=== PATIENT | male | born 1950 | race Caucasian/White ===

== ENCOUNTER 2019-01-10 10:56 | Observation (INO) | payer OTHER, MEDICARE ==
[2019-01-10] MEDS ORDERED: PANTOPRAZOLE 40 MG/10 ML VIAL IVP STA (12:31)
--- NOTE | 2019-01-10 12:35 | ED ---
General Adult HPI - General Chief complaint: GI Bleed Stated complaint: GI BLEED Time Seen by Provider: 01/10/19 12:04 Source: patient, family, RN notes reviewed Mode of arrival: ambulatory Limitations: no limitations - History of Present Illness Initial comments: Patient is a pleasant 68-year-old male presenting to the emergency department with dark tarry stools. Onset of symptoms was a day and a half ago. Patient does have history of similar symptoms a proximal he one year ago associated with a diverticular bleed however bowel movements were accommodation of blood and black at that time. At this point there only dark tarry. No abdominal pain. No nausea vomiting. The fevers. No weakness or fatigue. - Related Data Home Medications Medication Instructions Recorded Confirmed Furosemide [Lasix] 80 mg PO BID 01/10/19 01/10/19 Gabapentin [Neurontin] 800 mg PO QID 01/10/19 01/10/19 Insulin Glargine,Hum.rec.anlog 48 unit SQ DAILY 01/10/19 01/10/19 [Lantus Solostar] Levothyroxine Sodium [Synthroid] 75 mcg PO DAILY 01/10/19 01/10/19 Metoprolol Succinate (ER) [Toprol 100 mg PO BID 01/10/19 01/10/19 Xl] Olmesartan/Hydrochlorothiazide 1 tab PO DAILY 01/10/19 01/10/19 [Olmesartan-Hctz 20-12.5 mg Tab] Testosterone Cream 200mg/Ml 1 applic TOPICAL BID 01/10/19 01/10/19 glipiZIDE [Glucotrol] 10 mg PO BID 01/10/19 01/10/19 sitaGLIPtin PHOSPHATE [Januvia] 100 mg PO DAILY 01/10/19 01/10/19 Allergies Allergy/AdvReac Type Severity Reaction Status Date / Time No Known Allergies Allergy Verified 01/10/19 12:24 Review of Systems ROS Statement: Those systems with pertinent positive or pertinent negative responses have been documented in the HPI. ROS Other: All systems not noted in ROS Statement are negative. Constitutional: Denies: fever Eyes: Denies: eye pain ENT: Denies: ear pain Respiratory: Denies: dyspnea Cardiovascular: Denies: chest pain Endocrine: Denies: fatigue Gastrointestinal: Reports: melena. Denies: abdominal pain, nausea, vomiting Genitourinary: Denies: dysuria Musculoskeletal: Denies: back pain Skin: Denies: rash Neurological: Denies: weakness Past Medical History Past Medical History: Diabetes Mellitus, Hyperlipidemia, Hypertension, Thyroid Disorder History of Any Multi-Drug Resistant Organisms: None Reported Past Surgical History: Bariatric Surgery, Cardiac Ablation, Hernia Repair Past Psychological History: No Psychological Hx Reported Smoking Status: Former smoker Past Alcohol Use History: Occasional Past Drug Use History: None Reported General Exam Limitations: no limitations General appearance: alert, in no apparent distress Head exam: Present: atraumatic Eye exam: Present: normal appearance Neck exam: Present: normal inspection Respiratory exam: Present: normal lung sounds bilaterally Cardiovascular Exam: Present: regular rate, normal rhythm GI/Abdominal exam: Present: soft. Absent: distended, tenderness Rectal exam: Present: black stool Extremities exam: Present: normal inspection. Absent: pedal edema, calf tenderness Neurological exam: Present: alert Psychiatric exam: Present: normal affect, normal mood Skin exam: Present: normal color Course Vital Signs 01/10/19 01/10/19 11:18 13:45 Temperature 98.8 F Pulse Rate 81 79 Respiratory 16 18 Rate Blood Pressure 188/89 139/83 O2 Sat by Pulse 96 99 Oximetry Medical Decision Making - Medical Decision Making Patient reevaluated and resting comfortably in bed. Patient and family updated on results and plan. Case was discussed in detail with Dr. Ambrosio, who will admit for hospital call and did come evaluate the patient. - Lab Data Result diagrams: 01/10/19 12:42 01/10/19 12:42 Lab Results 01/10/19 01/10/19 01/10/19 Range/Units 12:42 12:42 12:42 WBC 6.3 (3.8-10.6) k/uL RBC 4.15 L (4.30-5.90) m/uL Hgb 13.0 (13.0-17.5) gm/dL Hct 40.2 (39.0-53.0) % MCV 96.9 (80.0-100.0) fL MCH 31.3 (25.0-35.0) pg MCHC 32.3 (31.0-37.0) g/dL RDW 13.4 (11.5-15.5) % Plt Count 168 (150-450) k/uL Neutrophils % 65 % Lymphocytes % 20 % Monocytes % 8 % Eosinophils % 2 % Basophils % 1 % Neutrophils # 4.1 (1.3-7.7) k/uL Lymphocytes # 1.3 (1.0-4.8) k/uL Monocytes # 0.5 (0-1.0) k/uL Eosinophils # 0.2 (0-0.7) k/uL Basophils # 0.0 (0-0.2) k/uL PT 11.5 (9.0-12.0) sec INR 1.1 (<1.2) APTT 25.3 (22.0-30.0) sec Sodium 141 (137-145) mmol/L Potassium 4.8 (3.5-5.1) mmol/L Chloride 102 (98-107) mmol/L Carbon Dioxide 29 (22-30) mmol/L Anion Gap 10 mmol/L BUN 47 H (9-20) mg/dL Creatinine 1.02 (0.66-1.25) mg/dL Est GFR (CKD-EPI)AfAm 88 (>60 ml/min/1.73 sqM) Est GFR (CKD-EPI)NonAf 76 (>60 ml/min/1.73 sqM) Glucose 193 H (74-99) mg/dL Calcium 9.9 (8.4-10.2) mg/dL Total Bilirubin 1.1 (0.2-1.3) mg/dL AST 70 H (17-59) U/L ALT 60 (21-72) U/L Alkaline Phosphatase 57 (38-126) U/L Total Protein 7.5 (6.3-8.2) g/dL Albumin 4.2 (3.5-5.0) g/dL Stool Occult Blood (Negative) 01/10/19 Range/Units 12:42 WBC (3.8-10.6) k/uL RBC (4.30-5.90) m/uL Hgb (13.0-17.5) gm/dL Hct (39.0-53.0) % MCV (80.0-100.0) fL MCH (25.0-35.0) pg MCHC (31.0-37.0) g/dL RDW (11.5-15.5) % Plt Count (150-450) k/uL Neutrophils % % Lymphocytes % % Monocytes % % Eosinophils % % Basophils % % Neutrophils # (1.3-7.7) k/uL Lymphocytes # (1.0-4.8) k/uL Monocytes # (0-1.0) k/uL Eosinophils # (0-0.7) k/uL Basophils # (0-0.2) k/uL PT (9.0-12.0) sec INR (<1.2) APTT (22.0-30.0) sec Sodium (137-145) mmol/L Potassium (3.5-5.1) mmol/L Chloride (98-107) mmol/L Carbon Dioxide (22-30) mmol/L Anion Gap mmol/L BUN (9-20) mg/dL Creatinine (0.66-1.25) mg/dL Est GFR (CKD-EPI)AfAm (>60 ml/min/1.73 sqM) Est GFR (CKD-EPI)NonAf (>60 ml/min/1.73 sqM) Glucose (74-99) mg/dL Calcium (8.4-10.2) mg/dL Total Bilirubin (0.2-1.3) mg/dL AST (17-59) U/L ALT (21-72) U/L Alkaline Phosphatase (38-126) U/L Total Protein (6.3-8.2) g/dL Albumin (3.5-5.0) g/dL Stool Occult Blood Positive (Negative) - Radiology Data Radiology results: image reviewed (X-ray showed nonspecific findings.) Disposition Clinical Impression: Gastrointestinal hemorrhage Disposition: ADMITTED IP TO THIS [facility] Is patient prescribed a controlled substance at d/c from ED?: No Referrals: Nonstaff,Physician [Primary Care Provider] - 1-2 days Decision Time: 14:55
[2019-01-10 13:06] LABS: Basophils % (A) 1 %; Eosinophils # (A) 0.2 k/uL (0-0.7); Eosinophils % (A) 2 %; HCT 40.2 % (39.0-53.0); Lymphocytes # (A) 1.3 k/uL (1.0-4.8); Lymphocytes % (A) 20 %; MCH 31.3 pg (25.0-35.0); MCHC 32.3 g/dL (31.0-37.0); MCV 96.9 fL (80.0-100.0); Monocytes # (A) 0.5 k/uL (0-1.0); Monocytes % (A) 8 %; Neutrophils # (A) 4.1 k/uL (1.3-7.7); Neutrophils % (A) 65 %; Platelet Count 168 k/uL (150-450); RBC 4.15 m/uL (4.30-5.90); RDW 13.4 % (11.5-15.5); WBC 6.3 k/uL (3.8-10.6)
[2019-01-10 13:19] LABS: Albumin 4.2 g/dL (3.5-5.0); Calcium 9.9 mg/dL (8.4-10.2); Potassium 4.8 mmol/L (3.5-5.1); Total Bilirubin 1.1 mg/dL (0.2-1.3); Total Protein 7.5 g/dL (6.3-8.2)
[2019-01-10 13:30] LABS: INR 1.1 (<1.2); Partial Thromboplastin Time 25.3 sec (22.0-30.0); Prothrombin Time 11.5 sec (9.0-12.0)
--- NOTE | 2019-01-10 13:35 | XR ---
EXAMINATION TYPE: XR abdomen 1V DATE OF EXAM: 01/10/2019 1:28 PM CLINICAL HISTORY: GI bleed or hemorrhage TECHNIQUE: 3 Upright KUB images of the abdomen are obtained. COMPARISON: None. FINDINGS: Vertical skin treva overlie the abdomen. Surgical clips epigastric region are seen. Scatt ered gas is seen in slightly prominent small and large bowel loops. No pneumoperitoneum. Metallic john dware from left hip surgery is partially imaged. There is moderate to advanced axial joint space loss and moderate acetabular spurring in the right hip. Visualized lung bases are clear. IMPRESSION: Overall nonobstructive bowel gas pattern is felt present.
[2019-01-10] MEDS ORDERED: NALOXONE 0.4 MG/ML 1 ML VIAL IV PRN (14:57)
[2019-01-10] MEDS: SODIUM CHLORIDE 0.9% 1,000 ML IV SCH (15:19)
[2019-01-10 17:06] VITALS: BMI 39.8
[2019-01-10 20:54] LABS: Glucose,Whole Blood 134 mg/dL (75-99)
[2019-01-10 21:21] LABS: HCT 36.6 % (39.0-53.0); HGB 12.2 gm/dL (13.0-17.5); MCH 32.6 pg (25.0-35.0); MCHC 33.4 g/dL (31.0-37.0); MCV 97.7 fL (80.0-100.0); Mean Platelet Volume 8.9; Platelet Count 155 k/uL (150-450); RBC 3.75 m/uL (4.30-5.90); RDW 13.4 % (11.5-15.5); WBC 5.2 k/uL (3.8-10.6)
[2019-01-10] MEDS: METOPROLOL SUCCINATE (ER) 100 MG TAB.ER.24H PO SCH (23:57)
[2019-01-10] MEDS: GABAPENTIN 400 MG CAP PO SCH (23:57)
[2019-01-11] MEDS: SODIUM CHLORIDE 0.9% 1,000 ML IV SCH ×3 (00:01→20:01)
[2019-01-11 03:26] LABS: Hemoglobin A1C 6.8 % (4.0-6.0)
[2019-01-11 07:19] LABS: HCT 39.3 % (39.0-53.0); HGB 11.9 gm/dL (13.0-17.5); MCH 30.5 pg (25.0-35.0); MCHC 30.4 g/dL (31.0-37.0); MCV 100.4 fL (80.0-100.0); Mean Platelet Volume 8.8; Platelet Count 166 k/uL (150-450); RBC 3.91 m/uL (4.30-5.90); WBC 6.4 k/uL (3.8-10.6)
[2019-01-11 07:20] LABS: Glucose,Whole Blood 177 mg/dL (75-99)
[2019-01-11] MEDS: GABAPENTIN 400 MG CAP PO SCH ×4 (08:18→21:24)
[2019-01-11] MEDS: FUROSEMIDE 80 MG TAB PO SCH ×2 (08:18→21:24)
[2019-01-11] MEDS: METOPROLOL SUCCINATE (ER) 100 MG TAB.ER.24H PO SCH ×2 (08:18→21:24)
[2019-01-11] MEDS: LINAGLIPTIN 5 MG TABLET PO SCH (08:18)
[2019-01-11] MEDS: LOSARTAN 50 MG TAB PO SCH (08:19)
[2019-01-11] MEDS: PANTOPRAZOLE 40 MG/10 ML VIAL IV SCH (08:19)
[2019-01-11] MEDS: HYDROCHLOROTHIAZIDE 12.5 MG CAP PO SCH (08:19)
[2019-01-11] MEDS: LEVOTHYROXINE 75 MCG TAB PO SCH (08:20)
--- NOTE | 2019-01-11 10:50 | P.GSCN ---
<Hrelinda Alejandre - Last Filed: 01/11/19 12:06> History of Present Illness Consult date: 01/11/19 Reason for Consult: gi bleed Requesting physician: Brant Barrios History of present illness: CHIEF COMPLAINT: dark tarry stools HISTORY OF PRESENT ILLNESS: 68-year-old male who presented to the emergency room due to black tarry stools. Patient states he began having dark tarry stools on Tuesday night. He did not tell his until late Tuesday because he thought it would go away on its own. Patient denies nausea or vomiting. Denies hematemesis. Denies bright red blood per rectum. Patient denies anticoagulation. Denies use of aspirin, motrin, aleve, etc. He reports drinking alcohol about 4 times a week which includes a glass or two of wine. Hemoglobin on admission was 13.0. Repeat this morning 11.9. Patient does report he was hospitalized in January 2018 at [facility] secondary to rectal bleeding. The patient underwent EGD which revea led normal findings. He also underwent colonoscopy at that time which revealed one medium sized diverticulum in the sigmoid colon with evidence of recent bleeding from the diverticular opening as well as ulceration within. 2 hemostatic clips were placed. Patients reports hemoglobin during that hospitalization was in the 7's and patient required RBC transfusion. PAST MEDICAL HISTORY: See list. PAST SURGICAL HISTORY: See list. SOCIAL HISTORY: No illicit drug use. Reports ETOH use 4x weekly. REVIEW OF SYSTEMS: CONSTITUTIONAL: Denies fever or chills. HEENT: Denies blurred vision, vision changes, or eye pain. Denies hemoptysis CARDIOVASCULAR: Denies chest pain or pressure. RESPIRATORY: No shortness of breath. GASTROINTESTINAL: Refer to HPI for pertinent findings HEMATOLOGIC: Denies bleeding disorders. GENITOURINARY: Denies any blood in urine. SKIN: Denies pruitis. Denies rash. PHYSICAL EXAM: VITAL SIGNS: Reviewed. GENERAL: Well-developed in no acute distress. HEENT: No sclera icterus. Extraocular movements grossly intact. Moist buccal mucosa. Head is atraumatic, normocephalic. ABDOMEN: Soft. Nondistended. Nontender. NEUROLOGIC: Alert and oriented. Cranial nerves II through XII grossly intact. ASSESSMENT: 1. GI bleed, patient reports dark tarry stools 2. Acute blood loss anemia secondary to above 3. Regular alcohol use, reportts wine consumption 4x weekly 4. History of EGD/colonoscopy 01/2018 revealing diverticular bleed with placement of 2 hemostatic clips PLAN: 1. NPO 2. Continue IV fluids 3. Monitor hemoglobin 4. Patient to undergo EGD today with Dr. Aragon Nurse practitioner note has been reviewed by physician. Signing provider agrees with the documented findings, assessment, and plan of care. Past Medical History Past Medical History: Atrial Fibrillation, Diabetes Mellitus, GI Bleed, Hyperlipidemia, Hypertension, Sleep Apnea/CPAP/BIPAP, Thyroid Disorder Additional Past Medical History / Comment(s): diverticulitis History of Any Multi-Drug Resistant Organisms: None Reported Past Surgical History: Bariatric Surgery, Cardiac Ablation, Hernia Repair, Joint Replacement Additional Past Surgical History / Comment(s): Boils lanced in past. Blephoplasty. Left hip replaced. Past Anesthesia/Blood Transfusion Reactions: No Reported Reaction Past Psychological History: No Psychological Hx Reported Smoking Status: Former smoker Past Alcohol Use History: Daily Past Drug Use History: None Reported - Past Family History Father Family Medical History: Cancer, Hypertension Additional Family Medical History / Comment(s): from lung cancer at 62 years old. Mother Family Medical History: No Reported History Additional Family Medical History / Comment(s): Mother passed at age 62 due to an auto accident. Medications and Allergies Home Medications Medication Instructions Recorded Confirmed Type Furosemide [Lasix] 80 mg PO BID 01/10/19 01/10/19 History Gabapentin [Neurontin] 800 mg PO QID 01/10/19 01/10/19 History Insulin Glargine,Hum.rec.anlog 48 unit SQ DAILY 01/10/19 01/10/19 History [Lantus Solostar] Levothyroxine Sodium [Synthroid] 75 mcg PO DAILY 01/10/19 01/10/19 History Metoprolol Succinate (ER) [Toprol 100 mg PO BID 01/10/19 01/10/19 History Xl] Olmesartan/Hydrochlorothiazide 1 tab PO DAILY 01/10/19 01/10/19 History [Olmesartan-Hctz 20-12.5 mg Tab] Testosterone Cream 200mg/Ml 1 applic TOPICAL BID 01/10/19 01/10/19 History glipiZIDE [Glucotrol] 10 mg PO BID 01/10/19 01/10/19 History sitaGLIPtin PHOSPHATE [Januvia] 100 mg PO DAILY 01/10/19 01/10/19 History Allergies Allergy/AdvReac Type Severity Reaction Status Date / Time No Known Allergies Allergy Verified 01/10/19 12:24 Surgical - Exam Vital Signs Temp Pulse Resp BP Pulse Ox 98.8 F 81 16 188/89 96 01/10/19 11:18 01/10/19 11:18 01/10/19 11:18 01/10/19 11:18 01/10/19 11:18 Results - Labs 01/11/19 07:02 01/10/19 12:42 Abnormal Lab Results - Last 24 Hours (Table) 01/10/19 01/10/19 01/10/19 Range/Units 12:42 12:42 20:43 RBC 4.15 L 3.75 L (4.30-5.90) m/uL Hgb 12.2 L (13.0-17.5) gm/dL Hct 36.6 L (39.0-53.0) % MCV (80.0-100.0) fL MCHC (31.0-37.0) g/dL BUN 47 H (9-20) mg/dL Glucose 193 H (74-99) mg/dL POC Glucose (mg/dL) (75-99) mg/dL Hemoglobin A1c (4.0-6.0) % AST 70 H (17-59) U/L 01/10/19 01/10/19 01/11/19 Range/Units 20:43 20:51 07:02 RBC 3.91 L (4.30-5.90) m/uL Hgb 11.9 L (13.0-17.5) gm/dL Hct (39.0-53.0) % MCV 100.4 H (80.0-100.0) fL MCHC 30.4 L (31.0-37.0) g/dL BUN (9-20) mg/dL Glucose (74-99) mg/dL POC Glucose (mg/dL) 134 H (75-99) mg/dL Hemoglobin A1c 6.8 H (4.0-6.0) % AST (17-59) U/L 01/11/19 Range/Units 07:13 RBC (4.30-5.90) m/uL Hgb (13.0-17.5) gm/dL Hct (39.0-53.0) % MCV (80.0-100.0) fL MCHC (31.0-37.0) g/dL BUN (9-20) mg/dL Glucose (74-99) mg/dL POC Glucose (mg/dL) 177 H (75-99) mg/dL Hemoglobin A1c (4.0-6.0) % AST (17-59) U/L Diabetes panel 01/10/19 01/10/19 Range/Units 12:42 20:43 Sodium 141 (137-145) mmol/L Potassium 4.8 (3.5-5.1) mmol/L Chloride 102 (98-107) mmol/L Carbon Dioxide 29 (22-30) mmol/L BUN 47 H (9-20) mg/dL Creatinine 1.02 (0.66-1.25) mg/dL Glucose 193 H (74-99) mg/dL Hemoglobin A1c 6.8 H (4.0-6.0) % Calcium 9.9 (8.4-10.2) mg/dL AST 70 H (17-59) U/L ALT 60 (21-72) U/L Alkaline Phosphatase 57 (38-126) U/L Total Protein 7.5 (6.3-8.2) g/dL Albumin 4.2 (3.5-5.0) g/dL Calcium panel 01/10/19 Range/Units 12:42 Calcium 9.9 (8.4-10.2) mg/dL Albumin 4.2 (3.5-5.0) g/dL Pituitary panel 01/10/19 Range/Units 12:42 Sodium 141 (137-145) mmol/L Potassium 4.8 (3.5-5.1) mmol/L Chloride 102 (98-107) mmol/L Carbon Dioxide 29 (22-30) mmol/L BUN 47 H (9-20) mg/dL Creatinine 1.02 (0.66-1.25) mg/dL Glucose 193 H (74-99) mg/dL Calcium 9.9 (8.4-10.2) mg/dL Adrenal panel 01/10/19 Range/Units 12:42 Sodium 141 (137-145) mmol/L Potassium 4.8 (3.5-5.1) mmol/L Chloride 102 (98-107) mmol/L Carbon Dioxide 29 (22-30) mmol/L BUN 47 H (9-20) mg/dL Creatinine 1.02 (0.66-1.25) mg/dL Glucose 193 H (74-99) mg/dL Calcium 9.9 (8.4-10.2) mg/dL Total Bilirubin 1.1 (0.2-1.3) mg/dL AST 70 H (17-59) U/L ALT 60 (21-72) U/L Alkaline Phosphatase 57 (38-126) U/L Total Protein 7.5 (6.3-8.2) g/dL Albumin 4.2 (3.5-5.0) g/dL <Brandyn Aragon - Last Filed: 01/11/19 14:29> History of Present Illness History of present illness: As above. We'll proceed with upper endoscopy at this time. Further recommendations will follow. Surgical - Exam Vital Signs Temp Pulse Resp BP Pulse Ox 98.8 F 81 16 188/89 96 01/10/19 11:18 01/10/19 11:18 01/10/19 11:18 01/10/19 11:18 01/10/19 11:18 Results - Labs 01/11/19 07:02 01/10/19 12:42 Abnormal Lab Results - Last 24 Hours (Table) 01/10/19 01/10/19 01/10/19 Range/Units 20:43 20:43 20:51 RBC 3.75 L (4.30-5.90) m/uL Hgb 12.2 L (13.0-17.5) gm/dL Hct 36.6 L (39.0-53.0) % MCV (80.0-100.0) fL MCHC (31.0-37.0) g/dL POC Glucose (mg/dL) 134 H (75-99) mg/dL Hemoglobin A1c 6.8 H (4.0-6.0) % Triglycerides (<150) mg/dL Cholesterol (<200) mg/dL LDL Cholesterol, Calc (0-99) mg/dL 01/11/19 01/11/19 01/11/19 Range/Units 07:02 07:02 07:13 RBC 3.91 L (4.30-5.90) m/uL Hgb 11.9 L (13.0-17.5) gm/dL Hct (39.0-53.0) % MCV 100.4 H (80.0-100.0) fL MCHC 30.4 L (31.0-37.0) g/dL POC Glucose (mg/dL) 177 H (75-99) mg/dL Hemoglobin A1c (4.0-6.0) % Triglycerides 219 H (<150) mg/dL Cholesterol 208 H (<200) mg/dL LDL Cholesterol, Calc 124 H (0-99) mg/dL 01/11/19 Range/Units 12:06 RBC (4.30-5.90) m/uL Hgb (13.0-17.5) gm/dL Hct (39.0-53.0) % MCV (80.0-100.0) fL MCHC (31.0-37.0) g/dL POC Glucose (mg/dL) 208 H (75-99) mg/dL Hemoglobin A1c (4.0-6.0) % Triglycerides (<150) mg/dL Cholesterol (<200) mg/dL LDL Cholesterol, Calc (0-99) mg/dL Diabetes panel 01/10/19 01/11/19 Range/Units 20:43 07:02 Hemoglobin A1c 6.8 H (4.0-6.0) % Triglycerides 219 H (<150) mg/dL HDL Cholesterol 40 (40-60) mg/dL
[2019-01-11 12:11] LABS: Glucose,Whole Blood 208 mg/dL (75-99)
[2019-01-11 12:37] LABS: Cholesterol 208 mg/dL (<200); HDL Cholesterol 40 mg/dL (40-60); LDL Cholesterol,Calculated 124 mg/dL (0-99); Triglycerides 219 mg/dL (<150)
[2019-01-11] MEDS ORDERED: PROPOFOL 10 MG/ML 20 ML VIAL IV ONE (14:17)
[2019-01-11] MEDS ORDERED: IV FLUID CONTINUATION 600 ML IV ONE (14:20)
--- NOTE | 2019-01-11 14:50 | P.PCN ---
Date of Procedure: 01/11/19 Procedure(s) Performed: Preoperative Dx: Upper GI bleed Postoperative Dx: Gastritis, post sleeve gastrectomy Procedure: EGD with Bx Anesthesia: Sedation Endoscopist: Dr. Aragon Specimens: Antrum Endoscopic Procedure: The patient was on the endoscopy table in the left decubitus position. The Olympus gastroscope was inserted into the oropharynx and passed under direct visualization to the region of the third portion of the duodenum. From that point the scope was slowly withdrawn inspecting all surfaces carefully. There were no neoplastic inflammatory or polypoid lesions throughout the duodenum. The pylorus was widely patent. The stomach was carefully inspected. There was evidence of previous sleeve gastrectomy. Patient had a small diverticulum noted. The patient's antrum had evidence of gastritis. Several biopsies took place. No ulcerations or obvious bleeding was seen. We could not retroflex the scope because of the previous sleeve gastrectomy. The patient's esophagus was examined and appeared otherwise normal. The patient was then taken to the recovery room in stable condition per anesthesia guidelines. Recommendations: Await biopsy results. Antiacid therapy. If bleeding persists may require colonoscopy.
[2019-01-11] MEDS: INSULIN DETEMIR (LEVEMIR) 100 UNIT/ML SYR SQ SCH (15:15)
[2019-01-11 15:33] LABS: HCT 37.7 % (39.0-53.0); HGB 11.8 gm/dL (13.0-17.5); MCH 31.2 pg (25.0-35.0); MCHC 31.4 g/dL (31.0-37.0); MCV 99.2 fL (80.0-100.0); Mean Platelet Volume 9.8; Platelet Count 121 k/uL (150-450); RDW 12.9 % (11.5-15.5); WBC 4.4 k/uL (3.8-10.6)
[2019-01-11 17:56] LABS: Glucose,Whole Blood 154 mg/dL (75-99)
[2019-01-11 20:44] LABS: Glucose,Whole Blood 152 mg/dL (75-99)
[2019-01-12] MEDS: LEVOTHYROXINE 75 MCG TAB PO SCH (05:43)
[2019-01-12] MEDS: SODIUM CHLORIDE 0.9% 1,000 ML IV SCH ×2 (05:45→13:09)
[2019-01-12 06:58] LABS: Glucose,Whole Blood 190 mg/dL (75-99)
[2019-01-12] MEDS: LINAGLIPTIN 5 MG TABLET PO SCH (08:20)
[2019-01-12] MEDS: HYDROCHLOROTHIAZIDE 12.5 MG CAP PO SCH (08:20)
[2019-01-12] MEDS: LOSARTAN 50 MG TAB PO SCH (08:20)
[2019-01-12] MEDS: METOPROLOL SUCCINATE (ER) 100 MG TAB.ER.24H PO SCH (08:20)
[2019-01-12] MEDS: FUROSEMIDE 80 MG TAB PO SCH (08:20)
[2019-01-12] MEDS: GABAPENTIN 400 MG CAP PO SCH ×2 (08:20→13:09)
[2019-01-12] MEDS: PANTOPRAZOLE 40 MG/10 ML VIAL IV SCH (08:20)
[2019-01-12] MEDS: INSULIN DETEMIR (LEVEMIR) 100 UNIT/ML SYR SQ SCH (08:26)
[2019-01-12 11:24] LABS: Glucose,Whole Blood 233 mg/dL (75-99)
[2019-01-12 11:29] LABS: Basophils % (A) 1 %; Eosinophils # (A) 0.1 k/uL (0-0.7); Eosinophils % (A) 3 %; HCT 38.5 % (39.0-53.0); HGB 12.6 gm/dL (13.0-17.5); Lymphocytes # (A) 1.2 k/uL (1.0-4.8); Lymphocytes % (A) 23 %; MCHC 32.7 g/dL (31.0-37.0); MCV 97.7 fL (80.0-100.0); Monocytes # (A) 0.4 k/uL (0-1.0); Monocytes % (A) 8 %; Neutrophils # (A) 3.2 k/uL (1.3-7.7); Neutrophils % (A) 62 %; Platelet Count 146 k/uL (150-450); RBC 3.94 m/uL (4.30-5.90); RDW 13.4 % (11.5-15.5); WBC 5.1 k/uL (3.8-10.6)
[2019-01-12 13:03] VITALS: BP 121/89; PULSE 80; RESP 20; TEMP 97.7
--- NOTE | 2019-01-12 13:58 | P.PN ---
<Herlinda Alejandre - Last Filed: 01/12/19 13:55> Subjective Progress Note Date: 01/12/19 CHIEF COMPLAINT: dark tarry stools HISTORY OF PRESENT ILLNESS: Patient underwent EGD yesterday revealing gastritis. Patient reports occasional small dark tarry stools, but significantly less than before hospitalization. He reports he has to wear a pad he is unable to control the drainage from his rectum. Denies abdominal pain. Denies nausea or vomiting. Tolerating diet. Hemoglobin 12.6. PHYSICAL EXAM: VITAL SIGNS: Reviewed. GENERAL: Well-developed in no acute distress. HEENT: No sclera icterus. Extraocular movements grossly intact. Moist buccal mucosa. Head is atraumatic, normocephalic. ABDOMEN: Soft. Nondistended. Nontender. NEUROLOGIC: Alert and oriented. Cranial nerves II through XII grossly intact. ASSESSMENT: 1. GI bleed, patient reports dark tarry stools 2. Acute blood loss anemia secondary to above 3. Regular alcohol use, reportts wine consumption 4x weekly 4. History of EGD/colonoscopy 01/2018 revealing diverticular bleed with placement of 2 hemostatic clips PLAN: Patient reports decreased black tarry stools. Hemoglobin remains stable. No plans for colonoscopy at this time. Continue diet. Nurse practitioner note has been reviewed by physician. Signing provider agrees with the documented findings, assessment, and plan of care. Objective - Vital Signs Vital signs: Vital Signs Temp 97.7 F 01/12/19 13:02 Pulse 80 01/12/19 13:02 Resp 20 01/12/19 13:02 BP 121/89 01/12/19 13:02 Pulse Ox 94 L 01/12/19 13:02 Intake & Output 01/11/19 01/12/19 01/12/19 18:59 06:59 18:59 Intake Total 100 400 Balance 100 400 Intake: IV 100 Oral 400 Other: Voiding Method Toilet # Voids 3 1 # Bowel Movements 0 - Labs CBC & Chem 7: 01/12/19 10:58 01/10/19 12:42 Labs: Abnormal Lab Results - Last 24 Hours (Table) 01/11/19 01/11/19 01/11/19 Range/Units 15:23 17:47 20:12 RBC 3.80 L (4.30-5.90) m/uL Hgb 11.8 L (13.0-17.5) gm/dL Hct 37.7 L (39.0-53.0) % Plt Count 121 L (150-450) k/uL POC Glucose (mg/dL) 154 H 152 H (75-99) mg/dL 01/12/19 01/12/19 01/12/19 Range/Units 06:56 10:58 11:23 RBC 3.94 L (4.30-5.90) m/uL Hgb 12.6 L (13.0-17.5) gm/dL Hct 38.5 L (39.0-53.0) % Plt Count 146 L (150-450) k/uL POC Glucose (mg/dL) 190 H 233 H (75-99) mg/dL <Brandyn Araogn - Last Filed: 01/12/19 15:15> Subjective As above. Patient had a small melanotic stool earlier today. No pain. Hemoglobin stable. Options again reviewed with the patient. Recommend follow- up with Dr. Torres to discuss endoscopic evaluation of the remnant stomach. Stable for discharge. Patient follow-up if bleeding persists. Objective - Vital Signs Vital signs: Vital Signs Temp 97.7 F 01/12/19 13:02 Pulse 80 01/12/19 13:02 Resp 20 01/12/19 13:02 BP 121/89 01/12/19 13:02 Pulse Ox 94 L 01/12/19 13:02 Intake & Output 01/11/19 01/12/19 01/12/19 18:59 06:59 18:59 Intake Total 100 400 Balance 100 400 Intake: IV 100 Oral 400 Other: Voiding Method Toilet Toilet # Voids 3 1 4 # Bowel Movements 0 1 - Labs CBC & Chem 7: 01/12/19 10:58 01/10/19 12:42 Labs: Abnormal Lab Results - Last 24 Hours (Table) 01/11/19 01/11/19 01/11/19 Range/Units 15:23 17:47 20:12 RBC 3.80 L (4.30-5.90) m/uL Hgb 11.8 L (13.0-17.5) gm/dL Hct 37.7 L (39.0-53.0) % Plt Count 121 L (150-450) k/uL POC Glucose (mg/dL) 154 H 152 H (75-99) mg/dL 01/12/19 01/12/19 01/12/19 Range/Units 06:56 10:58 11:23 RBC 3.94 L (4.30-5.90) m/uL Hgb 12.6 L (13.0-17.5) gm/dL Hct 38.5 L (39.0-53.0) % Plt Count 146 L (150-450) k/uL POC Glucose (mg/dL) 190 H 233 H (75-99) mg/dL
--- NOTE | 2019-01-12 21:53 | PN ---
PROGRESS NOTE CHIEF COMPLAINT: Probable upper GI hemorrhage. HISTORY OF PRESENT ILLNESS: This gentleman has been stable during the night. He has not had any further melena or hematochezia. Hemoglobin has dropped slightly. Pulse and blood pressure are normal. PHYSICAL EXAM: Chest is clear. Cardiac exam is normal. Abdomen is soft, nontender. IMPRESSION: Gastrointestinal bleed. PLAN: Endoscopy today and continue to monitor hemoglobin. MMODL / IJN: [id number] /
--- NOTE | 2019-01-13 07:51 | DS ---
DISCHARGE SUMMARY CHIEF COMPLAINT: GI bleed. HISTORY OF PRESENT ILLNESS AND PHYSICAL EXAM: Details of this man's history and physical can be found in the initial workup. LABORATORY STUDIES: While he was in the hospital, he had laboratory studies, details of which can be found in the laboratory section of his chart. COURSE IN HOSPITAL: After admission, he was placed on bedrest, started on intravenous fluids and no further suggestive bleeding. He was seen by Gastroenterology and taken for an endoscopy, which demonstrated no definite source of bleeding. He was stable and it was felt that he could go home and if he has further difficulty, he will undergo colonoscopy. FINAL DIAGNOSES: 1. Probable upper gastrointestinal bleed. 2. Blood loss anemia. 3. Hypertension. 4. Diabetes mellitus. OPERATIONS: None. CONSULTATION: Gastroenterology. He is improved. MMODL / IJN: [id number] /
--- NOTE | 2019-01-15 17:44 | HP ---
HISTORY AND PHYSICAL CHIEF COMPLAINT: GI bleed. HISTORY OF PRESENT ILLNESS: This is the first known admission for this 68-year-old obese white male. He came to the emergency room when he started to pass melanotic stool. He had no abdominal pain. He has had no indigestion, nausea, vomiting, hematemesis, bright red bleeding, etc. He had GI bleeding several years ago and was told that it was due to "diverticulitis." He is admitted for observation and further workup. His vital signs are normal. REVIEW OF SYSTEMS: He has had no headaches, CVAs, difficulty with the vision or the hearing, chest pain, cough, hemoptysis, shortness of breath, heart disease, history of ulcer disease, pancreatitis, liver disease, acute renal failure, hematuria, dysuria, etc. Past medical history, family history, and personal and social histories reveal that he does have a history of diabetes and hypertension. He also has peripheral neuropathy. He is NOT ALLERGIC TO ANY MEDICATION. He had a gastric bypass and umbilical herniorrhaphy. He has atrial fibrillation with 3 attempted ablations. He does not smoke. PHYSICAL EXAMINATION: Blood pressure is 136/84 with a pulse of 76, respirations of 21. He is afebrile. In general he appeared to be overweight, in no acute distress. Skin color was normal. Skin was warm and dry. Face was flushed. Head, ears, eyes, nose, mouth and throat were normal. Neck veins were not distended. Carotids were normal. The chest was clear. Cardiac exam was normal except for what sounded like atrial fibrillation. Abdomen was soft and nontender and it was very protuberant. Bowel sounds were heard. Extremities were normal. Neurologically he is intact. IMPRESSION: 1. Gastrointestinal bleeding, source unknown. 2. History of lower gastrointestinal bleed in the past. 3. History of hypertension. 4. History of diabetes. PLAN: 1. Bed rest. 2. IV fluids. 3. Monitor vital signs, hemoglobin and GI bleeding. 4. GI consult. MMODL / IJN: [id number] /
== END 2019-01-12 16:21 | disposition home or self-care (01) ==
LOC: EC 10:56 → 4MS4W 14:57
PROVIDERS: ADMIT Family Medicine; ATTEND Family Medicine
DX: K92.1 Melena (principal); D50.0 Iron deficiency anemia secondary to blood loss (chronic); I10 Essential (primary) hypertension; E11.42 Type 2 diabetes mellitus with diabetic polyneuropathy; E78.5 Hyperlipidemia, unspecified; K29.50 Unspecified chronic gastritis without bleeding; E03.9 Hypothyroidism, unspecified; I48.91 Unspecified atrial fibrillation; G47.33 Obstructive sleep apnea (adult) (pediatric); E66.9 Obesity, unspecified; Z68.39 Body mass index [BMI] 39.0-39.9, adult; Z79.890 Hormone replacement therapy; Z79.4 Long term (current) use of insulin; Z79.899 Other long term (current) drug therapy; Z98.84 Bariatric surgery status; Z98.0 Intestinal bypass and anastomosis status; Z87.891 Personal history of nicotine dependence; Z87.19 Personal history of other diseases of the digestive system; Z99.89 Dependence on other enabling machines and devices; Z80.1 Family history of malignant neoplasm of trachea, bronchus and lung
CPT/HCPCS: 96376; 96361 ×2; 96374; 99285; 36415; 88305; 80061; 80053; 85025 ×2; 85027 ×2; 85610; 85730; 82272; 83036; 74018; 43239; G0378 ×3; J2704; C9113 ×3

== ENCOUNTER 2020-09-15 10:36 | Day surgery (SDC) | payer MEDICARE, OTHER ==
[2020-09-11 15:10] VITALS: BMI 38.5
[~2020-09-15 10:36] MED LIST: LACTATED RINGERS 1,000 ML IV SCH; LIDOCAINE 1% (10MG/ML) FOR IV START INTRADERMA PRN
[2020-09-15 11:03] VITALS: RESP 16; TEMP 97.1
[2020-09-15 11:09] LABS: Glucose,Whole Blood 239 mg/dL (75-99)
[2020-09-15] MEDS ORDERED: INSULIN ASPART (NovoLOG) 100 UNIT/ML VIAL SQ ONE (11:12)
[2020-09-15] MEDS ORDERED: PROPOFOL 10 MG/ML 20 ML VIAL IV ONE (11:30)
--- NOTE | 2020-09-15 12:47 | P.PCN ---
Date of Procedure: 09/15/20 Description of Procedure: BRIEF HISTORY: Patient is a 70-year-old male presenting for outpatient colonoscopy for melena and stool positive for occult blood. Last colonoscopy 4 years ago by report. No abdominal pain reported. Bowel movements have been dark and tested positive for occult blood. PROCEDURE PERFORMED: Colonoscopy with polypectomy and gold probe ablation of AVM. PREOPERATIVE DIAGNOSIS: Melena, stool testing positive for occult blood, last colonoscopy 4 years ago with polypectomy by report patient. ESTIMATED BLOOD LOSS: Minimal. IV sedation per Anesthesia. PROCEDURE: After informed consent was obtained, the patient, was brought into the endoscopy unit. IV sedation was administered by Anesthesia under continuous monitoring. Digital rectal examination was normal. Initially the Olympus CF-190 flexible video colonoscope was then inserted in the rectum, gradually advanced into the cecum without any difficulty. Careful examination was performed as the scope was gradually being withdrawn. Ileocecal valve and the appendiceal orifice were visualized and appeared normal. Prep was fair with liquid stool throughout the colon. Mucosa of the cecum, ascending colon, transverse colon, descending colon, sigmoid colon, and rectum appeared normal. Multiple diverticula noted throughout the colon. A nonbleeding ascending colon AVM was treated with gold probe ablation. Cold snare polypectomy of polyps measuring 4 mm in size from the ascending colon 3 from the splenic flexure and from the descending colon 2. 2 transverse polyps measuring 9-11 mm in size removed with hot snare polypectomy. 15 mm descending colon polyp removed with hot snare polypectomy with Endo Clip placement for hemostasis. Retroflexion was performed in the rectum and no lesions were seen. The patient tolerated the procedure well. IMPRESSION: 6 polyps removed with cold snare polypectomy 3 from ascending colon, one from the splenic flexure and 2 from the descending colon. 2 transverse colon polyps removed with hot snare polypectomy. Large descending colon polyp removed with hot snare polypectomy with Endo Clip placement for hemostasis. Mild pandiverticulosis. Nonbleeding ascending colon AVM treated with gold probe ablation. RECOMMENDATIONS: Findings of this examination were discussed with the patient and his family. Okay to resume diet. Avoid anticoagulation therapy for the next 24 hours. Okay to resume diet. Continue current medical management. Patient will need repeat colonoscopy for further evaluation in 6 months due to fair prep and multiple polyps removed.
[2020-09-15 13:01] VITALS: BP 122/71; PULSE 81
== END 2020-09-15 13:46 | disposition home or self-care (01) ==
LOC: ORWHC2ENDO 10:36
PROVIDERS: ATTEND Internal Medicine
DX: D12.2 Benign neoplasm of ascending colon (principal); D12.4 Benign neoplasm of descending colon; D12.3 Benign neoplasm of transverse colon; K55.21 Angiodysplasia of colon with hemorrhage; K57.31 Diverticulosis of large intestine without perforation or abscess with bleeding; E78.5 Hyperlipidemia, unspecified; G47.33 Obstructive sleep apnea (adult) (pediatric); N28.9 Disorder of kidney and ureter, unspecified; G62.9 Polyneuropathy, unspecified; Z86.010 Personal history of colon polyps; Z98.890 Other specified postprocedural states; Z87.891 Personal history of nicotine dependence; Z79.899 Other long term (current) drug therapy; Z79.890 Hormone replacement therapy; Z79.4 Long term (current) use of insulin; Z98.84 Bariatric surgery status; Z87.19 Personal history of other diseases of the digestive system
CPT/HCPCS: 88305; 45382; 45385; J2704

== ENCOUNTER 2021-03-12 07:03 | Day surgery (SDC) | payer MEDICARE, OTHER ==
[2021-03-10 12:41] VITALS: BMI 38.0
[~2021-03-12 07:03] MED LIST changes: -LIDOCAINE 1% (10MG/ML) FOR IV START INTRADERMA PRN
[2021-03-12 07:23] VITALS: RESP 18; TEMP 97.9
[2021-03-12] MEDS ORDERED: LIDOCAINE 1% (10MG/ML) FOR IV START INTRADERMA ONE (07:32)
[2021-03-12 07:46] LABS: Glucose,Whole Blood 120 mg/dL (75-99)
[2021-03-12] MEDS ORDERED: PROPOFOL 10 MG/ML 20 ML VIAL IV ONE (07:50)
--- NOTE | 2021-03-12 08:24 | P.PCN ---
Date of Procedure: 03/12/21 Description of Procedure: BRIEF HISTORY: Patient is a 71-year-old male presenting for repeat colonoscopy for high-risk colon polyps and inadequate prep. Last colonoscopy 6 months ago with inadequate prep and polypectomy. No change in bowel habits. No abdominal pain. PROCEDURE PERFORMED: Colonoscopy with polypectomy. PREOPERATIVE DIAGNOSIS: High-risk colon polyps, last colonoscopy 6 months ago with an adequate prep and polypectomy. ESTIMATED BLOOD LOSS: Minimal. IV sedation per Anesthesia. PROCEDURE: After informed consent was obtained, the patient, was brought into the endoscopy unit. IV sedation was administered by Anesthesia under continuous monitoring. Digital rectal examination was normal. Initially the Olympus CF-190 flexible video colonoscope was then inserted in the rectum, gradually advanced into the cecum without any difficulty. Careful examination was performed as the scope was gradually being withdrawn. Ileocecal valve and the appendiceal orifice were visualized and appeared normal. Prep was excellent. Mucosa of the cecum, ascending colon, transverse colon, descending colon, sigmoid colon, and rectum appeared normal with a few scattered diverticula both small and large in appearance seen throughout the colon. 2 diminutive polyps removed from the ileo cecal valve measuring 1-2 mm in size with cold forcep polypectomy. One diminutive polyp removed from the transverse colon measuring 1 mm in size with cold forcep polypectomy. Retroflexion was performed in the rectum and no lesions were seen, Internal hemorrhoids. The patient tolerated the procedure well. IMPRESSION: 3 diminutive polyps removed from the ileocecal valve 2 and transverse colon. Moderate osullivan diverticulosis. Internal hemorrhoids. RECOMMENDATIONS: Findings of this examination were discussed with the patient and his family. Okay to resume diet. Okay to resume medications except for anticoagulation therapy which should be resumed tomorrow. Await pathology from a polypectomies. Recommend repeat colonoscopy in 3 years for colon polyps pending pathology from polypectomy.
[2021-03-12 08:33] VITALS: BP 136/73; PULSE 68
== END 2021-03-12 09:11 | disposition home or self-care (01) ==
LOC: ORWHC2ENDO 07:03
PROVIDERS: ATTEND Internal Medicine
DX: Z12.11 Encounter for screening for malignant neoplasm of colon (principal); D12.0 Benign neoplasm of cecum; Z98.890 Other specified postprocedural states; K57.30 Diverticulosis of large intestine without perforation or abscess without bleeding; K64.8 Other hemorrhoids; I48.91 Unspecified atrial fibrillation; I10 Essential (primary) hypertension; E78.5 Hyperlipidemia, unspecified; G47.33 Obstructive sleep apnea (adult) (pediatric); E11.40 Type 2 diabetes mellitus with diabetic neuropathy, unspecified; E07.9 Disorder of thyroid, unspecified; M10.9 Gout, unspecified; Z79.890 Hormone replacement therapy; Z87.891 Personal history of nicotine dependence; Z79.4 Long term (current) use of insulin; Z79.899 Other long term (current) drug therapy
CPT/HCPCS: 88305; 45380; J2704

== ENCOUNTER 2021-07-01 15:38 | Inpatient (IN) | payer OTHER, MEDICARE ==
[2021-07-01 16:47] LABS: Glucose,Whole Blood 270 mg/dL (75-99)
[2021-07-01 17:04] LABS: INR 1.2 (<1.2); Partial Thromboplastin Time 26.2 sec (22.0-30.0); Prothrombin Time 12.5 sec (9.0-12.0)
--- NOTE | 2021-07-01 17:04 | ED ---
Neuro HPI - General Chief Complaint: Neuro Symptoms/Deficit Stated Complaint: AMS, Time Seen by Provider: 07/01/21 16:10 Source: family Mode of arrival: wheelchair Limitations: no limitations - History of Present Illness Is the patient presenting with stroke symptoms?: Yes Initial Comments: 71-year-old male with past medical history of diabetes, A. fib who presents emergency department with slurred speech, expressive aphasia, flat affect and some confusion. His at bedside and helps provide history. States that her began having some confusion on Tuesday. He was attempting to do some math regarding his insulin dose and was having difficulty. Also attempted to balance checkbook which is usually an easy task for him however he could not and the had to help. She states he has had a flat affect which is not typical for his personality. She was concerned for stroke however states she did not bring him in sooner because he was not having any weakness in his extremities. Patient does admit that he has some difficulty finding his words. Denies any chest pain or shortness of breath. He is not on any anticoagulation as he had a GI bleed in the past. No fevers or chills. No head trauma. No previous history of stroke. No other alleviating, precipitating or modifying factors - Related Data Home Medications: Home Medications Medication Instructions Recorded Confirmed Furosemide [Lasix] 80 mg PO BID 01/10/19 07/01/21 Gabapentin [Neurontin] 800 mg PO QID 01/10/19 07/01/21 Insulin Glargine,Hum.rec.anlog 25 unit SQ Q12H 01/10/19 07/01/21 [Lantus Solostar Pen] Levothyroxine Sodium [Synthroid] 75 mcg PO DAILY 01/10/19 07/01/21 Allopurinol [Zyloprim] 200 mg PO DAILY 09/11/20 07/01/21 Alogliptin Benzoate [Alogliptin] 25 mg PO DAILY 09/11/20 07/01/21 Ferrous Sulfate [Feosol] 325 mg PO DAILY 09/11/20 07/01/21 Losartan-Hctz 50-12.5 mg [Hyzaar 1 tab PO DAILY 09/11/20 07/01/21 50-12.5] Pravastatin Sodium [Pravachol] 20 mg PO HS 09/11/20 07/01/21 Ammonium Lactate Cream [Lac-Hydrin 1 applic TOPICAL BID PRN 07/01/21 07/01/21 12% Cream] Clindamycin Lotion 1% 1 applic TOPICAL BID PRN 07/01/21 07/01/21 Dextrose Chew [Glucose Chew Tab] 16 gm PO DAILY PRN 07/01/21 07/01/21 Fluticasone Nasal [place] [Flonase 2 spray EA NOSTRIL DAILY PRN 07/01/21 07/01/21 Nasal [place]] Insulin Glargine,Hum.rec.anlog See Protocol SQ Q12H PRN 07/01/21 07/01/21 [Lantus Solostar Pen] Psyllium Husk (with Sugar) 1 tsp PO DAILY PRN 07/01/21 07/01/21 [Metamucil Powder] Sildenafil Citrate 50 mg PO DAILY PRN 07/01/21 07/01/21 Testosterone [Androgel 1.62% Gel 2 pump TOPICAL DAILY 07/01/21 07/01/21 Pump] Allergies/Adverse Reactions: Allergies Allergy/AdvReac Type Severity Reaction Status Date / Time No Known Allergies Allergy Verified 07/01/21 17:44 Review of Systems ROS Statement: Those systems with pertinent positive or pertinent negative responses have been documented in the HPI. ROS Other: All systems not noted in ROS Statement are negative. General Exam Limitations: altered mental status General appearance: alert, in no apparent distress Head exam: Present: atraumatic, normocephalic, normal inspection Eye exam: Present: normal appearance, PERRL, EOMI. Absent: scleral icterus, c onjunctival injection, periorbital swelling ENT exam: Present: mucous membranes dry Neck exam: Present: normal inspection. Absent: tenderness, meningismus, lymphadenopathy Respiratory exam: Present: normal lung sounds bilaterally. Absent: respiratory distress, wheezes, rales, rhonchi, stridor Cardiovascular Exam: Present: regular rate, normal rhythm, normal heart sounds. Absent: systolic murmur, diastolic murmur, rubs, gallop, clicks Neurological exam: Present: alert, oriented X3, other (very mild expressive aphasia - transient but recurrent) Psychiatric exam: Present: flat affect Skin exam: Present: warm, dry, intact, normal color. Absent: rash Stroke MDM - Lab Data Result diagrams: 07/09/21 06:45 07/09/21 06:45 Lab Results 07/01/21 07/01/21 07/01/21 Range/Units 16:45 16:45 16:45 WBC 7.0 (3.8-10.6) k/uL RBC 2.62 L (4.30-5.90) m/uL Hgb 9.1 L (13.0-17.5) gm/dL Hct 26.9 L (39.0-53.0) % MCV 102.6 H (80.0-100.0) fL MCH 34.7 (25.0-35.0) pg MCHC 33.9 (31.0-37.0) g/dL RDW 17.3 H (11.5-15.5) % Plt Count 86 L (150-450) k/uL MPV 12.2 Neutrophils % 69 % Lymphocytes % 14 % Monocytes % 10 % Eosinophils % 2 % Basophils % 1 % Neutrophils # 4.8 (1.3-7.7) k/uL Lymphocytes # 1.0 (1.0-4.8) k/uL Monocytes # 0.7 (0-1.0) k/uL Eosinophils # 0.2 (0-0.7) k/uL Basophils # 0.1 (0-0.2) k/uL Manual Slide Review Performed Large Platelets Present Poikilocytosis (manual Present Anisocytosis Slight Macrocytosis Moderate PT 12.5 H (9.0-12.0) sec INR 1.2 H (<1.2) APTT 26.2 (22.0-30.0) sec Sodium 141 (137-145) mmol/L Potassium 3.7 (3.5-5.1) mmol/L Chloride 101 (98-107) mmol/L Carbon Dioxide 24 (22-30) mmol/L Anion Gap 16 mmol/L BUN 116 H* (9-20) mg/dL Creatinine 5.74 H (0.66-1.25) mg/dL Est GFR (CKD-EPI)AfAm 11 (>60 ml/min/1.73 sqM) Est GFR (CKD-EPI)NonAf 9 (>60 ml/min/1.73 sqM) Glucose 275 H (74-99) mg/dL POC Glucose (mg/dL) (75-99) mg/dL POC Glu Administrative Support Clerk ID Calcium 9.5 (8.4-10.2) mg/dL Total Bilirubin 2.1 H (0.2-1.3) mg/dL AST 74 H (17-59) U/L ALT 41 (4-49) U/L Alkaline Phosphatase 71 (38-126) U/L Troponin I (0.000-0.034) ng/mL Total Protein 8.2 (6.3-8.2) g/dL Albumin 4.1 (3.5-5.0) g/dL 07/01/21 07/01/21 Range/Units 16:45 16:45 WBC (3.8-10.6) k/uL RBC (4.30-5.90) m/uL Hgb (13.0-17.5) gm/dL Hct (39.0-53.0) % MCV (80.0-100.0) fL MCH (25.0-35.0) pg MCHC (31.0-37.0) g/dL RDW (11.5-15.5) % Plt Count (150-450) k/uL MPV Neutrophils % % Lymphocytes % % Monocytes % % Eosinophils % % Basophils % % Neutrophils # (1.3-7.7) k/uL Lymphocytes # (1.0-4.8) k/uL Monocytes # (0-1.0) k/uL Eosinophils # (0-0.7) k/uL Basophils # (0-0.2) k/uL Manual Slide Review Large Platelets Poikilocytosis (manual Anisocytosis Macrocytosis PT (9.0-12.0) sec INR (<1.2) APTT (22.0-30.0) sec Sodium (137-145) mmol/L Potassium (3.5-5.1) mmol/L Chloride (98-107) mmol/L Carbon Dioxide (22-30) mmol/L Anion Gap mmol/L BUN (9-20) mg/dL Creatinine (0.66-1.25) mg/dL Est GFR (CKD-EPI)AfAm (>60 ml/min/1.73 sqM) Est GFR (CKD-EPI)NonAf (>60 ml/min/1.73 sqM) Glucose (74-99) mg/dL POC Glucose (mg/dL) 270 H (75-99) mg/dL POC Glu Administrative Support Clerk ID Courtney Still Calcium (8.4-10.2) mg/dL Total Bilirubin (0.2-1.3) mg/dL AST (17-59) U/L ALT (4-49) U/L Alkaline Phosphatase (38-126) U/L Troponin I 0.039 H* (0.000-0.034) ng/mL Total Protein (6.3-8.2) g/dL Albumin (3.5-5.0) g/dL - Medical Decision Making Upon arrival patient was placed into trauma bay 2. A thorough history and physical exam was performed. Onset of symptoms was on Tuesday. Patient has a NIH of 1 at this time for expressive aphasia. He does go over for CT imaging. Laboratory studies are conducted. Review the studies demonstrate a hemoglobin of 9.1. Platelet 86. BUN 116 with a creatinine of 5.7. Glucose 275. Troponin 0.039. CT of the brain demonstrates cerebral atrophy with no acute abnormality. Chest x-ray demonstrates no active cardiopulmonary disease. Results are discussed the patient. Byrd is place for kidney failure. Patient does have immediate release of a liter of urine. This is clamped off. Her 20 minutes it is released in the patient does have an additional 500 mL in his bladder. Renal ultrasound performed. Did recommend admission for nephrology and neurology consultation. Patient was given an aspirin. He did agree to this plan. Spoke with Dr. jean-baptiste who agree to admit the patient. Patient currently awaiting a bed on the floor 07/01/21 17:03 EKG demonstrates questionable sinus rhythm with PACs vs possible afib. Rate of 68. VT interval 248. QRS 192. QTC 544 Repeat EKG at 1756 demonstrates possible A. fib with a rate of 70. VT interval 220. QRS 152. QTC of 565. Right bundle branch block. Past Medical History Past Medical History: Atrial Fibrillation, Diabetes Mellitus, GI Bleed, Hyperlipidemia, Hypertension, Skin Disorder, Sleep Apnea/CPAP/BIPAP, Thyroid Disorder Additional Past Medical History / Comment(s): diverticulitis, hx colon polyp, gout, little bumps and dry skin, neuropathy patty legs and feet, hx anemia History of Any Multi-Drug Resistant Organisms: None Reported Past Surgical History: Bariatric Surgery, Cardiac Ablation, Hernia Repair, Joint Replacement Additional Past Surgical History / Comment(s): Boils lanced on back. Blephoplasty. left hip replacement, shannan-en-y Past Anesthesia/Blood Transfusion Reactions: Previous Problems w/ Anesthesia Additional Past Anesthesia/Blood Transfusion Reaction / Comment(s): woke up during procedure Past Psychological History: No Psychological Hx Reported Smoking Status: Former smoker Past Alcohol Use History: Occasional Past Drug Use History: None Reported - Past Family History Father Family Medical History: Cancer Additional Family Medical History / Comment(s): lung Mother Family Medical History: No Reported History Additional Family Medical History / Comment(s): Mother passed at age 62 due to an auto accident. Brother(s) Family Medical History: Cancer Additional Family Medical History / Comment(s): throat Sister(s) Family Medical History: Cancer Additional Family Medical History / Comment(s): lymphoma Course Vital Signs 07/01/21 07/01/21 07/01/21 16:11 16:30 16:37 Temperature 98.0 F Pulse Rate 61 67 64 Respiratory 20 10 L 18 Rate Blood Pressure 164/94 189/79 189/79 O2 Sat by Pulse 97 98 98 Oximetry 07/01/21 07/01/21 07/01/21 17:00 17:30 18:00 Temperature Pulse Rate 63 60 Respiratory 10 L 10 L 10 L Rate Blood Pressure 189/79 189/79 189/79 O2 Sat by Pulse 98 98 97 Oximetry 07/01/21 07/01/21 07/01/21 18:30 18:44 21:00 Temperature Pulse Rate 66 64 Respiratory 16 20 Rate Blood Pressure 189/79 170/84 153/87 O2 Sat by Pulse 98 99 Oximetry 07/01/21 07/02/21 22:00 01:04 Temperature Pulse Rate 65 64 Respiratory 20 20 Rate Blood Pressure 162/90 O2 Sat by Pulse 99 95 Oximetry Disposition Clinical Impression: Expressive aphasia, KATHERINE (acute kidney injury), Acute encephalopathy Disposition: ADMITTED IP TO THIS [facility] Condition: Serious Is patient prescribed a controlled substance at d/c from ED?: No Decision to Admit Reason: Admit from EC Decision Date: 07/01/21 Decision Time: 19:31
[2021-07-01 17:10] LABS: Anisocytosis Slight; Basophils # (A) 0.1 k/uL (0-0.2); Basophils % (A) 1 %; Eosinophils # (A) 0.2 k/uL (0-0.7); Eosinophils % (A) 2 %; HCT 26.9 % (39.0-53.0); HGB 9.1 gm/dL (13.0-17.5); Lymphocytes % (A) 14 %; MCH 34.7 pg (25.0-35.0); MCHC 33.9 g/dL (31.0-37.0); MCV 102.6 fL (80.0-100.0); Macrocytosis Moderate; Mean Platelet Volume 12.2; Monocytes # (A) 0.7 k/uL (0-1.0); Monocytes % (A) 10 %; Neutrophils # (A) 4.8 k/uL (1.3-7.7); Neutrophils % (A) 69 %; RBC 2.62 m/uL (4.30-5.90); RDW 17.3 % (11.5-15.5)
[2021-07-01 17:15] LABS: Albumin 4.1 g/dL (3.5-5.0); Calcium 9.5 mg/dL (8.4-10.2); Total Bilirubin 2.1 mg/dL (0.2-1.3); Total Protein 8.2 g/dL (6.3-8.2)
--- NOTE | 2021-07-01 17:46 | XR ---
EXAMINATION TYPE: XR chest 2V DATE OF EXAM: 07/01/2021 COMPARISON: NONE HISTORY: Altered mental status TECHNIQUE: 2 views FINDINGS: There is no heart failure nor confluent pneumonic infiltrate. Costophrenic angles are clear . There are chest leads. IMPRESSION: No active cardiopulmonary disease. Normal heart. No change.
[2021-07-01 17:50] LABS: Potassium 3.7 mmol/L (3.5-5.1)
[2021-07-01 17:57] LABS: Large Platelets Present; Platelet Count 86 k/uL (150-450)
[2021-07-01 17:58] LABS: Poikilocytosis (M) Present
--- NOTE | 2021-07-01 19:09 | CT ---
EXAMINATION TYPE: CT brain wo con DATE OF EXAM: 07/01/2021 COMPARISON: None HISTORY: Weakness and dizziness. CT DLP: 1290.4 mGycm Automated exposure control for dose reduction was used. There is some cerebral cortical atrophy. There is no mass effect nor midline shift. There is no sign of intracranial hemorrhage. Calvarium is intact. There is normal aeration of the mastoid sinuses. IMPRESSION: Cerebral atrophy. No acute intracranial abnormality.
[2021-07-01] MEDS ORDERED: NALOXONE 0.4 MG/ML 1 ML VIAL IV PRN (19:31)
[2021-07-01] MEDS ORDERED: ASPIRIN 325 MG TAB PO STA (19:35)
[2021-07-01] MEDS: SODIUM CHLORIDE 0.9% 1,000 ML IV SCH (20:07)
[2021-07-01 20:33] LABS: Appearance,Urine Clear (Clear); Bilirubin,Urine Negative (Negative); Blood,Urine Negative (Negative); Color,Urine Light Yellow; Glucose,Urine (UA) Trace (Negative); Ketones,Urine Negative (Negative); Leukocyte Esterase,Urine Negative (Negative); Nitrite,Urine Negative (Negative); PH, Urine 6.5 (5.0-8.0); Protein,Urine Trace (Negative)
--- NOTE | 2021-07-01 21:05 | US ---
EXAMINATION TYPE: US renals and bladder DATE OF EXAM: 07/01/2021 COMPARISON: NONE CLINICAL HISTORY: kathia. EXAM MEASUREMENTS: Right Kidney: 13.2 x 6.6 x 6.6 cm Left Kidney: 13.2 x 6.7 x 6.3 cm Right Kidney: No hydronephrosis. Two cystic areas lower pole, largest measuring 2.1 cm Left Kidney: No hydronephrosis. Two cystic areas, largest measuring 7.2 x 4.8 x 5.9 cm Bladder: Debris visualized. patient has duffy There is no evidence for hydronephrosis at this point in time IMPRESSION: Kidneys are large and can be associated with diabetes. No hydronephrosis. Gallstones are noted. There is Duffy catheter in the urinary bladder. There is some debris in the uri nary bladder.
[2021-07-01] MEDS ORDERED: ACETAMINOPHEN TAB 325 MG TAB PO PRN (23:41)
[2021-07-02 01:25] LABS: Glucose,Whole Blood 184 mg/dL (75-99)
[2021-07-02 05:44] LABS: Anisocytosis Slight; Basophils # (A) 0.1 k/uL (0-0.2); Basophils % (A) 1 %; Eosinophils # (A) 0.2 k/uL (0-0.7); Eosinophils % (A) 4 %; HCT 25.4 % (39.0-53.0); HGB 8.4 gm/dL (13.0-17.5); Lymphocytes # (A) 0.9 k/uL (1.0-4.8); Lymphocytes % (A) 14 %; MCH 35.2 pg (25.0-35.0); MCHC 33.1 g/dL (31.0-37.0); MCV 106.6 fL (80.0-100.0); Macrocytosis Marked; Mean Platelet Volume 11.3; Monocytes # (A) 0.6 k/uL (0-1.0); Monocytes % (A) 9 %; Neutrophils # (A) 4.5 k/uL (1.3-7.7); Neutrophils % (A) 70 %; RBC 2.38 m/uL (4.30-5.90); RDW 17.3 % (11.5-15.5); WBC 6.4 k/uL (3.8-10.6)
[2021-07-02] MEDS ORDERED: LORazepam 2 MG/ML INJ IV PRN ×2 (05:45)
[2021-07-02] MEDS ORDERED: THIAMINE 100 MG/ML 2 ML VIAL IM ONE (06:00)
[2021-07-02 06:01] LABS: Platelet Count 94 k/uL (150-450)
[2021-07-02 06:01] LABS: Glucose,Whole Blood 253 mg/dL (75-99)
[2021-07-02] MEDS: INSULIN ASPART (NovoLOG) 100 UNIT/ML VIAL SQ SCH ×4 (06:31→20:50)
[2021-07-02] MEDS: SODIUM CHLORIDE 0.9% 1,000 ML IV SCH ×2 (06:32→20:51)
[2021-07-02 06:33] LABS: Calcium 9.3 mg/dL (8.4-10.2); Potassium 3.7 mmol/L (3.5-5.1)
[2021-07-02] MEDS ORDERED: FAMOTIDINE 20 MG/2 ML VIAL IV SCH (09:00)
--- NOTE | 2021-07-02 09:38 | P.NPCON ---
History of Present Illness - Reason for Consult acute renal failure - History of Present Illness Reason for consultation: Acute kidney injury History of present illness: The patient is a 71-year-old male seen in consultation for acute kidney injury. Patient's creatinine in January 2019 was 1.02 and was elevated at 5.74 on admission yesterday. Today it is down to 5.43. He is maintained on normal saline at 75 mL an hour. Patient presented to the hospital with confusion. Patient states he was not acting himself and his wanted him admitted in the hospital. He also admits to poor oral intake the last few days and has also been dry heaving. Patient states he's lost about 20 pounds in the last 2 months or so. Chest x-ray was not suggestive of fluid overload. Renal ultrasound revealed no evidence of hydronephrosis. He was taking Lasix as well as hydrochlorothiazide at home which are both currently held. He currently has a Byrd catheter and is nonoliguric. Denies use of nonsteroidals. No chest pain or shortness of breath. No edema. No fever or chills. No evidence of hypotension. He does have long-standing history of diabetes mellitus. Denies family history of renal disease. Vital signs are stable. General: The patient appeared well nourished and normally developed. HEENT: Head exam is unremarkable. LUNGS: Breath sounds decreased. HEART: Rate and Rhythm are regular. ABDOMEN: Soft, obese. EXTREMITITES: No edema. Past Medical History Past Medical History: Atrial Fibrillation, Diabetes Mellitus, GI Bleed, Hyperlipidemia, Hypertension, Skin Disorder, Sleep Apnea/CPAP/BIPAP, Thyroid Disorder Additional Past Medical History / Comment(s): diverticulitis, hx colon polyp, gout, little bumps and dry skin, neuropathy patty legs and feet, hx anemia, agent orange exposure. History of Any Multi-Drug Resistant Organisms: None Reported Past Surgical History: Bariatric Surgery, Cardiac Ablation, Hernia Repair, Joint Replacement Additional Past Surgical History / Comment(s): Boils lanced on back. Blephoplasty. left hip replacement, shannan-en-y Past Anesthesia/Blood Transfusion Reactions: Previous Problems w/ Anesthesia Additional Past Anesthesia/Blood Transfusion Reaction / Comment(s): woke up during procedure Past Psychological History: No Psychological Hx Reported Smoking Status: Former smoker Past Alcohol Use History: Occasional Additional Past Alcohol Use History / Comment(s): quit smoking 15 yrs ago, smoked on and off for 20 yrs Past Drug Use History: None Reported - Past Family History Father Family Medical History: Cancer Additional Family Medical History / Comment(s): lung Mother Family Medical History: No Reported History Additional Family Medical History / Comment(s): Mother passed at age 62 due to an auto accident. Brother(s) Family Medical History: Cancer Additional Family Medical History / Comment(s): throat Sister(s) Family Medical History: Cancer Additional Family Medical History / Comment(s): lymphoma Medications and Allergies Home Medications Medication Instructions Recorded Confirmed Type Furosemide [Lasix] 80 mg PO BID 01/10/19 07/01/21 History Gabapentin [Neurontin] 800 mg PO QID 01/10/19 07/01/21 History Insulin Glargine,Hum.rec.anlog 25 unit SQ Q12H 01/10/19 07/01/21 History [Lantus Solostar Pen] Levothyroxine Sodium [Synthroid] 75 mcg PO DAILY 01/10/19 07/01/21 History Allopurinol [Zyloprim] 200 mg PO DAILY 09/11/20 07/01/21 History Alogliptin Benzoate [Alogliptin] 25 mg PO DAILY 09/11/20 07/01/21 History Ferrous Sulfate [Feosol] 325 mg PO DAILY 09/11/20 07/01/21 History Losartan-Hctz 50-12.5 mg [Hyzaar 1 tab PO DAILY 09/11/20 07/01/21 History 50-12.5] Pravastatin Sodium [Pravachol] 20 mg PO HS 09/11/20 07/01/21 History Ammonium Lactate Cream [Lac-Hydrin 1 applic TOPICAL BID PRN 07/01/21 07/01/21 History 12% Cream] Clindamycin Lotion 1% 1 applic TOPICAL BID PRN 07/01/21 07/01/21 History Dextrose Chew [Glucose Chew Tab] 16 gm PO DAILY PRN 07/01/21 07/01/21 History Fluticasone Nasal [place] [Flonase 2 spray EA NOSTRIL DAILY PRN 07/01/21 07/01/21 History Nasal [place]] Insulin Glargine,Hum.rec.anlog See Protocol SQ Q12H PRN 07/01/21 07/01/21 History [Lantus Solostar Pen] Psyllium Husk (with Sugar) 1 tsp PO DAILY PRN 07/01/21 07/01/21 History [Metamucil Powder] Sildenafil Citrate 50 mg PO DAILY PRN 07/01/21 07/01/21 History Testosterone [Androgel 1.62% Gel 2 pump TOPICAL DAILY 07/01/21 07/01/21 History Pump] Allergies Allergy/AdvReac Type Severity Reaction Status Date / Time No Known Allergies Allergy Verified 07/01/21 17:44 Physical Exam Vitals: Vital Signs Temp Pulse Pulse Resp BP BP Pulse Ox 07/02/21 04:32 97.8 F 54 L 16 152/86 97 07/02/21 01:30 97.7 F 63 16 164/72 98 07/02/21 01:04 64 20 95 07/01/21 22:00 65 20 162/90 99 07/01/21 21:00 64 20 153/87 99 07/01/21 18:44 66 16 170/84 98 07/01/21 18:30 189/79 07/01/21 18:00 10 L 189/79 97 07/01/21 17:30 60 10 L 189/79 98 07/01/21 17:00 63 10 L 189/79 98 07/01/21 16:37 64 18 189/79 98 07/01/21 16:30 67 10 L 189/79 98 07/01/21 16:11 98.0 F 61 20 164/94 97 Intake and Output 07/01/21 07/02/21 07/02/21 22:59 06:59 14:59 Intake Total 760 180 Output Total 1050 860 Balance -1050 -100 180 Intake: IV 460 Invasive Line 1 10 Sodium Chloride 0.9% 1, 450 000 ml @ 75 mls/hr IV . [id number] [facility] Rx#:[id number] Oral 300 180 Output: Urine 1050 860 Uretheral (Byrd) 1050 Other: Voiding Method Indwelling Catheter Weight 127.006 kg 121.2 kg Results - Lab Results Most recent lab results Calcium 9.3 mg/dL (8.4-10.2) 07/02/21 05:04 Magnesium 2.0 mg/dL (1.6-2.3) 07/02/21 05:04 07/02/21 05:04 07/02/21 05:04 Assessment and Plan Plan: Assessment: 1. Acute kidney injury secondary to ATN secondary to hypovolemia from diuretics and poor intake. Creatinine was 5.74 on admission and is down to 5.43 today. UA is fairly benign. No hydronephrosis noted on kidney ultrasound. 2. Acute encephalopathy. Brain CT negative. Possibly uremia. Currently alert and oriented. 3. Diabetes mellitus. 4. Anemia. Rule out iron deficiency. 5. Benign hypertension. Plan: Maintain normal saline at 75 mL an hour. Continue to hold diuretics and losartan. Follow-up echocardiogram. Avoid nephrotoxins. Continue to monitor renal function and urine output. Check iron studies. Thank you for the consult patient. I will continue to follow the patient with you during his hospital stay.
[2021-07-02] MEDS: HEPARIN SODIUM,PORCINE/PF 5,000 UNIT/0.5 ML SYRINGE SQ SCH ×2 (10:03→20:50)
[2021-07-02] MEDS: amLODIPine 5 MG TAB PO SCH (10:04)
[2021-07-02] MEDS: ASPIRIN 81 MG PO SCH (10:04)
[2021-07-02] MEDS ORDERED: PSYLLIUM HUSK 100% 6 GM PACKET PO PRN (10:13)
--- NOTE | 2021-07-02 10:18 | ECHOF ---
Referral Reason:lv fxn, elevated trops MEASUREMENTS -------- HEIGHT: 188.0 cm WEIGHT: 121.1 kg BP: 152/86 RVIDd: 3.8 cm (< 3.3) IVSd: 1.4 cm (0.6 - 1.1) LVIDd: 5.8 cm (3.9 - 5.3) LVPWd: 1.5 cm (0.6 - 1.1) IVSs: 2.1 cm LVIDs: 4.0 cm LVPWs: 1.9 cm LA Diam: 4.4 cm (2.7 - 3.8) LAESV Index (A-L): 47.01 ml/m Ao Diam: 4.3 cm (2.0 - 3.7) AV Cusp: 2.0 cm (1.5 - 2.6) MV EXCURSION: 9.479 mm (> 18.000) MV EF SLOPE: 31 mm/s (70 - 150) EPSS: 1.2 cm MV E Miles: 1.32 m/s MV DecT: 334 ms MV A Miles: 1.16 m/s MV E/A Ratio: 1.14 AV maxP.39 mmHg AV meanP.15 mmHg FINDINGS -------- Sinus rhythm. This was a technically adequate study. The left ventricular size is normal. There is moderate concentric left ventricular hypertrophy. O verall left ventricular systolic function is normal with, an EF between 55 - 60 %. The right ventricle is mild to moderately enlarged. LA is severely dilated >40 ml/m2 The right atrium is normal in size. Interatrial and interventricular septum intact. There is mild aortic valve sclerosis. There is mild aortic stenosis present. Peak/mean gradient a cross the Aortic Valve is 20.39mmHg / 11.15mmHg. Moderate mitral annular calcification present. There is trace to mild mitral regurgitation. The tricuspid valve appears structurally normal. The pulmonic valve was not well visualized. The aortic root is dilated measuring 4.3cm. IVC Not well visulized. There is no pericardial effusion. CONCLUSIONS -------- 1. The left ventricular size is normal. 2. There is moderate concentric left ventricular hypertrophy. 3. Overall left ventricular systolic function is normal with, an EF between 55 - 60 %. 4. The right ventricle is mild to moderately enlarged. 5. LA is severely dilated >40 ml/m2 6. There is mild aortic valve sclerosis. 7. There is mild aortic stenosis present. 8. Peak/mean gradient across the Aortic Valve is 20.39mmHg / 11.15mmHg. 9. Moderate mitral annular calcification present. 10. There is trace to mild mitral regurgitation. 11. The aortic root is dilated measuring 4.3cm. 12. There is no pericardial effusion. CORSETIER: Makayla Sahni RDCS
[2021-07-02 11:55] LABS: Glucose,Whole Blood 317 mg/dL (75-99)
--- NOTE | 2021-07-02 12:18 | P.CNNES ---
History of Present Illness Consult date: 07/02/21 Requesting physician: Nuvia Araujo Reason for Consult: acute expressive aphasia History of Present Illness: As is a 71-year-old gentleman with medical history of atrial fibrillation status post ablation about 20 years ago and not on anticoagulation because of GI bleed, diabetes mellitus who presented emergency department on 07/01/2021 for slurred speech and expressive aphasia. He feels his symptoms are possibly begin the Tuesday and that besides the language she didn't have any focal deficits. Patient was having the word finding difficulties. It seemed that the this past Tuesday patient was having trouble with balance and his checkbook which is usually easy for him to do and he asked his for help. He was also having difficulty adjusting his insulin dose. He was not brought in sooner because he didn't have any focal deficits. Her the patient's was at bedside she feels his speech is getting an improved but not 100% back to baseline patient feels he is back to baseline. Patient feels he has a flat affect which is new in the past 1 week. Patient is not on any anticoagulation because of a history of GI bleed in the past. Vision denies off any stroke or TIAs in the past. At home the patient is not on any antiplatelets or anticoagulation. Patient is on pravastatin 20 mg daily at bedtime. Some of the workup in the hospital consisted of: Initial vital signs was blood pressure 164/94, heart rate is 61, respiratory of 20, temperature of 98.0 Fahrenheit oral and pulse ox of 97% at room air. Initial white blood cell is 7.0 thousand, MCV of 100 to. Sodium is 141, creatinine is 5.74, initial serum glucose is 275, customs 9.5, AST of 74, ALT of 41. CT of the head is reported as cerebral atrophy. No acute intracranial abnormality. The echo was reported as moderate concentric left hypertrophy. Ejection fraction of 55-60%. Left atrium is severely dilated. Moderate mitral annular calcification present. NIH was a 1 for expressive aphasia. No IV TPA since his he is outside the window. Review of Systems Review of system: The 12 point system was reviewed and apparent positive and negative per HPI. Past Medical History Past Medical History: Atrial Fibrillation, Diabetes Mellitus, GI Bleed, Hyperlipidemia, Hypertension, Skin Disorder, Sleep Apnea/CPAP/BIPAP, Thyroid Disorder Additional Past Medical History / Comment(s): diverticulitis, hx colon polyp, gout, little bumps and dry skin, neuropathy patty legs and feet, hx anemia, agent orange exposure. History of Any Multi-Drug Resistant Organisms: None Reported Past Surgical History: Bariatric Surgery, Cardiac Ablation, Hernia Repair, Joint Replacement Additional Past Surgical History / Comment(s): Boils lanced on back. Blephoplas ty. left hip replacement, shannan-en-y Past Anesthesia/Blood Transfusion Reactions: Previous Problems w/ Anesthesia Additional Past Anesthesia/Blood Transfusion Reaction / Comment(s): woke up during procedure Past Psychological History: No Psychological Hx Reported Smoking Status: Former smoker Past Alcohol Use History: Occasional Additional Past Alcohol Use History / Comment(s): quit smoking 15 yrs ago, smoked on and off for 20 yrs Past Drug Use History: None Reported - Past Family History Father Family Medical History: Cancer Additional Family Medical History / Comment(s): lung Mother Family Medical History: No Reported History Additional Family Medical History / Comment(s): Mother passed at age 62 due to an auto accident. Brother(s) Family Medical History: Cancer Additional Family Medical History / Comment(s): throat Sister(s) Family Medical History: Cancer Additional Family Medical History / Comment(s): lymphoma Medications and Allergies Home Medications Medication Instructions Recorded Confirmed Type Furosemide [Lasix] 80 mg PO BID 01/10/19 07/01/21 History Gabapentin [Neurontin] 800 mg PO QID 01/10/19 07/01/21 History Insulin Glargine,Hum.rec.anlog 25 unit SQ Q12H 01/10/19 07/01/21 History [Lantus Solostar Pen] Levothyroxine Sodium [Synthroid] 75 mcg PO DAILY 01/10/19 07/01/21 History Allopurinol [Zyloprim] 200 mg PO DAILY 09/11/20 07/01/21 History Alogliptin Benzoate [Alogliptin] 25 mg PO DAILY 09/11/20 07/01/21 History Ferrous Sulfate [Feosol] 325 mg PO DAILY 09/11/20 07/01/21 History Losartan-Hctz 50-12.5 mg [Hyzaar 1 tab PO DAILY 09/11/20 07/01/21 History 50-12.5] Pravastatin Sodium [Pravachol] 20 mg PO HS 09/11/20 07/01/21 History Ammonium Lactate Cream [Lac-Hydrin 1 applic TOPICAL BID PRN 07/01/21 07/01/21 History 12% Cream] Clindamycin Lotion 1% 1 applic TOPICAL BID PRN 07/01/21 07/01/21 History Dextrose Chew [Glucose Chew Tab] 16 gm PO DAILY PRN 07/01/21 07/01/21 History Fluticasone Nasal Dante [Flonase 2 spray EA NOSTRIL DAILY PRN 07/01/21 07/01/21 History Nasal Dante] Insulin Glargine,Hum.rec.anlog See Protocol SQ Q12H PRN 07/01/21 07/01/21 History [Lantus Solostar Pen] Psyllium Husk (with Sugar) 1 tsp PO DAILY PRN 07/01/21 07/01/21 History [Metamucil Powder] Sildenafil Citrate 50 mg PO DAILY PRN 07/01/21 07/01/21 History Testosterone [Androgel 1.62% Gel 2 pump TOPICAL DAILY 07/01/21 07/01/21 History Pump] Allergies Allergy/AdvReac Type Severity Reaction Status Date / Time No Known Allergies Allergy Verified 07/01/21 17:44 Physical Examination - Vital Signs Vital Signs: Vital Signs Temp Pulse Pulse Resp BP BP Pulse Ox 07/02/21 10:48 97.8 F 72 12 154/66 07/02/21 08:00 97.8 F 74 20 154/79 95 07/02/21 04:32 97.8 F 54 L 16 152/86 97 07/02/21 01:30 97.7 F 63 16 164/72 98 07/02/21 01:04 64 20 95 07/01/21 22:00 65 20 162/90 99 07/01/21 21:00 64 20 153/87 99 07/01/21 18:44 66 16 170/84 98 07/01/21 18:30 189/79 07/01/21 18:00 10 L 189/79 97 07/01/21 17:30 60 10 L 189/79 98 07/01/21 17:00 63 10 L 189/79 98 07/01/21 16:37 64 18 189/79 98 07/01/21 16:30 67 10 L 189/79 98 07/01/21 16:11 98.0 F 61 20 164/94 97 Intake and Output 07/01/21 07/02/21 07/02/21 22:59 06:59 14:59 Intake Total 760 180 Output Total 1050 860 525 Balance -1050 -100 -345 Intake: IV 460 Invasive Line 1 10 Sodium Chloride 0.9% 1, 450 000 ml @ 75 mls/hr IV . [id number] [facility] Rx#:[id number] Oral 300 180 Output: Urine 1050 860 525 Uretheral (Byrd) 1050 Other: Voiding Method Indwelling Catheter Indwelling Catheter Weight 127.006 kg 121.2 kg GENERAL: The patient is lying in bed and is not in acute distress. CHEST: The heart rate is regular rate rhythm. No murmurs to auscultation. No carotid bruit bilaterally. LUNG: Clear to auscultation bilaterally no wheezing noted throughout. Not labored breathing. ABDOMEN/GI: Bowel sounds present in all 4 quadrants. No tenderness to palpation throughout. NEUROLOGICAL: Higher mental function: The patient is awake, alert, oriented to self, place and time. Patient is following commands. No aphasia and no neglect. Cranial nerves: The pupils are round, equal and reactive to light and accommodation. Visual viveros are full to confrontation throughout. Extraocular movement is intact no nystagmus is noted. Facial sensation is normal to touch throughout. The facial strength is slight left nasolabial flattening (per that is old), otherwise is normal throughout. Hearing is mildy to moderated decreased. Tongue is midline and moved [id number] without any difficulty. No dysarthria is noted. Shoulder shrug is normal bilaterally. Motor: Gait is deferred. The strength is 5 over 5 throughout. Normal tone and bulk. Cerebellum: Normal finger to nose heel to jiménez bilaterally. Sensation: Sensation is normal to touch throughout. Reflexes (right/left): 2+ throughout uppers while lowers are 1+. Plantars are downgoing bilaterally. Results - Laboratory Findings CBC and BMP: 07/02/21 05:04 07/02/21 05:04 Abnormal Lab Findings: Abnormal Labs 07/01/21 07/01/21 07/01/21 16:45 16:45 16:45 RBC 2.62 L Hgb 9.1 L Hct 26.9 L MCV 102.6 H MCH RDW 17.3 H Plt Count 86 L Lymphocytes # Macrocytosis PT 12.5 H INR 1.2 H BUN 116 H* Creatinine 5.74 H Glucose 275 H POC Glucose (mg/dL) Total Bilirubin 2.1 H AST 74 H Troponin I Urine Protein Urine Glucose (UA) 07/01/21 07/01/21 07/01/21 16:45 16:45 20:14 RBC Hgb Hct MCV MCH RDW Plt Count Lymphocytes # Macrocytosis PT INR BUN Creatinine Glucose POC Glucose (mg/dL) 270 H Total Bilirubin AST Troponin I 0.039 H* Urine Protein Trace H Urine Glucose (UA) Trace H 07/01/21 07/02/21 07/02/21 23:45 01:24 05:04 RBC 2.38 L Hgb 8.4 L Hct 25.4 L MCV 106.6 H MCH 35.2 H RDW 17.3 H Plt Count 94 L Lymphocytes # 0.9 L Macrocytosis Marked A PT INR BUN Creatinine Glucose POC Glucose (mg/dL) 184 H Total Bilirubin AST Troponin I 0.041 H* Urine Protein Urine Glucose (UA) 07/02/21 07/02/21 05:04 05:59 RBC Hgb Hct MCV MCH RDW Plt Count Lymphocytes # Macrocytosis PT INR BUN 117 H* Creatinine 5.43 H Glucose 244 H POC Glucose (mg/dL) 253 H Total Bilirubin AST Troponin I Urine Protein Urine Glucose (UA) Assessment and Plan Assessment: Acute transient expressive aphasia (had NIH 1 in ED). Likely due to TIA. On examination seems normal. No IV tpa since outside window (symptoms onset was this Past Tuesday) Patient altered mental status likely due to toxic-metabolic encephalopathy or possibly uremia--mentation improved. Atrial fibrillation s/p abalation 20 years ago and he is not on any anticoagulation since he had history of GI bleed in the past. Acute kidney insufficiency--slightly trendingdown Diabetes mellitus on presentation his glucose in the 200s Plan: I ordered MRI of the brain. He was given aspirin 325 once in the ED. The patient was on aspirin 81 mg a daily for secondary stroke prophylaxis. I will avoid dual antiplatelets because of his history of GI bleed. Patient is continued on his home dose of pravastatin 20 mg daily at bedtime. I will change it to Lipitor 40 mg daily at bedtime Ordered carotid duplex, hemoglobin A1c. TSH is ordered and is pending. vitamin B12 is ordered by primary team and I also ordered folate level because of the macrocytosis. PT, OT and [employer] LAT[employer] PROGRAMMER are consulted Every 4 neuro checks. Placed on cardiac monitoring We'll defer the rest of the medical management to the primary team. Upon discharge, the patient needs to follow-up with a neurologist within 1-2 weeks as outpatient. The plan is discussed with the patient and his (who is at bedside). Thank you for the consultation. Kem Vega MD Neuro-Hospitalist Time with Patient: Greater than 30
[2021-07-02] MEDS ORDERED: SODIUM CHLORIDE 0.9% 1,000 ML IV SCH (12:45)
--- NOTE | 2021-07-02 12:54 | CONS ---
CONSULTATION REASON FOR CONSULTATION: Possible second-degree AV block. Mr. Frankie Grover is a 71-year-old gentleman who does not see a food technologist regularly. He came into the hospital, brought in by his , with a background history of diabetes and atrial fibrillation. About 8 years ago, according to the patient, he had an ablation performed at [facility]. He was placed on anticoagulation, but this was discontinued after he had some GI bleed; this was more than a year ago. The main reason he was brought into the hospital was that there was a question of slurred speech, expressive aphasia, flat affect and some amount of confusion and disorientation. After he was brought into the hospital, she was concerned that he had a stroke, but after evaluation it appeared that the patient was having significant dehydration with evidence of some acute kidney injury. He has diabetes mellitus, hypertension, hyperlipidemia, atrial fibrillation, for which he had a previous ablation. At the time of my evaluation, patient seems to be much better oriented, responds to questions very well, seems to take time but answers appropriately. He is not in any distress. I reviewed the EKGs and rhythm strips. It appears that his rhythm is actually atrial fibrillation with occasional intermittent sinus activity. The patient's urine seems to be red and there is what seems to be recent hematuria that I am noticing now. His hemoglobin is 9.1. In view of his GI bleed history and active hematuria and low hemoglobin, I will not anticoagulate him. He will just be placed on subcutaneous heparin. I am going to obtain an echocardiogram to assess LV function. Will defer IV heparin. His renal functions are quite abnormal. Creatinine is up to 5.74, BUN is 116, suggesting significant component of both prerenal as well as renal azotemia. The patient has been on multiple medications, including diuretics and also losartan, and has not been drinking much fluid. PAST MEDICAL HISTORY: 1. Diabetes mellitus. 2. Hypertension. 3. History of atrial fibrillation with radiofrequency ablation at [facility] 8 years ago followed by GI bleed, and anticoagulation was discontinued. 4. Patient has hypothyroidism, on replacement therapy. ALLERGIES: NONE. MEDICATIONS: Medications at home include losartan HCTZ 100/25 one tablet daily, Pravachol 20 mg daily, Synthroid 75 mcg daily, Lantus insulin. He takes AndroGel and also uses 50 mg of sildenafil. He takes Lasix 80 mg b.i.d. EKG revealed atrial fibrillation with occasional sinus activity, right bundle, IVCD, nonspecific ST-T wave changes. PHYSICAL EXAMINATION: On examination, blood pressure is 140/70, pulse rate is 70, irregular. HEENT unremarkable. Fundus was not examined by me. NECK: Supple. There is JVD of 1 cm. No carotid bruit. Heart exam reveals S1, S2 heard normally. There is irregularity in rhythm. There is a short systolic murmur at the base as well as left sternal border, but the second heart sound is well preserved. Lungs reveal bilateral decent air entry. ABDOMEN: Soft, nontender. Lower extremities reveal diminished pulses. CENTRAL NERVOUS SYSTEM: Grossly no focal deficits. IMPRESSION: 1. Dehydration, prerenal azotemia with some mental changes that are improving. 2. Dehydration. 3. Hypertension. 4. Diabetes. 5. Acute kidney injury. 6. History of atrial fibrillation with evidence of atrial fibrillation but no significant bradyarrhythmia. There is underlying conduction system disease, intermittent sinus activity noted. RECOMMENDATIONS: I would recommend that we obtain echocardiogram to assess LV function. Patient may have mild aortic stenosis or sclerosis. Second heart sound is preserved. There is no evidence of heart failure. I would not recommend any anticoagulation, given his hematuria and also history of GI bleed. Cautious hydration and further management per Nephrology. No aggressive intervention is necessary. We will continue hydration at this time and, based on clinical course, make further recommendations. MMODL / ARINN: [id number] /
--- NOTE | 2021-07-02 14:39 | MR ---
EXAMINATION TYPE: MR brain wo con DATE OF EXAM: 07/02/2021 2:28 PM COMPARISON: NONE HISTORY: Stroke, aphasia FINDINGS: The ventricles, basal cisterns and sulci overlying the cerebral convexities are mildly enlarged. There is evidence of mild periventricular white matter ischemic demyelination. Remote deep white matter insults are also noted. No acute edema is seen on diffusion weighted imaging. There is no evidence for midline shift or mass effect. Acute intracranial hemorrhage or extra-axial collection is not evident. The paranasal sinuses and mastoid air cells are well-aerated. IMPRESSION: Age-related atrophic and chronic small vessel ischemic change. No acute intracranial process at this time.
[2021-07-02] MEDS ORDERED: Potassium Replacement Protocol 1 EACH MISC MISCELLANE PRN (14:54)
[2021-07-02] MEDS ORDERED: POTASSIUM CHLORIDE ER 20 MEQ TAB.ER PO SCH (15:00)
--- NOTE | 2021-07-02 15:17 | P.HPIM ---
History of Present Illness H&P Date: 07/02/21 This is a pleasant 8-year-old male who presents to the for a 4-5 day history of confusion, excessive aphasia, and slurred speech. Patient with a past medical history significant for A. fib, diabetes mellitus type 2, GI bleed, hyperlipidemia, hypertension, sleep apnea with CPAP, hypothyroidism, diabetic neuropathy, agent orange exposure, cardiac ablation, Guy-en-Y bariatric surgery. He is a former smoker, occasional alcohol use. Patient is not currently anticoagulated for his atrial fibrillation due to an acute GI bleed he's had in the past. The time of my assessment is oriented 3 there is no slurred speech noted. Labs are reviewed which reveal an initial BUN of 116, creatinine of 5.74, potassium of 3.7, AST 74, troponin 0.041. His INR is elevated at 1.2. Hemoglobin of 9.1, platelet count of 86. Chest x-ray revealed no active cardiopulmonary disease. Brain CT is negative for acute intracranial abnormality. Renal ultrasound showed large kidneys can be associated with diabetes, No hydronephrosis, Gallstones are noted and there is a Byrd catheter in the urinary bladder. Echocardiogram revealed an ejection fraction of 55-60%. There is moderate concentric left ventricular hypertrophy, mild to moderately enlarged right ventricle, severely dilated left atrium, moderate mitral annular calcification. Brain MRI shows age-related atrophic and chronic small vessel ischemic changes, there is no acute intracranial process. Carotid Dopplers are currently pending. Patient was also evaluated by nephrology, neurology and cardiology. REVIEW OF SYSTEMS: CONSTITUTIONAL: No fever, no malaise, no fatigue. HEENT: No recent visual problems or hearing problems. Denied any sore throat. CARDIOVASCULAR: No chest pain, orthopnea, PND, no palpitations, no syncope. PULMONARY: No shortness of breath, no cough, no hemoptysis. GASTROINTESTINAL: No diarrhea, no nausea, no vomiting, no abdominal pain. NEUROLOGICAL: No headaches, no weakness, no numbness. Does report a 4-5 day history of confusion, aphasia as well as slurred speech. HEMATOLOGICAL: Denies any bleeding or petechiae. GENITOURINARY: Denies any burning micturition, frequency, or urgency. MUSCULOSKELETAL/RHEUMATOLOGICAL: Denies any joint pain, swelling, or any muscle pain. Reports lower extremity edema. ENDOCRINE: Denies any polyuria or polydipsia. The rest of the 14-point review of systems is negative. PHYSICAL EXAMINATION: GENERAL: The patient is alert and oriented x3, not in any acute distress. Well developed, well nourished. HEENT: Pupils are round and equally reacting to light. EOMI. No scleral icterus. No conjunctival pallor. Normocephalic, atraumatic. No pharyngeal erythema. No thyromegaly. CARDIOVASCULAR: S1 and S2 present. No murmurs, rubs, or gallops. PULMONARY: There are scattered expiratory wheezing throughout the bilateral posterior lung viveros. There are no crackles. ABDOMEN: Soft, nontender, nondistended, normoactive bowel sounds. No palpable organomegaly. MUSCULOSKELETAL: No joint swelling or deformity. EXTREMITIES: No cyanosis, clubbing. There is mild +1 lower extremity edema. NEUROLOGICAL: Gross neurological examination did not reveal any focal deficits. There is facial symmetry. SKIN: There is a flat area of hyperpigmentation that is nonpruritic from the patient's left groin extending around his left side. Assessment and plan Assessment -Possible CVA/TIA due to acute confusion, aphasia, slurred speech which has resolved, NIH-1 on admission Toxic and Metabolic encephalopathy related to uremia, possible CVA -Diabetes mellitus type 2 with hyperglycemia, A1c pending -Diabetic peripheral neuropathy, decreased dose of gabapentin -Diabetic nephropathy -Acute kidney injury secondary to acute tubular necrosis due to hypovolemia from diuretics and poor oral intake, as well as component of diabetic nephropathy Possible B12/folate deficiency, labs are currently pending -Mild hypokalemia, most likely due to overdiuresis, patient's hydrocortisone La six and placed on hold, replace potassium per protocol -Elevated INR, elevated AST -Elevated troponin most likely a leak related to acute kidney injury, appreciate cardiology input Possible acute on chronic congestive heart failure, diastolic, current EF 55- 60%, BNP 1690 -Anemia, iron studies are pending -Bicytopenia -Full code GI prophylaxis Pepcid DVT prophylaxis subcu heparin Plan Continue with neuro checks every 4 hours. Patient will need to follow up with neurology 1- 2 weeks outpatient. Repeat labs in the morning. Continue with indwelling catheter and strict intake and output. Lipitor was increased for stroke prophylaxis, aspirin 81 mg daily. Due to component of toxic encephalop athy and acute kidney injury, gabapentin dosing was significantly decreased. IV hydration. Continue with Norvasc. Oral hypoglycemic agents on hold, patient started on NovoLog sliding scale, and Levemir has been resumed. Past Medical History Past Medical History: Atrial Fibrillation, Diabetes Mellitus, GI Bleed, Hyperlipidemia, Hypertension, Skin Disorder, Sleep Apnea/CPAP/BIPAP, Thyroid Disorder Additional Past Medical History / Comment(s): diverticulitis, hx colon polyp, gout, little bumps and dry skin, neuropathy patty legs and feet, hx anemia, agent orange exposure. History of Any Multi-Drug Resistant Organisms: None Reported Past Surgical History: Bariatric Surgery, Cardiac Ablation, Hernia Repair, Joint Replacement Additional Past Surgical History / Comment(s): Boils lanced on back. Blephoplasty. left hip replacement, guy-en-y Past Anesthesia/Blood Transfusion Reactions: Previous Problems w/ Anesthesia Additional Past Anesthesia/Blood Transfusion Reaction / Comment(s): woke up during procedure Past Psychological History: No Psychological Hx Reported Smoking Status: Former smoker Past Alcohol Use History: Occasional Additional Past Alcohol Use History / Comment(s): quit smoking 15 yrs ago, smoked on and off for 20 yrs Past Drug Use History: None Reported - Past Family History Father Family Medical History: Cancer Additional Family Medical History / Comment(s): lung Mother Family Medical History: No Reported History Additional Family Medical History / Comment(s): Mother passed at age 62 due to an auto accident. Brother(s) Family Medical History: Cancer Additional Family Medical History / Comment(s): throat Sister(s) Family Medical History: Cancer Additional Family Medical History / Comment(s): lymphoma Medications and Allergies Home Medications Medication Instructions Recorded Confirmed Type Furosemide [Lasix] 80 mg PO BID 01/10/19 07/01/21 History Gabapentin [Neurontin] 800 mg PO QID 01/10/19 07/01/21 History Insulin Glargine,Hum.rec.anlog 25 unit SQ Q12H 01/10/19 07/01/21 History [Lantus Solostar Pen] Levothyroxine Sodium [Synthroid] 75 mcg PO DAILY 01/10/19 07/01/21 History Allopurinol [Zyloprim] 200 mg PO DAILY 09/11/20 07/01/21 History Alogliptin Benzoate [Alogliptin] 25 mg PO DAILY 09/11/20 07/01/21 History Ferrous Sulfate [Feosol] 325 mg PO DAILY 09/11/20 07/01/21 History Losartan-Hctz 50-12.5 mg [Hyzaar 1 tab PO DAILY 09/11/20 07/01/21 History 50-12.5] Pravastatin Sodium [Pravachol] 20 mg PO HS 09/11/20 07/01/21 History Ammonium Lactate Cream [Lac-Hydrin 1 applic TOPICAL BID PRN 07/01/21 07/01/21 History 12% Cream] Clindamycin Lotion 1% 1 applic TOPICAL BID PRN 07/01/21 07/01/21 History Dextrose Chew [Glucose Chew Tab] 16 gm PO DAILY PRN 07/01/21 07/01/21 History Fluticasone Nasal [place] [Flonase 2 spray EA NOSTRIL DAILY PRN 07/01/21 07/01/21 History Nasal [place]] Insulin Glargine,Hum.rec.anlog See Protocol SQ Q12H PRN 07/01/21 07/01/21 History [Lantus Solostar Pen] Psyllium Husk (with Sugar) 1 tsp PO DAILY PRN 07/01/21 07/01/21 History [Metamucil Powder] Sildenafil Citrate 50 mg PO DAILY PRN 07/01/21 07/01/21 History Testosterone [Androgel 1.62% Gel 2 pump TOPICAL DAILY 07/01/21 07/01/21 History Pump] Allergies Allergy/AdvReac Type Severity Reaction Status Date / Time No Known Allergies Allergy Verified 07/01/21 17:44 Physical Exam Vitals: Vital Signs Temp Pulse Pulse Resp BP BP Pulse Ox 07/02/21 04:32 97.8 F 54 L 16 152/86 97 07/02/21 01:30 97.7 F 63 16 164/72 98 07/02/21 01:04 64 20 95 07/01/21 22:00 65 20 162/90 99 07/01/21 21:00 64 20 153/87 99 07/01/21 18:44 66 16 170/84 98 07/01/21 18:30 189/79 07/01/21 18:00 10 L 189/79 97 07/01/21 17:30 60 10 L 189/79 98 07/01/21 17:00 63 10 L 189/79 98 07/01/21 16:37 64 18 189/79 98 07/01/21 16:30 67 10 L 189/79 98 07/01/21 16:11 98.0 F 61 20 164/94 97 Intake and Output 07/01/21 07/02/21 07/02/21 22:59 06:59 14:59 Intake Total 760 180 Output Total 1050 860 Balance -1050 -100 180 Intake: IV 460 Invasive Line 1 10 Sodium Chloride 0.9% 1, 450 000 ml @ 75 mls/hr IV . [id number] [facility] Rx#:[id number] Oral 300 180 Output: Urine 1050 860 Uretheral (Byrd) 1050 Other: Voiding Method Indwelling Catheter Weight 127.006 kg 121.2 kg Results CBC & Chem 7: 07/02/21 05:04 07/02/21 05:04 Labs: Abnormal Lab Results - Last 24 Hours (Table) 07/01/21 07/01/21 07/01/21 Range/Units 16:45 16:45 16:45 RBC 2.62 L (4.30-5.90) m/uL Hgb 9.1 L (13.0-17.5) gm/dL Hct 26.9 L (39.0-53.0) % MCV 102.6 H (80.0-100.0) fL MCH (25.0-35.0) pg RDW 17.3 H (11.5-15.5) % Plt Count 86 L (150-450) k/uL Lymphocytes # (1.0-4.8) k/uL Macrocytosis PT 12.5 H (9.0-12.0) sec INR 1.2 H (<1.2) BUN 116 H* (9-20) mg/dL Creatinine 5.74 H (0.66-1.25) mg/dL Glucose 275 H (74-99) mg/dL POC Glucose (mg/dL) (75-99) mg/dL Total Bilirubin 2.1 H (0.2-1.3) mg/dL AST 74 H (17-59) U/L Troponin I (0.000-0.034) ng/mL Urine Protein (Negative) Urine Glucose (UA) (Negative) 07/01/21 07/01/21 07/01/21 Range/Units 16:45 16:45 20:14 RBC (4.30-5.90) m/uL Hgb (13.0-17.5) gm/dL Hct (39.0-53.0) % MCV (80.0-100.0) fL MCH (25.0-35.0) pg RDW (11.5-15.5) % Plt Count (150-450) k/uL Lymphocytes # (1.0-4.8) k/uL Macrocytosis PT (9.0-12.0) sec INR (<1.2) BUN (9-20) mg/dL Creatinine (0.66-1.25) mg/dL Glucose (74-99) mg/dL POC Glucose (mg/dL) 270 H (75-99) mg/dL Total Bilirubin (0.2-1.3) mg/dL AST (17-59) U/L Troponin I 0.039 H* (0.000-0.034) ng/mL Urine Protein Trace H (Negative) Urine Glucose (UA) Trace H (Negative) 07/01/21 07/02/21 07/02/21 Range/Units 23:45 01:24 05:04 RBC 2.38 L (4.30-5.90) m/uL Hgb 8.4 L (13.0-17.5) gm/dL Hct 25.4 L (39.0-53.0) % MCV 106.6 H (80.0-100.0) fL MCH 35.2 H (25.0-35.0) pg RDW 17.3 H (11.5-15.5) % Plt Count 94 L (150-450) k/uL Lymphocytes # 0.9 L (1.0-4.8) k/uL Macrocytosis Marked A PT (9.0-12.0) sec INR (<1.2) BUN (9-20) mg/dL Creatinine (0.66-1.25) mg/dL Glucose (74-99) mg/dL POC Glucose (mg/dL) 184 H (75-99) mg/dL Total Bilirubin (0.2-1.3) mg/dL AST (17-59) U/L Troponin I 0.041 H* (0.000-0.034) ng/mL Urine Protein (Negative) Urine Glucose (UA) (Negative) 07/02/21 07/02/21 Range/Units 05:04 05:59 RBC (4.30-5.90) m/uL Hgb (13.0-17.5) gm/dL Hct (39.0-53.0) % MCV (80.0-100.0) fL MCH (25.0-35.0) pg RDW (11.5-15.5) % Plt Count (150-450) k/uL Lymphocytes # (1.0-4.8) k/uL Macrocytosis PT (9.0-12.0) sec INR (<1.2) BUN 117 H* (9-20) mg/dL Creatinine 5.43 H (0.66-1.25) mg/dL Glucose 244 H (74-99) mg/dL POC Glucose (mg/dL) 253 H (75-99) mg/dL Total Bilirubin (0.2-1.3) mg/dL AST (17-59) U/L Troponin I (0.000-0.034) ng/mL Urine Protein (Negative) Urine Glucose (UA) (Negative) Thrombosis Risk Factor Assmnt - Choose All That Apply Any of the Below Risk Factors Present?: Yes Each Factor Represents 1 point: Obesity (BMI >25), Swollen legs (current) Other Risk Factors: Yes Each Risk Factor Represents 2 Points: Age 61-74 years Other congenital or acquired thrombophilia - If yes, enter type in comment: No Thrombosis Risk Factor Assessment Total Risk Factor Score: 4 Thrombosis Risk Factor Assessment Level: Moderate Risk Assessment and Plan Time with Patient: Greater than 30
--- NOTE | 2021-07-02 15:26 | US ---
EXAMINATION TYPE: US carotid duplex BILAT DATE OF EXAM: 07/02/2021 COMPARISON: MRI brain same date CLINICAL HISTORY: stroke. EXAM MEASUREMENTS: RIGHT: Peak Systolic Velocity (PSV) cm/sec ----- Right CCA: 85.6 ----- Right ICA: 122.3 ----- Right ECA: 154.8 ICA/CCA ratio: 1.4 RIGHT: End Diastole cm/sec ----- Right CCA: 17.7 ----- Right ICA: 22.8 ----- Right ECA: 11.9 LEFT: Peak Systolic Velocity (PSV) cm/sec ----- Left CCA: 98.8 ----- Left ICA: 101.1 ----- Left ECA: 155.3 ICA/CCA ratio: 1.0 LEFT: End Diastole cm/sec ----- Left CCA: 14.2 ----- Left ICA: 18.7 ----- Left ECA: 9.4 VERTEBRALS (direction of flow): Right Vertebral: Antegrade Left Vertebral: Antegrade Rhythm: Arrhythmia Mild to moderate plaque with no significant elevated velocities bilaterally. Gutierrez scale, color Dopple r, spectral Doppler imaging performed of the carotid arteries. Waveform analysis does not show signif icant stenosis. IMPRESSION: No hemodynamic significant stenosis of the proximal internal carotid arteries by Doppler criteria, indirect measurement of carotid stenosis. Cardiac arrhythmia is noted. Criteria for Assigning % of Stenosis / Diameter reduction (Estimation based on the indirect measurements of the internal carotid artery velocities (ICA PSV). 1. Normal (no stenosis)=ICA PSV < 125 cm/s: ratio < 2.0: ICA EDV<40 cm/s. 2. Less than 50% stenosis=ICA PSV < 125 cm/s: ratio < 2.0: ICA EDV<40 cm/s. 3. 50 to 69% stenosis=ICA PSV of 125 to 230 cm/s: ration 2.0 ? 4.0: ICA EDV 40-100 cm/s. 4. Greater than 70% stenosis to near occlusion= ICA PSV > 230 cm/s: ratio > 4.0: ICA EDV > 100 cm/s. 5. Near occlusion= ICA PSV velocities may be low or undetectable: variable ratio and ICA EDV. 6. Total occlusion=unable to detect flow.
[2021-07-02] MEDS ORDERED: GABAPENTIN 300 MG CAP PO SCH (16:00)
[2021-07-02 16:49] LABS: Glucose,Whole Blood 315 mg/dL (75-99)
[2021-07-02] MEDS: THIAMINE 100 MG TAB PO SCH (16:53)
[2021-07-02] MEDS: GABAPENTIN 100 MG CAP PO SCH ×2 (16:53→20:49)
[2021-07-02 20:24] LABS: Glucose,Whole Blood 320 mg/dL (75-99)
[2021-07-02] MEDS: ATORVASTATIN 40 MG TAB PO SCH (20:49)
[2021-07-02] MEDS: INSULIN DETEMIR (LEVEMIR) 100 UNIT/ML SYR SQ SCH (20:50)
[2021-07-02] MEDS ORDERED: PRAVASTATIN SODIUM 40 MG TAB PO SCH (21:00)
[2021-07-03 01:25] LABS: % Iron Saturation 31.68 (15.00-50.00)
[2021-07-03 06:07] LABS: Glucose,Whole Blood 143 mg/dL (75-99)
[2021-07-03] MEDS: LEVOTHYROXINE 75 MCG TAB PO SCH (06:21)
[2021-07-03] MEDS: SODIUM CHLORIDE 0.9% 1,000 ML IV SCH ×2 (06:21→20:35)
[2021-07-03] MEDS: THIAMINE 100 MG TAB PO SCH ×2 (06:21→18:46)
[2021-07-03] MEDS: INSULIN ASPART (NovoLOG) 100 UNIT/ML VIAL SQ SCH ×4 (06:21→21:32)
[2021-07-03 08:11] LABS: Anisocytosis Slight; Basophils % (A) 1 %; Eosinophils # (A) 0.2 k/uL (0-0.7); Eosinophils % (A) 4 %; HCT 21.8 % (39.0-53.0); HGB 7.5 gm/dL (13.0-17.5); Lymphocytes # (A) 0.9 k/uL (1.0-4.8); Lymphocytes % (A) 17 %; MCH 36.1 pg (25.0-35.0); MCHC 34.6 g/dL (31.0-37.0); MCV 104.5 fL (80.0-100.0); Macrocytosis Moderate; Mean Platelet Volume 12.2; Monocytes # (A) 0.4 k/uL (0-1.0); Monocytes % (A) 8 %; Neutrophils # (A) 3.4 k/uL (1.3-7.7); Neutrophils % (A) 67 %; RBC 2.09 m/uL (4.30-5.90); RDW 17.5 % (11.5-15.5)
[2021-07-03 08:15] LABS: Platelet Count 80 k/uL (150-450)
[2021-07-03 08:18] LABS: Calcium 9.2 mg/dL (8.4-10.2); Magnesium 1.9 mg/dL (1.6-2.3); Potassium 3.5 mmol/L (3.5-5.1)
[2021-07-03] MEDS: ASPIRIN 81 MG PO SCH (08:38)
[2021-07-03] MEDS: FAMOTIDINE 20 MG TAB PO SCH (08:38)
[2021-07-03] MEDS: INSULIN DETEMIR (LEVEMIR) 100 UNIT/ML SYR SQ SCH ×2 (08:38→21:32)
[2021-07-03] MEDS: amLODIPine 5 MG TAB PO SCH (08:38)
[2021-07-03] MEDS: GABAPENTIN 100 MG CAP PO SCH ×3 (08:38→20:25)
[2021-07-03] MEDS: HEPARIN SODIUM,PORCINE/PF 5,000 UNIT/0.5 ML SYRINGE SQ SCH ×2 (08:39→20:25)
[2021-07-03] MEDS ORDERED: FAMOTIDINE 20 MG/2 ML VIAL IV SCH (09:00)
[2021-07-03] MEDS: METOPROLOL TARTRATE 12.5 MG TAB PO SCH ×2 (09:04→20:25)
--- NOTE | 2021-07-03 10:05 | P.PN ---
Subjective Progress Note Date: 07/03/21 The patient is seen at bedside and feels he is doing much better from neurological standpoint. No aphasia or slurred speech, or focal weakness. Objective - Vital Signs Vital signs: Vital Signs Temp 98.4 F 07/03/21 08:15 Pulse 70 07/03/21 08:15 Resp 15 07/03/21 08:15 BP 163/86 07/03/21 08:15 Pulse Ox 93 L 07/03/21 07:11 Intake & Output 07/02/21 07/03/21 07/03/21 18:59 06:59 18:59 Intake Total 660 100 Output Total 525 380 Balance 135 -380 100 Weight 122 kg Intake: Oral 660 100 Output: Urine 525 380 Other: Voiding Method Indwelling Catheter Indwelling Catheter - Exam GENERAL: The patient is lying in bed and is not in acute distress. NEUROLOGICAL: Higher mental function: The patient is awake, alert, oriented to self, place and time. Patient is following commands. No aphasia and no neglect. Cranial nerves: The pupils are round, equal and reactive to light and accommodation. Visual viveros are full to confrontation throughout. Extraocular movement is intact no nystagmus is noted. Facial sensation is normal to touch throughout. The facial strength is slight left nasolabial flattening (per that is old), otherwise is normal throughout. Hearing is mildy to moderated decreased. Tongue is midline and moved [id number] without any difficulty. No dysarthria is noted. Shoulder shrug is normal bilaterally. Motor: Gait is deferred. The strength is 5 over 5 throughout. Normal tone and bulk. Appears to have mild myoclonus. Cerebellum: Normal finger to nose heel to jiménez bilaterally. Sensation: Sensation is normal to touch throughout. Reflexes (right/left): 2+ throughout uppers while lowers are 1+. Plantars are downgoing bilaterally. WORK-UP: Hemoglobin A1c is 5.7. TSH is 2.390 which is within normal limits. MRI Brain w/o: Is reported as age-related atrophic and chronic small vessel ischemic change. No acute intracranial process at this time. Cardiac duplex was reported as no hemodynamic significant stenosis of the proximal internal carotid arteries by Doppler criteria, and direct measurement carotid stenosis. Cardiac arrhythmias noted. CT of the head is reported as cerebral atrophy. No acute intracranial abnormality. The echo was reported as moderate concentric left hypertrophy. Ejection fraction of 55-60%. Left atrium is severely dilated. Moderate mitral annular calcification present. - Labs CBC & Chem 7: 07/03/21 07:07 07/03/21 07:07 Labs: Abnormal Lab Results - Last 24 Hours (Table) 07/02/21 07/02/21 07/02/21 Range/Units 11:53 16:46 20:21 RBC (4.30-5.90) m/uL Hgb (13.0-17.5) gm/dL Hct (39.0-53.0) % MCV (80.0-100.0) fL MCH (25.0-35.0) pg RDW (11.5-15.5) % Plt Count (150-450) k/uL Lymphocytes # (1.0-4.8) k/uL BUN (9-20) mg/dL Creatinine (0.66-1.25) mg/dL Glucose (74-99) mg/dL POC Glucose (mg/dL) 317 H 315 H 320 H (75-99) mg/dL 07/03/21 07/03/21 07/03/21 Range/Units 06:05 07:07 07:07 RBC 2.09 L (4.30-5.90) m/uL Hgb 7.5 L (13.0-17.5) gm/dL Hct 21.8 L (39.0-53.0) % MCV 104.5 H (80.0-100.0) fL MCH 36.1 H (25.0-35.0) pg RDW 17.5 H (11.5-15.5) % Plt Count 80 L (150-450) k/uL Lymphocytes # 0.9 L (1.0-4.8) k/uL BUN 106 H* (9-20) mg/dL Creatinine 5.26 H (0.66-1.25) mg/dL Glucose 128 H (74-99) mg/dL POC Glucose (mg/dL) 143 H (75-99) mg/dL Assessment and Plan Assessment: * Acute transient ?expressive aphasia (had NIH 1 in ED). On examination seems normal. No IV tpa since outside window (symptoms onset was this Past Tuesday). I honestly do not know if patient truly had expressive aphasia. Possibly he had encephalopathy from uremia. Cannot rule out TIA but I feel more uremic encephalopathy. * Patient altered mental status likely due to toxic-metabolic encephalopathy or possibly uremia--mentation improved. * Mild Myoclonus due to underlying metabolic abnormality. * Atrial fibrillation s/p abalation 20 years ago and he is not on any anticoagulation since he had history of GI bleed in the past. * Acute kidney insufficiency--slightly trendingdown * Diabetes mellitus on presentation his glucose in the 200s Plan: The patient was on aspirin 81 mg a daily for secondary stroke prophylaxis. I will avoid dual antiplatelets because of his history of GI bleed. Continue Lipitor 40 mg daily at bedtime vitamin B12 is ordered by primary team and I also ordered folate level because of the macrocytosis. If Vitamin B12 is low recommend supplement 1000mcg daily and if folic acid is low recommend supplement of folic acid 1mg daily. PT, OT and LEAD MECHANICAL ENGINEER are consulted Every 4 neuro checks. On cardiac monitoring We'll defer the rest of the medical management to the primary team. Upon discharge, the patient needs to follow-up with a neurologist within 1-2 weeks as outpatient. The plan is discussed with the patient and his (who is at bedside). There is no further neurological work-up. Neurology will sign off. Please reconsult if needed. Kem Vega MD Neuro-Hospitalist Time with Patient: Less than 30
[2021-07-03] MEDS ORDERED: POTASSIUM CHLORIDE ER 20 MEQ TAB.ER PO STA (11:14)
--- NOTE | 2021-07-03 11:16 | P.PN ---
Subjective Patient is seen in follow-up for acute kidney injury. No significant improvement in renal function with IV fluids. Nonoliguric. Feels weak. Also has tremors. Oral intake poor. present at bedside. Vital signs are stable. General: The patient appeared well nourished and normally developed. HEENT: Head exam is unremarkable. LUNGS: Breath sounds decreased. HEART: Rate and Rhythm are regular. ABDOMEN: Soft, no distention. EXTREMITITES: No edema. Objective - Vital Signs Vital signs: Vital Signs Temp 98.4 F 07/03/21 08:15 Pulse 70 07/03/21 08:15 Resp 15 07/03/21 08:15 BP 163/86 07/03/21 08:15 Pulse Ox 93 L 07/03/21 07:11 Intake & Output 07/02/21 07/03/21 07/03/21 18:59 06:59 18:59 Intake Total 660 100 Output Total 525 380 Balance 135 -380 100 Weight 122 kg Intake: Oral 660 100 Output: Urine 525 380 Other: Voiding Method Indwelling Catheter Indwelling Catheter Indwelling Catheter - Labs CBC & Chem 7: 07/03/21 07:07 07/03/21 07:07 Labs: Abnormal Lab Results - Last 24 Hours (Table) 07/02/21 07/02/21 07/02/21 Range/Units 11:53 16:46 20:21 RBC (4.30-5.90) m/uL Hgb (13.0-17.5) gm/dL Hct (39.0-53.0) % MCV (80.0-100.0) fL MCH (25.0-35.0) pg RDW (11.5-15.5) % Plt Count (150-450) k/uL Lymphocytes # (1.0-4.8) k/uL BUN (9-20) mg/dL Creatinine (0.66-1.25) mg/dL Glucose (74-99) mg/dL POC Glucose (mg/dL) 317 H 315 H 320 H (75-99) mg/dL 07/03/21 07/03/21 07/03/21 Range/Units 06:05 07:07 07:07 RBC 2.09 L (4.30-5.90) m/uL Hgb 7.5 L (13.0-17.5) gm/dL Hct 21.8 L (39.0-53.0) % MCV 104.5 H (80.0-100.0) fL MCH 36.1 H (25.0-35.0) pg RDW 17.5 H (11.5-15.5) % Plt Count 80 L (150-450) k/uL Lymphocytes # 0.9 L (1.0-4.8) k/uL BUN 106 H* (9-20) mg/dL Creatinine 5.26 H (0.66-1.25) mg/dL Glucose 128 H (74-99) mg/dL POC Glucose (mg/dL) 143 H (75-99) mg/dL Assessment and Plan Plan: Assessment: 1. Acute kidney injury secondary to ATN secondary to hypovolemia from diuretics and poor intake. Creatinine was 5.74 on admission and is down to 5.26 today. UA is fairly benign. No hydronephrosis noted on kidney ultrasound. 2. Acute encephalopathy. Brain CT negative. Concern for uremia. 3. Diabetes mellitus. 4. Anemia. Iron replete. 5. Benign hypertension. Plan: Maintain normal saline at 50 mL an hour. Continue to hold diuretics and losartan. Avoid nephrotoxins. Continue to monitor renal function and urine output. This significantly depressed GFR and symptoms of uremia, initiated renal replacement therapy. present at bedside agreeable. Consult vascular surgery for temporary dialysis catheter placement. Continue to monitor for renal recovery. Quantify proteinuria. Check phosphorus level.
[2021-07-03 11:52] LABS: Glucose,Whole Blood 220 mg/dL (75-99)
--- NOTE | 2021-07-03 13:21 | PN ---
PROGRESS NOTE HISTORY: Mr. Grover is a 71-year-old gentleman with history of hypertension and atrial fibrillation probably paroxysmal or persistent, for which he had an ablation, but he still has intermittent atrial fibrillation. He has history of GI bleed, has not been anticoagulated. He came into the hospital with altered mentation. There is a question of sepsis and also acute kidney injury with a creatinine in the range of 5. Rhythm strip today reveals sinus rhythm but most of the time he is in sinus, occasionally he has atrial fib. I am starting him on 12.5 mg of Lopressor b.i.d. Echo revealed good systolic function with mild aortic stenosis. From a cardiac standpoint, I believe he is quite stable and I would recommend that we resume Lopressor 12.5 mg b.i.d. and continue telemetry. His main issue is acute renal injury and prerenal azotemia with some renal failure component which is being addressed by Nephrology. Given his GI bleed, I would not recommend anticoagulation. PHYSICAL EXAM: Blood pressure 130/80, pulse rate is 70 per minute. No JVD S1-S2 heard normally. There is an ejection systolic murmur at the base. Lungs reveal decent air entry. Abdomen is soft. Lower extremities reveal diminished pulses. Central nervous system grossly no focal deficits. IMPRESSION: 1. Altered mental status, which has improved. 2. Probable sepsis, source unclear. 3. Acute kidney injury. 4. Hypertension. 5. History of persistent atrial fib status post ablation 7-8 years ago, not on anticoagulation because of GI bleed, now in sinus rhythm with occasional atrial fibrillation. RECOMMENDATIONS: Initiate her on metoprolol tartrate 12.5 mg b.i.d. No anticoagulation. I will continue to see as needed. 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 MMODL / IJN: [id number] /
--- NOTE | 2021-07-03 13:52 | P.GSCN ---
History of Present Illness History of present illness: 79-year-old white male, history of chronic renal failure, diabetes mellitus, hypertension, consulted for urgent placement of dialysis catheter Neck examination neck is supple no bruit appreciated Chest chest is clear good entry both lungs first and second sound is normal Abdomen soft nontender Vascular examination brachial radial femoral pulses are present Plan is placement of the dialysis catheter risk and complication discussed Past Medical History Past Medical History: Atrial Fibrillation, Diabetes Mellitus, GI Bleed, Hyperlipidemia, Hypertension, Skin Disorder, Sleep Apnea/CPAP/BIPAP, Thyroid Disorder Additional Past Medical History / Comment(s): diverticulitis, hx colon polyp, gout, little bumps and dry skin, neuropathy patty legs and feet, hx anemia, agent orange exposure. History of Any Multi-Drug Resistant Organisms: None Reported Past Surgical History: Bariatric Surgery, Cardiac Ablation, Hernia Repair, Joint Replacement Additional Past Surgical History / Comment(s): Boils lanced on back. Blephoplasty. left hip replacement, [id number]-[id number] Past Anesthesia/Blood Transfusion Reactions: Previous Problems w/ Anesthesia Additional Past Anesthesia/Blood Transfusion Reaction / Comm: woke up during procedure Past Psychological History: No Psychological Hx Reported Smoking Status: Former smoker Past Alcohol Use History: Occasional Additional Past Alcohol Use History / Comment(s): quit smoking 15 yrs ago, smoked on and off for 20 yrs Past Drug Use History: None Reported - Past Family History Father Family Medical History: Cancer Additional Family Medical History / Comment(s): lung Mother Family Medical History: No Reported History Additional Family Medical History / Comment(s): Mother passed at age 62 due to an auto accident. Brother(s) Family Medical History: Cancer Additional Family Medical History / Comment(s): throat Sister(s) Family Medical History: Cancer Additional Family Medical History / Comment(s): lymphoma Medications and Allergies Home Medications Medication Instructions Recorded Confirmed Type Furosemide [Lasix] 80 mg PO BID 01/10/19 07/01/21 History Gabapentin [Neurontin] 800 mg PO QID 01/10/19 07/01/21 History Insulin Glargine,Hum.rec.anlog 25 unit SQ Q12H 01/10/19 07/01/21 History [Lantus Solostar Pen] Levothyroxine Sodium [Synthroid] 75 mcg PO DAILY 01/10/19 07/01/21 History Allopurinol [Zyloprim] 200 mg PO DAILY 09/11/20 07/01/21 History Alogliptin Benzoate [Alogliptin] 25 mg PO DAILY 09/11/20 07/01/21 History Ferrous Sulfate [Feosol] 325 mg PO DAILY 09/11/20 07/01/21 History Losartan-Hctz 50-12.5 mg [Hyzaar 1 tab PO DAILY 09/11/20 07/01/21 History 50-12.5] Pravastatin Sodium [Pravachol] 20 mg PO HS 09/11/20 07/01/21 History Ammonium Lactate Cream [Lac-Hydrin 1 applic TOPICAL BID PRN 07/01/21 07/01/21 History 12% Cream] Clindamycin Lotion 1% 1 applic TOPICAL BID PRN 07/01/21 07/01/21 History Dextrose Chew [Glucose Chew Tab] 16 gm PO DAILY PRN 07/01/21 07/01/21 History Fluticasone Nasal [place] [Flonase 2 spray EA NOSTRIL DAILY PRN 07/01/21 07/01/21 History Nasal [place]] Insulin Glargine,Hum.rec.anlog See Protocol SQ Q12H PRN 07/01/21 07/01/21 History [Lantus Solostar Pen] Psyllium Husk (with Sugar) 1 tsp PO DAILY PRN 07/01/21 07/01/21 History [Metamucil Powder] Sildenafil Citrate 50 mg PO DAILY PRN 07/01/21 07/01/21 History Testosterone [Androgel 1.62% Gel 2 pump TOPICAL DAILY 07/01/21 07/01/21 History Pump] Allergies Allergy/AdvReac Type Severity Reaction Status Date / Time No Known Allergies Allergy Verified 07/01/21 17:44 Surgical - Exam Vital Signs Temp Pulse Resp BP Pulse Ox 98.0 F 61 20 164/94 97 07/01/21 16:11 07/01/21 16:11 07/01/21 16:11 07/01/21 16:11 07/01/21 16:11 Results - Labs 07/03/21 07:07 07/03/21 07:07 Abnormal Lab Results - Last 24 Hours (Table) 07/02/21 07/02/21 07/03/21 Range/Units 16:46 20:21 06:05 RBC (4.30-5.90) m/uL Hgb (13.0-17.5) gm/dL Hct (39.0-53.0) % MCV (80.0-100.0) fL MCH (25.0-35.0) pg RDW (11.5-15.5) % Plt Count (150-450) k/uL Lymphocytes # (1.0-4.8) k/uL BUN (9-20) mg/dL Creatinine (0.66-1.25) mg/dL Glucose (74-99) mg/dL POC Glucose (mg/dL) 315 H 320 H 143 H (75-99) mg/dL 07/03/21 07/03/21 07/03/21 Range/Units 07:07 07:07 11:50 RBC 2.09 L (4.30-5.90) m/uL Hgb 7.5 L (13.0-17.5) gm/dL Hct 21.8 L (39.0-53.0) % MCV 104.5 H (80.0-100.0) fL MCH 36.1 H (25.0-35.0) pg RDW 17.5 H (11.5-15.5) % Plt Count 80 L (150-450) k/uL Lymphocytes # 0.9 L (1.0-4.8) k/uL BUN 106 H* (9-20) mg/dL Creatinine 5.26 H (0.66-1.25) mg/dL Glucose 128 H (74-99) mg/dL POC Glucose (mg/dL) 220 H (75-99) mg/dL Diabetes panel 07/02/21 07/03/21 Range/Units 05:04 07:07 Sodium 142 (137-145) mmol/L Potassium 3.5 (3.5-5.1) mmol/L Chloride 107 (98-107) mmol/L Carbon Dioxide 24 (22-30) mmol/L BUN 106 H* (9-20) mg/dL Creatinine 5.26 H (0.66-1.25) mg/dL Glucose 128 H (74-99) mg/dL Hemoglobin A1c 5.7 (4.0-6.0) % Calcium 9.2 (8.4-10.2) mg/dL Thyroid panel 07/03/21 Range/Units 07:07 TSH 2.390 (0.465-4.680) mIU/L Calcium panel 07/03/21 Range/Units 07:07 Calcium 9.2 (8.4-10.2) mg/dL Pituitary panel 07/03/21 Range/Units 07:07 Sodium 142 (137-145) mmol/L Potassium 3.5 (3.5-5.1) mmol/L Chloride 107 (98-107) mmol/L Carbon Dioxide 24 (22-30) mmol/L BUN 106 H* (9-20) mg/dL Creatinine 5.26 H (0.66-1.25) mg/dL Glucose 128 H (74-99) mg/dL Calcium 9.2 (8.4-10.2) mg/dL TSH 2.390 (0.465-4.680) mIU/L Adrenal panel 07/03/21 Range/Units 07:07 Sodium 142 (137-145) mmol/L Potassium 3.5 (3.5-5.1) mmol/L Chloride 107 (98-107) mmol/L Carbon Dioxide 24 (22-30) mmol/L BUN 106 H* (9-20) mg/dL Creatinine 5.26 H (0.66-1.25) mg/dL Glucose 128 H (74-99) mg/dL Calcium 9.2 (8.4-10.2) mg/dL
--- NOTE | 2021-07-03 14:32 | P.PN ---
Subjective Patient is a pleasant 71-year-old male is admitted for acute failure. Patient doesn't have any significant improvement patient acute renal failure is blue to be secondary to medications including NOVA inhibitor and diuretic therapy. Patient does have asterixis and uremic symptoms because of which dialysis catheter is being placed and patient will undergo hemodialysis tomorrow patient is still urinating okay. Patient has a fully catheter. Patient had an echocardiogram evaluated because of mild elevation of troponins which is probably secondary to renal failure no further intervention is being planned at this time as he perspective neurology evaluated the patient because of concern of aphasia although patient appears to have confusion more than aphasia patient does have some chronic microvascular ischemic changes no acute stroke was vincent dent on MRI patient does have microcytosis and anemia probably B12 folate deficiency labs of which were already ordered. The is still having occasional confusional episodes secondary to uremic encephalopathy. Constitutional: Denied any fatigue denied any fever. Cardio vascular: denied any chest pain, palpitations Gastrointestinal denied any nausea vomiting Pulmonary: Denied any shortness of breath cough Neurologic denied any new focal deficits All inpatient medications were reviewed and appropriate changes in these medications as dictated in the interval history and assessment and plan. PHYSICAL EXAMINATION: GENERAL: The patient is alert and oriented x3, not in any acute distress. Well developed, well nourished. HEENT: Pupils are round and equally reacting to light. EOMI. No scleral icterus. No conjunctival pallor. Normocephalic, atraumatic. No pharyngeal erythema. No thyromegaly. CARDIOVASCULAR: S1 and S2 present. No murmurs, rubs, or gallops. PULMONARY: Chest is clear to auscultation, no wheezing or crackles. ABDOMEN: Soft, nontender, nondistended, normoactive bowel sounds. No palpable organomegaly. MUSCULOSKELETAL: No joint swelling or deformity. EXTREMITIES: No cyanosis, clubbing, or pedal edema. NEUROLOGICAL: Gross neurological examination did not reveal any focal deficits. confusional episodes patient appears to be lethargic drowsy and does have asterixis SKIN: No rashes. Assessment and plan DVT prophylaxis: Assessment and plan Assessment Toxic and Metabolic encephalopathy related to uremia, Ancef acute cerebrovascular accident didn't Patient has uremic encephalopathy will require hemodialysis were dedicated for necrosis secondary to hypovolemia and diuretics urine analysis is not consistent with chronic kidney disease and patient will undergo hemodialysis because of uremic encephalopathy. Dellitus type 2 blood sugars appear to be well controlled at home and patient's hemoglobin A1c is 5.7 at this time -Diabetic peripheral neuropathy, decreased dose of gabapentin -Possible Diabetic nephropathy Possible B12/folate deficiency, labs are currently pending patient has pancytopenia and macrocytosis -Elevated troponin most likely a leak related to acute kidney injury, appreciate cardiology input Possible acute on chronic congestive heart failure, diastolic, current EF 55- 60%, BNP 1690 -Full code GI prophylaxis Pepcid DVT prophylaxis subcu heparin Objective - Vital Signs Vital signs: Vital Signs Temp 98.3 F 07/03/21 12:51 Pulse 72 07/03/21 13:05 Resp 15 07/03/21 13:05 BP 125/64 07/03/21 12:51 Pulse Ox 95 07/03/21 12:51 Intake & Output 07/02/21 07/03/21 07/03/21 18:59 06:59 18:59 Intake Total 660 100 Output Total 525 380 300 Balance 135 -380 -200 Weight 122 kg Intake: Oral 660 100 Output: Urine 525 380 300 Other: Voiding Method Indwelling Catheter Indwelling Catheter Indwelling Catheter - Labs CBC & Chem 7: 07/03/21 07:07 07/03/21 07:07 Labs: Abnormal Lab Results - Last 24 Hours (Table) 07/02/21 07/02/21 07/03/21 Range/Units 16:46 20:21 06:05 RBC (4.30-5.90) m/uL Hgb (13.0-17.5) gm/dL Hct (39.0-53.0) % MCV (80.0-100.0) fL MCH (25.0-35.0) pg RDW (11.5-15.5) % Plt Count (150-450) k/uL Lymphocytes # (1.0-4.8) k/uL BUN (9-20) mg/dL Creatinine (0.66-1.25) mg/dL Glucose (74-99) mg/dL POC Glucose (mg/dL) 315 H 320 H 143 H (75-99) mg/dL 07/03/21 07/03/21 07/03/21 Range/Units 07:07 07:07 11:50 RBC 2.09 L (4.30-5.90) m/uL Hgb 7.5 L (13.0-17.5) gm/dL Hct 21.8 L (39.0-53.0) % MCV 104.5 H (80.0-100.0) fL MCH 36.1 H (25.0-35.0) pg RDW 17.5 H (11.5-15.5) % Plt Count 80 L (150-450) k/uL Lymphocytes # 0.9 L (1.0-4.8) k/uL BUN 106 H* (9-20) mg/dL Creatinine 5.26 H (0.66-1.25) mg/dL Glucose 128 H (74-99) mg/dL POC Glucose (mg/dL) 220 H (75-99) mg/dL
[2021-07-03 15:34] LABS: Creatinine,Urine Random 80.8 mg/dL; Protein/Creatinine Ratio,Urine 0.446
[2021-07-03 16:15] LABS: Glucose,Whole Blood 207 mg/dL (75-99)
[2021-07-03] MEDS ORDERED: IV FLUID CONTINUATION 1,000 ML IV ONE (16:30)
[2021-07-03] MEDS ORDERED: LIDOCAINE 1% INJ 10MG/ML (20 ML MDV) SQ ONE (16:54)
[2021-07-03] MEDS ORDERED: MIDAZOLAM 2 MG/2 ML VIAL IV ONE (16:59)
[2021-07-03] MEDS ORDERED: SODIUM CHLORIDE 0.9% 1,000 ML IV ONE (17:12)
[2021-07-03] MEDS ORDERED: HEPARIN SODIUM 1,000 UN/ML (10ML VL) MISCELLANE ONE (17:45)
[2021-07-03 18:43] LABS: Glucose,Whole Blood 159 mg/dL (75-99)
--- NOTE | 2021-07-03 19:14 | XR ---
EXAMINATION TYPE: XR chest 1V DATE OF EXAM: 07/03/2021 COMPARISON: 07/01/2021 HISTORY: Altered mental status TECHNIQUE: 2 views upright FINDINGS: There is no heart failure nor confluent pneumonic infiltrate. There is right central venous catheter with tip in the superior vena cava. Costophrenic angles are clear. There are chest leads. IMPRESSION: No active cardiopulmonary disease. No change.
--- NOTE | 2021-07-03 19:18 | OP ---
OPERATIVE REPORT POSTOPERATIVE DIAGNOSIS: Acute on chronic renal failure. POSTOPERATIVE DIAGNOSIS: Acute on chronic renal failure. PROCEDURE: Placement of a 23 cm dialysis catheter, right jugular approach. SEDATION TIME: 30 minutes. DESCRIPTION: The patient was brought to the vp lab. Right side of the neck and chest was prepped and draped in a sterile manner. Lidocaine 1% was infiltrated in the neck and chest area. Ultrasound-guided micropuncture was introduced into the right jugular vein. Then we passed a 4-English dilator on top of the guidewire. Then we created a tunnel. Through the tunnel we brought a 23 cm dialysis catheter. Then we advanced and the guidewire was in the inferior vena cava. We placed the dilator and sheath on the top of the guidewire. Through the sheath we introduced the dialysis catheter. Tip of the catheter was in superior vena cavoatrial junction. Sheath was removed. The catheter was secured with 3-0 nylon. Dressing was applied. Patient tolerated the procedure well. MMODL / IJN: [id number] /
[2021-07-03] MEDS: ATORVASTATIN 40 MG TAB PO SCH (20:25)
[2021-07-03 20:46] LABS: Glucose,Whole Blood 198 mg/dL (75-99)
[2021-07-04 06:24] LABS: Glucose,Whole Blood 178 mg/dL (75-99)
[2021-07-04] MEDS: LEVOTHYROXINE 75 MCG TAB PO SCH (06:58)
[2021-07-04] MEDS: THIAMINE 100 MG TAB PO SCH ×2 (06:58→16:03)
[2021-07-04] MEDS: INSULIN ASPART (NovoLOG) 100 UNIT/ML VIAL SQ SCH ×4 (06:58→21:03)
--- NOTE | 2021-07-04 07:30 | IR ---
EXAMINATION TYPE: IR cvc insert central tunneled DATE OF EXAM: 07/03/2021 CLINICAL HISTORY: Renal failure. TECHNIQUE: Fluoroscopy. COMPARISON: None. FINDINGS: Fluoroscopic guidance was provided during right internal jugular dialysis catheter inserti on procedure performed by Dr. Willett. A total of 54 seconds of fluoroscopic time was utilized durin g the procedure and 62 spot intraoperative images are acquired. Images acquired show placement of right internal jugular large-bore dialysis catheter with tip at SVC level. IMPRESSION: As Above.
--- NOTE | 2021-07-04 09:09 | P.PN ---
Subjective Patient is seen in follow-up for acute kidney injury. No significant improvement in renal function with IV fluids. Nonoliguric. Started on hemodi alysis this morning due to uremia. Currently on CPAP. Vital signs are stable. General: The patient appeared well nourished and normally developed. HEENT: Head exam is unremarkable. LUNGS: Breath sounds decreased. HEART: Rate and Rhythm are regular. ABDOMEN: Soft, no distention. EXTREMITITES: No edema. Objective - Vital Signs Vital signs: Vital Signs Temp 98.2 F 07/04/21 04:00 Pulse 67 07/04/21 04:00 Resp 18 07/04/21 04:00 BP 165/70 07/04/21 04:00 Pulse Ox 96 07/04/21 04:00 Intake & Output 07/03/21 07/04/21 07/04/21 18:59 06:59 18:59 Intake Total 210 Output Total 550 1650 Balance -340 -1650 Weight 125 kg Intake: IV 110 Oral 100 Output: Urine 550 1650 Other: Voiding Method Indwelling Catheter Indwelling Catheter - Labs CBC & Chem 7: 07/03/21 07:07 07/03/21 07:07 Labs: Abnormal Lab Results - Last 24 Hours (Table) 07/03/21 07/03/21 07/03/21 Range/Units 11:50 16:13 18:41 POC Glucose (mg/dL) 220 H 207 H 159 H (75-99) mg/dL 07/03/21 07/04/21 Range/Units 20:40 06:15 POC Glucose (mg/dL) 198 H 178 H (75-99) mg/dL Assessment and Plan Plan: Assessment: 1. Acute kidney injury secondary to ATN secondary to hypovolemia from diuretics and poor intake. Creatinine was 5.74 on admission and down to 5.26 yesterday. UA is fairly benign. No hydronephrosis noted on kidney ultrasound. 2. Acute encephalopathy. Brain CT negative. Concern for uremia. 3. Diabetes mellitus. 4. Anemia. Iron replete. 5. Benign hypertension. Plan: Maintain normal saline at 50 mL an hour. Continue to hold diuretics and losartan. Avoid nephrotoxins. Check serologies. UPC 0.44. Currently seen while undergoing hemodialysis. Second treatment tomorrow. Monitor for renal recovery. Add Aranesp. Add hydralazine 25 mg 3 times daily. To be held for systolic blood pressure less than 125.
[2021-07-04] MEDS: METOPROLOL TARTRATE 12.5 MG TAB PO SCH ×2 (10:33→21:04)
[2021-07-04] MEDS: HEPARIN SODIUM,PORCINE/PF 5,000 UNIT/0.5 ML SYRINGE SQ SCH ×2 (10:34→21:03)
[2021-07-04] MEDS: amLODIPine 5 MG TAB PO SCH (10:34)
[2021-07-04] MEDS: FAMOTIDINE 20 MG TAB PO SCH (10:34)
[2021-07-04] MEDS: ASPIRIN 81 MG PO SCH (10:34)
[2021-07-04] MEDS: GABAPENTIN 100 MG CAP PO SCH ×3 (10:34→21:04)
[2021-07-04] MEDS: hydrALAZINE HCL 25 MG TAB PO SCH ×3 (10:35→21:04)
[2021-07-04] MEDS: INSULIN DETEMIR (LEVEMIR) 100 UNIT/ML SYR SQ SCH ×2 (10:42→21:04)
[2021-07-04 11:42] LABS: Glucose,Whole Blood 159 mg/dL (75-99)
[2021-07-04 13:37] LABS: Anisocytosis Slight; HCT 22.7 % (39.0-53.0); HGB 7.4 gm/dL (13.0-17.5); MCH 35.2 pg (25.0-35.0); MCHC 32.8 g/dL (31.0-37.0); MCV 107.3 fL (80.0-100.0); Macrocytosis Marked; Mean Platelet Volume 12.5; RBC 2.12 m/uL (4.30-5.90); RDW 17.1 % (11.5-15.5); WBC 5.2 k/uL (3.8-10.6)
[2021-07-04 14:06] LABS: Calcium 9.1 mg/dL (8.4-10.2); Magnesium 1.9 mg/dL (1.6-2.3); Potassium 3.7 mmol/L (3.5-5.1)
[2021-07-04 14:13] LABS: Platelet Count 77 k/uL (150-450)
--- NOTE | 2021-07-04 14:40 | P.PN ---
Subjective Progress Note Date: 07/04/21 Patient is a pleasant 71-year-old male is admitted for acute failure. Patient doesn't have any significant improvement patient acute renal failure is blue to be secondary to medications including NOVA inhibitor and diuretic therapy. Patient does have asterixis and uremic symptoms because of which dialysis catheter is being placed and patient will undergo hemodialysis tomorrow patient is still urinating okay. Patient has a fully catheter. Patient had an echocardiogram evaluated because of mild elevation of troponins which is probably secondary to renal failure no further intervention is being planned at this time as he perspective neurology evaluated the patient because of concern of aphasia although patient appears to have confusion more than aphasia patient does have some chronic microvascular ischemic changes no acute stroke was evident on MRI patient does have microcytosis and anemia probably B12 folate deficiency labs of which were already ordered. The is still having occasional confusional episodes secondary to uremic encephalopathy. 07/04/2021 Patient is evaluated today the bedside status post hemodialysis. He is confused and is not responding to questions appropriately. He is wearing a CPAP currently. He does have some asterixis present at the time of my assessment which can be seen with encephalopathy. Labs reviewed today include a hemoglobin of 7.4, MCV 107.3, MCH 35.2, his platelets are 77. Potassium is 3.7, chloride 108, BUN 69, creatinine 3.72, which has improved with dialysis. His mag is 1.9. Patient is afebrile, blood pressure 162/70. He is 97% on room air. Most recent chest x-ray is negative for acute cardiopulmonary disease. Folate is within normal limits at 4.7 which is just on the lower cusp. Patient is being followed closely by nephrology, plan is for repeat dialysis treatment tomorrow. Aranesp was added. Hydralazine has also been added for blood pressures. Review of systems Unable to complete a full review of system is patient is confused and not answering questions properly. All inpatient medications were reviewed and appropriate changes in these medications as dictated in the interval history and assessment and plan. PHYSICAL EXAMINATION: GENERAL: The patient is a 1 , not in any acute distress. Well developed, well nourished. HEENT: Pupils are round and equally reacting to light. EOMI. No scleral icterus. No conjunctival pallor. Normocephalic, atraumatic. No pharyngeal erythema. No thyromegaly. CARDIOVASCULAR: S1 and S2 present. No murmurs, rubs, or gallops. PULMONARY: Chest is clear to auscultation, no wheezing or crackles. ABDOMEN: Soft, nontender, nondistended, normoactive bowel sounds. No palpable organomegaly. MUSCULOSKELETAL: No joint swelling or deformity. EXTREMITIES: No cyanosis, clubbing, mild ankle edema worse on the right NEUROLOGICAL: Gross neurological examination did not reveal any focal deficits. There are confusional episodes patient appears to be lethargic drowsy and does have asterixis SKIN: No rashes. Assessment and plan Assessment Altered mental status, Toxic and Metabolic encephalopathy related to uremia, imaging does not demonstrate an acute cerebrovascular attack. -Possible acute TIA, presented with a questionable history of expressive aphasia. Will not treat with dual antiplatelet therapy per neurology recommendations to history of GI bleed -Patient has uremic encephalopathy will require hemodialysis for acute tubular necrosis secondary to hypovolemia and diuretics urine analysis is not consistent with chronic kidney disease and patient will undergo hemodialysis because of uremic encephalopathy. -Dellitus type 2 blood sugars appear to be well controlled at home and patient's hemoglobin A1c is 5.7 at this time -Diabetic peripheral neuropathy, decreased dose of gabapentin Possible B12/folate deficiency, labs are currently pending patient has pancytopenia and macrocytosis, B12 pending Folate is at the low end of normal at 4.7, we will add folic acid 1 mg daily. -Anemia, with bicytopenia, Aranesp added per nephrology -Elevated troponin most likely a leak related to acute kidney injury, appreciate cardiology input Possible acute on chronic congestive heart failure, diastolic, current EF 55- 60%, BNP 1690 -Full code GI prophylaxis Pepcid DVT prophylaxis subcu heparin Plan Continue to monitor with neuro checks every 4 hours. Neurology has signed off and to follow-up in 1 to 2 weeks outpatient. Recommendations are to continue aspirin 81 mg as well as Lipitor 40 mg. We will add folic acid, B12 is currently pending. Plan is for patient to have hemodialysis again tomorrow. We'll repeat labs in the morning. PT/OT consultation. Objective - Vital Signs Vital signs: Vital Signs Temp 97.6 F 07/04/21 10:27 Pulse 82 07/04/21 10:27 Resp 18 07/04/21 10:27 BP 163/70 07/04/21 10:27 Pulse Ox 97 07/04/21 10:27 Intake & Output 07/03/21 07/04/21 07/04/21 18:59 06:59 18:59 Intake Total 210 Output Total 550 1650 475 Balance -340 -1650 -475 Weight 125 kg Intake: IV 110 Oral 100 Output: Urine 550 1650 475 Other: Voiding Method Indwelling Catheter Indwelling Catheter Indwelling Catheter - Labs CBC & Chem 7: 07/04/21 13:22 07/04/21 13:22 Labs: Abnormal Lab Results - Last 24 Hours (Table) 07/03/21 07/03/21 07/03/21 Range/Units 16:13 18:41 20:40 RBC (4.30-5.90) m/uL Hgb (13.0-17.5) gm/dL Hct (39.0-53.0) % MCV (80.0-100.0) fL MCH (25.0-35.0) pg RDW (11.5-15.5) % Plt Count (150-450) k/uL Macrocytosis Chloride (98-107) mmol/L BUN (9-20) mg/dL Creatinine (0.66-1.25) mg/dL Glucose (74-99) mg/dL POC Glucose (mg/dL) 207 H 159 H 198 H (75-99) mg/dL 07/04/21 07/04/21 07/04/21 Range/Units 06:15 11:40 13:22 RBC (4.30-5.90) m/uL Hgb (13.0-17.5) gm/dL Hct (39.0-53.0) % MCV (80.0-100.0) fL MCH (25.0-35.0) pg RDW (11.5-15.5) % Plt Count (150-450) k/uL Macrocytosis Chloride 108 H (98-107) mmol/L BUN 69 H (9-20) mg/dL Creatinine 3.72 H (0.66-1.25) mg/dL Glucose 170 H (74-99) mg/dL POC Glucose (mg/dL) 178 H 159 H (75-99) mg/dL 07/04/21 Range/Units 13:22 RBC 2.12 L (4.30-5.90) m/uL Hgb 7.4 L (13.0-17.5) gm/dL Hct 22.7 L (39.0-53.0) % MCV 107.3 H (80.0-100.0) fL MCH 35.2 H (25.0-35.0) pg RDW 17.1 H (11.5-15.5) % Plt Count 77 L (150-450) k/uL Macrocytosis Marked A Chloride (98-107) mmol/L BUN (9-20) mg/dL Creatinine (0.66-1.25) mg/dL Glucose (74-99) mg/dL POC Glucose (mg/dL) (75-99) mg/dL Assessment and Plan Time with Patient: Greater than 30
[2021-07-04 16:48] LABS: Glucose,Whole Blood 185 mg/dL (75-99)
[2021-07-04] MEDS: DARBEPOETIN ALFA 40 MCG/0.4 ML SYRINGE SQ SCH (17:19)
[2021-07-04] MEDS: SODIUM CHLORIDE 0.9% 1,000 ML IV SCH (18:14)
[2021-07-04 20:48] LABS: Glucose,Whole Blood 213 mg/dL (75-99)
[2021-07-04] MEDS: ATORVASTATIN 40 MG TAB PO SCH (21:03)
[2021-07-04 22:09] LABS: Hepatitis B Surface Antibody NonReactive (Nonreactive); Hepatitis B Surface Antigen Nonreactive (Nonreactive)
[2021-07-05 02:19] LABS: Glucose,Whole Blood 197 mg/dL (75-99)
[2021-07-05] MEDS ORDERED: levETIRAcetam IV 1,000 MG in SALINE 1 100ML.BAG IVPB ONE (02:30)
--- NOTE | 2021-07-05 02:39 | XR ---
EXAMINATION TYPE: XR chest 1V portable DATE OF EXAM: 07/05/2021 COMPARISON: Yesterday HISTORY: 07/03/2021 TECHNIQUE: FINDINGS: There is no heart failure nor confluent pneumonic infiltrate. There are chest leads. There is right-sided central venous catheter with tip in the superior vena cava. Costophrenic angles are cl ear. IMPRESSION: No active cardiopulmonary disease. No change.
[2021-07-05 02:42] LABS: Anisocytosis Slight; Basophils % (A) 0 %; Eosinophils # (A) 0.1 k/uL (0-0.7); Eosinophils % (A) 1 %; HCT 26.5 % (39.0-53.0); HGB 8.5 gm/dL (13.0-17.5); Lymphocytes # (A) 0.3 k/uL (1.0-4.8); Lymphocytes % (A) 4 %; MCH 34.6 pg (25.0-35.0); Mean Platelet Volume 10.6; Monocytes # (A) 0.2 k/uL (0-1.0); Monocytes % (A) 2 %; Neutrophils # (A) 7.8 k/uL (1.3-7.7); Neutrophils % (A) 92 %; RBC 2.45 m/uL (4.30-5.90); RDW 17.4 % (11.5-15.5); WBC 8.4 k/uL (3.8-10.6)
[2021-07-05] MEDS ORDERED: LORazepam 2 MG/ML INJ IV STA (02:48)
[2021-07-05] MEDS ORDERED: ACETAMINOPHEN IV (For NPO) 1,000 MG in EMPTY BAG 1 BAG IVPB STA (02:56)
[2021-07-05 02:57] LABS: Calcium 9.6 mg/dL (8.4-10.2); Magnesium 1.7 mg/dL (1.6-2.3); Potassium 4.3 mmol/L (3.5-5.1); Total Bilirubin 1.9 mg/dL (0.2-1.3); Total Protein 7.8 g/dL (6.3-8.2)
[2021-07-05 03:03] LABS: Macrocytosis Marked; Platelet Count 84 k/uL (150-450)
--- NOTE | 2021-07-05 03:27 | P.EN ---
A team note Activated at 2:07 AM. Arrived at the scene shortly after. Reviewed the chart and discussed the case with the RN. The patient was admitted for suspected TIA along with acute kidney injury. He was recently started on dialysis. The RN was notified regarding the patient's tachycardia via telemetry, and when the staff went into the room, they found the patient to be foaming at the mouth and unresponsive. Some twitching of the arms was noted. The patient was unresponsive to stimuli. At time of my evaluation, the patient continued to be unresponsive to noxious stimuli. EKG was obtained and was reviewed showing sinus tachycardia with a left axis deviation and right bundle branch block. The patient has been afebrile throughout the night and did not endorse headaches prior to the episode. General: Chronically ill-appearing male, in no acute distress, appears older than stated age, morbidly obese HEENT: NC/AT, anicteric sclerae, moist conjunctiva, no lid-lag, PERRLA Cardiovascular: Tachycardic, no murmurs, rubs, or gallops Lungs: Clear to auscultation, normal respiratory effort, no accessory muscle use Abdominal: Soft, non-tender, non-distended, no guarding, rebound, or rigidity Skin: Warm, dry Extremities: No edema or contractures Neuro: Unresponsive to noxious stimuli, unable to perform neuro exam Assessment/plan Unresponsiveness, suspected secondary to seizure -Marvin 1 g ordered -Seizure precautions -Stat laboratory evaluation ordered -RN to notify neurology and primary team
--- NOTE | 2021-07-05 03:43 | CT ---
EXAMINATION TYPE: CT brain wo con DATE OF EXAM: 07/05/2021 COMPARISON: 07/01/2021 HISTORY: possible seizure CT DLP: 1182.4 mGycm Automated exposure control for dose reduction was used. Images obtained of the brain without contrast. Ventricles have normal size. There is no mass effect nor midline shift. There is no evidence of intra cranial hemorrhage. The calvarium is intact. There is normal aeration of the mastoid sinuses. There a re bilateral Virchow-Willem spaces. There is mild cerebral atrophy. IMPRESSION: Negative unenhanced head CT scan. No adverse change compared to old exam.
[2021-07-05] MEDS ORDERED: SODIUM CHLORIDE 0.9% 500 ML 500 ML IV ONE (03:47)
[2021-07-05 05:55] LABS: Appearance,Urine Cloudy (Clear); Bacteria,Urine Rare /hpf; Bilirubin,Urine Negative (Negative); Blood,Urine Large (Negative); Color,Urine Red; Glucose,Urine (UA) Negative (Negative); Ketones,Urine Trace (Negative); Leukocyte Esterase,Urine Moderate (Negative); Mucus,Urine Rare /hpf; Nitrite,Urine Negative (Negative); PH, Urine 5.5 (5.0-8.0); Protein,Urine 1+ (Negative); RBC,Urine >182 /hpf (0-5); Specific Gravity,Urine 1.018 (1.001-1.035); WBC,Urine 47 /hpf (0-5)
[2021-07-05 06:36] LABS: Glucose,Whole Blood 174 mg/dL (75-99)
[2021-07-05] MEDS: INSULIN ASPART (NovoLOG) 100 UNIT/ML VIAL SQ SCH ×4 (06:41→21:07)
[2021-07-05] MEDS: THIAMINE 100 MG TAB PO SCH (09:14)
[2021-07-05] MEDS: LEVOTHYROXINE 75 MCG TAB PO SCH (09:14)
--- NOTE | 2021-07-05 09:42 | P.PN ---
Subjective Patient is seen in follow-up for acute kidney injury. No significant improvement in renal function with IV fluids. Nonoliguric. Started on hemodi alysis on July 04 due to uremia. Last night the patient was found to be unresponsive with foaming at the moment. There was concern for seizure activity and he received IV Keppra. He is currently on 3 L nasal cannula. Blood pressure stable. Also noted to have high-grade fever overnight. Vital signs are stable. General: The patient appeared well nourished and normally developed. HEENT: Head exam is unremarkable. LUNGS: Breath sounds decreased. HEART: Rate and Rhythm are regular. ABDOMEN: Soft, no distention. EXTREMITITES: No edema. Objective - Vital Signs Vital signs: Vital Signs Temp 98.7 F 07/05/21 09:20 Pulse 111 H 07/05/21 07:32 Resp 16 07/05/21 07:33 BP 121/76 07/05/21 07:32 Pulse Ox 97 07/05/21 07:32 Intake & Output 07/04/21 07/05/21 07/05/21 18:59 06:59 18:59 Intake Total 520 Output Total 475 1350 Balance 45 -1350 Weight 120 kg Intake: Oral 520 Output: Urine 475 1350 Other: Voiding Method Indwelling Catheter Indwelling Catheter Indwelling Catheter - Labs CBC & Chem 7: 07/05/21 02:23 07/05/21 02:23 Labs: Abnormal Lab Results - Last 24 Hours (Table) 07/03/21 07/04/21 07/04/21 Range/Units 07:07 11:40 13:22 RBC (4.30-5.90) m/uL Hgb (13.0-17.5) gm/dL Hct (39.0-53.0) % MCV (80.0-100.0) fL MCH (25.0-35.0) pg RDW (11.5-15.5) % Plt Count (150-450) k/uL Neutrophils # (1.3-7.7) k/uL Lymphocytes # (1.0-4.8) k/uL Macrocytosis Chloride 108 H (98-107) mmol/L Carbon Dioxide (22-30) mmol/L BUN 69 H (9-20) mg/dL Creatinine 3.72 H (0.66-1.25) mg/dL Glucose 170 H (74-99) mg/dL POC Glucose (mg/dL) 159 H (75-99) mg/dL Plasma Lactic Acid Malachi (0.7-2.0) mmol/L Total Bilirubin (0.2-1.3) mg/dL AST (17-59) U/L Urine Protein (Negative) Urine Ketones (Negative) Urine Blood (Negative) Ur Leukocyte Esterase (Negative) Urine RBC (0-5) /hpf Urine WBC (0-5) /hpf Urine Bacteria (None) /hpf Urine Mucus (None) /hpf Hep Bs Antibody NonReactive A (Nonreactive) 07/04/21 07/04/21 07/04/21 Range/Units 13:22 16:46 20:45 RBC 2.12 L (4.30-5.90) m/uL Hgb 7.4 L (13.0-17.5) gm/dL Hct 22.7 L (39.0-53.0) % MCV 107.3 H (80.0-100.0) fL MCH 35.2 H (25.0-35.0) pg RDW 17.1 H (11.5-15.5) % Plt Count 77 L (150-450) k/uL Neutrophils # (1.3-7.7) k/uL Lymphocytes # (1.0-4.8) k/uL Macrocytosis Marked A Chloride (98-107) mmol/L Carbon Dioxide (22-30) mmol/L BUN (9-20) mg/dL Creatinine (0.66-1.25) mg/dL Glucose (74-99) mg/dL POC Glucose (mg/dL) 185 H 213 H (75-99) mg/dL Plasma Lactic Acid Malachi (0.7-2.0) mmol/L Total Bilirubin (0.2-1.3) mg/dL AST (17-59) U/L Urine Protein (Negative) Urine Ketones (Negative) Urine Blood (Negative) Ur Leukocyte Esterase (Negative) Urine RBC (0-5) /hpf Urine WBC (0-5) /hpf Urine Bacteria (None) /hpf Urine Mucus (None) /hpf Hep Bs Antibody (Nonreactive) 07/05/21 07/05/21 07/05/21 Range/Units 02:08 02:23 02:23 RBC 2.45 L (4.30-5.90) m/uL Hgb 8.5 L (13.0-17.5) gm/dL Hct 26.5 L (39.0-53.0) % MCV 108.0 H (80.0-100.0) fL MCH (25.0-35.0) pg RDW 17.4 H (11.5-15.5) % Plt Count 84 L (150-450) k/uL Neutrophils # 7.8 H (1.3-7.7) k/uL Lymphocytes # 0.3 L (1.0-4.8) k/uL Macrocytosis Marked A Chloride 109 H (98-107) mmol/L Carbon Dioxide 19 L (22-30) mmol/L BUN 71 H (9-20) mg/dL Creatinine 4.05 H (0.66-1.25) mg/dL Glucose 208 H (74-99) mg/dL POC Glucose (mg/dL) 197 H (75-99) mg/dL Plasma Lactic Acid Malachi (0.7-2.0) mmol/L Total Bilirubin 1.9 H (0.2-1.3) mg/dL AST 79 H (17-59) U/L Urine Protein (Negative) Urine Ketones (Negative) Urine Blood (Negative) Ur Leukocyte Esterase (Negative) Urine RBC (0-5) /hpf Urine WBC (0-5) /hpf Urine Bacteria (None) /hpf Urine Mucus (None) /hpf Hep Bs Antibody (Nonreactive) 07/05/21 07/05/21 07/05/21 Range/Units 02:23 04:14 06:23 RBC (4.30-5.90) m/uL Hgb (13.0-17.5) gm/dL Hct (39.0-53.0) % MCV (80.0-100.0) fL MCH (25.0-35.0) pg RDW (11.5-15.5) % Plt Count (150-450) k/uL Neutrophils # (1.3-7.7) k/uL Lymphocytes # (1.0-4.8) k/uL Macrocytosis Chloride (98-107) mmol/L Carbon Dioxide (22-30) mmol/L BUN (9-20) mg/dL Creatinine (0.66-1.25) mg/dL Glucose (74-99) mg/dL POC Glucose (mg/dL) 174 H (75-99) mg/dL Plasma Lactic Acid Malachi 3.1 H* (0.7-2.0) mmol/L Total Bilirubin (0.2-1.3) mg/dL AST (17-59) U/L Urine Protein 1+ H (Negative) Urine Ketones Trace H (Negative) Urine Blood Large H (Negative) Ur Leukocyte Esterase Moderate H (Negative) Urine RBC >182 H (0-5) /hpf Urine WBC 47 H (0-5) /hpf Urine Bacteria Rare H (None) /hpf Urine Mucus Rare H (None) /hpf Hep Bs Antibody (Nonreactive) 07/05/21 Range/Units 07:04 RBC (4.30-5.90) m/uL Hgb (13.0-17.5) gm/dL Hct (39.0-53.0) % MCV (80.0-100.0) fL MCH (25.0-35.0) pg RDW (11.5-15.5) % Plt Count (150-450) k/uL Neutrophils # (1.3-7.7) k/uL Lymphocytes # (1.0-4.8) k/uL Macrocytosis Chloride (98-107) mmol/L Carbon Dioxide (22-30) mmol/L BUN (9-20) mg/dL Creatinine (0.66-1.25) mg/dL Glucose (74-99) mg/dL POC Glucose (mg/dL) (75-99) mg/dL Plasma Lactic Acid Malachi 4.7 H* (0.7-2.0) mmol/L Total Bilirubin (0.2-1.3) mg/dL AST (17-59) U/L Urine Protein (Negative) Urine Ketones (Negative) Urine Blood (Negative) Ur Leukocyte Esterase (Negative) Urine RBC (0-5) /hpf Urine WBC (0-5) /hpf Urine Bacteria (None) /hpf Urine Mucus (None) /hpf Hep Bs Antibody (Nonreactive) Assessment and Plan Plan: Assessment: 1. Acute kidney injury secondary to ATN secondary to hypovolemia from diuretics and poor intake. Creatinine was 5.74 on admission without significant improvement with IV hydration. UA is fairly benign. No hydronephrosis noted on kidney ultrasound. Started on dialysis July 04 due to uremia. 2. Acute encephalopathy. Brain CT negative. Concern for uremia. ?seizure/infection. 3. Diabetes mellitus. 4. Anemia. Iron replete. On Aranesp. 5. Benign hypertension. Stable. Plan: Maintain normal saline at 50 mL an hour. Continue to hold diuretics and losartan. Avoid nephrotoxins. Follow-up serologies. UPC 0.44. Second treatment of hemodialysis today and another treatment tomorrow. Monitor for renal recovery. Follow-up cultures. On antibiotics.
[2021-07-05] MEDS: GABAPENTIN 100 MG CAP PO SCH ×3 (10:54→20:56)
[2021-07-05] MEDS: HEPARIN SODIUM,PORCINE/PF 5,000 UNIT/0.5 ML SYRINGE SQ SCH ×2 (10:54→21:07)
[2021-07-05] MEDS: amLODIPine 5 MG TAB PO SCH (10:54)
[2021-07-05] MEDS: FAMOTIDINE 20 MG TAB PO SCH (10:54)
[2021-07-05] MEDS: ASPIRIN 81 MG PO SCH (10:54)
[2021-07-05] MEDS: hydrALAZINE HCL 25 MG TAB PO SCH ×3 (10:55→20:56)
[2021-07-05] MEDS: INSULIN DETEMIR (LEVEMIR) 100 UNIT/ML SYR SQ SCH ×2 (10:55→21:07)
[2021-07-05] MEDS: METOPROLOL TARTRATE 25 MG TAB PO SCH ×2 (10:56→20:56)
[2021-07-05] MEDS: levETIRAcetam IV 500 MG in SODIUM CHLORIDE 0.9% 100 ML IVPB SCH ×2 (11:16→21:07)
[2021-07-05] MEDS: SODIUM CHLORIDE 0.9% 1,000 ML IV SCH ×2 (11:18→16:26)
--- NOTE | 2021-07-05 11:18 | P.PN ---
Subjective Progress Note Date: 07/05/21 Was paged by the patient nurse overnight around 2:30AM that the patient had sinus atrial fibrillation controlled previously with a heart rate in the 70s and 80s but within the past hour he began sustaining heart rate in the 120s. And when the nursing staff wanted to do an EKG the patient was foaming around the mouth and was unresponsive even with sternal rub. His eyes were gaze upward and pupils are reactive. Per the patient nurse she did not notice any jerk in of any extremities. An 18 was notified of this situation and a valid the patient and in their note they stated that the patient had some twitching of the arms were noted but per the patient nurse she was adamant that the patient had no j erk in of any extremities and did not have any tremors during the episode. The 18 mag give the patient the Keppra 1 g and I notified the nurse at the patient continues under not to respond to the give Ativan 1 mg. Which he did. Also overnight around that time he spiked a fever around 2:20 AM with a T-max of 103.3 was current one is 98.7. Per the patient nurse he continues to be unresponsive and no jerk in of any extremities seen so far. Patient is at bedside and she stated the patient is a heavy alcohol user and the last drink was a week ago she denies that the patient has any history of seizures in the past. Patient on this admission was placed on the Byrd catheter as well as a new cath was placed for his the dialysis and the catheter was placed over the right jugular approach. Objective - Vital Signs Vital signs: Vital Signs Temp 98.7 F 07/05/21 09:20 Pulse 111 H 07/05/21 07:32 Resp 16 07/05/21 07:33 BP 121/76 07/05/21 07:32 Pulse Ox 97 07/05/21 07:32 Intake & Output 07/04/21 07/05/21 07/05/21 18:59 06:59 18:59 Intake Total 520 Output Total 475 1350 Balance 45 -1350 Weight 120 kg Intake: Oral 520 Output: Urine 475 1350 Other: Voiding Method Indwelling Catheter Indwelling Catheter Indwelling Catheter - Exam GENERAL: The patient is lying in bed and does not seem in acute distress. HENT: Supple neck and no nuchal rigidity. NEUROLOGICAL: Limited because of his condition. Higher mental function:GCS 3, E1, V1, M1. The patient is unresponsive and not following commands. Cranial nerves: I had to manually open his eyes. The primary gaze is midline. The pupils are round (3mm), equal and reactive to light. No facial weakness. He had residual blood in his mouth. Motor: Gait is deferred because of his condition. The strength is hard to assess because of his condition. Even with painful stimuli not withdrawing any of extremities. Decrease tone throughout. Normal bulk. Cerebellum: Could not assess. Sensation: Could not assess light touch but to painful not withdrawing any extremities. Reflexes (right/left):1+. Plantars are downgoing bilaterally. WORK-UP: White blood cell was present as 8.4 thousand and on presentation 7.0 Hemoglobin A1c is 5.7. Serum folate is 4.7 which is considered the low normal TSH is 2.390 which is within normal limits. Plasma lactic acid vein is 3.1 on 07/05/2021 and the repeated is 4.7. MRI Brain w/o: Is reported as age-related atrophic and chronic small vessel ischemic change. No acute intracranial process at this time. Cardiac duplex was reported as no hemodynamic significant stenosis of the proximal internal carotid arteries by Doppler criteria, and direct measurement carotid stenosis. Cardiac arrhythmias noted. CT of the head is reported as cerebral atrophy. No acute intracranial abnormality. The echo was reported as moderate concentric left hypertrophy. Ejection fraction of 55-60%. Left atrium is severely dilated. Moderate mitral annular calcification present. CT of the head on 07/05/2020 was reported as negative unenhanced head CT scan. No adverse change compared to old exam. - Labs CBC & Chem 7: 07/05/21 02:23 07/05/21 02:23 Labs: Abnormal Lab Results - Last 24 Hours (Table) 07/03/21 07/04/21 07/04/21 Range/Units 07:07 11:40 13:22 RBC (4.30-5.90) m/uL Hgb (13.0-17.5) gm/dL Hct (39.0-53.0) % MCV (80.0-100.0) fL MCH (25.0-35.0) pg RDW (11.5-15.5) % Plt Count (150-450) k/uL Neutrophils # (1.3-7.7) k/uL Lymphocytes # (1.0-4.8) k/uL Macrocytosis Chloride 108 H (98-107) mmol/L Carbon Dioxide (22-30) mmol/L BUN 69 H (9-20) mg/dL Creatinine 3.72 H (0.66-1.25) mg/dL Glucose 170 H (74-99) mg/dL POC Glucose (mg/dL) 159 H (75-99) mg/dL Plasma Lactic Acid Malachi (0.7-2.0) mmol/L Total Bilirubin (0.2-1.3) mg/dL AST (17-59) U/L Urine Protein (Negative) Urine Ketones (Negative) Urine Blood (Negative) Ur Leukocyte Esterase (Negative) Urine RBC (0-5) /hpf Urine WBC (0-5) /hpf Urine Bacteria (None) /hpf Urine Mucus (None) /hpf Hep Bs Antibody NonReactive A (Nonreactive) 07/04/21 07/04/21 07/04/21 Range/Units 13:22 16:46 20:45 RBC 2.12 L (4.30-5.90) m/uL Hgb 7.4 L (13.0-17.5) gm/dL Hct 22.7 L (39.0-53.0) % MCV 107.3 H (80.0-100.0) fL MCH 35.2 H (25.0-35.0) pg RDW 17.1 H (11.5-15.5) % Plt Count 77 L (150-450) k/uL Neutrophils # (1.3-7.7) k/uL Lymphocytes # (1.0-4.8) k/uL Macrocytosis Marked A Chloride (98-107) mmol/L Carbon Dioxide (22-30) mmol/L BUN (9-20) mg/dL Creatinine (0.66-1.25) mg/dL Glucose (74-99) mg/dL POC Glucose (mg/dL) 185 H 213 H (75-99) mg/dL Plasma Lactic Acid Malachi (0.7-2.0) mmol/L Total Bilirubin (0.2-1.3) mg/dL AST (17-59) U/L Urine Protein (Negative) Urine Ketones (Negative) Urine Blood (Negative) Ur Leukocyte Esterase (Negative) Urine RBC (0-5) /hpf Urine WBC (0-5) /hpf Urine Bacteria (None) /hpf Urine Mucus (None) /hpf Hep Bs Antibody (Nonreactive) 07/05/21 07/05/21 07/05/21 Range/Units 02:08 02:23 02:23 RBC 2.45 L (4.30-5.90) m/uL Hgb 8.5 L (13.0-17.5) gm/dL Hct 26.5 L (39.0-53.0) % MCV 108.0 H (80.0-100.0) fL MCH (25.0-35.0) pg RDW 17.4 H (11.5-15.5) % Plt Count 84 L (150-450) k/uL Neutrophils # 7.8 H (1.3-7.7) k/uL Lymphocytes # 0.3 L (1.0-4.8) k/uL Macrocytosis Marked A Chloride 109 H (98-107) mmol/L Carbon Dioxide 19 L (22-30) mmol/L BUN 71 H (9-20) mg/dL Creatinine 4.05 H (0.66-1.25) mg/dL Glucose 208 H (74-99) mg/dL POC Glucose (mg/dL) 197 H (75-99) mg/dL Plasma Lactic Acid Malachi (0.7-2.0) mmol/L Total Bilirubin 1.9 H (0.2-1.3) mg/dL AST 79 H (17-59) U/L Urine Protein (Negative) Urine Ketones (Negative) Urine Blood (Negative) Ur Leukocyte Esterase (Negative) Urine RBC (0-5) /hpf Urine WBC (0-5) /hpf Urine Bacteria (None) /hpf Urine Mucus (None) /hpf Hep Bs Antibody (Nonreactive) 07/05/21 07/05/21 07/05/21 Range/Units 02:23 04:14 06:23 RBC (4.30-5.90) m/uL Hgb (13.0-17.5) gm/dL Hct (39.0-53.0) % MCV (80.0-100.0) fL MCH (25.0-35.0) pg RDW (11.5-15.5) % Plt Count (150-450) k/uL Neutrophils # (1.3-7.7) k/uL Lymphocytes # (1.0-4.8) k/uL Macrocytosis Chloride (98-107) mmol/L Carbon Dioxide (22-30) mmol/L BUN (9-20) mg/dL Creatinine (0.66-1.25) mg/dL Glucose (74-99) mg/dL POC Glucose (mg/dL) 174 H (75-99) mg/dL Plasma Lactic Acid Malachi 3.1 H* (0.7-2.0) mmol/L Total Bilirubin (0.2-1.3) mg/dL AST (17-59) U/L Urine Protein 1+ H (Negative) Urine Ketones Trace H (Negative) Urine Blood Large H (Negative) Ur Leukocyte Esterase Moderate H (Negative) Urine RBC >182 H (0-5) /hpf Urine WBC 47 H (0-5) /hpf Urine Bacteria Rare H (None) /hpf Urine Mucus Rare H (None) /hpf Hep Bs Antibody (Nonreactive) 07/05/21 Range/Units 07:04 RBC (4.30-5.90) m/uL Hgb (13.0-17.5) gm/dL Hct (39.0-53.0) % MCV (80.0-100.0) fL MCH (25.0-35.0) pg RDW (11.5-15.5) % Plt Count (150-450) k/uL Neutrophils # (1.3-7.7) k/uL Lymphocytes # (1.0-4.8) k/uL Macrocytosis Chloride (98-107) mmol/L Carbon Dioxide (22-30) mmol/L BUN (9-20) mg/dL Creatinine (0.66-1.25) mg/dL Glucose (74-99) mg/dL POC Glucose (mg/dL) (75-99) mg/dL Plasma Lactic Acid Malachi 4.7 H* (0.7-2.0) mmol/L Total Bilirubin (0.2-1.3) mg/dL AST (17-59) U/L Urine Protein (Negative) Urine Ketones (Negative) Urine Blood (Negative) Ur Leukocyte Esterase (Negative) Urine RBC (0-5) /hpf Urine WBC (0-5) /hpf Urine Bacteria (None) /hpf Urine Mucus (None) /hpf Hep Bs Antibody (Nonreactive) Assessment and Plan Assessment: * Unresponsiveness with foaming around the mouth. Unknown exact etiology but possible seizure and it could be provoked from underlying infection (especially with fever) as well as that it could've been also aggravated from underlying alcohol withdrawal (last drink was 1 week ago. Which seem a bit prolonged). Patient does not have hx of seizure and current MRI Brain was negative. * Fever of unknown etiology at this time. * Acute transient ?expressive aphasia (had NIH 1 in ED). On examination seems normal. No IV tpa since outside window (symptoms onset was this Past Tuesday). I honestly do not know if patient truly had expressive aphasia. Possibly he had encephalopathy from uremia. Cannot rule out TIA but I feel more uremic encephalopathy. * Mild Myoclonus due to underlying metabolic abnormality. * Atrial fibrillation s/p abalation 20 years ago and he is not on any anticoagulation since he had history of GI bleed in the past. * Low normal folic acid is 4.7 (normal is 4.4-31) * Acute kidney insufficiency--slight worse today compared to yesterday * Mild transaminitis (AST 79. butl ALT 35) * Diabetes mellitus on presentation his glucose in the 200s * Significant alcohol use Plan: * I ordered a stat EEG. I started the patient on Keppra 500 mg IV every 12 hours * Patient had a recent MRI of the brain during this admission and was negative for any stroke. Possibly consider MRI Brain w/ once kidney function improves. * On seizure precaution and seizure pads. * Continue every 4 neuro checks * Place on the IV thiamine 100 mg daily (was on PO thiamine). * Infection disease is consulted. Rule out underlying infection especially with a new Byrd catheter or the cath for his dialysis. * Patient was on aspirin 81 mg daily as well as Lipitor 20 mg for stroke prophylaxis. During this admission he has anemia as low as 7.4 correlates a 0.5 we'll defer the use of antiplatelet if it safe U cane that use the aspirin 300 suppository F on safe to hold for now. We'll defer that decision to the primary team. * PT, OT and DUST COLLECTOR OPERATOR are consulted * Because a low normal folic acid placed on folic acid 1 mg daily. His current folic acid is 4.7. * Pending vitamin B12 level * On cardiac monitoring * Cardiology is on board and her the nurse she stated cardiology recommended the 30 D Holter monitor. * Recommend CIWA protocol and will defer that to the primary team. * We'll defer the rest of the medical management to the primary team. * Upon discharge, the patient needs to follow-up with a neurologist within 1-2 weeks as outpatient. The plan is discussed with the patient's (who is at bedside) and the primary team. Kem Vega MD Neuro-Hospitalist Time with Patient: Less than 30
[2021-07-05 11:44] LABS: Glucose,Whole Blood 180 mg/dL (75-99)
[2021-07-05] MEDS: FOLIC ACID 1 MG TAB PO SCH (11:47)
[2021-07-05 12:17] LABS: Lactic Acid, Venous 5.3 mmol/L (0.7-2.0)
[2021-07-05] MEDS ORDERED: Magnesium Replacement Protocol 1 EACH MISC MISCELLANE PRN (13:51)
[2021-07-05] MEDS ORDERED: HEPARIN SODIUM 1,000 UN/ML (10ML VL) ONE (14:05)
[2021-07-05] MEDS ORDERED: GELATIN SPONGE,ABSORB (LARGE) 1 EACH SPONGE ONE (14:05)
[2021-07-05] MEDS ORDERED: LIDOCAINE 1% INJ 10MG/ML (20 ML MDV) ONE (14:05)
[2021-07-05] MEDS ORDERED: SODIUM CHLORIDE 0.9% 1,000 ML IV ONE ×2 (14:10→14:11)
--- NOTE | 2021-07-05 14:12 | P.PN ---
Subjective Progress Note Date: 07/05/21 Patient is a pleasant 71-year-old male is admitted for acute failure. Patient doesn't have any significant improvement patient acute renal failure is blue to be secondary to medications including NOVA inhibitor and diuretic therapy. Patient does have asterixis and uremic symptoms because of which dialysis catheter is being placed and patient will undergo hemodialysis tomorrow patient is still urinating okay. Patient has a fully catheter. Patient had an echocardiogram evaluated because of mild elevation of troponins which is probably secondary to renal failure no further intervention is being planned at this time as he perspective neurology evaluated the patient because of concern of aphasia although patient appears to have confusion more than aphasia patient does have some chronic microvascular ischemic changes no acute stroke was evident on MRI patient does have microcytosis and anemia probably B12 folate deficiency labs of which were already ordered. The is still having occasional confusional episodes secondary to uremic encephalopathy. 07/04/2021 Patient is evaluated today the bedside status post hemodialysis. He is confused and is not responding to questions appropriately. He is wearing a CPAP currently. He does have some asterixis present at the time of my assessment which can be seen with encephalopathy. Labs reviewed today include a hemoglobin of 7.4, MCV 107.3, MCH 35.2, his platelets are 77. Potassium is 3.7, chloride 108, BUN 69, creatinine 3.72, which has improved with dialysis. His mag is 1.9. Patient is afebrile, blood pressure 162/70. He is 97% on room air. Most recent chest x-ray is negative for acute cardiopulmonary disease. Folate is within normal limits at 4.7 which is just on the lower cusp. Patient is being followed closely by nephrology, plan is for repeat dialysis treatment tomorrow. Aranesp was added. Hydralazine has also been added for blood pressures. 07/05/2021 Patient throughout the evening had a possible seizure episode. He was found to be postictal after telemetry notified RN that he was having a tachycardic episode. Patient is found to be unresponsive to noxious and physical stimuli, he had foaming at the mouth. A repeat brain CT was ordered which was negative and no change compared to old exam. A urinalysis was completed from Byrd catheter which revealed +1 protein, trace ketones, large blood, moderate leukocyte esterase and 47 WBCs. It was negative for nitrates. Patient was started on IV Rocephin. Lactic acid was 3.1, 4.7 and is now 5.3. Despite kidney function and fluid overload, patient is now on 0.9 normal saline at 100 mL per hour. Additional labs include a hemoglobin of 8.5, platelet count of 84, CO2 19, chloride 109, BUN 71, creatinine 4.05. Magnesium is 1.7 we will replace per protocol. Troponins negative. Prolactin is elevated at 24.5. Per at the bedside patient does drink 2 large-sized bottles of Chardonnay daily if not more. Hepatitis B surface antigen and antibody were nonreactive. Vital signs include temperature 99.3, heart rate 92, blood pressure 127/63 and 95% on 3 L nasal cannula. Patient is unresponsive to sternal rub, however his pupils were reactive and equal size. An EEG is currently pending from neurology. Patient was started on IV Keppra in the meantime for possible seizure activity. Review of systems Unable to complete a full review of system is patient is obtunded. All inpatient medications were reviewed and appropriate changes in these medicat ions as dictated in the interval history and assessment and plan. PHYSICAL EXAMINATION: GENERAL: The patient is obtunded at this time, he is not responsive to verbal or physical stimuli. HEENT: Pupils are round and equally reacting to light. EOMI. No scleral icterus. No conjunctival pallor. Normocephalic, atraumatic. No pharyngeal erythema. No thyromegaly. CARDIOVASCULAR: S1 and S2 present. No murmurs, rubs, or gallops. PULMONARY: Chest is clear to auscultation, no wheezing or crackles. ABDOMEN: Soft, nontender, nondistended, normoactive bowel sounds. No palpable organomegaly. MUSCULOSKELETAL: No joint swelling or deformity. EXTREMITIES: No cyanosis, clubbing, mild ankle edema worse on the right NEUROLOGICAL: Gross neurological unable to be completed at this time as patient is obtunded status post possible seizure early this morning. SKIN: No rashes. Assessment and plan Assessment -Toxic encephalopathy related to UTI with sepsis, change in mentation, patient is now obtunded. Appreciate neurology input -UTI with sepsis, not present on admission, most likely related to indwelling Byrd catheter that was inserted in the EC on 07/01 for retention. Lactic acid is 5.3, saline 0.9ns at 100 per hour has been ordered however patient is a fluid overload status, he is a full code. He is started an IV Rocephin and ID consult. Chest x-ray does not reveal an infectious process. Blood cultures were ordered as well. Altered mental status, Toxic and Metabolic encephalopathy related to uremia, imaging does not demonstrate an acute cerebrovascular attack. -Possible acute TIA, presented with a questionable history of expressive aphasia. Will not treat with dual antiplatelet therapy per neurology recommendations to history of GI bleed -Patient has uremic encephalopathy will require hemodialysis for acute tubular necrosis secondary to hypovolemia and diuretics urine analysis is not consistent with chronic kidney disease and patient will undergo hemodialysis because of uremic encephalopathy. -Possible seizure, patient was an ateam this morning after being unresponsive following an episode of tachycardia, EEG reveals severe encephalopathy no signs of epileptiform activity, IV Keppra prophylactically, also possible alcohol withdrawal seizure as patient does drink 2 large bottles of Chardonnay daily however last drink was over a week ago per at the bedside. -Dellitus type 2 blood sugars appear to be well controlled at home and patient's hemoglobin A1c is 5.7 at this time -Diabetic peripheral neuropathy, decreased dose of gabapentin Possible B12/folate deficiency, labs are currently pending patient has pancytopenia and macrocytosis, B12 pending Folate is at the low end of normal at 4.7, we will add folic acid 1 mg daily. -Anemia, with bicytopenia, Aranesp added per nephrology -Elevated troponin most likely a leak related to acute kidney injury, appreciate cardiology input Possible acute on chronic congestive heart failure, diastolic, current EF 55- 60%, BNP 1690 -Full code GI prophylaxis Pepcid DVT prophylaxis subcu heparin Plan Continue to monitor with neuro checks every 4 hours. Neurology has reevaluated the patient and after a possible seizure-like activity or this morning. This could be related to acute alcohol withdrawal, however the at the bedside states the patient has not drank in over a week. It is unlikely that this is an ETOH withdrawal seizure however it is still possible. In addition patient was found to have a UTI with evidence for sepsis due to a change in mentation as well as a elevated lactic acid of 5.3. We will discuss with nephrology about giving patient a bolus as he does not appear to be any signs of overt heart failure and he is only receiving ultrafiltration for a possible uremic encephalopathy. Patient is on empiric antibiotic coverage with Rocephin and we're awaiting urine cultures as well as blood cultures. Infectious disease is also in consult for UTI with sepsis. We'll repeat labs in the morning. Please monitor this patient very closely for signs of further seizure activity. Plan is for dialysis tomorrow. Objective - Vital Signs Vital signs: Vital Signs Temp 99.3 F 07/05/21 12:00 Pulse 92 07/05/21 12:00 Resp 18 07/05/21 12:00 BP 127/63 07/05/21 12:00 Pulse Ox 95 07/05/21 12:00 Intake & Output 07/04/21 07/05/21 07/05/21 18:59 06:59 18:59 Intake Total 520 Output Total 475 1350 Balance 45 -1350 Weight 120 kg Intake: Oral 520 Output: Urine 475 1350 Other: Voiding Method Indwelling Catheter Indwelling Catheter Indwelling Catheter - Labs CBC & Chem 7: 07/05/21 02:23 07/05/21 02:23 Labs: Abnormal Lab Results - Last 24 Hours (Table) 07/03/21 07/04/21 07/04/21 Range/Units 07:07 13:22 13:22 RBC 2.12 L (4.30-5.90) m/uL Hgb 7.4 L (13.0-17.5) gm/dL Hct 22.7 L (39.0-53.0) % MCV 107.3 H (80.0-100.0) fL MCH 35.2 H (25.0-35.0) pg RDW 17.1 H (11.5-15.5) % Plt Count 77 L (150-450) k/uL Neutrophils # (1.3-7.7) k/uL Lymphocytes # (1.0-4.8) k/uL Macrocytosis Marked A Chloride 108 H (98-107) mmol/L Carbon Dioxide (22-30) mmol/L BUN 69 H (9-20) mg/dL Creatinine 3.72 H (0.66-1.25) mg/dL Glucose 170 H (74-99) mg/dL POC Glucose (mg/dL) (75-99) mg/dL Plasma Lactic Acid Malachi (0.7-2.0) mmol/L Total Bilirubin (0.2-1.3) mg/dL AST (17-59) U/L Ammonia (<30) umol/L Prolactin (2.100-17.700) ng/mL Urine Protein (Negative) Urine Ketones (Negative) Urine Blood (Negative) Ur Leukocyte Esterase (Negative) Urine RBC (0-5) /hpf Urine WBC (0-5) /hpf Urine Bacteria (None) /hpf Urine Mucus (None) /hpf Hep Bs Antibody NonReactive A (Nonreactive) 07/04/21 07/04/21 07/05/21 Range/Units 16:46 20:45 02:08 RBC (4.30-5.90) m/uL Hgb (13.0-17.5) gm/dL Hct (39.0-53.0) % MCV (80.0-100.0) fL MCH (25.0-35.0) pg RDW (11.5-15.5) % Plt Count (150-450) k/uL Neutrophils # (1.3-7.7) k/uL Lymphocytes # (1.0-4.8) k/uL Macrocytosis Chloride (98-107) mmol/L Carbon Dioxide (22-30) mmol/L BUN (9-20) mg/dL Creatinine (0.66-1.25) mg/dL Glucose (74-99) mg/dL POC Glucose (mg/dL) 185 H 213 H 197 H (75-99) mg/dL Plasma Lactic Acid Malachi (0.7-2.0) mmol/L Total Bilirubin (0.2-1.3) mg/dL AST (17-59) U/L Ammonia (<30) umol/L Prolactin (2.100-17.700) ng/mL Urine Protein (Negative) Urine Ketones (Negative) Urine Blood (Negative) Ur Leukocyte Esterase (Negative) Urine RBC (0-5) /hpf Urine WBC (0-5) /hpf Urine Bacteria (None) /hpf Urine Mucus (None) /hpf Hep Bs Antibody (Nonreactive) 07/05/21 07/05/21 07/05/21 Range/Units 02:23 02:23 02:23 RBC 2.45 L (4.30-5.90) m/uL Hgb 8.5 L (13.0-17.5) gm/dL Hct 26.5 L (39.0-53.0) % MCV 108.0 H (80.0-100.0) fL MCH (25.0-35.0) pg RDW 17.4 H (11.5-15.5) % Plt Count 84 L (150-450) k/uL Neutrophils # 7.8 H (1.3-7.7) k/uL Lymphocytes # 0.3 L (1.0-4.8) k/uL Macrocytosis Marked A Chloride 109 H (98-107) mmol/L Carbon Dioxide 19 L (22-30) mmol/L BUN 71 H (9-20) mg/dL Creatinine 4.05 H (0.66-1.25) mg/dL Glucose 208 H (74-99) mg/dL POC Glucose (mg/dL) (75-99) mg/dL Plasma Lactic Acid Malachi (0.7-2.0) mmol/L Total Bilirubin 1.9 H (0.2-1.3) mg/dL AST 79 H (17-59) U/L Ammonia (<30) umol/L Prolactin 24.500 H (2.100-17.700) ng/mL Urine Protein (Negative) Urine Ketones (Negative) Urine Blood (Negative) Ur Leukocyte Esterase (Negative) Urine RBC (0-5) /hpf Urine WBC (0-5) /hpf Urine Bacteria (None) /hpf Urine Mucus (None) /hpf Hep Bs Antibody (Nonreactive) 07/05/21 07/05/21 07/05/21 Range/Units 02:23 04:14 06:23 RBC (4.30-5.90) m/uL Hgb (13.0-17.5) gm/dL Hct (39.0-53.0) % MCV (80.0-100.0) fL MCH (25.0-35.0) pg RDW (11.5-15.5) % Plt Count (150-450) k/uL Neutrophils # (1.3-7.7) k/uL Lymphocytes # (1.0-4.8) k/uL Macrocytosis Chloride (98-107) mmol/L Carbon Dioxide (22-30) mmol/L BUN (9-20) mg/dL Creatinine (0.66-1.25) mg/dL Glucose (74-99) mg/dL POC Glucose (mg/dL) 174 H (75-99) mg/dL Plasma Lactic Acid Malachi 3.1 H* (0.7-2.0) mmol/L Total Bilirubin (0.2-1.3) mg/dL AST (17-59) U/L Ammonia (<30) umol/L Prolactin (2.100-17.700) ng/mL Urine Protein 1+ H (Negative) Urine Ketones Trace H (Negative) Urine Blood Large H (Negative) Ur Leukocyte Esterase Moderate H (Negative) Urine RBC >182 H (0-5) /hpf Urine WBC 47 H (0-5) /hpf Urine Bacteria Rare H (None) /hpf Urine Mucus Rare H (None) /hpf Hep Bs Antibody (Nonreactive) 07/05/21 07/05/21 07/05/21 Range/Units 07:04 11:00 11:42 RBC (4.30-5.90) m/uL Hgb (13.0-17.5) gm/dL Hct (39.0-53.0) % MCV (80.0-100.0) fL MCH (25.0-35.0) pg RDW (11.5-15.5) % Plt Count (150-450) k/uL Neutrophils # (1.3-7.7) k/uL Lymphocytes # (1.0-4.8) k/uL Macrocytosis Chloride (98-107) mmol/L Carbon Dioxide (22-30) mmol/L BUN (9-20) mg/dL Creatinine (0.66-1.25) mg/dL Glucose (74-99) mg/dL POC Glucose (mg/dL) 180 H (75-99) mg/dL Plasma Lactic Acid Malachi 4.7 H* 5.3 H* (0.7-2.0) mmol/L Total Bilirubin (0.2-1.3) mg/dL AST (17-59) U/L Ammonia 78 H (<30) umol/L Prolactin (2.100-17.700) ng/mL Urine Protein (Negative) Urine Ketones (Negative) Urine Blood (Negative) Ur Leukocyte Esterase (Negative) Urine RBC (0-5) /hpf Urine WBC (0-5) /hpf Urine Bacteria (None) /hpf Urine Mucus (None) /hpf Hep Bs Antibody (Nonreactive) Assessment and Plan Time with Patient: Greater than 30
[2021-07-05] MEDS: MAGNESIUM SULFATE-D5W PMX 1 GM in DEXTROSE/WATER 1 100ML.BAG IVPB SCH ×2 (14:19→16:26)
[2021-07-05] MEDS: THIAMINE 100 MG/ML 2 ML VIAL IVP SCH (14:20)
[2021-07-05 14:57] LABS: Albumin 3.2 g/dL (3.5-5.0); Potassium 3.9 mmol/L (3.5-5.1); Total Bilirubin 1.5 mg/dL (0.2-1.3); Total Protein 6.7 g/dL (6.3-8.2)
[2021-07-05 16:40] LABS: Glucose,Whole Blood 174 mg/dL (75-99)
[2021-07-05 17:17] LABS: Complement C3 84.7 mg/dL (80.0-207.0)
--- NOTE | 2021-07-05 18:07 | EEG ---
ELECTROENCEPHALOGRAM REPORT DATE OF SERVICE: 07/05/2021. CLINICAL HISTORY: This is a 71-year-old gentleman who is unresponsive. The video EEG is obtained to evaluate for seizure and epileptiform activity. RELEVANT MEDICATION: Keppra as well as 1 mg Ativan. EEG TYPE: A routine 21 channel EEG is performed with video using the 10/20 electrode placement system. DESCRIPTION: The background consists of low to moderate voltage of 1.5 to 2.5 nonrhythmic delta activity that is diffuse. There is no physiological sleep architecture seen. There is no focal slowing. Interictal and ictal is none. ACTIVATION PROCEDURE: Photic stimulation and hyperventilation is not performed. CLINICAL INTERPRETATION: This is an abnormal routine EEG. The background slowing is suggestive of severe encephalopathy likely due to toxic-metabolic abnormalities. There are no focal slowing, epileptiform discharges or seizure on the EEG. Clinical correlation is recommended. HARPAL / TC: [id number] / MTDD
[2021-07-05 18:36] LABS: Protein, Total 6.6 g/dL (6.2-8.2)
[2021-07-05] MEDS ORDERED: hydrALAZINE HCL 20 MG/ML 1 ML VIAL IVP PRN (20:19)
[2021-07-05 20:39] LABS: Glucose,Whole Blood 223 mg/dL (75-99)
[2021-07-05] MEDS ORDERED: LACTULOSE 200 GM/300 ML (FROM 1/2 GAL JUG) RECTAL ONE (21:56)
[2021-07-05 22:03] LABS: Allen Test Performed? Yes
--- NOTE | 2021-07-05 22:38 | P.CONS ---
History of Present Illness - Reason for Consult Consult date: 07/05/21 UTI/Sepsis Requesting physician: Denny Nava - Chief Complaint weakness and new fever x 1 day - History of Present Illness History of present illness : Patient is 71-year-old male who was brought into the ER about 5 days ago on 07/01/2021 for evaluation of slurred speech expressive basial and some confusion his symptom has been going on for few days before presentation to the hospital there is no history of any fever at home no history of any headache vomiting diarrhea or any of the symptoms as per the history which was provided by the on presentation to the hospital the patient was afebrile the patient spiked a fever earlier this morning to 103 degree form height and did have a fever ultrasound this morning patient did have elevated lactic acid his white count has been normal urine on admission was negative however urine collected this morning has been positive stock PCR has been negative patient did have a chest x-ray with no acute cardiopulmonary disease patient noticed to have acute renal failure during this admission for the patient has got a dialysis catheter and is undergoing dialysis most information has been obtained from review the chart and talking to the at the bedside and the patient did not provide any history with his fever and now with a blood cultures coming back positive with gram-positive cocci infectious david siegel was consulted for further management of antibiotic therapy Review of system: Positive point has been mentioned in HPI complete review could not be obtained because of underlying mental status Past medical history : Reviewed, documented below Past surgical history : Reviewed, documented below Social history: Reviewed, documented below Medications: Reviewed, as documented below EXAMINATION: Vital sigans= Reviewed and documented below GENERAL DESCRIPTION: Elderly male lying in bed, no distress. No tachypnea or accessory muscle of respiration use. HEENT: Shows Pallor , no scleral icterus. Oral mucous membrane is dry. NECK: Trachea central, no thyromegaly. LUNGS: Unlabored breathing. Decreased breath sound at the base. No wheeze or crackle. HEART: S1, S2, regular rate and rhythm. ABDOMEN: Soft, no tenderness , guarding or rigidity EXTREMITIES: No edema of feet. SKIN: No rash, no masses palpable. NEUROLOGICAL: The patient is lethargic orientation could not determine LABS AND RADIOLOGY: Reviewed results see below Assessment : 1-patient is a 71-year-old male presented to hospital with weakness confusion in this patient noticed to have acute renal failure for the patient was started on dialysis patient was afebrile on admission however he did have a nosocomial fever and now the blood cultures coming positive with gram-positive cocci and did have a positive UA both could be the likely source of his fever/ infection 2-patient with acute renal failure and high risk of nephrotoxicity from vancomycin Plan: 1-blood cultures will be repeated document clearance of his bacteremia 2-Rocephin 1 g daily to continue 3-we will add daptomycin 6 mg/kg every 48 hour We will follow on clinical condition and cultures to further adjust medication if needed Thank you for this consultation we will follow the patient along with you Past Medical History Past Medical History: Atrial Fibrillation, Diabetes Mellitus, GI Bleed, H yperlipidemia, Hypertension, Skin Disorder, Sleep Apnea/CPAP/BIPAP, Thyroid Disorder Additional Past Medical History / Comment(s): diverticulitis, hx colon polyp, gout, little bumps and dry skin, neuropathy patty legs and feet, hx anemia, agent orange exposure. History of Any Multi-Drug Resistant Organisms: None Reported Past Surgical History: Bariatric Surgery, Cardiac Ablation, Hernia Repair, Joint Replacement Additional Past Surgical History / Comment(s): Boils lanced on back. Blephoplasty. left hip replacement, shannan-en-[id number] Past Anesthesia/Blood Transfusion Reactions: Previous Problems w/ Anesthesia Additional Past Anesthesia/Blood Transfusion Reaction / Comm: woke up during procedure Past Psychological History: No Psychological Hx Reported Smoking Status: Former smoker Past Alcohol Use History: Occasional Additional Past Alcohol Use History / Comment(s): quit smoking 15 yrs ago, smoked on and off for 20 yrs Past Drug Use History: None Reported - Past Family History Father Family Medical History: Cancer Additional Family Medical History / Comment(s): lung Mother Family Medical History: No Reported History Additional Family Medical History / Comment(s): Mother passed at age 62 due to an auto accident. Brother(s) Family Medical History: Cancer Additional Family Medical History / Comment(s): throat Sister(s) Family Medical History: Cancer Additional Family Medical History / Comment(s): lymphoma Medications and Allergies Home Medications Medication Instructions Recorded Confirmed Type Furosemide [Lasix] 80 mg PO BID 01/10/19 07/01/21 History Gabapentin [Neurontin] 800 mg PO QID 01/10/19 07/01/21 History Insulin Glargine,Hum.rec.anlog 25 unit SQ Q12H 01/10/19 07/01/21 History [Lantus Solostar Pen] Levothyroxine Sodium [Synthroid] 75 mcg PO DAILY 01/10/19 07/01/21 History Allopurinol [Zyloprim] 200 mg PO DAILY 09/11/20 07/01/21 History Alogliptin Benzoate [Alogliptin] 25 mg PO DAILY 09/11/20 07/01/21 History Ferrous Sulfate [Feosol] 325 mg PO DAILY 09/11/20 07/01/21 History Losartan-Hctz 50-12.5 mg [Hyzaar 1 tab PO DAILY 09/11/20 07/01/21 History 50-12.5] Pravastatin Sodium [Pravachol] 20 mg PO HS 09/11/20 07/01/21 History Ammonium Lactate Cream [Lac-Hydrin 1 applic TOPICAL BID PRN 07/01/21 07/01/21 History 12% Cream] Clindamycin Lotion 1% 1 applic TOPICAL BID PRN 07/01/21 07/01/21 History Dextrose Chew [Glucose Chew Tab] 16 gm PO DAILY PRN 07/01/21 07/01/21 History Fluticasone Nasal Cascade [Flonase 2 spray EA NOSTRIL DAILY PRN 07/01/21 07/01/21 History Nasal Cascade] Insulin Glargine,Hum.rec.anlog See Protocol SQ Q12H PRN 07/01/21 07/01/21 Hi story [Lantus Solostar Pen] Psyllium Husk (with Sugar) 1 tsp PO DAILY PRN 07/01/21 07/01/21 History [Metamucil Powder] Sildenafil Citrate 50 mg PO DAILY PRN 07/01/21 07/01/21 History Testosterone [Androgel 1.62% Gel 2 pump TOPICAL DAILY 07/01/21 07/01/21 History Pump] Allergies Allergy/AdvReac Type Severity Reaction Status Date / Time No Known Allergies Allergy Verified 07/01/21 17:44 Physical Exam Vitals: Vital Signs Temp Pulse Resp BP BP Pulse Ox 07/05/21 15:11 97.5 F L 73 16 130/70 97 07/05/21 13:48 18 07/05/21 12:00 99.3 F 92 18 127/63 95 07/05/21 09:20 98.7 F 07/05/21 07:33 16 07/05/21 07:32 101.0 F H 111 H 16 121/76 97 07/05/21 06:42 102.2 F H 109 H 22 143/69 96 07/05/21 06:03 100.6 F H 115 H 22 146/54 96 07/05/21 05:41 102.4 F H 07/05/21 04:59 103.0 F H 121 H 24 136/55 95 07/05/21 04:19 102.8 F H 120 H 24 154/70 95 07/05/21 04:06 102.8 F H 121 H 22 154/63 96 07/05/21 03:30 103.0 F H 131 H 22 169/66 97 07/05/21 02:20 103.3 F H 139 H 22 189/98 92 L 07/04/21 23:51 98.8 F 78 18 175/78 95 07/04/21 20:00 98.2 F 74 18 152/67 97 07/04/21 16:00 97.6 F 68 16 164/77 98 Intake and Output 07/05/21 07/05/21 07/05/21 06:59 14:59 22:59 Output Total 1350 Balance -1350 Output: Urine 1350 Other: Voiding Method Indwelling Catheter Indwelling Catheter Weight 120 kg Results CBC & Chem 7: 07/05/21 02:23 07/05/21 14:25 Labs: Abnormal Lab Results - Last 24 Hours (Table) 07/03/21 07/04/21 07/04/21 Range/Units 07:07 16:46 20:45 RBC (4.30-5.90) m/uL Hgb (13.0-17.5) gm/dL Hct (39.0-53.0) % MCV (80.0-100.0) fL RDW (11.5-15.5) % Plt Count (150-450) k/uL Neutrophils # (1.3-7.7) k/uL Lymphocytes # (1.0-4.8) k/uL Macrocytosis Chloride (98-107) mmol/L Carbon Dioxide (22-30) mmol/L BUN (9-20) mg/dL Creatinine (0.66-1.25) mg/dL Glucose (74-99) mg/dL POC Glucose (mg/dL) 185 H 213 H (75-99) mg/dL Plasma Lactic Acid Malachi (0.7-2.0) mmol/L Total Bilirubin (0.2-1.3) mg/dL AST (17-59) U/L Ammonia (<30) umol/L Albumin (3.5-5.0) g/dL Prolactin (2.100-17.700) ng/mL Urine Protein (Negative) Urine Ketones (Negative) Urine Blood (Negative) Ur Leukocyte Esterase (Negative) Urine RBC (0-5) /hpf Urine WBC (0-5) /hpf Urine Bacteria (None) /hpf Urine Mucus (None) /hpf Hep Bs Antibody NonReactive A (Nonreactive) 07/05/21 07/05/21 07/05/21 Range/Units 02:08 02:23 02:23 RBC 2.45 L (4.30-5.90) m/uL Hgb 8.5 L (13.0-17.5) gm/dL Hct 26.5 L (39.0-53.0) % MCV 108.0 H (80.0-100.0) fL RDW 17.4 H (11.5-15.5) % Plt Count 84 L (150-450) k/uL Neutrophils # 7.8 H (1.3-7.7) k/uL Lymphocytes # 0.3 L (1.0-4.8) k/uL Macrocytosis Marked A Chloride 109 H (98-107) mmol/L Carbon Dioxide 19 L (22-30) mmol/L BUN 71 H (9-20) mg/dL Creatinine 4.05 H (0.66-1.25) mg/dL Glucose 208 H (74-99) mg/dL POC Glucose (mg/dL) 197 H (75-99) mg/dL Plasma Lactic Acid Malachi (0.7-2.0) mmol/L Total Bilirubin 1.9 H (0.2-1.3) mg/dL AST 79 H (17-59) U/L Ammonia (<30) umol/L Albumin (3.5-5.0) g/dL Prolactin (2.100-17.700) ng/mL Urine Protein (Negative) Urine Ketones (Negative) Urine Blood (Negative) Ur Leukocyte Esterase (Negative) Urine RBC (0-5) /hpf Urine WBC (0-5) /hpf Urine Bacteria (None) /hpf Urine Mucus (None) /hpf Hep Bs Antibody (Nonreactive) 07/05/21 07/05/21 07/05/21 Range/Units 02:23 02:23 04:14 RBC (4.30-5.90) m/uL Hgb (13.0-17.5) gm/dL Hct (39.0-53.0) % MCV (80.0-100.0) fL RDW (11.5-15.5) % Plt Count (150-450) k/uL Neutrophils # (1.3-7.7) k/uL Lymphocytes # (1.0-4.8) k/uL Macrocytosis Chloride (98-107) mmol/L Carbon Dioxide (22-30) mmol/L BUN (9-20) mg/dL Creatinine (0.66-1.25) mg/dL Glucose (74-99) mg/dL POC Glucose (mg/dL) (75-99) mg/dL Plasma Lactic Acid Malachi 3.1 H* (0.7-2.0) mmol/L Total Bilirubin (0.2-1.3) mg/dL AST (17-59) U/L Ammonia (<30) umol/L Albumin (3.5-5.0) g/dL Prolactin 24.500 H (2.100-17.700) ng/mL Urine Protein 1+ H (Negative) Urine Ketones Trace H (Negative) Urine Blood Large H (Negative) Ur Leukocyte Esterase Moderate H (Negative) Urine RBC >182 H (0-5) /hpf Urine WBC 47 H (0-5) /hpf Urine Bacteria Rare H (None) /hpf Urine Mucus Rare H (None) /hpf Hep Bs Antibody (Nonreactive) 07/05/21 07/05/21 07/05/21 Range/Units 06:23 07:04 11:00 RBC (4.30-5.90) m/uL Hgb (13.0-17.5) gm/dL Hct (39.0-53.0) % MCV (80.0-100.0) fL RDW (11.5-15.5) % Plt Count (150-450) k/uL Neutrophils # (1.3-7.7) k/uL Lymphocytes # (1.0-4.8) k/uL Macrocytosis Chloride (98-107) mmol/L Carbon Dioxide (22-30) mmol/L BUN (9-20) mg/dL Creatinine (0.66-1.25) mg/dL Glucose (74-99) mg/dL POC Glucose (mg/dL) 174 H (75-99) mg/dL Plasma Lactic Acid Malachi 4.7 H* 5.3 H* (0.7-2.0) mmol/L Total Bilirubin (0.2-1.3) mg/dL AST (17-59) U/L Ammonia 78 H (<30) umol/L Albumin (3.5-5.0) g/dL Prolactin (2.100-17.700) ng/mL Urine Protein (Negative) Urine Ketones (Negative) Urine Blood (Negative) Ur Leukocyte Esterase (Negative) Urine RBC (0-5) /hpf Urine WBC (0-5) /hpf Urine Bacteria (None) /hpf Urine Mucus (None) /hpf Hep Bs Antibody (Nonreactive) 07/05/21 07/05/21 07/05/21 Range/Units 11:42 14:25 14:30 RBC (4.30-5.90) m/uL Hgb (13.0-17.5) gm/dL Hct (39.0-53.0) % MCV (80.0-100.0) fL RDW (11.5-15.5) % Plt Count (150-450) k/uL Neutrophils # (1.3-7.7) k/uL Lymphocytes # (1.0-4.8) k/uL Macrocytosis Chloride 111 H (98-107) mmol/L Carbon Dioxide (22-30) mmol/L BUN 69 H (9-20) mg/dL Creatinine 3.89 H (0.66-1.25) mg/dL Glucose 196 H (74-99) mg/dL POC Glucose (mg/dL) 180 H (75-99) mg/dL Plasma Lactic Acid Malachi 3.2 H* (0.7-2.0) mmol/L Total Bilirubin 1.5 H (0.2-1.3) mg/dL AST 106 H (17-59) U/L Ammonia (<30) umol/L Albumin 3.2 L (3.5-5.0) g/dL Prolactin (2.100-17.700) ng/mL Urine Protein (Negative) Urine Ketones (Negative) Urine Blood (Negative) Ur Leukocyte Esterase (Negative) Urine RBC (0-5) /hpf Urine WBC (0-5) /hpf Urine Bacteria (None) /hpf Urine Mucus (None) /hpf Hep Bs Antibody (Nonreactive) Microbiology - Last 24 Hours (Table) 07/05/21 02:59 Blood Culture - Final Blood
--- NOTE | 2021-07-05 23:12 | P.EN ---
A team note Activated at 9:42 pm. Arrived on the scene shortly after. Reviewed the chart and discussed the case with RN. The A team was activated for continued altered mental status. The patient had been comatose since roughly 2 AM on 07/05. He continued to be unresponsive to noxious stimuli. Neurology was consulted with EEG performed showing findings consistent with severe encephalopathy with no epileptiform activity noted. Laboratory evaluation from earlier in the day revealed an elevated ammonia of 78. Vitals at time of evaluation BP 120/78, pulse 92, SpO2 98% on room air, and afebrile at 97.8. General: Non-toxic, in no acute distress, appears stated age, morbidly obese HEENT: NC/AT, anicteric sclerae, moist conjunctiva, no lid-lag, PERRL Cardiovascular: S1/S2 wnl, no murmurs, rubs, or gallops Lungs: Clear to auscultation, normal respiratory effort, no accessory muscle use Abdominal: Soft, non-tender, non-distended, no guarding, rebound, or rigidity Skin: Warm, dry Extremities: No edema or contractures Psychiatric: Unresponsive to noxious stimuli Neuro: Unable to perform Assessment/plan Altered mental status, unclear etiology -EEG showing no epileptiform activity -Blood cultures growing gram-positive cocci with patient started on daptomycin -ABG obtained showing no hypercapnia -Elevated pneumonia with rectal lactulose ordered -Continue with neuro checks -Primary team and neurologist notified by RN Total time spent providing critical care for this patient including chart review in order placement: Greater than 30 minutes
[2021-07-06 04:02] LABS: ABG HCO3 23 mmol/L (21-25); ABG PCO2 32 mmHg (35-45); ABG PH 7.48 (7.35-7.45); ABG PO2 124 mmHg (83-108)
[2021-07-06 04:03] LABS: ABG Base Excess -0.1 mmol/L; ABG TCO2 24 mmol/L (19-24)
[2021-07-06 06:04] LABS: Glucose,Whole Blood 166 mg/dL (75-99)
[2021-07-06] MEDS: LEVOTHYROXINE 75 MCG TAB PO SCH (06:11)
[2021-07-06] MEDS: INSULIN ASPART (NovoLOG) 100 UNIT/ML VIAL SQ SCH ×4 (06:18→20:26)
[2021-07-06 07:37] LABS: Anisocytosis Slight; Basophils % (A) 0 %; Eosinophils % (A) 0 %; HCT 23.6 % (39.0-53.0); HGB 7.5 gm/dL (13.0-17.5); Hypochromasia Slight; Lymphocytes # (A) 0.5 k/uL (1.0-4.8); Lymphocytes % (A) 4 %; MCH 35.1 pg (25.0-35.0); MCV 109.6 fL (80.0-100.0); Macrocytosis Marked; Mean Platelet Volume 12.7; Monocytes % (A) 7 %; Neutrophils # (A) 12.9 k/uL (1.3-7.7); Neutrophils % (A) 88 %; Platelet Count 74 k/uL (150-450); RBC 2.15 m/uL (4.30-5.90); RDW 16.8 % (11.5-15.5); WBC 14.7 k/uL (3.8-10.6)
[2021-07-06 07:51] LABS: Magnesium 1.9 mg/dL (1.6-2.3); Potassium 3.7 mmol/L (3.5-5.1); Total Bilirubin 1.3 mg/dL (0.2-1.3); Total Protein 6.5 g/dL (6.3-8.2)
[2021-07-06] MEDS: levETIRAcetam IV 500 MG in SODIUM CHLORIDE 0.9% 100 ML IVPB SCH ×2 (10:14→20:31)
[2021-07-06] MEDS: INSULIN DETEMIR (LEVEMIR) 100 UNIT/ML SYR SQ SCH ×2 (10:16→20:26)
[2021-07-06] MEDS: THIAMINE 100 MG/ML 2 ML VIAL IVP SCH (10:17)
[2021-07-06 10:38] LABS: Large Platelets Present
[2021-07-06] MEDS: PANTOPRAZOLE 40 MG/10 ML VIAL IVP SCH ×2 (11:18→20:31)
[2021-07-06] MEDS: MAGNESIUM SULFATE-D5W PMX 1 GM in DEXTROSE/WATER 1 100ML.BAG IVPB SCH ×2 (11:20→12:45)
[2021-07-06] MEDS: HEPARIN SODIUM,PORCINE/PF 5,000 UNIT/0.5 ML SYRINGE SQ SCH ×2 (11:20→20:31)
[2021-07-06 11:27] LABS: Glucose,Whole Blood 121 mg/dL (75-99)
[2021-07-06] MEDS: FOLIC ACID 1 MG TAB PO SCH (11:53)
[2021-07-06] MEDS: METOPROLOL TARTRATE 25 MG TAB PO SCH ×2 (11:53→20:27)
[2021-07-06] MEDS: amLODIPine 5 MG TAB PO SCH (11:53)
[2021-07-06] MEDS: hydrALAZINE HCL 25 MG TAB PO SCH ×3 (11:53→20:27)
[2021-07-06] MEDS: GABAPENTIN 100 MG CAP PO SCH ×3 (11:53→20:27)
[2021-07-06] MEDS: ASPIRIN 81 MG PO SCH (11:53)
[2021-07-06] MEDS: FAMOTIDINE 20 MG TAB PO SCH (12:13)
[2021-07-06] MEDS: POTASSIUM CHLORIDE 10 MEQ in WATER FOR INJECTION 1 100ML.BAG IVPB SCH ×2 (13:30→18:55)
[2021-07-06 14:10] LABS: C-ANCA <1:20 Titer (<1:20)
--- NOTE | 2021-07-06 14:27 | P.PN ---
Subjective Progress Note Date: 07/06/21 Patient is a pleasant 71-year-old male is admitted for acute failure. Patient doesn't have any significant improvement patient acute renal failure is blue to be secondary to medications including NOVA inhibitor and diuretic therapy. Patient does have asterixis and uremic symptoms because of which dialysis catheter is being placed and patient will undergo hemodialysis tomorrow patient is still urinating okay. Patient has a fully catheter. Patient had an echocardiogram evaluated because of mild elevation of troponins which is probably secondary to renal failure no further intervention is being planned at this time as he perspective neurology evaluated the patient because of concern of aphasia although patient appears to have confusion more than aphasia patient does have some chronic microvascular ischemic changes no acute stroke was evident on MRI patient does have microcytosis and anemia probably B12 folate deficiency labs of which were already ordered. The is still having occasional confusional episodes secondary to uremic encephalopathy. 07/04/2021 Patient is evaluated today the bedside status post hemodialysis. He is confused and is not responding to questions appropriately. He is wearing a CPAP currently. He does have some asterixis present at the time of my assessment which can be seen with encephalopathy. Labs reviewed today include a hemoglobin of 7.4, MCV 107.3, MCH 35.2, his platelets are 77. Potassium is 3.7, chloride 108, BUN 69, creatinine 3.72, which has improved with dialysis. His mag is 1.9. Patient is afebrile, blood pressure 162/70. He is 97% on room air. Most recent chest x-ray is negative for acute cardiopulmonary disease. Folate is within normal limits at 4.7 which is just on the lower cusp. Patient is being followed closely by nephrology, plan is for repeat dialysis treatment tomorrow. Aranesp was added. Hydralazine has also been added for blood pressures. 07/05/2021 Patient throughout the evening had a possible seizure episode. He was found to be postictal after telemetry notified RN that he was having a tachycardic episode. Patient is found to be unresponsive to noxious and physical stimuli, he had foaming at the mouth. A repeat brain CT was ordered which was negative and no change compared to old exam. A urinalysis was completed from Byrd catheter which revealed +1 protein, trace ketones, large blood, moderate leukocyte esterase and 47 WBCs. It was negative for nitrates. Patient was started on IV Rocephin. Lactic acid was 3.1, 4.7 and is now 5.3. Despite kidney function and fluid overload, patient is now on 0.9 normal saline at 100 mL per hour. Additional labs include a hemoglobin of 8.5, platelet count of 84, CO2 19, chloride 109, BUN 71, creatinine 4.05. Magnesium is 1.7 we will replace per protocol. Troponins negative. Prolactin is elevated at 24.5. Per at the bedside patient does drink 2 large-sized bottles of Chardonnay daily if not more. Hepatitis B surface antigen and antibody were nonreactive. Vital signs include temperature 99.3, heart rate 92, blood pressure 127/63 and 95% on 3 L nasal cannula. Patient is unresponsive to sternal rub, however his pupils were reactive and equal size. An EEG is currently pending from neurology. Patient was started on IV Keppra in the meantime for possible seizure activity. 07/06/2021 Patient is evaluated the bedside, he is resting in bed. He is more alert than she however he is still unable to respond verbally. He does have spontaneous eye opening and will want, pupils are still reactive and equal. Patient's lactic has improved is on normal at 1.8, BUN is 64, creatinine 3.32. Potassium today is 3.7, magnesium 1.9, we'll replace. Additionally has AST is 377, AST 61, which is trending upwards. White blood cell count is 14.7, hemoglobin 7.5. There are no signs of blood from the rectum. Vitals reviewed to include a temp of 97.9, heart rate of 104, blood pressure 115/71, 96 on room air. Prior RN patient's heart rate has been in the 120s throughout the morning. Patient was another throughout the evening for unresponsiveness. There was ammonia level ordered and rectal lactulose was given. In addition patient had another liter bolus. We will repeat ammonia level today, and check an abdomen ultrasound. EEG was negative for output for activity. Blood cultures were positive for staph aureus, microsensitivities are pending. Antibiotics have been changed to IV cefazolin from ID. Indwelling catheter remains, urine culture is pending. Patient is unable to swallow his oral medications at this time, we will monitor closely. Due to his history of chronic alcohol abuse and elevated liver enzymes as well as a drop in hemoglobin we will change oral Pepcid to IVP Protonix. Review of systems Unable to complete a full review of system is patient is obtunded. He is slightly more arousable today does have minimal spontaneous eye opening. All inpatient medications were reviewed and appropriate changes in these m edications as dictated in the interval history and assessment and plan. PHYSICAL EXAMINATION: GENERAL: The patient is obtunded at this time, he is minimally responsive to verbal stimuli with spontaneous eye opening however he does not follow no commands. HEENT: Pupils are round and equally reacting to light. EOMI. No scleral icterus. No conjunctival pallor. Normocephalic, atraumatic. No pharyngeal erythema. No thyromegaly. CARDIOVASCULAR: S1 and S2 present. No murmurs, rubs, or gallops. PULMONARY: Chest is clear to auscultation, no wheezing or crackles. ABDOMEN: Soft, nontender, nondistended, normoactive bowel sounds. No palpable organomegaly. MUSCULOSKELETAL: No joint swelling or deformity. EXTREMITIES: No cyanosis, clubbing, mild ankle edema worse on the right NEUROLOGICAL: Gross neurological unable to be completed at this time. SKIN: No rashes. Assessment and plan Assessment -Altered mental status possibly due to an acute alcohol withdrawal, possible acute alcohol withdrawal seizure, on CIWA protocol -Elevated liver enzymes and elevated ammonia, patient is a history of chronic alcohol abuse, abdominal ultrasound ordered repeat ammonia after rectal lactulose -Toxic encephalopathy related to UTI with sepsis, change in mentation, patient slightly more alert today. EEG shows severe encephalopathy, no seizure activity -UTI with sepsis, not present on admission, most likely related to indwelling Byrd catheter that was inserted in the EC on 07/01 for retention. Lactic acid is 5.3, is now normalized at 1.8, saline 0.9ns at 100 per hour has been ordered, and patient has received 3 L fluid bolus. Chest x-ray does not reveal an infectious process. Blood cultures were ordered as well. Altered mental status, Toxic and Metabolic encephalopathy related to uremia, imaging does not demonstrate an acute cerebrovascular attack. -Possible acute TIA, presented with a questionable history of expressive aphasia. Will not treat with dual antiplatelet therapy per neurology recommendations to history of GI bleed -Patient has uremic encephalopathy will require hemodialysis for acute tubular necrosis secondary to hypovolemia and diuretics urine analysis is not consistent with chronic kidney disease and patient will undergo hemodialysis because of uremic encephalopathy. -Possible seizure, patient was an ateam this morning after being unresponsive following an episode of tachycardia, EEG reveals severe encephalopathy no signs of epileptiform activity, IV Keppra prophylactically, also possible alcohol withdrawal seizure as patient does drink 2 large bottles of Chardonnay daily however last drink was over a week ago per at the bedside. -Dellitus type 2 blood sugars appear to be well controlled at home and patient's hemoglobin A1c is 5.7 at this time -Diabetic peripheral neuropathy, decreased dose of gabapentin Possible B12/folate deficiency, labs are currently pending patient has pancytopenia and macrocytosis, B12 pending Folate is at the low end of normal at 4.7, we will add folic acid 1 mg daily. -Anemia, with bicytopenia, Aranesp added per nephrology -Elevated troponin most likely a leak related to acute kidney injury, appreciate cardiology input Possible acute on chronic congestive heart failure, diastolic, current EF 55- 60%, BNP 1690 lungs are clear today, chest x-ray negative -Full code GI prophylaxis Pepcid DVT prophylaxis subcu heparin Plan Continue to monitor with neuro checks every 4 hours. Patient was another ateam at 10 PM due to unresponsiveness, however this is consistent with patient's presentation throughout the day. An ammonia level was ordered and was treated with rectal lactulose. This change in mentation could be related to acute alcohol withdrawal, however the at the bedside states the patient has not drank in over a week. It is unlikely that this is an ETOH withdrawal seizure however it is still possible. In addition patient was found to have a UTI with evidence for sepsis due to a change in mentation as well as a elevated lactic acid of 5.3. Repeat lactic is 1.8 patient has responded well to fluid bolus antibiotics, positive blood cultures urine culture is still pending. Infectious disease is also in consult for UTI with sepsis and antibiotics were changed to IV cefazolin today after preliminary cultures. We'll repeat labs in the morning. Please monitor this patient very closely for signs of further seizure activity. We will monitor liver enzymes and ammonia level very closely Objective - Vital Signs Vital signs: Vital Signs Temp 97.9 F 07/06/21 08:00 Pulse 104 H 07/06/21 08:00 Resp 18 07/06/21 08:00 BP 115/71 07/06/21 08:00 Pulse Ox 96 07/06/21 08:00 Intake & Output 07/05/21 07/06/21 07/06/21 18:59 06:59 18:59 Intake Total 300 Output Total 625 400 Balance -325 -400 Weight 124 kg Intake: Hemodialysis 300 Output: Urine 325 400 Hemodialysis 300 Other: Voiding Method Indwelling Catheter Indwelling Catheter # Bowel Movements 1 - Labs CBC & Chem 7: 07/06/21 07:14 07/06/21 07:20 Labs: Abnormal Lab Results - Last 24 Hours (Table) 07/05/21 07/05/21 07/05/21 Range/Units 02:23 11:00 11:42 WBC (3.8-10.6) k/uL RBC (4.30-5.90) m/uL Hgb (13.0-17.5) gm/dL Hct (39.0-53.0) % MCV (80.0-100.0) fL MCH (25.0-35.0) pg RDW (11.5-15.5) % Plt Count (150-450) k/uL Neutrophils # (1.3-7.7) k/uL Lymphocytes # (1.0-4.8) k/uL Macrocytosis ABG pH (7.35-7.45) ABG pCO2 (35-45) mmHg ABG pO2 (83-108) mmHg ABG O2 Saturation (94-97) % Chloride (98-107) mmol/L Carbon Dioxide (22-30) mmol/L BUN (9-20) mg/dL Creatinine (0.66-1.25) mg/dL Glucose (74-99) mg/dL POC Glucose (mg/dL) 180 H (75-99) mg/dL Plasma Lactic Acid Malachi 5.3 H* (0.7-2.0) mmol/L Total Bilirubin (0.2-1.3) mg/dL AST (17-59) U/L ALT (4-49) U/L Ammonia 78 H (<30) umol/L C-Reactive Protein (<1.0) mg/dL Albumin (3.5-5.0) g/dL Prolactin 24.500 H (2.100-17.700) ng/mL 07/05/21 07/05/21 07/05/21 Range/Units 14:25 14:30 16:02 WBC (3.8-10.6) k/uL RBC (4.30-5.90) m/uL Hgb (13.0-17.5) gm/dL Hct (39.0-53.0) % MCV (80.0-100.0) fL MCH (25.0-35.0) pg RDW (11.5-15.5) % Plt Count (150-450) k/uL Neutrophils # (1.3-7.7) k/uL Lymphocytes # (1.0-4.8) k/uL Macrocytosis ABG pH (7.35-7.45) ABG pCO2 (35-45) mmHg ABG pO2 (83-108) mmHg ABG O2 Saturation (94-97) % Chloride 111 H (98-107) mmol/L Carbon Dioxide (22-30) mmol/L BUN 69 H (9-20) mg/dL Creatinine 3.89 H (0.66-1.25) mg/dL Glucose 196 H (74-99) mg/dL POC Glucose (mg/dL) (75-99) mg/dL Plasma Lactic Acid Malachi 3.2 H* (0.7-2.0) mmol/L Total Bilirubin 1.5 H (0.2-1.3) mg/dL AST 106 H (17-59) U/L ALT (4-49) U/L Ammonia (<30) umol/L C-Reactive Protein 5.9 H (<1.0) mg/dL Albumin 3.2 L (3.5-5.0) g/dL Prolactin (2.100-17.700) ng/mL 07/05/21 07/05/21 07/05/21 Range/Units 16:38 17:23 20:10 WBC (3.8-10.6) k/uL RBC (4.30-5.90) m/uL Hgb (13.0-17.5) gm/dL Hct (39.0-53.0) % MCV (80.0-100.0) fL MCH (25.0-35.0) pg RDW (11.5-15.5) % Plt Count (150-450) k/uL Neutrophils # (1.3-7.7) k/uL Lymphocytes # (1.0-4.8) k/uL Macrocytosis ABG pH (7.35-7.45) ABG pCO2 (35-45) mmHg ABG pO2 (83-108) mmHg ABG O2 Saturation (94-97) % Chloride (98-107) mmol/L Carbon Dioxide (22-30) mmol/L BUN (9-20) mg/dL Creatinine (0.66-1.25) mg/dL Glucose (74-99) mg/dL POC Glucose (mg/dL) 174 H 223 H (75-99) mg/dL Plasma Lactic Acid Malachi 3.2 H* (0.7-2.0) mmol/L Total Bilirubin (0.2-1.3) mg/dL AST (17-59) U/L ALT (4-49) U/L Ammonia (<30) umol/L C-Reactive Protein (<1.0) mg/dL Albumin (3.5-5.0) g/dL Prolactin (2.100-17.700) ng/mL 07/05/21 07/05/21 07/05/21 Range/Units 21:20 22:01 22:11 WBC (3.8-10.6) k/uL RBC (4.30-5.90) m/uL Hgb (13.0-17.5) gm/dL Hct (39.0-53.0) % MCV (80.0-100.0) fL MCH (25.0-35.0) pg RDW (11.5-15.5) % Plt Count (150-450) k/uL Neutrophils # (1.3-7.7) k/uL Lymphocytes # (1.0-4.8) k/uL Macrocytosis ABG pH 7.48 H (7.35-7.45) ABG pCO2 32 L (35-45) mmHg ABG pO2 124 H (83-108) mmHg ABG O2 Saturation 99.0 H (94-97) % Chloride (98-107) mmol/L Carbon Dioxide (22-30) mmol/L BUN (9-20) mg/dL Creatinine (0.66-1.25) mg/dL Glucose (74-99) mg/dL POC Glucose (mg/dL) (75-99) mg/dL Plasma Lactic Acid Malachi 2.6 H* (0.7-2.0) mmol/L Total Bilirubin (0.2-1.3) mg/dL AST (17-59) U/L ALT (4-49) U/L Ammonia 79 H (<30) umol/L C-Reactive Protein (<1.0) mg/dL Albumin (3.5-5.0) g/dL Prolactin (2.100-17.700) ng/mL 07/06/21 07/06/21 07/06/21 Range/Units 00:51 05:45 07:14 WBC 14.7 H (3.8-10.6) k/uL RBC 2.15 L (4.30-5.90) m/uL Hgb 7.5 L (13.0-17.5) gm/dL Hct 23.6 L (39.0-53.0) % MCV 109.6 H (80.0-100.0) fL MCH 35.1 H (25.0-35.0) pg RDW 16.8 H (11.5-15.5) % Plt Count 74 L (150-450) k/uL Neutrophils # 12.9 H (1.3-7.7) k/uL Lymphocytes # 0.5 L (1.0-4.8) k/uL Macrocytosis Marked A ABG pH (7.35-7.45) ABG pCO2 (35-45) mmHg ABG pO2 (83-108) mmHg ABG O2 Saturation (94-97) % Chloride (98-107) mmol/L Carbon Dioxide (22-30) mmol/L BUN (9-20) mg/dL Creatinine (0.66-1.25) mg/dL Glucose (74-99) mg/dL POC Glucose (mg/dL) 166 H (75-99) mg/dL Plasma Lactic Acid Malachi 2.7 H* (0.7-2.0) mmol/L Total Bilirubin (0.2-1.3) mg/dL AST (17-59) U/L ALT (4-49) U/L Ammonia (<30) umol/L C-Reactive Protein (<1.0) mg/dL Albumin (3.5-5.0) g/dL Prolactin (2.100-17.700) ng/mL 07/06/21 Range/Units 07:20 WBC (3.8-10.6) k/uL RBC (4.30-5.90) m/uL Hgb (13.0-17.5) gm/dL Hct (39.0-53.0) % MCV (80.0-100.0) fL MCH (25.0-35.0) pg RDW (11.5-15.5) % Plt Count (150-450) k/uL Neutrophils # (1.3-7.7) k/uL Lymphocytes # (1.0-4.8) k/uL Macrocytosis ABG pH (7.35-7.45) ABG pCO2 (35-45) mmHg ABG pO2 (83-108) mmHg ABG O2 Saturation (94-97) % Chloride 109 H (98-107) mmol/L Carbon Dioxide 21 L (22-30) mmol/L BUN 64 H (9-20) mg/dL Creatinine 3.32 H (0.66-1.25) mg/dL Glucose 144 H (74-99) mg/dL POC Glucose (mg/dL) (75-99) mg/dL Plasma Lactic Acid Malachi (0.7-2.0) mmol/L Total Bilirubin (0.2-1.3) mg/dL AST 377 H (17-59) U/L ALT 61 H (4-49) U/L Ammonia (<30) umol/L C-Reactive Protein (<1.0) mg/dL Albumin 3.0 L (3.5-5.0) g/dL Prolactin (2.100-17.700) ng/mL Microbiology - Last 24 Hours (Table) 07/05/21 16:02 Blood Culture Gram Stain - Preliminary Blood 07/05/21 16:02 Blood Culture - Final Blood 07/05/21 02:59 Blood Culture Gram Stain - Preliminary Blood Blood Culture - Preliminary Staphylococcus aureus 07/05/21 04:14 Urine Culture - Preliminary Urine,Voided 07/05/21 02:59 Blood Culture - Final Blood
[2021-07-06] MEDS: LORazepam 2 MG/ML INJ IV PRN (14:55)
--- NOTE | 2021-07-06 16:33 | US ---
EXAMINATION TYPE: US abdomen complete DATE OF EXAM: 07/06/2021 COMPARISON: Recent renal US CLINICAL HISTORY: elevated liver enzymes. Elevated LFT's EXAM MEASUREMENTS: Liver Length: 21.9 cm Gallbladder Wall: 0.5 cm CBD: 0.6 cm Spleen: 17.0 cm Right Kidney: 13.8 x 6.9 x 6.4 cm Left Kidney: 12.1 x 6.7 x 6.0 cm Pt unresponsive, immobile, obese Pancreas: wnl, tail obscured by overlying bowel gas Liver: Enlarged, extremely heterogeneous with mass-like appearance throughout Gallbladder: Distended with gallstone and thickened wall Evidence for sonographic Fischer's sign: No CBD: wnl Spleen: Enlarged Right Kidney: Multicystic, largest cyst lower pole= 2.1 cm Left Kidney: Cyst upper pole= 6.1 x 5.2 x 7.7 cm Upper IVC: wnl Abd Aorta: Obscured by overlying bowel gas Multiple liver masses are present. IMPRESSION: Possible metastatic disease, CT or MRI of the liver may be of benefit. Correlate for chol ecystitis. Limited exam. Splenomegaly. A [place] level critical message alert has been initiated for Lien Capps MD via the [email or web address] on 07/06/2021 4:31 PM. This message alert has been sent to Lien Capps MD via the preferences provided by the clinician for the receipt of Radiology Critical Findings. Message ID [id number].
[2021-07-06 16:35] LABS: Glucose,Whole Blood 117 mg/dL (75-99)
[2021-07-06] MEDS: SODIUM CHLORIDE 0.9% 1,000 ML IV SCH (18:55)
[2021-07-06 20:22] LABS: Glucose,Whole Blood 131 mg/dL (75-99)
--- NOTE | 2021-07-07 00:35 | P.PN ---
Subjective Progress Note Date: 07/06/21 Patient was seen for a follow-up. Patient initially seen by Dr. Kem Vega. Please refer to his note for details. Patient is a 71-year-old male, came with episode of confusion, slurred speech. Patient had expressive aphasia for 5-7 days. Patient has developed severe toxic metabolic encephalopathy. Patient has end-stage renal disease on hemodialysis. Patient has been spiking temperature 103. Infectious disease on board. Telemetry monitoring showing atrial fibrillation with heart rate between 110- 120. Objective - Vital Signs Vital signs: Vital Signs Temp 97.9 F 07/06/21 08:00 Pulse 104 H 07/06/21 08:00 Resp 18 07/06/21 08:00 BP 115/71 07/06/21 08:00 Pulse Ox 96 07/06/21 08:00 Intake & Output 07/05/21 07/06/21 07/06/21 18:59 06:59 18:59 Intake Total 300 Output Total 625 400 Balance -325 -400 Weight 124 kg Intake: Hemodialysis 300 Output: Urine 325 400 Hemodialysis 300 Other: Voiding Method Indwelling Catheter Indwelling Catheter # Bowel Movements 1 - Exam Patient is an elderly male, who is significantly encephalopathic, obtunded, lethargic, does not follow much commands. He mumbles slightly. His attention, concentration is severely limited. Patient is responding better as compared to yesterday, as per patient's report as well as nursing report. Still quite obtunded. Patient does not cooperate with muscle strength testing. Sensations cannot be assessed. Reflexes are 1+. Patient had peripheral edema. Neck is supple. - Labs CBC & Chem 7: 07/06/21 07:14 07/06/21 07:20 Labs: Abnormal Lab Results - Last 24 Hours (Table) 07/05/21 07/05/21 07/05/21 Range/Units 02:23 11:00 11:42 WBC (3.8-10.6) k/uL RBC (4.30-5.90) m/uL Hgb (13.0-17.5) gm/dL Hct (39.0-53.0) % MCV (80.0-100.0) fL MCH (25.0-35.0) pg RDW (11.5-15.5) % Plt Count (150-450) k/uL Neutrophils # (1.3-7.7) k/uL Lymphocytes # (1.0-4.8) k/uL Macrocytosis ABG pH (7.35-7.45) ABG pCO2 (35-45) mmHg ABG pO2 (83-108) mmHg ABG O2 Saturation (94-97) % Chloride (98-107) mmol/L Carbon Dioxide (22-30) mmol/L BUN (9-20) mg/dL Creatinine (0.66-1.25) mg/dL Glucose (74-99) mg/dL POC Glucose (mg/dL) 180 H (75-99) mg/dL Plasma Lactic Acid Malachi 5.3 H* (0.7-2.0) mmol/L Total Bilirubin (0.2-1.3) mg/dL AST (17-59) U/L ALT (4-49) U/L Ammonia 78 H (<30) umol/L C-Reactive Protein (<1.0) mg/dL Albumin (3.5-5.0) g/dL Prolactin 24.500 H (2.100-17.700) ng/mL 07/05/21 07/05/21 07/05/21 Range/Units 14:25 14:30 16:02 WBC (3.8-10.6) k/uL RBC (4.30-5.90) m/uL Hgb (13.0-17.5) gm/dL Hct (39.0-53.0) % MCV (80.0-100.0) fL MCH (25.0-35.0) pg RDW (11.5-15.5) % Plt Count (150-450) k/uL Neutrophils # (1.3-7.7) k/uL Lymphocytes # (1.0-4.8) k/uL Macrocytosis ABG pH (7.35-7.45) ABG pCO2 (35-45) mmHg ABG pO2 (83-108) mmHg ABG O2 Saturation (94-97) % Chloride 111 H (98-107) mmol/L Carbon Dioxide (22-30) mmol/L BUN 69 H (9-20) mg/dL Creatinine 3.89 H (0.66-1.25) mg/dL Glucose 196 H (74-99) mg/dL POC Glucose (mg/dL) (75-99) mg/dL Plasma Lactic Acid Malachi 3.2 H* (0.7-2.0) mmol/L Total Bilirubin 1.5 H (0.2-1.3) mg/dL AST 106 H (17-59) U/L ALT (4-49) U/L Ammonia (<30) umol/L C-Reactive Protein 5.9 H (<1.0) mg/dL Albumin 3.2 L (3.5-5.0) g/dL Prolactin (2.100-17.700) ng/mL 07/05/21 07/05/21 07/05/21 Range/Units 16:38 17:23 20:10 WBC (3.8-10.6) k/uL RBC (4.30-5.90) m/uL Hgb (13.0-17.5) gm/dL Hct (39.0-53.0) % MCV (80.0-100.0) fL MCH (25.0-35.0) pg RDW (11.5-15.5) % Plt Count (150-450) k/uL Neutrophils # (1.3-7.7) k/uL Lymphocytes # (1.0-4.8) k/uL Macrocytosis ABG pH (7.35-7.45) ABG pCO2 (35-45) mmHg ABG pO2 (83-108) mmHg ABG O2 Saturation (94-97) % Chloride (98-107) mmol/L Carbon Dioxide (22-30) mmol/L BUN (9-20) mg/dL Creatinine (0.66-1.25) mg/dL Glucose (74-99) mg/dL POC Glucose (mg/dL) 174 H 223 H (75-99) mg/dL Plasma Lactic Acid Malachi 3.2 H* (0.7-2.0) mmol/L Total Bilirubin (0.2-1.3) mg/dL AST (17-59) U/L ALT (4-49) U/L Ammonia (<30) umol/L C-Reactive Protein (<1.0) mg/dL Albumin (3.5-5.0) g/dL Prolactin (2.100-17.700) ng/mL 07/05/21 07/05/21 07/05/21 Range/Units 21:20 22:01 22:11 WBC (3.8-10.6) k/uL RBC (4.30-5.90) m/uL Hgb (13.0-17.5) gm/dL Hct (39.0-53.0) % MCV (80.0-100.0) fL MCH (25.0-35.0) pg RDW (11.5-15.5) % Plt Count (150-450) k/uL Neutrophils # (1.3-7.7) k/uL Lymphocytes # (1.0-4.8) k/uL Macrocytosis ABG pH 7.48 H (7.35-7.45) ABG pCO2 32 L (35-45) mmHg ABG pO2 124 H (83-108) mmHg ABG O2 Saturation 99.0 H (94-97) % Chloride (98-107) mmol/L Carbon Dioxide (22-30) mmol/L BUN (9-20) mg/dL Creatinine (0.66-1.25) mg/dL Glucose (74-99) mg/dL POC Glucose (mg/dL) (75-99) mg/dL Plasma Lactic Acid Malachi 2.6 H* (0.7-2.0) mmol/L Total Bilirubin (0.2-1.3) mg/dL AST (17-59) U/L ALT (4-49) U/L Ammonia 79 H (<30) umol/L C-Reactive Protein (<1.0) mg/dL Albumin (3.5-5.0) g/dL Prolactin (2.100-17.700) ng/mL 07/06/21 07/06/21 07/06/21 Range/Units 00:51 05:45 07:14 WBC 14.7 H (3.8-10.6) k/uL RBC 2.15 L (4.30-5.90) m/uL Hgb 7.5 L (13.0-17.5) gm/dL Hct 23.6 L (39.0-53.0) % MCV 109.6 H (80.0-100.0) fL MCH 35.1 H (25.0-35.0) pg RDW 16.8 H (11.5-15.5) % Plt Count 74 L (150-450) k/uL Neutrophils # 12.9 H (1.3-7.7) k/uL Lymphocytes # 0.5 L (1.0-4.8) k/uL Macrocytosis Marked A ABG pH (7.35-7.45) ABG pCO2 (35-45) mmHg ABG pO2 (83-108) mmHg ABG O2 Saturation (94-97) % Chloride (98-107) mmol/L Carbon Dioxide (22-30) mmol/L BUN (9-20) mg/dL Creatinine (0.66-1.25) mg/dL Glucose (74-99) mg/dL POC Glucose (mg/dL) 166 H (75-99) mg/dL Plasma Lactic Acid Malachi 2.7 H* (0.7-2.0) mmol/L Total Bilirubin (0.2-1.3) mg/dL AST (17-59) U/L ALT (4-49) U/L Ammonia (<30) umol/L C-Reactive Protein (<1.0) mg/dL Albumin (3.5-5.0) g/dL Prolactin (2.100-17.700) ng/mL 07/06/21 07/06/21 Range/Units 07:20 11:26 WBC (3.8-10.6) k/uL RBC (4.30-5.90) m/uL Hgb (13.0-17.5) gm/dL Hct (39.0-53.0) % MCV (80.0-100.0) fL MCH (25.0-35.0) pg RDW (11.5-15.5) % Plt Count (150-450) k/uL Neutrophils # (1.3-7.7) k/uL Lymphocytes # (1.0-4.8) k/uL Macrocytosis ABG pH (7.35-7.45) ABG pCO2 (35-45) mmHg ABG pO2 (83-108) mmHg ABG O2 Saturation (94-97) % Chloride 109 H (98-107) mmol/L Carbon Dioxide 21 L (22-30) mmol/L BUN 64 H (9-20) mg/dL Creatinine 3.32 H (0.66-1.25) mg/dL Glucose 144 H (74-99) mg/dL POC Glucose (mg/dL) 121 H (75-99) mg/dL Plasma Lactic Acid Malachi (0.7-2.0) mmol/L Total Bilirubin (0.2-1.3) mg/dL AST 377 H (17-59) U/L ALT 61 H (4-49) U/L Ammonia (<30) umol/L C-Reactive Protein (<1.0) mg/dL Albumin 3.0 L (3.5-5.0) g/dL Prolactin (2.100-17.700) ng/mL Microbiology - Last 24 Hours (Table) 07/05/21 16:02 Blood Culture Gram Stain - Preliminary Blood 07/05/21 16:02 Blood Culture - Final Blood 07/05/21 02:59 Blood Culture Gram Stain - Preliminary Blood Blood Culture - Preliminary Staphylococcus aureus 07/05/21 04:14 Urine Culture - Preliminary Urine,Voided 07/05/21 02:59 Blood Culture - Final Blood Assessment and Plan Assessment: * Episode of unresponsiveness with foaming around the mouth. Possible seizure, exact cause is uncertain. Possible from metabolic dysfunction, or alcohol withdrawal. * Altered mental status, likely due to toxic metabolic encephalopathy. * Fever of unknown etiology at this time. Infectious disease on board. Patient had positive blood culture. * Acute transient ?expressive aphasia (had NIH 1 in ED). On examination seems normal. No IV tpa since outside window (symptoms onset was this Past Tuesday). I honestly do not know if patient truly had expressive aphasia. Possibly he had encephalopathy from uremia. Cannot rule out TIA but I feel more uremic encephalopathy. * Mild Myoclonus due to underlying metabolic abnormality. * Atrial fibrillation s/p abalation 20 years ago and he is not on any anticoagulation since he had history of GI bleed in the past. * Low normal folic acid is 4.7 (normal is 4.4-31) * Acute kidney injury. * Mild transaminitis (AST 377 but ALT 61) * Diabetes mellitus, hemoglobin A1c 5.7. * Significant alcohol use Plan: * EEG was performed 07/05/2021, which revealed background slowing, severe degree consistent with encephalopathy. No focal slowing or epileptiform activity. * Continue Keppra 500 mg IV every 12 hours, initially started by Dr. Vega. We will decrease dose to 500 mg daily based upon renal insufficiency. * Patient had a recent MRI of the brain 07/02/2021, which was negative for a stroke. * On seizure precaution and seizure pads. * Continue every 4 neuro checks * Place on the IV thiamine 100 mg daily (was on PO thiamine). * Infection disease is consulted. Rule out underlying infection especially with a new Byrd catheter or the cath for his dialysis. * PT, OT and SUSHI CHEF are consulted * Because a low normal folic acid placed on folic acid 1 mg daily. His current folic acid is 4.7. * Pending vitamin B12 level * Telemetry monitoring, showing atrial fibrillation. Patient currently on aspirin 81 mg. Need for anticoagulation will defer to IM and cardiology. * Cardiology is on board. * Recommend [facility] protocol and will defer that to the primary team. * We'll defer the rest of the medical management to the primary team. * Upon discharge, the patient needs to follow-up with a neurologist within 1-2 weeks as outpatient. WORK-UP: White blood cell was present as 8.4 thousand and on presentation 7.0 Hemoglobin A1c is 5.7. Serum folate is 4.7 which is considered the low normal TSH is 2.390 which is within normal limits. Plasma lactic acid vein is 3.1 on 07/05/2021 and the repeated is 4.7. MRI Brain w/o: Is reported as age-related atrophic and chronic small vessel ischemic change. No acute intracranial process at this time. Cardiac duplex was reported as no hemodynamic significant stenosis of the proximal internal carotid arteries by Doppler criteria, and direct measurement carotid stenosis. Cardiac arrhythmias noted. CT of the head is reported as cerebral atrophy. No acute intracranial abnormality. The echo was reported as moderate concentric left hypertrophy. Ejection fraction of 55-60%. Left atrium is severely dilated. Moderate mitral annular calcification present. CT of the head on 07/05/2020 was reported as negative unenhanced head CT scan. No adverse change compared to old exam.
[2021-07-07] MEDS: SODIUM CHLORIDE 0.9% 1,000 ML IV SCH ×2 (02:57→13:50)
[2021-07-07] MEDS: LEVOTHYROXINE 75 MCG TAB PO SCH (05:44)
[2021-07-07 06:00] LABS: Glucose,Whole Blood 137 mg/dL (75-99)
[2021-07-07] MEDS: INSULIN ASPART (NovoLOG) 100 UNIT/ML VIAL SQ SCH ×4 (06:01→21:35)
[2021-07-07] MEDS: METOPROLOL TARTRATE 25 MG TAB PO SCH ×2 (09:00→21:35)
[2021-07-07] MEDS: amLODIPine 5 MG TAB PO SCH (09:00)
[2021-07-07] MEDS: ASPIRIN 81 MG PO SCH (09:00)
[2021-07-07] MEDS: FOLIC ACID 1 MG TAB PO SCH (09:00)
[2021-07-07 09:06] LABS: Anisocytosis Slight; Basophils % (A) 0 %; Eosinophils # (A) 0.1 k/uL (0-0.7); Eosinophils % (A) 2 %; Hypochromasia Slight; Lymphocytes # (A) 0.5 k/uL (1.0-4.8); Lymphocytes % (A) 7 %; MCH 34.9 pg (25.0-35.0); Macrocytosis Marked; Mean Platelet Volume 11.2; Monocytes # (A) 0.5 k/uL (0-1.0); Monocytes % (A) 7 %; Neutrophils # (A) 5.9 k/uL (1.3-7.7); Neutrophils % (A) 80 %; RBC 2.02 m/uL (4.30-5.90); RDW 16.6 % (11.5-15.5); WBC 7.4 k/uL (3.8-10.6)
[2021-07-07 09:10] LABS: Platelet Count 79 k/uL (150-450)
[2021-07-07 09:19] LABS: Albumin 2.7 g/dL (3.5-5.0); Calcium 8.7 mg/dL (8.4-10.2); Magnesium 2.1 mg/dL (1.6-2.3); Potassium 3.7 mmol/L (3.5-5.1); Total Bilirubin 1.3 mg/dL (0.2-1.3)
--- NOTE | 2021-07-07 11:26 | P.PN ---
Subjective Patient is a pleasant 71-year-old male is admitted for acute failure. Patient doesn't have any significant improvement patient acute renal failure is blue to be secondary to medications including NOVA inhibitor and diuretic therapy. Patient does have asterixis and uremic symptoms because of which dialysis catheter is being placed and patient will undergo hemodialysis tomorrow patient is still urinating okay. Patient has a fully catheter. Patient had an echocardiogram evaluated because of mild elevation of troponins which is probably secondary to renal failure no further intervention is being planned at this time as he perspective neurology evaluated the patient because of concern of aphasia although patient appears to have confusion more than aphasia patient does have some chronic microvascular ischemic changes no acute stroke was ev ident on MRI patient does have microcytosis and anemia probably B12 folate deficiency labs of which were already ordered. The is still having occasional confusional episodes secondary to uremic encephalopathy. 07/04/2021 Patient is evaluated today the bedside status post hemodialysis. He is confused and is not responding to questions appropriately. He is wearing a CPAP currently. He does have some asterixis present at the time of my assessment which can be seen with encephalopathy. Labs reviewed today include a hemoglobin of 7.4, MCV 107.3, MCH 35.2, his platelets are 77. Potassium is 3.7, chloride 108, BUN 69, creatinine 3.72, which has improved with dialysis. His mag is 1.9. Patient is afebrile, blood pressure 162/70. He is 97% on room air. Most recent chest x-ray is negative for acute cardiopulmonary disease. Folate is within normal limits at 4.7 which is just on the lower cusp. Patient is being followed closely by nephrology, plan is for repeat dialysis treatment tomorrow. Aranesp was added. Hydralazine has also been added for blood pressures. 07/05/2021 Patient throughout the evening had a possible seizure episode. He was found to be postictal after telemetry notified RN that he was having a tachycardic episode. Patient is found to be unresponsive to noxious and physical stimuli, he had foaming at the mouth. A repeat brain CT was ordered which was negative and no change compared to old exam. A urinalysis was completed from Byrd catheter which revealed +1 protein, trace ketones, large blood, moderate leukocyte esterase and 47 WBCs. It was negative for nitrates. Patient was started on IV Rocephin. Lactic acid was 3.1, 4.7 and is now 5.3. Despite kidney function and fluid overload, patient is now on 0.9 normal saline at 100 mL per hour. Additional labs include a hemoglobin of 8.5, platelet count of 84, CO2 19, chloride 109, BUN 71, creatinine 4.05. Magnesium is 1.7 we will replace per protocol. Troponins negative. Prolactin is elevated at 24.5. Per at the bedside patient does drink 2 large-sized bottles of Chardonnay daily if not more. Hepatitis B surface antigen and antibody were nonreactive. Vital signs include temperature 99.3, heart rate 92, blood pressure 127/63 and 95% on 3 L nasal cannula. Patient is unresponsive to sternal rub, however his pupils were reactive and equal size. An EEG is currently pending from neurology. Patient was started on IV Keppra in the meantime for possible seizure activity. 07/06/2021 Patient is evaluated the bedside, he is resting in bed. He is more alert than she however he is still unable to respond verbally. He does have spontaneous eye opening and will want, pupils are still reactive and equal. Patient's lactic has improved is on normal at 1.8, BUN is 64, creatinine 3.32. Potassium today is 3.7, magnesium 1.9, we'll replace. Additionally has AST is 377, AST 61, which is trending upwards. White blood cell count is 14.7, hemoglobin 7.5. There are no signs of blood from the rectum. Vitals reviewed to include a temp of 97.9, heart rate of 104, blood pressure 115/71, 96 on room air. Prior RN patient's heart rate has been in the 120s throughout the morning. Patient was another throughout the evening for unresponsiveness. There was ammonia level ordered and rectal lactulose was given. In addition patient had another liter bolus. We will repeat ammonia level today, and check an abdomen ultrasound. EEG was negative for output for activity. Blood cultures were positive for staph aureus, microsensitivities are pending. Antibiotics have been changed to IV cefazolin from ID. Indwelling catheter remains, urine culture is pending. Patient is unable to swallow his oral medications at this time, we will monitor closely. Due to his history of chronic alcohol abuse and elevated liver enzymes as well as a drop in hemoglobin we will change oral Pepcid to IVP Protonix. 07/07/2021 Patient's liver enzymes are coming down patient had ultrasound of the liver which showed multiple lesions highly suspicious for metastatic disease. Patient will need CT with contrast or MRI with contrast which need to be coordinated with hemodialysis patient will not receive modalities is tomorrow presently receiving hemodialysis at this time. We'll discuss with nephrology regarding timing of ordering these tests. I'll also obtain alpha-fetoprotein. Patient's repeat blood cultures so far are negative. His more awake today less lethargic. Constitutional: Denied any fatigue denied any fever. Cardio vascular: denied any chest pain, palpitations Gastrointestinal denied any nausea vomiting Pulmonary: Denied any shortness of breath cough Neurologic denied any new focal deficits PHYSICAL EXAMINATION: GENERAL: is presently alert oriented 3 HEENT: Pupils are round and equally reacting to light. EOMI. No scleral icterus. No conjunctival pallor. Normocephalic, atraumatic. No pharyngeal erythema. No thyromegaly. CARDIOVASCULAR: S1 and S2 present. No murmurs, rubs, or gallops. PULMONARY: Chest is clear to auscultation, no wheezing or crackles. ABDOMEN: Soft, nontender, nondistended, normoactive bowel sounds. No palpable organomegaly. MUSCULOSKELETAL: No joint swelling or deformity. EXTREMITIES: No cyanosis, clubbing, mild ankle edema worse on the right NEUROLOGICAL: No new focal deficits SKIN: No rashes. Assessment and plan Assessment -Altered mental status possibly due to an acute alcohol withdrawal, possible acute alcohol withdrawal seizure, on CIWA protocol. Patient probably has toxic encephalopathy from severe sepsis and metabolic encephalopathy from uremia. did have elevated ammonia level although clinically doesn't appear to have any cirrhosis may have acute alcoholic hepatitis -Elevated liver enzymes and elevated ammonia, patient is a history of chronic alcohol abuse, abdominal ultrasound showing multiple possible metastatic lesion further workup as mentioned above -Incidental finding of a possible multiple metastatic lesions in the liver: Patient may need further imaging but. Coordination with the nephrology to time dialysis after either CT with contrast or MRI with contrast -Sepsis and bacteremia with MRSA and sensitive staph aureus for which patient is on ceftezolin at this time -Possible seizure past mild myoclonus probably due to severe encephalopathy. Patient was evaluated by neurology regarding IV Keppra. Can be alcohol withdrawal seizure too. -Dellitus type 2 blood sugars appear to be well controlled at home and patient's hemoglobin A1c is 5.7 at this time -Diabetic peripheral neuropathy, decreased dose of gabapentin folate deficiency, labs are currently pending patient has pancytopenia and macrocytosis, B12 unavailable at this time Folate is at the low end of normal at 4.7, patient is on folic acid 1 mg daily. -Anemia, chronic macrocytic secondary to alcoholic liver disease, alcoholism and folate deficiency -Elevated troponin secondary to acute renal failure -Full code GI prophylaxis Pepcid DVT prophylaxis subcu heparin Objective - Vital Signs Vital signs: Vital Signs Temp 98.1 F 07/07/21 08:00 Pulse 104 H 07/07/21 08:00 Resp 19 07/07/21 08:00 BP 148/65 07/07/21 08:00 Pulse Ox 97 07/07/21 08:00 Intake & Output 07/06/21 07/07/21 07/07/21 18:59 06:59 18:59 Output Total 800 650 Balance -800 -650 Weight 122.5 kg Output: Urine 800 650 Hemodialysis 0 Other: Voiding Method Indwelling Catheter Indwelling Catheter Indwelling Catheter # Bowel Movements 0 - Labs CBC & Chem 7: 07/07/21 08:24 07/07/21 08:24 Labs: Abnormal Lab Results - Last 24 Hours (Table) 07/06/21 07/06/21 07/06/21 Range/Units 11:26 16:33 19:57 RBC (4.30-5.90) m/uL Hgb (13.0-17.5) gm/dL Hct (39.0-53.0) % MCV (80.0-100.0) fL RDW (11.5-15.5) % Plt Count (150-450) k/uL Lymphocytes # (1.0-4.8) k/uL Macrocytosis Chloride (98-107) mmol/L BUN (9-20) mg/dL Creatinine (0.66-1.25) mg/dL Glucose (74-99) mg/dL POC Glucose (mg/dL) 121 H 117 H 131 H (75-99) mg/dL AST (17-59) U/L ALT (4-49) U/L Total Protein (6.3-8.2) g/dL Albumin (3.5-5.0) g/dL 07/07/21 07/07/21 07/07/21 Range/Units 05:37 08:24 08:24 RBC 2.02 L (4.30-5.90) m/uL Hgb 7.0 L (13.0-17.5) gm/dL Hct 22.0 L (39.0-53.0) % MCV 109.0 H (80.0-100.0) fL RDW 16.6 H (11.5-15.5) % Plt Count 79 L (150-450) k/uL Lymphocytes # 0.5 L (1.0-4.8) k/uL Macrocytosis Marked A Chloride 108 H (98-107) mmol/L BUN 57 H (9-20) mg/dL Creatinine 2.80 H (0.66-1.25) mg/dL Glucose 141 H (74-99) mg/dL POC Glucose (mg/dL) 137 H (75-99) mg/dL AST 286 H (17-59) U/L ALT 51 H (4-49) U/L Total Protein 6.0 L (6.3-8.2) g/dL Albumin 2.7 L (3.5-5.0) g/dL Microbiology - Last 24 Hours (Table) 07/05/21 16:02 Blood Culture Gram Stain - Preliminary Blood 07/05/21 16:02 Blood Culture - Final Blood
--- NOTE | 2021-07-07 11:32 | PN ---
PROGRESS NOTE Patient is seen for followup for acute kidney injury and mental status changes. Patient will have his third treatment of hemodialysis today. His mentation had not improved significantly yesterday after dialysis. He did receive an IV fluid bolus. This morning it is slightly better than 2 days ago, but about the same as yesterday. Patient did respond to verbal stimuli but is not able to carry on a conversation. Blood pressure this morning 115/71, heart rate 104 per minute. He is afebrile. EXAMINATION OF THE HEART: S1 and S2. EXAMINATION OF LUNGS: Bilateral breath sounds are heard. Abdomen is soft, non-tender. Examination of lower extremities shows trace edema bilaterally. SLIP MAKER exam shows patient is moving extremities but is not able to carry on a conversation. He did respond to verbal stimuli. Labs show sodium 140, potassium 3.7, chloride 109. CO2 is 21, BUN 64, serum creatinine 3.32. ASSESSMENT: 1. Acute kidney injury, acute tubular necrosis, currently nonoliguric. Started on hemodialysis on July 04. Patient will have his third treatment today and we will plan for another treatment again tomorrow. No obstruction noted on ultrasound. UA is fairly benign. 2. Encephalopathy, multifactorial, mostly metabolic. Continue with treatment of infection, IV fluid bolus and dialysis. Okay to proceed with another bolus today. 3. Type 2 diabetes. 4. Anemia, iron replete. Maintained on Aranesp. 5. Benign hypertension. PLAN: Repeat IV fluid bolus. May continue with IV fluids. We will repeat dialysis again in a.m. Continue empiric antibiotics. Avoid hypotension. Repeat labs as well in a.m. MMODL / ARINN: [id number] /
--- NOTE | 2021-07-07 11:34 | PN ---
PROGRESS NOTE DATE OF SERVICE: 07/06/2021 REASON FOR FOLLOWUP: MSSA bacteremia. INTERVAL HISTORY: The patient is afebrile. The patient is hemodynamically stable, not on pressor support. The patient remains lethargic and sleepy, unable to provide any history. No vomiting or diarrhea or any other changes reported by the nursing staff as well as per the patient's at the bedside. PHYSICAL EXAMINATION: Blood pressure 130/84, pulse of 81, temperature 97.5. He is 97% on room air. General description is an elderly male lying in bed in no distress. RESPIRATORY SYSTEM: Unlabored breathing. Decreased breath sounds at the bases. No wheeze. HEART: S1, S2. Regular rate and rhythm. ABDOMEN: Soft. No tenderness. LABS: Hemoglobin is 7.5, white count 14.7, BUN of 64, creatinine 3.22. Blood culture with MSSA. Urine is currently pending. DIAGNOSTIC IMPRESSION AND PLAN: Patient with sepsis with MSSA bacteremia, concern for possible line-related infection. Blood culture will be repeated from the dialysis catheter today at the time of dialysis. Patient's antibiotic adjusted to cefazolin. Cultures will be followed. at the bedside. Questions were answered. MMODL / IJN: [id number] / [email or web address]
[2021-07-07 11:46] LABS: Glucose,Whole Blood 135 mg/dL (75-99)
[2021-07-07] MEDS: INSULIN DETEMIR (LEVEMIR) 100 UNIT/ML SYR SQ SCH ×2 (13:09→22:17)
[2021-07-07] MEDS: PANTOPRAZOLE 40 MG/10 ML VIAL IVP SCH ×2 (13:46→21:36)
[2021-07-07] MEDS: THIAMINE 100 MG/ML 2 ML VIAL IVP SCH (16:15)
[2021-07-07] MEDS: GABAPENTIN 100 MG CAP PO SCH ×3 (16:23→21:34)
[2021-07-07] MEDS: hydrALAZINE HCL 25 MG TAB PO SCH ×3 (16:23→21:34)
[2021-07-07] MEDS: HEPARIN SODIUM,PORCINE/PF 5,000 UNIT/0.5 ML SYRINGE SQ SCH ×3 (16:26→21:36)
[2021-07-07] MEDS: levETIRAcetam IV 500 MG in SODIUM CHLORIDE 0.9% 100 ML IVPB SCH (16:29)
[2021-07-07 16:32] LABS: Glucose,Whole Blood 162 mg/dL (75-99)
--- NOTE | 2021-07-07 17:28 | PN ---
PROGRESS NOTE Patient is seen for followup for acute kidney injury. Currently maintained on dialysis. Patient is receiving his fourth treatment today. His mentation has improved significantly. He is able to carry on a conversation and answer questions. On examination, blood pressure this morning was 148/65, heart rate 104 per minute. He is afebrile. EXAMINATION OF THE HEART: S1 and S2. EXAMINATION OF LUNGS: Bilateral breath sounds are heard. Decreased breath sounds at the bases. Abdomen is soft, obese. Examination of lower extremities shows no significant edema. HEAT TREAT FURNACE OPERATOR exam shows patient is moving all 4 extremities. He is able to answer questions. Labs show hemoglobin 7.0, sodium 139, potassium 3.7, chloride 108, BUN 57, serum creatinine 2.8. ASSESSMENT: 1. Acute kidney injury, acute tubular necrosis, nonoliguric, maintained on hemodialysis, receiving daily treatments. Today is the fourth treatment. Patient was started on dialysis on July 04. This was mostly for underlying uremia. Mentation has improved and we will plan for next treatment on 07/09/2021. We will hold dialysis tomorrow. Patient continues to have fair urine output. His UA has been fairly benign. No obstruction noted on ultrasound. 2. Encephalopathy, multifactorial, mostly metabolic, currently improved. 3. Type 2 diabetes. 4. Anemia, iron replete. Maintained on Aranesp. 5. Benign hypertension. 6. Bacteremia with MRSA. Repeat blood cultures not done yet. PLAN: Hold dialysis tomorrow. Repeat blood cultures. Repeat labs as well. Continue with indwelling Byrd catheter. If patient needs imaging studies with IV dye, I would like to hold off unless absolutely indicated. Patient is currently nonoliguric. He may be having some recovery of renal function. We will reassess after holding dialysis tomorrow. MMODL / IJN: [id number] /
[2021-07-07 20:27] LABS: Glucose,Whole Blood 153 mg/dL (75-99)
[2021-07-08] MEDS: SODIUM CHLORIDE 0.9% 1,000 ML IV SCH ×3 (04:12→17:35)
--- NOTE | 2021-07-08 05:35 | PN ---
PROGRESS NOTE DATE OF SERVICE: 07/07/2021 REASON FOR FOLLOWUP: MSSA bacteremia. INTERVAL HISTORY: Patient is afebrile. The patient is more awake and alert today. He is breathing comfortably. Currently on room air. The patient is hemodynamically stable. Undergoing dialysis. No vomiting or diarrhea has been reported. PHYSICAL EXAMINATION: Blood pressure 147/74 with a pulse of 103. Temperature 98.9. He is 96% on room air. General description is an elderly male lying in bed in no distress. Respiratory system: Unlabored breathing, decreased intensity of breath sounds. No wheeze. Heart S1, S2. Regular rate and rhythm. Abdomen soft, no tenderness. LABS: Hemoglobin is 7, white count 7, creatinine is 2.80. Blood culture with MSSA. Urine has been negative. DIAGNOSTIC IMPRESSION AND PLAN: Patient with MSSA bacteremia, concern for possible dialysis catheter infection that has been just placed recently. Blood culture has been repeated from dialysis catheter yesterday and those will be followed. The patient is on cefazolin, seemed to have shown some clinical improvement to continue and we will monitor clinical course closely. MMODL / IJN: [id number] / LINDEN
[2021-07-08 06:18] LABS: Glucose,Whole Blood 132 mg/dL (75-99)
[2021-07-08] MEDS: LEVOTHYROXINE 75 MCG TAB PO SCH (07:01)
[2021-07-08] MEDS: INSULIN ASPART (NovoLOG) 100 UNIT/ML VIAL SQ SCH ×4 (07:01→21:34)
[2021-07-08] MEDS: amLODIPine 5 MG TAB PO SCH ×2 (08:59→12:08)
[2021-07-08] MEDS: GABAPENTIN 100 MG CAP PO SCH ×4 (08:59→21:35)
[2021-07-08] MEDS: FOLIC ACID 1 MG TAB PO SCH ×2 (08:59→12:07)
[2021-07-08] MEDS: hydrALAZINE HCL 25 MG TAB PO SCH ×3 (09:00→21:35)
[2021-07-08] MEDS: INSULIN DETEMIR (LEVEMIR) 100 UNIT/ML SYR SQ SCH ×2 (09:00→21:35)
[2021-07-08] MEDS: METOPROLOL TARTRATE 25 MG TAB PO SCH ×3 (09:01→21:35)
[2021-07-08] MEDS: ASPIRIN 81 MG PO SCH ×2 (09:02→12:07)
[2021-07-08 09:36] LABS: Anisocytosis Slight; HCT 20.7 % (39.0-53.0); Hypochromasia Slight; MCH 34.9 pg (25.0-35.0); MCHC 32.5 g/dL (31.0-37.0); MCV 107.6 fL (80.0-100.0); Macrocytosis Marked; Mean Platelet Volume 11.4; RBC 1.93 m/uL (4.30-5.90); RDW 16.3 % (11.5-15.5); WBC 7.2 k/uL (3.8-10.6)
[2021-07-08 09:47] LABS: HGB 6.7 gm/dL (13.0-17.5)
[2021-07-08 09:48] LABS: Platelet Count 79 k/uL (150-450)
--- NOTE | 2021-07-08 09:51 | MR ---
MRI abdomen without contrast HISTORY: Abnormal liver ultrasound Multiplanar multisequence imaging obtained through the abdomen. No contrast administered. Correlation ultrasound abdomen 07/06/2021 Exam is limited technically. There is extensive artifact, exam limited by patient body habitus, motio n. There is a nodular liver contour and is enlarged. Discrete liver masses are not identified to correl ate with the liver ultrasound. No dilated ducts are identified. Gallbladder is somewhat distended, th ere is a focus of low signal present on T2-weighted sequences within the dependent portion of the gal lbladder consistent with gallstone. Aorta is not aneurysmal. No evident retroperitoneal adenopathy. L arge cystic focus associated with the left kidney upper pole measures approximately 8.4 cm. Cortical cyst also suspected at the lower pole. Kidneys show no hydronephrosis, smaller cortical cysts associa elan with the right kidney. No evident adrenal mass. Pancreas thought to be fatty replaced. The spleen is enlarged. Lung bases show no definite effusion. IMPRESSION: Correlate for underlying cirrhosis. There is hepatosplenomegaly. Nodularity seen on ultra sound may correspond to regenerating liver nodules. The exam is markedly limited technically. Choleli thiasis. Additional findings above.
[2021-07-08 09:56] LABS: Calcium 8.5 mg/dL (8.4-10.2); Potassium 3.2 mmol/L (3.5-5.1)
[2021-07-08] MEDS: HEPARIN SODIUM,PORCINE/PF 5,000 UNIT/0.5 ML SYRINGE SQ SCH ×2 (10:21→21:34)
[2021-07-08] MEDS ORDERED: POTASSIUM CHLORIDE 10 MEQ in WATER FOR INJECTION 1 100ML.BAG IVPB SCH (11:00)
[2021-07-08] MEDS: POTASSIUM CHLORIDE 10 MEQ in WATER FOR INJECTION 1 100ML.BAG IVPB SCH ×2 (11:33→12:33)
[2021-07-08 11:50] LABS: Glucose,Whole Blood 125 mg/dL (75-99)
[2021-07-08] MEDS: PANTOPRAZOLE 40 MG/10 ML VIAL IVP SCH ×2 (11:52→21:35)
[2021-07-08] MEDS: THIAMINE 100 MG/ML 2 ML VIAL IVP SCH (11:52)
[2021-07-08] MEDS: levETIRAcetam IV 500 MG in SODIUM CHLORIDE 0.9% 100 ML IVPB SCH (12:02)
--- NOTE | 2021-07-08 13:00 | CDI ---
Documentation Clarification Form Date: 07/08/2021 12:53:04 PM From: Donna Her RN CCDS Admit Date: 07/01/2021 07:46:00 PM Patient Name: Frankie Grover Visit Number: [id number] Discharge Date: ATTENTION: The Clinical Documentation Specialists (CDI) and [facility] Coding Staff appreciate your assistance in clarifying documentation. Please respond to the clarification below the line at the bottom and electronically sign. The CDI & [facility] Coding staff will review the response and follow-up if needed. Please note: Queries are made part of the Legal Health Record. If you have any questions, please contact the author of this message via ITS. Dr. Denny Nava UTI is documented Medicine progress notes 07/05 & 07/06 and but is not noted in subsequent documentation. Clarification is requested. History/Risk Factors: 71-year-old male presents to the ED for a 45-day history of confusion, expressive aphasia and slurred speech. Medical history: HTN Sleep apnea and Thyroid disorder. H&P 07/02. Clinical Indicators: UTI with sepsis, not poa, most likely related to indwelling Byrd catheter that was inserted in the EC on 07/01 for retention. Medicine progress notes 07/05 & 07/06. UA: 07/05 Urine blood Large, Leukocyte esterase Moderate, RBC >182, Wbc 47. Urine culture: 07/07 after 24 hours on 07/08 No growth. ID Progress Note: 07/06 Patient with sepsis with MSSA bacteremia, concern for possible line related infection. Treatment: 07/05 Daptomycin 700mg IVPB Q24H d/c 07/05. 07/05 Ceftriaxone 1gm IVPB Q24H dc 07/06. 07/06 Cefazolin Sodium 2gm Q12HR to current. Please clarify if the UTI is: [ ] UTI related to Byrd catheter confirmed, remains under treatment [ ] UTI ruled out [ ] Other condition, please specify [ ] Unable to determine (Template Last Revised: December 2020) No urinary tract infection MTDD
--- NOTE | 2021-07-08 14:08 | PN ---
PROGRESS NOTE Patient is seen for followup for acute kidney injury. He patient had an MRI done this morning and somehow there was confusion and it was resumed that patient had IV contrast and therefore he was started on dialysis this morning. However, I did confirm with the nursing staff and radiology, patient did not have any contrast administration. Therefore, we will only dialyze for about 2 hours today and plan for a regular treatment tomorrow. This morning, patient is awake. He is comfortable. He is answering questions and states that he wants to go home. PHYSICAL EXAMINATION: Blood pressure was 120/68, heart rate 79 per minute. This morning blood pressure was 165/80, heart rate 82 per minute. He is afebrile. Examination of the heart S1, S2. Examination of the lungs, bilateral breath sounds are heard. Abdomen is soft, obese. Examination of lower extremities shows no significant edema. PET NUTRITION SPECIALIST exam is grossly intact. The patient is moving all 4 extremities. LAB: Show sodium 137, potassium 3.2, chloride 103, BUN 48, creatinine 2.56. Hemoglobin was 6.7 g/dL. ASSESSMENT: 1. Acute kidney injury, acute tubular necrosis, currently nonoliguric, maintained on hemodialysis. The patient is having a short treatment today. He will be dialyzed again tomorrow. Apparently, there was some confusion with the MRI report and there was assumption that he had IV contrast. Patient's mentation has improved significantly. 2. Encephalopathy, multifactorial, now improved. 3. Bacteremia with MSSA and repeat blood cultures, negative thus far from 07/07/2021. The patient is maintained on cefazolin. 4. Anemia with hemoglobin at 6.7 g/dL today. No active bleeding noted. Continue with the Aranesp. PLAN: Decrease IV fluids. Hemodialysis in a.m. No ultrafiltration. The patient will have a short treatment today and monitor for recovery of renal function. MMODL / IJN: [id number] /
[2021-07-08 15:01] LABS: Anisocytosis Slight; Hypochromasia Slight; MCH 34.8 pg (25.0-35.0); MCHC 32.2 g/dL (31.0-37.0); MCV 107.9 fL (80.0-100.0); Macrocytosis Marked; Mean Platelet Volume 12.6; RBC 1.95 m/uL (4.30-5.90); RDW 16.3 % (11.5-15.5); WBC 6.8 k/uL (3.8-10.6)
[2021-07-08 15:15] LABS: Albumin 2.7 g/dL (3.5-5.0); Calcium 8.1 mg/dL (8.4-10.2); Potassium 3.3 mmol/L (3.5-5.1); Total Bilirubin 1.3 mg/dL (0.2-1.3)
--- NOTE | 2021-07-08 15:19 | P.PN ---
Subjective Progress Note Date: 07/08/21 Patient is a pleasant 71-year-old male is admitted for acute failure. Patient doesn't have any significant improvement patient acute renal failure is blue to be secondary to medications including NOVA inhibitor and diuretic therapy. Patient does have asterixis and uremic symptoms because of which dialysis catheter is being placed and patient will undergo hemodialysis tomorrow patient is still urinating okay. Patient has a fully catheter. Patient had an echocardiogram evaluated because of mild elevation of troponins which is probably secondary to renal failure no further intervention is being planned at this time as he perspective neurology evaluated the patient because of concern of aphasia although patient appears to have confusion more than aphasia patient does have some chronic microvascular ischemic changes no acute stroke was evident on MRI patient does have microcytosis and anemia probably B12 folate deficiency labs of which were already ordered. The is still having occasional confusional episodes secondary to uremic encephalopathy. 07/04/2021 Patient is evaluated today the bedside status post hemodialysis. He is confused and is not responding to questions appropriately. He is wearing a CPAP currently. He does have some asterixis present at the time of my assessment which can be seen with encephalopathy. Labs reviewed today include a hemoglobin of 7.4, MCV 107.3, MCH 35.2, his platelets are 77. Potassium is 3.7, chloride 108, BUN 69, creatinine 3.72, which has improved with dialysis. His mag is 1.9. Patient is afebrile, blood pressure 162/70. He is 97% on room air. Most recent chest x-ray is negative for acute cardiopulmonary disease. Folate is within normal limits at 4.7 which is just on the lower cusp. Patient is being followed closely by nephrology, plan is for repeat dialysis treatment tomorrow. Aranesp was added. Hydralazine has also been added for blood pressures. 07/05/2021 Patient throughout the evening had a possible seizure episode. He was found to be postictal after telemetry notified RN that he was having a tachycardic episode. Patient is found to be unresponsive to noxious and physical stimuli, he had foaming at the mouth. A repeat brain CT was ordered which was negative and no change compared to old exam. A urinalysis was completed from Byrd catheter which revealed +1 protein, trace ketones, large blood, moderate leukocyte esterase and 47 WBCs. It was negative for nitrates. Patient was started on IV Rocephin. Lactic acid was 3.1, 4.7 and is now 5.3. Despite kidney function and fluid overload, patient is now on 0.9 normal saline at 100 mL per hour. Additional labs include a hemoglobin of 8.5, platelet count of 84, CO2 19, chloride 109, BUN 71, creatinine 4.05. Magnesium is 1.7 we will replace per protocol. Troponins negative. Prolactin is elevated at 24.5. Per at the bedside patient does drink 2 large-sized bottles of Chardonnay daily if not more. Hepatitis B surface antigen and antibody were nonreactive. Vital signs include temperature 99.3, heart rate 92, blood pressure 127/63 and 95% on 3 L nasal cannula. Patient is unresponsive to sternal rub, however his pupils were reactive and equal size. An EEG is currently pending from neurology. Patient was started on IV Keppra in the meantime for possible seizure activity. 07/06/2021 Patient is evaluated the bedside, he is resting in bed. He is more alert than she however he is still unable to respond verbally. He does have spontaneous eye opening and will want, pupils are still reactive and equal. Patient's lactic has improved is on normal at 1.8, BUN is 64, creatinine 3.32. Potassium today is 3.7, magnesium 1.9, we'll replace. Additionally has AST is 377, AST 61, which is trending upwards. White blood cell count is 14.7, hemoglobin 7.5. There are no signs of blood from the rectum. Vitals reviewed to include a temp of 97.9, heart rate of 104, blood pressure 115/71, 96 on room air. Prior RN patient's heart rate has been in the 120s throughout the morning. Patient was another throughout the evening for unresponsiveness. There was ammonia level ordered and rectal lactulose was given. In addition patient had another liter bolus. We will repeat ammonia level today, and check an abdomen ultrasound. EEG was negative for output for activity. Blood cultures were positive for staph aureus, microsensitivities are pending. Antibiotics have been changed to IV cefazolin from ID. Indwelling catheter remains, urine culture is pending. Patient is unable to swallow his oral medications at this time, we will monitor closely. Due to his history of chronic alcohol abuse and elevated liver enzymes as well as a drop in hemoglobin we will change oral Pepcid to IVP Protonix. 07/07/2021 Patient's liver enzymes are coming down patient had ultrasound of the liver which showed multiple lesions highly suspicious for metastatic disease. Patient will need CT with contrast or MRI with contrast which need to be coordinated with hemodialysis patient will not receive modalities is tomorrow presently receiving hemodialysis at this time. We'll discuss with nephrology regarding timing of ordering these tests. I'll also obtain alpha-fetoprotein. Patient's repeat blood cultures so far are negative. His more awake today less lethargic. 07/08/2021 Patient is evaluated at the bedside today, he is alert and oriented 1, he states that he wants to go home with his . Patient is alert, appropriate he has spontaneous eye opening, there is no obvious neurological deficits, his pupils are equal and reactive, there is no focal weakness left versus right. Patient did undergo an abdominal MRI today, which was correlated for underlying cirrhosis. There is hepatosplenomegaly. There is nodularity seen on ultrasound which may correspond to regenerating liver nodules. The exam is markedly limited technically. Cholelithiasis. There is no evidence of retroperitoneal adenopathy. There is no adrenal mass. There is no hydronephrosis. There is a large cystic focus associated with the left kidney upper pole a 0.4 cm and a cortical cyst also suspect that the lower pole. There is no definite effusion in the lung bases. BUN is 40, creatinine 2.56, potassium 3.2. Patient will be replaced per protocol and also is receiving dialysis today. Patient would be appropriate this time for PT OT as well as speech evaluation. Hemoglobin is 6.7 today patient will receive 1 unit of PRBC, platelet count is 79, in which he has been on subcu heparin. Iron studies were within normal limits. ROS: Constitutional: Denied any fatigue denied any fever. Cardio vascular: denied any chest pain, palpitations Gastrointestinal denied any nausea vomiting Pulmonary: Denied any shortness of breath cough Neurologic denied any new focal deficits All inpatient medications were reviewed and appropriate changes in these medications as dictated in the interval history and assessment and plan. PHYSICAL EXAMINATION: GENERAL: The patient is awake and alert at this time however is oriented 1. He does state that he is frustrated about getting asked the same questions and overall he states that he is feeling fine today. HEENT: Pupils are round and equally reacting to light. EOMI. No scleral icterus. No conjunctival pallor. Normocephalic, atraumatic. No pharyngeal erythema. No thyromegaly. CARDIOVASCULAR: S1 and S2 present. No murmurs, rubs, or gallops. PULMONARY: Chest is clear to auscultation, no crackles, mild left lower lobe expiratory wheezing. ABDOMEN: Soft, nontender, nondistended, normoactive bowel sounds. No palpable organomegaly. MUSCULOSKELETAL: No joint swelling or deformity. EXTREMITIES: No cyanosis, clubbing, mild ankle edema worse on the right NEUROLOGICAL: Gross neurological does not reveal any focal deficits, there is generalized weakness. Hand grasp is equal. SKIN: No rashes. Assessment and plan Assessment -Altered mental status d/t toxic and Metabolic encephalopathy related to uremia, imaging does not demonstrate an acute cerebrovascular attack, possibly due to an acute alcohol withdrawal, possible acute alcohol withdrawal seizure, on CIWA pr otocol, improving drastically -Elevated liver enzymes and elevated ammonia, patient is a history of chronic alcohol abuse, ammonia normalized after treatment with lactulose, abdominal ultrasound and MRI demonstrated cirrhosis - Possible UTI with sepsis, not present on admission, not related to IDC, Culture is negative. Lactic acid is 5.3, is now normalized at 1.8, saline 0.9ns at 100 per hour has been ordered, and patient has received 3 L fluid bolus. Chest x-ray does not reveal an infectious process. Blood cultures are negative. -Possible acute TIA, presented with a questionable history of expressive aphasia. Will not treat with dual antiplatelet therapy per neurology recommendations to history of GI bleed -Patient has uremic encephalopathy will require hemodialysis for acute tubular necrosis secondary to hypovolemia and diuretics urine analysis is not consistent with chronic kidney disease and patient will undergo hemodialysis because of uremic encephalopathy. Creatinine down to 3.32 mentation is improving -Possible seizure, patient was an ateam over the weekend after being un responsive following an episode of tachycardia, EEG reveals severe encephalopathy no signs of epileptiform activity, IV Keppra prophylactically, also possible alcohol withdrawal seizure as patient does drink 2 large bottles of Chardonnay daily however last drink was over a week ago per at the [facility]. -Dellitus type 2 blood sugars appear to be well controlled at home and patient's hemoglobin A1c is 5.7 at this time showed a left lower sinus patient's up and eating we will adjust his medications. -Diabetic peripheral neuropathy, decreased dose of gabapentin Possible B12/folate deficiency, labs are currently pending patient has pancytopenia and macrocytosis, B12 pending Folate is at the low end of normal at 4.7, we will add folic acid 1 mg daily. -Anemia, with bicytopenia, Aranesp added per nephrology, hemoglobin today is 5.6 will give a unit of blood. -Elevated troponin most likely a leak related to acute kidney injury, appreciate cardiology input Possible acute on chronic congestive heart failure, diastolic, current EF 55- 60%, BNP 1690 lungs are clear today, chest x-ray negative -Full code GI prophylaxis Pepcid DVT prophylaxis subcu heparin Plan Continue to monitor with neuro checks every 4 hours. Patient slightly more alert today he states he is well to go home. We will reconsult PT OT and speech therapy as patient's mentation is alert and he will be able to participate in therapy. Patient is receiving hemodialysis today. His BUN and creatinine are drastically improving, potassium is in the lower side, we will replace per protocol. Hemoglobin was 6.7 and platelet count was 79 there was concern because he is on subQ heparin, it has remained relatively stable although the lower side but we will check a hit panel. Patient is on IV antibiotics for positive blood culture with staph aureus. His preliminary repeat blood culture has remained negative we are pending finalized cultures. Patient per nursing staff has developed a stage II pressure ulcer on his buttock. Treatment per protocol. Plan is for patient to go to see an acute medical facility on discharge. Objective - Vital Signs Vital signs: Vital Signs Temp 99.8 F H 07/08/21 03:57 Pulse 82 07/08/21 03:57 Resp 18 07/08/21 03:57 BP 165/80 07/08/21 03:57 Pulse Ox 97 07/08/21 03:57 Intake & Output 07/07/21 07/08/21 07/08/21 18:59 06:59 18:59 Intake Total 120 118 Output Total 350 400 Balance -230 -400 118 Weight 125 kg 125 kg Intake: Oral 120 118 Output: Urine 350 400 Hemodialysis 0 Other: Voiding Method Indwelling Catheter Indwelling Catheter - Labs CBC & Chem 7: 07/08/21 09:02 07/08/21 14:27 Labs: Abnormal Lab Results - Last 24 Hours (Table) 07/07/21 07/07/21 07/07/21 Range/Units 11:44 16:31 20:25 RBC (4.30-5.90) m/uL Hgb (13.0-17.5) gm/dL Hct (39.0-53.0) % MCV (80.0-100.0) fL RDW (11.5-15.5) % Plt Count (150-450) k/uL Macrocytosis Potassium (3.5-5.1) mmol/L BUN (9-20) mg/dL Creatinine (0.66-1.25) mg/dL Glucose (74-99) mg/dL POC Glucose (mg/dL) 135 H 162 H 153 H (75-99) mg/dL 07/08/21 07/08/21 07/08/21 Range/Units 06:17 09:02 09:02 RBC 1.93 L (4.30-5.90) m/uL Hgb 6.7 L* (13.0-17.5) gm/dL Hct 20.7 L (39.0-53.0) % MCV 107.6 H (80.0-100.0) fL RDW 16.3 H (11.5-15.5) % Plt Count 79 L (150-450) k/uL Macrocytosis Marked A Potassium 3.2 L (3.5-5.1) mmol/L BUN 48 H (9-20) mg/dL Creatinine 2.56 H (0.66-1.25) mg/dL Glucose 119 H (74-99) mg/dL POC Glucose (mg/dL) 132 H (75-99) mg/dL Microbiology - Last 24 Hours (Table) 07/07/21 08:24 Blood Culture - Preliminary Blood No Growth after 24 hours 07/05/21 02:59 Blood Culture Gram Stain - Final Blood Blood Culture - Final Staphylococcus aureus 07/05/21 04:14 Urine Culture - Final Urine,Voided 07/05/21 16:02 Blood Culture Gram Stain - Final Blood Blood Culture - Final Staphylococcus aureus Assessment and Plan Time with Patient: Greater than 30
[2021-07-08 15:29] LABS: HGB 6.8 gm/dL (13.0-17.5); Platelet Count 76 k/uL (150-450)
[2021-07-08 16:13] LABS: Band Neutrophils % 2 %; Eosinophils # (M) 0.27 k/uL (0-0.7); Lymphocytes # (M) 0.75 k/uL (1.0-4.8); Monocytes # (M) 0.54 k/uL (0-1.0); Neutrophils % (M) 75 %; Nucleated Red Blood Cells 0 /100 WBC (0-0); Total Cells Counted 100
[2021-07-08 16:35] LABS: Glucose,Whole Blood 158 mg/dL (75-99)
[2021-07-08] MEDS: POTASSIUM CHLORIDE ER 20 MEQ TAB.ER PO SCH (17:33)
[2021-07-08 20:15] LABS: Glucose,Whole Blood 176 mg/dL (75-99)
--- NOTE | 2021-07-08 23:24 | PN ---
PROGRESS NOTE DATE OF SERVICE: 07/08/2021 REASON FOR FOLLOW UP: MSSA bacteremia. INTERVAL HISTORY: Patient is afebrile. The patient is breathing comfortably. The patient denies having any chest pain, shortness of breath. Occasional cough. No abdominal pain or diarrhea. PHYSICAL EXAMINATION: Blood pressure is 148/79 with a pulse of 81, temperature 98.2. He is 97% on room air. General description is an elderly male lying in bed in no distress. Respiratory system: Unlabored breathing, decreased breath sounds in the bases. Heart S1, S2. Regular rate and rhythm. Abdomen soft, no tenderness. LABORATORY DATA: Hemoglobin 10, white count 6.8. Creatinine is 1.86. Blood culture repeat has been negative so far. DIAGNOSTIC IMPRESSION AND PLAN: Patient with MSSA bacteremia concern is for possible dialysis catheter infection with repeat blood cultures have been negative so far. Patient is covered with cefazolin. We will discuss further with Nephrology. Plan for further dialysis following which the catheter could be removed. Continue supportive care. MMODL / IJN: [id number] / LINDEN
[2021-07-09] MEDS: SODIUM CHLORIDE 0.9% 1,000 ML IV SCH ×5 (03:49→21:20)
[2021-07-09] MEDS: LORazepam 2 MG/ML INJ IV PRN (05:48)
[2021-07-09 05:49] LABS: Glucose,Whole Blood 181 mg/dL (75-99)
[2021-07-09] MEDS: LEVOTHYROXINE 75 MCG TAB PO SCH (06:17)
[2021-07-09] MEDS: INSULIN DETEMIR (LEVEMIR) 100 UNIT/ML SYR SQ SCH ×2 (06:17→20:46)
[2021-07-09] MEDS: INSULIN ASPART (NovoLOG) 100 UNIT/ML VIAL SQ SCH ×4 (06:17→20:46)
[2021-07-09 07:51] LABS: Anisocytosis Slight; HGB 7.8 gm/dL (13.0-17.5); Hypochromasia Slight; MCH 34.4 pg (25.0-35.0); MCHC 32.6 g/dL (31.0-37.0); MCV 105.5 fL (80.0-100.0); Macrocytosis Moderate; Mean Platelet Volume 10.9; RBC 2.28 m/uL (4.30-5.90); RDW 16.5 % (11.5-15.5); WBC 9.1 k/uL (3.8-10.6)
[2021-07-09 08:58] LABS: Platelet Count 90 k/uL (150-450)
[2021-07-09 08:59] LABS: Calcium 8.4 mg/dL (8.4-10.2); Potassium 3.5 mmol/L (3.5-5.1)
--- NOTE | 2021-07-09 11:34 | PN ---
PROGRESS NOTE Patient is seen for followup for acute kidney injury. He is currently hemodialysis- dependent and has had daily dialysis for the last 4 days now. Patient's blood cultures are growing Staph aureus from 07/05/2021. Catheter was placed on 07/03/2021. It is MSSA. Currently patient has an indwelling Byrd catheter; 24-hour urine output is at about 750 mL. Serum creatinine has been staying around 2 mg/dL from around 5.7 on initial admission. Patient's mentation had improved with daily dialysis treatments. However, last night he was combative, confused, and did receive Ativan. This morning patient is sleeping. His is present at bedside. He does open his eyes and respond to verbal stimuli. On examination today, blood pressure 138/77. Repeat blood pressure 149/72, heart rate 71 per minute. He is afebrile. EXAMINATION OF THE HEART: S1 and S2. EXAMINATION OF LUNGS: Bilateral breath sounds are heard. Abdomen is soft, morbidly obese. Examination of lower extremities shows no significant edema. IT SPECIALIST EXAM: Grossly intact. Labs show sodium 137, potassium 3.5, chloride 104, BUN 42, creatinine 2.29, hemoglobin 7.8 g/dL. ASSESSMENT: 1. Acute kidney injury, mostly acute tubular necrosis, status post hemodialysis. Patient has had consecutive treatments; he has had 5 treatments thus far. This morning serum creatinine is at 2.2. Patient has had urine output. He has an indwelling Byrd catheter. I will hold off on dialysis today to assess for recovery of renal function. UA was quite benign; no evidence of obstruction on renal imaging. The IJ catheter will likely need to be removed, as patient's blood cultures were positive for MSSA bacteremia on 07/05, which was after the placement of catheter which was placed on 07/03/2021. 2. MSSA bacteremia. Repeat blood cultures today. Will likely need to remove the dialysis catheter. I am hoping for recovery of renal function so dialysis can be discontinued. 3. Hypokalemia, status post replacement. 4. Volume depletion on initial admission, currently improved. 5. Encephalopathy, multifactorial. Possible element of uremia as well, currently improved. However, mentation was again disturbed last night with patient becoming combative, confused and required Ativan. PLAN: Repeat blood cultures. Hold dialysis today. Repeat labs in a.m. Avoid nephrotoxic agents. Add gentle IV hydration. MMODL / IJN: [id number] /
[2021-07-09] MEDS: THIAMINE 100 MG/ML 2 ML VIAL IVP SCH (11:36)
[2021-07-09] MEDS: levETIRAcetam IV 500 MG in SODIUM CHLORIDE 0.9% 100 ML IVPB SCH (11:36)
[2021-07-09] MEDS: PANTOPRAZOLE 40 MG/10 ML VIAL IVP SCH ×2 (11:36→20:41)
[2021-07-09] MEDS: ASPIRIN 81 MG PO SCH (11:36)
[2021-07-09] MEDS: hydrALAZINE HCL 25 MG TAB PO SCH ×3 (11:37→20:42)
[2021-07-09] MEDS: amLODIPine 5 MG TAB PO SCH (11:37)
[2021-07-09] MEDS: GABAPENTIN 100 MG CAP PO SCH ×3 (11:37→20:42)
[2021-07-09] MEDS: FOLIC ACID 1 MG TAB PO SCH (11:37)
[2021-07-09] MEDS: METOPROLOL TARTRATE 25 MG TAB PO SCH ×2 (11:38→20:41)
[2021-07-09 12:01] LABS: Glucose,Whole Blood 115 mg/dL (75-99)
--- NOTE | 2021-07-09 13:06 | P.PN ---
Subjective Progress Note Date: 07/09/21 Patient is a pleasant 71-year-old male is admitted for acute failure. Patient doesn't have any significant improvement patient acute renal failure is blue to be secondary to medications including NOVA inhibitor and diuretic therapy. Patient does have asterixis and uremic symptoms because of which dialysis catheter is being placed and patient will undergo hemodialysis tomorrow patient is still urinating okay. Patient has a fully catheter. Patient had an echocardiogram evaluated because of mild elevation of troponins which is probably secondary to renal failure no further intervention is being planned at this time as he perspective neurology evaluated the patient because of concern of aphasia although patient appears to have confusion more than aphasia patient does have some chronic microvascular ischemic changes no acute stroke was evident on MRI patient does have microcytosis and anemia probably B12 folate deficiency labs of which were already ordered. The is still having occasional confusional episodes secondary to uremic encephalopathy. 07/04/2021 Patient is evaluated today the bedside status post hemodialysis. He is confused and is not responding to questions appropriately. He is wearing a CPAP currently. He does have some asterixis present at the time of my assessment which can be seen with encephalopathy. Labs reviewed today include a hemoglobin of 7.4, MCV 107.3, MCH 35.2, his platelets are 77. Potassium is 3.7, chloride 108, BUN 69, creatinine 3.72, which has improved with dialysis. His mag is 1.9. Patient is afebrile, blood pressure 162/70. He is 97% on room air. Most recent chest x-ray is negative for acute cardiopulmonary disease. Folate is within normal limits at 4.7 which is just on the lower cusp. Patient is being followed closely by nephrology, plan is for repeat dialysis treatment tomorrow. Aranesp was added. Hydralazine has also been added for blood pressures. 07/05/2021 Patient throughout the evening had a possible seizure episode. He was found to be postictal after telemetry notified RN that he was having a tachycardic episode. Patient is found to be unresponsive to noxious and physical stimuli, he had foaming at the mouth. A repeat brain CT was ordered which was negative and no change compared to old exam. A urinalysis was completed from Byrd catheter which revealed +1 protein, trace ketones, large blood, moderate leukocyte esterase and 47 WBCs. It was negative for nitrates. Patient was started on IV Rocephin. Lactic acid was 3.1, 4.7 and is now 5.3. Despite kidney function and fluid overload, patient is now on 0.9 normal saline at 100 mL per hour. Additional labs include a hemoglobin of 8.5, platelet count of 84, CO2 19, chloride 109, BUN 71, creatinine 4.05. Magnesium is 1.7 we will replace per protocol. Troponins negative. Prolactin is elevated at 24.5. Per at the bedside patient does drink 2 large-sized bottles of Chardonnay daily if not more. Hepatitis B surface antigen and antibody were nonreactive. Vital signs include temperature 99.3, heart rate 92, blood pressure 127/63 and 95% on 3 L nasal cannula. Patient is unresponsive to sternal rub, however his pupils were reactive and equal size. An EEG is currently pending from neurology. Patient was started on IV Keppra in the meantime for possible seizure activity. 07/06/2021 Patient is evaluated the bedside, he is resting in bed. He is more alert than she however he is still unable to respond verbally. He does have spontaneous eye opening and will want, pupils are still reactive and equal. Patient's lactic has improved is on normal at 1.8, BUN is 64, creatinine 3.32. Potassium today is 3.7, magnesium 1.9, we'll replace. Additionally has AST is 377, AST 61, which is trending upwards. White blood cell count is 14.7, hemoglobin 7.5. There are no signs of blood from the rectum. Vitals reviewed to include a temp of 97.9, heart rate of 104, blood pressure 115/71, 96 on room air. Prior RN patient's heart rate has been in the 120s throughout the morning. Patient was another throughout the evening for unresponsiveness. There was ammonia level ordered and rectal lactulose was given. In addition patient had another liter bolus. We will repeat ammonia level today, and check an abdomen ultrasound. EEG was negative for output for activity. Blood cultures were positive for staph aureus, microsensitivities are pending. Antibiotics have been changed to IV cefazolin from ID. Indwelling catheter remains, urine culture is pending. Patient is unable to swallow his oral medications at this time, we will monitor closely. Due to his history of chronic alcohol abuse and elevated liver enzymes as well as a drop in hemoglobin we will change oral Pepcid to IVP Protonix. 07/07/2021 Patient's liver enzymes are coming down patient had ultrasound of the liver which showed multiple lesions highly suspicious for metastatic disease. Patient will need CT with contrast or MRI with contrast which need to be coordinated with hemodialysis patient will not receive modalities is tomorrow presently receiving hemodialysis at this time. We'll discuss with nephrology regarding timing of ordering these tests. I'll also obtain alpha-fetoprotein. Patient's repeat blood cultures so far are negative. His more awake today less lethargic. 07/08/2021 Patient is evaluated at the bedside today, he is alert and oriented 1, he states that he wants to go home with his . Patient is alert, appropriate he has spontaneous eye opening, there is no obvious neurological deficits, his pupils are equal and reactive, there is no focal weakness left versus right. Patient did undergo an abdominal MRI today, which was correlated for underlying cirrhosis. There is hepatosplenomegaly. There is nodularity seen on ultrasound which may correspond to regenerating liver nodules. The exam is markedly limited technically. Cholelithiasis. There is no evidence of retroperitoneal adenopathy. There is no adrenal mass. There is no hydronephrosis. There is a large cystic focus associated with the left kidney upper pole a 0.4 cm and a cortical cyst also suspect that the lower pole. There is no definite effusion in the lung bases. BUN is 40, creatinine 2.56, potassium 3.2. Patient will be replaced per protocol and also is receiving dialysis today. Patient would be appropriate this time for PT OT as well as speech evaluation. Hemoglobin is 6.7 today patient will receive 1 unit of PRBC, platelet count is 79, in which he has been on subcu heparin. Iron studies were within normal limits. 07/09/21 Patient is evaluated resting in the bed, PT OT on board. He did pass a speech evaluation is on a chopped dysphagia 3 diet can advance to regular as tolerated. Patient did have some increased confusion and agitation throughout the evening and had to receive a dose of when necessary Ativan. We'll discontinue Haldol and Ativan we will use Seroquel as needed at bedtime. BUN today is 42, creatinine 2.29. Patient's hemoglobin is 7.8 status post 1 unit PRBCs. Platelets are 90. We will resume subcu heparin. Patient is on Aranesp every 7 days. Patient still has a indwelling catheter. Blood cultures have remained negative for the next 48 hours, once cultures have been negative for 72 hours we will start discharge planning to rehab. Patient is afebrile, heart rate 94, blood pressure 146/73 and he is 96% on room air. Patient is alert 3 the time of my exam, expresses a desire to go home. ROS: Constitutional: Denied any fatigue denied any fever. Cardio vascular: denied any chest pain, palpitations Gastrointestinal denied any nausea vomiting Pulmonary: Denied any shortness of breath cough Neurologic denied any new focal deficits All inpatient medications were reviewed and appropriate changes in these medications as dictated in the interval history and assessment and plan. PHYSICAL EXAMINATION: GENERAL: The patient is awake and alert at this time however is oriented 3. He wants to go home. HEENT: Pupils are round and equally reacting to light. EOMI. No scleral icterus. No conjunctival pallor. Normocephalic, atraumatic. No pharyngeal erythema. No th yromegaly. CARDIOVASCULAR: S1 and S2 present. No murmurs, rubs, or gallops. PULMONARY: Chest is clear to auscultation, no crackles, mild left lower lobe expiratory wheezing. ABDOMEN: Soft, nontender, nondistended, normoactive bowel sounds. No palpable organomegaly. MUSCULOSKELETAL: No joint swelling or deformity. EXTREMITIES: No cyanosis, clubbing, mild ankle edema worse on the right NEUROLOGICAL: Gross neurological does not reveal any focal deficits, there is generalized weakness. Hand grasp is equal. SKIN: No rashes. Assessment and plan Assessment -Altered mental status d/t toxic and Metabolic encephalopathy related to uremia, no evidence of CVA/TIA, possibly due to an acute alcohol withdrawal, possible acute alcohol withdrawal seizure, on CIWA protocol, also a component of bacter emia, and hospital delirium. -Elevated liver enzymes and elevated ammonia, patient is a history of chronic alcohol abuse, ammonia normalized after treatment with lactulose, abdominal ultrasound and MRI showed nodularity consistant with liver cirrhosis. Alpha fetoprotein WNL. - Possible UTI with sepsis rule out, not present on admission, not related to IDC, urine culture is negative. -MSSA bacteremia s/p placement of IJ hemodialysis catheter, pending finalized cultures, on IV ABX, ID following. -Possible acute TIA, presented with a questionable history of expressive aphasia. Will not treat with dual antiplatelet therapy d/t history of GIB, imaging does not show evidence of an acute cerebrovascular accident. -Acute Kidney Injury, most likely acute tubular necrosis, s/p hemodialysis, will most likely need to continue outpatient -Possible seizure, patient was an ateam over the weekend after being unresponsive following an episode of tachycardia, EEG reveals severe encephalopathy no signs of epileptiform activity, IV Keppra prophylactically, also possible alcohol withdrawal seizure as patient does drink 2 large bottles of Chardonnay daily however last drink was over a week ago per at the bedside. -Dellitus type 2 blood sugars appear to be well controlled at home and patient's hemoglobin A1c is 5.7. -Diabetic peripheral neuropathy, decreased dose of gabapentin Possible B12/folate deficiency, labs are currently pending patient has pancytopenia and macrocytosis, B12 pending Folate is at the low end of normal at 4.7, we will add folic acid 1 mg daily. -Anemia, with bicytopenia, Aranesp added per nephrology, hemoglobin today is 7.8 s/p 1 unit PRBC. -Elevated troponin most likely a leak related to acute kidney injury, appreciate cardiology input Possible acute on chronic congestive heart failure, diastolic, current EF 55- 60%, BNP 1690 lungs are clear today, chest x-ray negative -Full code GI prophylaxis Pepcid DVT prophylaxis subcu heparin Plan Pending repeat blood cultures, if negative for 72 hours we sill start DC planning for rehab. If BC remain negative, HD port will stay and plan for ongoing hemodialysis outpatient. Patients mentation is overall improving, he is alert and oriented x3 during the day, however, still confused and agitated at night, we will ad a small dose of seroquel. Can increase to 25 mg PO HS if dose is ineffective. Objective - Vital Signs Vital signs: Vital Signs Temp 97.4 F L 07/09/21 11:15 Pulse 94 07/09/21 11:15 Resp 18 07/09/21 11:15 BP 146/73 07/09/21 11:15 Pulse Ox 96 07/09/21 11:15 Intake & Output 07/08/21 07/09/21 07/09/21 18:59 06:59 18:59 Intake Total 2952 610 237 Output Total 626 523 8532 Balance 2802 10 -863 Weight 125 kg 125 kg Intake: IV 1600 Potassium Chloride 10 meq 200 In Water For Injection 1 100ml.bag @ 100 mls/hr IVPB Q1H [facility] Rx#: [id number] Sodium Chloride 0.9% 1, 1200 000 ml @ 75 mls/hr IV . [id number] [facility] Rx#:[id number] ceFAZolin 2 gm In Sodium 100 Chloride 0.9% 50 ml @ 100 mls/hr IVPB Q12HR [facility] Rx #:[id number] levETIRAcetam IV 500 mg 100 In Sodium Chloride 0.9% 100 ml @ 400 mls/hr IVPB DAILY [facility] Rx#:[id number] Oral 1352 300 237 Blood Product 0 310 Rc As-1 Unit 0 310 [id number] Output: Urine 675 609 2609 Uretheral (Byrd) 450 Hemodialysis 0 Other: Voiding Method Indwelling Catheter Indwelling Catheter Indwelling Catheter - Labs CBC & Chem 7: 07/09/21 06:45 07/09/21 06:45 Labs: Abnormal Lab Results - Last 24 Hours (Table) 07/08/21 07/08/21 07/08/21 Range/Units 14:27 14:27 14:27 RBC 1.95 L (4.30-5.90) m/uL Hgb 6.8 L* (13.0-17.5) gm/dL Hct 21.0 L (39.0-53.0) % MCV 107.9 H (80.0-100.0) fL RDW 16.3 H (11.5-15.5) % Plt Count 76 L (150-450) k/uL Lymphocytes # (Manual) 0.75 L (1.0-4.8) k/uL Macrocytosis Marked A Sodium 134 L (137-145) mmol/L Potassium 3.3 L (3.5-5.1) mmol/L BUN 35 H (9-20) mg/dL Creatinine 1.86 H (0.66-1.25) mg/dL Glucose 175 H (74-99) mg/dL POC Glucose (mg/dL) (75-99) mg/dL Calcium 8.1 L (8.4-10.2) mg/dL AST 265 H (17-59) U/L Total Protein 6.0 L (6.3-8.2) g/dL Albumin 2.7 L (3.5-5.0) g/dL Crossmatch See Detail 07/08/21 07/08/21 07/09/21 Range/Units 16:32 20:14 05:47 RBC (4.30-5.90) m/uL Hgb (13.0-17.5) gm/dL Hct (39.0-53.0) % MCV (80.0-100.0) fL RDW (11.5-15.5) % Plt Count (150-450) k/uL Lymphocytes # (Manual) (1.0-4.8) k/uL Macrocytosis Sodium (137-145) mmol/L Potassium (3.5-5.1) mmol/L BUN (9-20) mg/dL Creatinine (0.66-1.25) mg/dL Glucose (74-99) mg/dL POC Glucose (mg/dL) 158 H 176 H 181 H (75-99) mg/dL Calcium (8.4-10.2) mg/dL AST (17-59) U/L Total Protein (6.3-8.2) g/dL Albumin (3.5-5.0) g/dL Crossmatch 07/09/21 07/09/21 07/09/21 Range/Units 06:45 06:45 11:52 RBC 2.28 L (4.30-5.90) m/uL Hgb 7.8 L (13.0-17.5) gm/dL Hct 24.0 L (39.0-53.0) % MCV 105.5 H (80.0-100.0) fL RDW 16.5 H (11.5-15.5) % Plt Count 90 L (150-450) k/uL Lymphocytes # (Manual) (1.0-4.8) k/uL Macrocytosis Sodium (137-145) mmol/L Potassium (3.5-5.1) mmol/L BUN 42 H (9-20) mg/dL Creatinine 2.29 H (0.66-1.25) mg/dL Glucose 137 H (74-99) mg/dL POC Glucose (mg/dL) 115 H (75-99) mg/dL Calcium (8.4-10.2) mg/dL AST (17-59) U/L Total Protein (6.3-8.2) g/dL Albumin (3.5-5.0) g/dL Crossmatch Microbiology - Last 24 Hours (Table) 07/08/21 09:02 Blood Culture - Preliminary Blood No Growth after 24 hours 07/07/21 08:24 Blood Culture - Preliminary Blood No Growth after 48 hours 07/05/21 02:59 Blood Culture Gram Stain - Final Blood Blood Culture - Final Staphylococcus aureus Assessment and Plan Time with Patient: Greater than 30
[2021-07-09 15:19] LABS: Band Neutrophils % 1 %; Eosinophils # (M) 0.46 k/uL (0-0.7); Lymphocytes # (M) 0.73 k/uL (1.0-4.8); Metamyelocytes # (M) 0.09 k/uL (0); Metamyelocytes % 1 %; Myelocytes # (M) 0.09 k/uL (0); Myelocytes % 1 %; Neutrophils % (M) 75 %; Nucleated Red Blood Cells 0 /100 WBC (0-0); Total Cells Counted 200
[2021-07-09 15:25] LABS: Toxic Granulation Present
[2021-07-09 16:51] LABS: Glucose,Whole Blood 118 mg/dL (75-99)
[2021-07-09] MEDS: QUEtiapine 25 MG TAB PO SCH (20:41)
[2021-07-09] MEDS: HEPARIN SODIUM,PORCINE/PF 5,000 UNIT/0.5 ML SYRINGE SQ SCH (20:41)
[2021-07-09 20:44] LABS: Glucose,Whole Blood 150 mg/dL (75-99)
[2021-07-10 05:39] LABS: Glucose,Whole Blood 117 mg/dL (75-99)
[2021-07-10] MEDS: INSULIN ASPART (NovoLOG) 100 UNIT/ML VIAL SQ SCH ×4 (05:58→20:26)
[2021-07-10] MEDS: LEVOTHYROXINE 75 MCG TAB PO SCH (06:05)
[2021-07-10] MEDS: INSULIN DETEMIR (LEVEMIR) 100 UNIT/ML SYR SQ SCH ×2 (06:05→20:37)
--- NOTE | 2021-07-10 06:23 | PN ---
PROGRESS NOTE DATE OF SERVICE: 07/09/2021 REASON FOR FOLLOWUP: MSSA bacteremia. INTERVAL HISTORY: Patient is afebrile. The patient is breathing comfortably. The patient is more awake, alert. Denies any chest pain, shortness of breath, cough, no abdominal pain or diarrhea. EXAMINATION: Blood pressure 145/69, pulse of 74, temperature 98.1. He is 96% on room air. General description is an elderly male lying in bed in no distress. Respiratory system: Unlabored breathing, decreased intensity of breath sounds. No wheeze. Heart S1, S2. Regular rate and rhythm. Abdomen soft, no tenderness. LABS: Hemoglobin 7.8 with white count 9.1. BUN of 42, creatinine is 2.29. DIAGNOSTIC IMPRESSION AND PLAN: Patient with MSSA bacteremia, concern for possible dialysis catheter related. Patient Cleared bacteremia very quickly making it to be less likely endovascular source. Hopefully the patient may not need dialysis so catheter can be taken off. Continue with cefazolin. Plan of care discussed with the admitting physician as well as the at the bedside. Questions were answered. MMODL / IJN: [id number] / LINDEN
[2021-07-10 06:53] LABS: Anisocytosis Slight; HCT 23.2 % (39.0-53.0); HGB 7.4 gm/dL (13.0-17.5); Hypochromasia Slight; MCH 33.8 pg (25.0-35.0); MCHC 32.1 g/dL (31.0-37.0); MCV 105.3 fL (80.0-100.0); Macrocytosis Moderate; Mean Platelet Volume 10.4; Platelet Count 106 k/uL (150-450); RDW 16.6 % (11.5-15.5); WBC 7.7 k/uL (3.8-10.6)
[2021-07-10 08:40] LABS: Band Neutrophils % 1 %; Eosinophils # (M) 0.15 k/uL (0-0.7); Lymphocytes # (M) 0.69 k/uL (1.0-4.8); Metamyelocytes # (M) 0.23 k/uL (0); Metamyelocytes % 3 %; Monocytes # (M) 0.92 k/uL (0-1.0); Myelocytes # (M) 0.08 k/uL (0); Myelocytes % 1 %; Neutrophils % (M) 74 %; Nucleated Red Blood Cells 0 /100 WBC (0-0); Total Cells Counted 200
[2021-07-10 08:42] LABS: Toxic Granulation Present
[2021-07-10 08:58] LABS: Calcium 8.3 mg/dL (8.4-10.2); Potassium 3.5 mmol/L (3.5-5.1)
[2021-07-10] MEDS: PANTOPRAZOLE 40 MG/10 ML VIAL IVP SCH ×2 (10:52→20:37)
[2021-07-10] MEDS: THIAMINE 100 MG/ML 2 ML VIAL IVP SCH (10:52)
[2021-07-10] MEDS: ASPIRIN 81 MG PO SCH (10:53)
[2021-07-10] MEDS: FOLIC ACID 1 MG TAB PO SCH (10:53)
[2021-07-10] MEDS: GABAPENTIN 100 MG CAP PO SCH ×3 (10:53→20:38)
[2021-07-10] MEDS: hydrALAZINE HCL 25 MG TAB PO SCH ×3 (10:53→20:38)
[2021-07-10] MEDS: amLODIPine 5 MG TAB PO SCH (10:53)
[2021-07-10] MEDS: METOPROLOL TARTRATE 25 MG TAB PO SCH ×2 (10:53→20:37)
[2021-07-10] MEDS: levETIRAcetam IV 500 MG in SODIUM CHLORIDE 0.9% 100 ML IVPB SCH (10:54)
[2021-07-10] MEDS: HEPARIN SODIUM,PORCINE/PF 5,000 UNIT/0.5 ML SYRINGE SQ SCH ×2 (10:54→20:37)
[2021-07-10] MEDS: SODIUM CHLORIDE 0.9% 1,000 ML IV SCH ×2 (11:02→12:20)
[2021-07-10] MEDS: LIDOCAINE 1% INJ 10MG/ML (20 ML MDV) SQ ONE ×2 (11:09→12:44)
[2021-07-10 11:20] LABS: Glucose,Whole Blood 84 mg/dL (75-99)
--- NOTE | 2021-07-10 11:53 | PN ---
PROGRESS NOTE Patient is seen for followup for acute kidney injury. He was started on hemodialysis due to significant uremia and mental status changes. Serum creatinine is now staying at about 2.3 to 2.2 mg/dL. Patient has decent urine output. He has an indwelling Byrd catheter. Blood cultures were positive for MSSA and these cultures were drawn after the PermCath was placed. Repeat blood cultures have been negative. Patient's mentation had improved, and given his stable serum creatinine and fair urine output, I will hold off on dialysis. Patient's last dialysis was on 07/08/2021. He is maintained on normal saline, which I will continue. The dialysis catheter will be removed, and if patient needs further dialysis, a new access will be placed. On examination today, patient is stable. He received Seroquel. This morning he is arousable and responds to verbal stimuli but does not communicate much. He is lethargic. Blood pressure is 125/61, heart rate 80 per minute. He is afebrile. EXAMINATION OF THE HEART: S1 and S2. EXAMINATION OF LUNGS: Decreased breath sounds at the bases. Abdomen is soft, obese. Examination of lower extremities shows no significant edema. 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 He is sleepy but arousable. Labs show sodium 137, potassium 3.5, chloride 108, BUN 47, creatinine 2.34. ASSESSMENT: 1. Acute kidney injury, most likely acute tubular necrosis, started dialysis on 07/04/2021, and patient's last dialysis was on 07/08/2021. There is some recovery of kidney function and therefore the hemodialysis is currently on hold. Patient was also noted to have MSSA bacteremia. Therefore his PermCath will be discontinued, and if he needs dialysis again a new access will be placed. 2. MSSA bacteremia, possibly related to IJ PermCath. This will be removed. Patient is maintained on antibiotics. 3. Mental status changes, somewhat improved. Etiology metabolic encephalopathy and underlying uremia. 4. Pyuria. Urine culture did not grow any bacteria. PLAN: Continue normal saline. Continue to hold off dialysis. Discontinue PermCath. Will continue to follow over the weekend for need for renal replacement therapy. Avoid nephrotoxic agents. MMODL / IJN: [id number] /
--- NOTE | 2021-07-10 16:13 | P.PN ---
Subjective Progress Note Date: 07/10/21 Patient is a pleasant 71-year-old male is admitted for acute failure. Patient doesn't have any significant improvement patient acute renal failure is blue to be secondary to medications including NOVA inhibitor and diuretic therapy. Patient does have asterixis and uremic symptoms because of which dialysis catheter is being placed and patient will undergo hemodialysis tomorrow patient is still urinating okay. Patient has a fully catheter. Patient had an echocardiogram evaluated because of mild elevation of troponins which is probably secondary to renal failure no further intervention is being planned at this time as he perspective neurology evaluated the patient because of concern of aphasia although patient appears to have confusion more than aphasia patient does have some chronic microvascular ischemic changes no acute stroke was evident on MRI patient does have microcytosis and anemia probably B12 folate deficiency labs of which were already ordered. The is still having occasional confusional episodes secondary to uremic encephalopathy. 07/04/2021 Patient is evaluated today the bedside status post hemodialysis. He is confused and is not responding to questions appropriately. He is wearing a CPAP currently. He does have some asterixis present at the time of my assessment which can be seen with encephalopathy. Labs reviewed today include a hemoglobin of 7.4, MCV 107.3, MCH 35.2, his platelets are 77. Potassium is 3.7, chloride 108, BUN 69, creatinine 3.72, which has improved with dialysis. His mag is 1.9. Patient is afebrile, blood pressure 162/70. He is 97% on room air. Most recent chest x-ray is negative for acute cardiopulmonary disease. Folate is within normal limits at 4.7 which is just on the lower cusp. Patient is being followed closely by nephrology, plan is for repeat dialysis treatment tomorrow. Aranesp was added. Hydralazine has also been added for blood pressures. 07/05/2021 Patient throughout the evening had a possible seizure episode. He was found to be postictal after telemetry notified RN that he was having a tachycardic episode. Patient is found to be unresponsive to noxious and physical stimuli, he had foaming at the mouth. A repeat brain CT was ordered which was negative and no change compared to old exam. A urinalysis was completed from Byrd catheter which revealed +1 protein, trace ketones, large blood, moderate leukoc yte esterase and 47 WBCs. It was negative for nitrates. Patient was started on IV Rocephin. Lactic acid was 3.1, 4.7 and is now 5.3. Despite kidney function and fluid overload, patient is now on 0.9 normal saline at 100 mL per hour. Additional labs include a hemoglobin of 8.5, platelet count of 84, CO2 19, chloride 109, BUN 71, creatinine 4.05. Magnesium is 1.7 we will replace per protocol. Troponins negative. Prolactin is elevated at 24.5. Per at the bedside patient does drink 2 large-sized bottles of Chardonnay daily if not more. Hepatitis B surface antigen and antibody were nonreactive. Vital signs include temperature 99.3, heart rate 92, blood pressure 127/63 and 95% on 3 L nasal cannula. Patient is unresponsive to sternal rub, however his pupils were reactive and equal size. An EEG is currently pending from neurology. Patient was started on IV Keppra in the meantime for possible seizure activity. 07/06/2021 Patient is evaluated the bedside, he is resting in bed. He is more alert than she however he is still unable to respond verbally. He does have spontaneous eye opening and will want, pupils are still reactive and equal. Patient's lactic has improved is on normal at 1.8, BUN is 64, creatinine 3.32. Potassium today is 3.7, magnesium 1.9, we'll replace. Additionally has AST is 377, AST 61, which is trending upwards. White blood cell count is 14.7, hemoglobin 7.5. There are no signs of blood from the rectum. Vitals reviewed to include a temp of 97.9, heart rate of 104, blood pressure 115/71, 96 on room air. Prior RN patient's heart rate has been in the 120s throughout the morning. Patient was another throughout the evening for unresponsiveness. There was ammonia level ordered and rectal lactulose was given. In addition patient had another liter bolus. We will repeat ammonia level today, and check an abdomen ultrasound. EEG was negative for output for activity. Blood cultures were positive for staph aureus, microsensitivities are pending. Antibiotics have been changed to IV cefazolin from ID. Indwelling catheter remains, urine culture is pending. Patient is unable to swallow his oral medications at this time, we will monitor closely. Due to his history of chronic alcohol abuse and elevated liver enzymes as well as a drop in hemoglobin we will change oral Pepcid to IVP Protonix. 07/07/2021 Patient's liver enzymes are coming down patient had ultrasound of the liver which showed multiple lesions highly suspicious for metastatic disease. Patient will need CT with contrast or MRI with contrast which need to be coordinated with hemodialysis patient will not receive modalities is tomorrow presently receiving hemodialysis at this time. We'll discuss with nephrology regarding timing of ordering these tests. I'll also obtain alpha-fetoprotein. Patient's repeat blood cultures so far are negative. His more awake today less lethargic. 07/08/2021 Patient is evaluated at the bedside today, he is alert and oriented 1, he states that he wants to go home with his . Patient is alert, appropriate he has spontaneous eye opening, there is no obvious neurological deficits, his pupils are equal and reactive, there is no focal weakness left versus right. Patient did undergo an abdominal MRI today, which was correlated for underlying cirrhosis. There is hepatosplenomegaly. There is nodularity seen on ultrasound which may correspond to regenerating liver nodules. The exam is markedly limited technically. Cholelithiasis. There is no evidence of retroperitoneal adenopathy. There is no adrenal mass. There is no hydronephrosis. There is a large cystic focus associated with the left kidney upper pole a 0.4 cm and a cortical cyst also suspect that the lower pole. There is no definite effusion in the lung bases. BUN is 40, creatinine 2.56, potassium 3.2. Patient will be replaced per protocol and also is receiving dialysis today. Patient would be appropriate this time for PT OT as well as speech evaluation. Hemoglobin is 6.7 today patient will receive 1 unit of PRBC, platelet count is 79, in which he has been on subcu heparin. Iron studies were within normal limits. 07/09/21 Patient is evaluated resting in the bed, PT OT on board. He did pass a speech evaluation is on a chopped dysphagia 3 diet can advance to regular as tolerated. Patient did have some increased confusion and agitation throughout the evening and had to receive a dose of when necessary Ativan. We'll discontinue Haldol and Ativan we will use Seroquel as needed at bedtime. BUN today is 42, creatinine 2.29. Patient's hemoglobin is 7.8 status post 1 unit PRBCs. Platelets are 90. We will resume subcu heparin. Patient is on Aranesp every 7 days. Patient still has a indwelling catheter. Blood cultures have remained negative for the next 48 hours, once cultures have been negative for 72 hours we will start discharge planning to rehab. Patient is afebrile, heart rate 94, blood pressure 146/73 and he is 96% on room air. Patient is alert 3 the time of my exam, expresses a desire to go home. 07/10/2021 Patient is seen and evaluated in follow-up this morning with at the bedside. Patient continues to have intermittent periods of confusion and sleepiness and is maintained on low-dose Seroquel 12.5 mg as needed at night for agitation. Per patient is more alert today although continues to be extremely weak. Discussion is being had about discharged to [facility] once stabilized. Medical consultations including nephrology and infectious disease following closely. Patient is maintained on IV antibiotics in the form of cefazolin with most recent repeat blood cultures remaining negative thus far. Patient has a right chest wall permacath for dialysis that is being discontinued today and nephrology following closely planning on daily lab draws to closely monitor electrolytes and kidney functions with the possibility of discontinuing dialysis. Patient continues on gentle IV hydration in the form of normal saline per nephrology recommendations. Also recommend maintaining aspiration precautions with head of the bed elevated 30-45 at all times and supervision with meals and continue dysphagia 3 chopped diet. Patient is maintained on Accu-Cheks before meals and at bedtime along with sliding scale and long-acting insulin and will continue. Labs: White blood count is 7.7, hemoglobin is 7.4, platelet count is 106, sodium is 137 with a potassium of 3.5, BUN is 47 and creatinine is 2.34 Accu-Cheks in the low 100s Review of systems: Constitutional: reports of fatigue, no reports of fever, or chills Cardiovascular: No reports of chest pain or palpitations Respiratory: No reports of shortness of breath or cough GI: No reports of nausea, vomiting, or diarrhea : No reports of dysuria or retention, has indwelling Byrd catheter Neurovascular: reports of generalized weakness All medications have been reviewed Active Medications Acetaminophen (Acetaminophen Tab 325 Mg Tab) 325 mg PO Q6HR PRN PRN Reason: Fever and/ or Pain Amlodipine Besylate (Amlodipine 5 Mg Tab) 5 mg PO DAILY [facility] Last Admin: 07/10/21 10:53 Dose: 5 mg Documented by: Aspirin (Aspirin 81 Mg) 81 mg PO DAILY [facility] Last Admin: 07/10/21 10:53 Dose: 81 mg Documented by: Darbepoetin Victor M (Darbepoetin Victor M 40 Mcg/0.4 Ml Syringe) 40 mcg SQ Q7D [facility] Last Admin: 07/04/21 17:19 Dose: 40 mcg Documented by: Folic Acid (Folic Acid 1 Mg Tab) 1 mg PO DAILY [facility] Last Admin: 07/10/21 10:53 Dose: 1 mg Documented by: Folic Acid (Folic Acid 1 Mg Tab) 1 mg PO DAILY@1200 SARAH Gabapentin (Gabapentin 100 Mg Cap) 100 mg PO TID [facility] Last Admin: 07/10/21 10:53 Dose: 100 mg Documented by: Heparin Sodium (Porcine) (Heparin Sodium,Porcine/Pf 5,000 Unit/0.5 Ml Syringe) 5,000 unit SQ Q12HR [facility] Last Admin: 07/10/21 10:54 Dose: 5,000 unit Documented by: Hydralazine HCl (Hydralazine Hcl 25 Mg Tab) 25 mg PO TID [facility] Last Admin: 07/10/21 10:53 Dose: 25 mg Documented by: Hydralazine HCl (Hydralazine Hcl 20 Mg/Ml 1 Ml Vial) 5 mg IVP Q6HR PRN PRN Reason: Blood Pressure - High Last Admin: 07/06/21 15:58 Dose: 5 mg Documented by: Sodium Chloride (Saline 0.9%) 1,000 mls @ 75 mls/hr IV .[id number] [facility] Last Admin: 07/10/21 11:02 Dose: 75 mls/hr Documented by: Cefazolin Sodium 2 gm/ Sodium (Chloride) 50 mls @ 100 mls/hr IVPB Q12HR [facility] Last Admin: 07/10/21 10:53 Dose: 100 mls/hr Documented by: Levetiracetam 500 mg/ Sodium (Chloride) 105 mls @ 400 mls/hr IVPB DAILY [facility] Last Admin: 07/10/21 10:54 Dose: 400 mls/hr Documented by: Sodium Chloride (Saline 0.9%) 1,000 mls @ 75 mls/hr IV .[id number] [facility] Last Admin: 07/10/21 12:20 Dose: Not Given Documented by: Insulin Aspart (Insulin Aspart (Novolog) 100 Unit/Ml Vial) [address] [facility]; Protocol Last Admin: 07/10/21 12:20 Dose: Not Given Documented by: Insulin Detemir (Insulin Detemir (Levemir) 100 Unit/Ml Syr) 10 unit SQ BID@0700,2100 [facility] Last Admin: 07/10/21 06:05 Dose: 10 unit Documented by: Levothyroxine Sodium (Levothyroxine 75 Mcg Tab) 75 mcg PO DAILY@0630 [facility] Last Admin: 07/10/21 06:05 Dose: 75 mcg Documented by: Lorazepam (Lorazepam 2 Mg/Ml Inj) 0.5 mg IV Q2HR PRN PRN Reason: CIWA 8 or 9 Last Admin: 07/09/21 05:48 Dose: 0.5 mg Documented by: Lorazepam (Lorazepam 2 Mg/Ml Inj) 0.5 mg IV Q1HR PRN PRN Reason: CIWA 10 to 15 Metoprolol Tartrate (Metoprolol Tartrate 25 Mg Tab) 25 mg PO BID [facility] Last Admin: 07/10/21 10:53 Dose: 25 mg Documented by: Miscellaneous Information (Potassium Replacement Protocol 1 Each Misc) 1 each MISCELLANE DAILY PRN; Protocol PRN Reason: Per Protocol Miscellaneous Information (Magnesium Replacement Protocol 1 Each Misc) 1 each MISCELLANE DAILY PRN; Protocol PRN Reason: Per Protocol Multivitamins (Multivitamins, Thera 1 Each Tab) 1 each PO DAILY@1200 SARAH Naloxone HCl (Naloxone 0.4 Mg/Ml 1 Ml Vial) 0.2 mg IV Q2M PRN PRN Reason: Opioid Reversal Pantoprazole Sodium (Pantoprazole 40 Mg/10 Ml Vial) 40 mg IVP BID [facility] Last Admin: 07/10/21 10:52 Dose: 40 mg Documented by: Psyllium Hydrophilic Mucilloid (Psyllium Husk 100% 6 Gm Packet) 6 gm PO DAILY PRN PRN Reason: Constipation Quetiapine Fumarate (Quetiapine 25 Mg Tab) 12.5 mg PO HS [facility] Last Admin: 07/09/21 20:41 Dose: 12.5 mg Documented by: Thiamine HCl (Thiamine 100 Mg/Ml 2 Ml Vial) 100 mg IVP DAILY [facility] Last Admin: 07/10/21 10:52 Dose: 100 mg Documented by: PHYSICAL EXAMINATION: GENERAL: The patient is awake and alert at this time and is oriented 3. Periodically lethargic. Temp is 98.4F, pulse is 80, respirations are 20, blood pressure is 125/61, oxygen saturation is 95% on room air. HEENT: Pupils are round and equally reacting to light. EOMI. No scleral icterus. No conjunctival pallor. Normocephalic, atraumatic. No pharyngeal erythema. No thyromegaly. CARDIOVASCULAR: S1, S2 are muffled PULMONARY: Diminished breath sounds bilaterally with some mild left lower lobe expiratory wheezing. ABDOMEN: Soft, obese, nontender, nondistended, normoactive bowel sounds. No palpable organomegaly. MUSCULOSKELETAL: No joint swelling or deformity. EXTREMITIES: No cyanosis, clubbing, mild ankle edema worse on the right NEUROLOGICAL: Gross neurological does not reveal any focal deficits, there is generalized weakness. Hand grasp is equal. SKIN: No rashes. Assessment and plan: Assessment: -Altered mental status secondary to toxic and Metabolic encephalopathy related to uremia, no evidence of CVA/TIA, possibly due to an acute alcohol withdrawal, possible acute alcohol withdrawal seizure, possibly a component of bacteremia and hospital associated delirium -Elevated liver enzymes and elevated ammonia, patient has a history of chronic alcohol abuse, ammonia normalized after treatment with lactulose, abdominal ultrasound and MRI showed nodularity consistant with liver cirrhosis. Alpha fetoprotein WNL. -Possible UTI with sepsis ruled out, not present on admission, not related to IDC, urine culture is negative. -MSSA bacteremia s/p placement of IJ hemodialysis catheter, pending finalized cultures, on IV ABX, ID following. -Possible acute TIA, presented with a questionable history of expressive aph susan. imaging does not show evidence of an acute cerebrovascular accident. -Acute Kidney Injury, most likely acute tubular necrosis, s/p hemodialysis -Possible seizure, also possibly alcohol withdrawal seizure as patient does drink 2 large bottles of Chardonnay daily however last drink was over a week ago per at the bedside. -Diabetes mellitus type 2 -Diabetic peripheral neuropathy Possible B12/folate deficiency -pancytopenia and macrocytosis -Anemia, with bicytopenia -Elevated troponin most likely a leak related to acute kidney injury Possible acute on chronic congestive heart failure, diastolic, current EF 55- 60% -GI prophylaxis -EBT prophylaxis -Full code Plan: Recommend continue with current medications, management, and symptomatic treatment. Patient does have Seroquel 12.5 mg as needed at night although nursing staff reported as patient being extremely fatigued and easily falling asleep although mentation has improved today per nursing at the bedside. Patient continues with intermittent periods of confusion and will continue Seroquel as needed for increased agitation and confusion. Patient is scheduled to have dialysis catheter removed and holding off dialysis per nephrology recommendations with close monitoring of electrolytes and kidney functions and will monitor closely and decide if hemodialysis needs to be continued. Patient continues on IV antibiotics in the form of cefazolin with infectious disease following closely. Repeat blood cultures have remained negative thus far. Recommend to continue with Accu-Cheks before meals and at bedtime and sliding scale along with long-acting insulin. Plan is for possible ECF physical therapy at [facility] once patient is stabilized and discharged. Due to multiple complex medical issues, prognosis is guarded. Will repeat labs in continue to monitor closely. Objective - Vital Signs Vital signs: Vital Signs Temp 98.4 F 07/10/21 11:16 Pulse 80 07/10/21 11:16 Resp 20 07/10/21 11:16 BP 125/61 07/10/21 11:16 Pulse Ox 95 07/10/21 11:16 Intake & Output 07/09/21 07/10/21 07/10/21 18:59 06:59 18:59 Intake Total 1834 250 247 Output Total 1100 800 Balance 734 250 -553 Weight 123 kg 126.6 kg Intake: IV 1100 10 Invasive Line 7 10 Sodium Chloride 0.9% 1, 900 000 ml @ 75 mls/hr IV . [id number] SARAH Rx#:[id number] ceFAZolin 2 gm In Sodium 100 Chloride 0.9% 50 ml @ 100 mls/hr IVPB Q12HR SARAH Rx #:[id number] levETIRAcetam IV 500 mg 100 In Sodium Chloride 0.9% 100 ml @ 400 mls/hr IVPB DAILY SARAH Rx#:[id number] Oral 734 250 237 Output: Urine 1100 800 Uretheral (Byrd) 450 Other: Voiding Method Indwelling Catheter Indwelling Catheter Indwelling Catheter - Labs CBC & Chem 7: 07/10/21 06:16 07/10/21 06:16 Labs: Abnormal Lab Results - Last 24 Hours (Table) 07/09/21 07/09/21 07/09/21 Range/Units 06:45 16:42 20:31 RBC (4.30-5.90) m/uL Hgb (13.0-17.5) gm/dL Hct (39.0-53.0) % MCV (80.0-100.0) fL RDW (11.5-15.5) % Plt Count (150-450) k/uL Lymphocytes # (Manual) 0.73 L (1.0-4.8) k/uL Metamyelocytes # (Man) 0.09 H (0) k/uL Myelocytes # (Manual) 0.09 H (0) k/uL Chloride (98-107) mmol/L BUN (9-20) mg/dL Creatinine (0.66-1.25) mg/dL Glucose (74-99) mg/dL POC Glucose (mg/dL) 118 H 150 H (75-99) mg/dL Calcium (8.4-10.2) mg/dL 07/10/21 07/10/21 07/10/21 Range/Units 05:30 06:16 06:16 RBC 2.20 L (4.30-5.90) m/uL Hgb 7.4 L (13.0-17.5) gm/dL Hct 23.2 L (39.0-53.0) % MCV 105.3 H (80.0-100.0) fL RDW 16.6 H (11.5-15.5) % Plt Count 106 L (150-450) k/uL Lymphocytes # (Manual) 0.69 L (1.0-4.8) k/uL Metamyelocytes # (Man) 0.23 H (0) k/uL Myelocytes # (Manual) 0.08 H (0) k/uL Chloride 108 H (98-107) mmol/L BUN 47 H (9-20) mg/dL Creatinine 2.34 H (0.66-1.25) mg/dL Glucose 112 H (74-99) mg/dL POC Glucose (mg/dL) 117 H (75-99) mg/dL Calcium 8.3 L (8.4-10.2) mg/dL Microbiology - Last 24 Hours (Table) 07/09/21 06:45 Blood Culture - Preliminary Blood No Growth after 24 hours 07/08/21 09:02 Blood Culture - Preliminary Blood No Growth after 48 hours 07/07/21 08:24 Blood Culture - Preliminary Blood No Growth after 72 hours
[2021-07-10 17:05] LABS: Glucose,Whole Blood 113 mg/dL (75-99)
--- NOTE | 2021-07-10 17:40 | PN ---
PROGRESS NOTE DATE OF SERVICE: 07/10/2021 REASON FOR FOLLOWUP: MSSA bacteremia. INTERVAL HISTORY: Patient is afebrile. The patient is currently breathing comfortably. The patient denies having any chest pain, shortness of breath or cough. No abdominal pain or diarrhea. PHYSICAL EXAMINATION: Blood pressure 125/61 with a pulse of 80, temperature 98.4. He is 95% on room air. General description is an elderly male lying in bed in no distress. Respiratory system: Unlabored breathing, decreased breath sounds in the base. No wheeze. Heart S1, S2. Regular rate and rhythm. Abdomen soft, no tenderness. LABS: Hemoglobin 7.4, white count 7.7, BUN of 47, creatinine is 2.34. Blood culture repeat has been negative. DIAGNOSTIC IMPRESSION AND PLAN: Patient with MSSA bacteremia. Concern for possible dialysis catheter infection that has been discontinued. Blood culture repeat has been negative. Patient to continue cefazolin. He will need a total of 2 weeks from his negative blood cultures. Continue supportive care. MMODL / IJN: [id number] /
[2021-07-10 20:04] LABS: Glucose,Whole Blood 100 mg/dL (75-99)
[2021-07-10] MEDS: QUEtiapine 25 MG TAB PO SCH (20:38)
[2021-07-11] MEDS: SODIUM CHLORIDE 0.9% 1,000 ML IV SCH ×4 (04:55→18:03)
[2021-07-11 06:01] LABS: Glucose,Whole Blood 130 mg/dL (75-99)
[2021-07-11] MEDS: INSULIN ASPART (NovoLOG) 100 UNIT/ML VIAL SQ SCH ×4 (06:08→21:01)
[2021-07-11] MEDS: INSULIN DETEMIR (LEVEMIR) 100 UNIT/ML SYR SQ SCH ×2 (06:35→21:01)
[2021-07-11] MEDS: LEVOTHYROXINE 75 MCG TAB PO SCH (06:35)
[2021-07-11] MEDS: GABAPENTIN 100 MG CAP PO SCH ×3 (08:21→21:02)
[2021-07-11] MEDS: METOPROLOL TARTRATE 25 MG TAB PO SCH ×2 (08:21→21:02)
[2021-07-11] MEDS: MULTIVITAMINS, THERA 1 EACH TAB PO SCH (08:21)
[2021-07-11] MEDS: FOLIC ACID 1 MG TAB PO SCH ×2 (08:21→11:30)
[2021-07-11] MEDS: amLODIPine 5 MG TAB PO SCH (08:21)
[2021-07-11] MEDS: ASPIRIN 81 MG PO SCH (08:21)
[2021-07-11] MEDS: hydrALAZINE HCL 25 MG TAB PO SCH ×3 (08:21→21:02)
[2021-07-11] MEDS: HEPARIN SODIUM,PORCINE/PF 5,000 UNIT/0.5 ML SYRINGE SQ SCH ×2 (08:22→21:01)
[2021-07-11] MEDS: levETIRAcetam IV 500 MG in SODIUM CHLORIDE 0.9% 100 ML IVPB SCH (08:22)
[2021-07-11] MEDS: PANTOPRAZOLE 40 MG/10 ML VIAL IVP SCH ×2 (08:22→21:02)
[2021-07-11] MEDS: THIAMINE 100 MG/ML 2 ML VIAL IVP SCH (08:24)
--- NOTE | 2021-07-11 08:52 | P.PN ---
Subjective Patient is seen in follow-up for acute kidney injury. Patient did receive hemodialysis due to uremia. Dialysis has been held since July 08. Non oliguric. Creatinine 2.34 yesterday. Oral intake is gradually improving. No chest pain or shortness of breath. Vital signs are stable. General: The patient appeared well nourished and normally developed. HEENT: Head exam is unremarkable. LUNGS: Lungs are clear to auscultation and percussion. Breath sounds decreased. HEART: Rate and Rhythm are regular. ABDOMEN: Soft, no distention. EXTREMITITES: No edema. Objective - Vital Signs Vital signs: Vital Signs Temp 98 F 07/11/21 04:00 Pulse 82 07/11/21 04:00 Resp 18 07/11/21 04:00 BP 126/68 07/11/21 04:00 Pulse Ox 96 07/11/21 04:00 Intake & Output 07/10/21 07/11/21 07/11/21 18:59 06:59 18:59 Intake Total 2207 1235 Output Total 800 Balance 1407 1235 Weight 126.6 kg 125.3 kg Intake: IV 1110 635 Invasive Line 7 10 10 Sodium Chloride 0.9% 1, 900 525 000 ml @ 75 mls/hr IV . [id number] SARAH Rx#:[id number] ceFAZolin 2 gm In Sodium 100 100 Chloride 0.9% 50 ml @ 100 mls/hr IVPB Q12HR [facility] Rx #:[id number] levETIRAcetam IV 500 mg 100 In Sodium Chloride 0.9% 100 ml @ 400 mls/hr IVPB DAILY [facility]AH Rx#:[id number] Oral 1097 600 Output: Urine 800 Other: Voiding Method Indwelling Catheter Indwelling Catheter - Labs CBC & Chem 7: 07/10/21 06:16 07/10/21 06:16 Labs: Abnormal Lab Results - Last 24 Hours (Table) 07/10/21 07/10/21 07/10/21 Range/Units 06:16 16:44 20:02 Chloride 108 H (98-107) mmol/L BUN 47 H (9-20) mg/dL Creatinine 2.34 H (0.66-1.25) mg/dL Glucose 112 H (74-99) mg/dL POC Glucose (mg/dL) 113 H 100 H (75-99) mg/dL Calcium 8.3 L (8.4-10.2) mg/dL 07/11/21 Range/Units 05:59 Chloride (98-107) mmol/L BUN (9-20) mg/dL Creatinine (0.66-1.25) mg/dL Glucose (74-99) mg/dL POC Glucose (mg/dL) 130 H (75-99) mg/dL Calcium (8.4-10.2) mg/dL Microbiology - Last 24 Hours (Table) 07/09/21 06:45 Blood Culture - Preliminary Blood No Growth after 24 hours 07/08/21 09:02 Blood Culture - Preliminary Blood No Growth after 48 hours 07/07/21 08:24 Blood Culture - Preliminary Blood No Growth after 72 hours Assessment and Plan Plan: Assessment: 1. Acute kidney injury secondary to ATN secondary to hypovolemia from diuretics and poor intake. Creatinine was 5.74 on admission without significant improvement with IV hydration. UA is fairly benign. No hydronephrosis noted on kidney ultrasound. Started on dialysis July 04 due to uremia - dialysis has been held since July 08. Serologies negative. 2. Acute encephalopathy due to uremia. Also had seizure. Brain CT negative. Improved. 3. Diabetes mellitus. 4. Anemia. Iron replete. On Aranesp. 5. Benign hypertension. Stable. 6. MSSA bacteremia possibly due to permacath. Permacath removed July 10. On antibiotics. Infectious disease following. Plan: Maintain IV fluids. Continue to hold diuretics and losartan. Avoid nephrotoxins. Follow-up morning labs.
[2021-07-11 09:56] LABS: Calcium 7.8 mg/dL (8.4-10.2); Potassium 3.2 mmol/L (3.5-5.1)
[2021-07-11 11:47] LABS: Glucose,Whole Blood 148 mg/dL (75-99)
--- NOTE | 2021-07-11 12:19 | PCN ---
PROCEDURE NOTE PROCEDURE: Removal of dialysis catheter, right side of the chest. This patient has a history of renal failure. Patient's kidney functions are improving. I was called in for removal of the dialysis catheter. PROCEDURE DESCRIPTION: Right side of the neck and chest was prepped and draped in usual sterile manner. Lidocaine 1% plain was infiltrated. A small incision was made, went circumferentially around the cuff of the catheter. Catheter was removed. Pressure was held and a pursestring suture was placed using 4-0 nylon. Dressing was applied. Patient tolerated the procedure well. We will remove the dressing tomorrow. MMODL / IJN: [id number] /
[2021-07-11] MEDS ORDERED: POTASSIUM CHLORIDE ER 20 MEQ TAB.ER PO STA (13:51)
--- NOTE | 2021-07-11 13:54 | P.PN ---
Subjective Progress Note Date: 07/11/21 Patient is a pleasant 71-year-old male is admitted for acute failure. Patient doesn't have any significant improvement patient acute renal failure is blue to be secondary to medications including NOVA inhibitor and diuretic therapy. Patient does have asterixis and uremic symptoms because of which dialysis catheter is being placed and patient will undergo hemodialysis tomorrow patient is still urinating okay. Patient has a fully catheter. Patient had an echocardiogram evaluated because of mild elevation of troponins which is probably secondary to renal failure no further intervention is being planned at this time as he perspective neurology evaluated the patient because of concern of aphasia although patient appears to have confusion more than aphasia patient does have some chronic microvascular ischemic changes no acute stroke was evident on MRI patient does have microcytosis and anemia probably B12 folate deficiency labs of which were already ordered. The is still having occasional confusional episodes secondary to uremic encephalopathy. 07/04/2021 Patient is evaluated today the bedside status post hemodialysis. He is confused and is not responding to questions appropriately. He is wearing a CPAP currently. He does have some asterixis present at the time of my assessment which can be seen with encephalopathy. Labs reviewed today include a hemoglobin of 7.4, MCV 107.3, MCH 35.2, his platelets are 77. Potassium is 3.7, chloride 108, BUN 69, creatinine 3.72, which has improved with dialysis. His mag is 1.9. Patient is afebrile, blood pressure 162/70. He is 97% on room air. Most recent chest x-ray is negative for acute cardiopulmonary disease. Folate is within normal limits at 4.7 which is just on the lower cusp. Patient is being followed closely by nephrology, plan is for repeat dialysis treatment tomorrow. Aranesp was added. Hydralazine has also been added for blood pressures. 07/05/2021 Patient throughout the evening had a possible seizure episode. He was found to be postictal after telemetry notified RN that he was having a tachycardic episode. Patient is found to be unresponsive to noxious and physical stimuli, he had foaming at the mouth. A repeat brain CT was ordered which was negative and no change compared to old exam. A urinalysis was completed from Byrd catheter which revealed +1 protein, trace ketones, large blood, moderate leukocy te esterase and 47 WBCs. It was negative for nitrates. Patient was started on IV Rocephin. Lactic acid was 3.1, 4.7 and is now 5.3. Despite kidney function and fluid overload, patient is now on 0.9 normal saline at 100 mL per hour. Additional labs include a hemoglobin of 8.5, platelet count of 84, CO2 19, chloride 109, BUN 71, creatinine 4.05. Magnesium is 1.7 we will replace per protocol. Troponins negative. Prolactin is elevated at 24.5. Per at the bedside patient does drink 2 large-sized bottles of Chardonnay daily if not more. Hepatitis B surface antigen and antibody were nonreactive. Vital signs include temperature 99.3, heart rate 92, blood pressure 127/63 and 95% on 3 L nasal cannula. Patient is unresponsive to sternal rub, however his pupils were reactive and equal size. An EEG is currently pending from neurology. Patient was started on IV Keppra in the meantime for possible seizure activity. 07/06/2021 Patient is evaluated the bedside, he is resting in bed. He is more alert than she however he is still unable to respond verbally. He does have spontaneous eye opening and will want, pupils are still reactive and equal. Patient's lactic has improved is on normal at 1.8, BUN is 64, creatinine 3.32. Potassium today is 3.7, magnesium 1.9, we'll replace. Additionally has AST is 377, AST 61, which is trending upwards. White blood cell count is 14.7, hemoglobin 7.5. There are no signs of blood from the rectum. Vitals reviewed to include a temp of 97.9, heart rate of 104, blood pressure 115/71, 96 on room air. Prior RN patient's heart rate has been in the 120s throughout the morning. Patient was another throughout the evening for unresponsiveness. There was ammonia level ordered and rectal lactulose was given. In addition patient had another liter bolus. We will repeat ammonia level today, and check an abdomen ultrasound. EEG was negative for output for activity. Blood cultures were positive for staph aureus, microsensitivities are pending. Antibiotics have been changed to IV cefazolin from ID. Indwelling catheter remains, urine culture is pending. Patient is unable to swallow his oral medications at this time, we will monitor closely. Due to his history of chronic alcohol abuse and elevated liver enzymes as well as a drop in hemoglobin we will change oral Pepcid to IVP Protonix. 07/07/2021 Patient's liver enzymes are coming down patient had ultrasound of the liver which showed multiple lesions highly suspicious for metastatic disease. Patient will need CT with contrast or MRI with contrast which need to be coordinated with hemodialysis patient will not receive modalities is tomorrow presently receiving hemodialysis at this time. We'll discuss with nephrology regarding timing of ordering these tests. I'll also obtain alpha-fetoprotein. Patient's repeat blood cultures so far are negative. His more awake today less lethargic. 07/08/2021 Patient is evaluated at the bedside today, he is alert and oriented 1, he states that he wants to go home with his . Patient is alert, appropriate he has spontaneous eye opening, there is no obvious neurological deficits, his pupils are equal and reactive, there is no focal weakness left versus right. Patient did undergo an abdominal MRI today, which was correlated for underlying cirrhosis. There is hepatosplenomegaly. There is nodularity seen on ultrasound which may correspond to regenerating liver nodules. The exam is markedly limited technically. Cholelithiasis. There is no evidence of retroperitoneal adenopathy. There is no adrenal mass. There is no hydronephrosis. There is a large cystic focus associated with the left kidney upper pole a 0.4 cm and a cortical cyst also suspect that the lower pole. There is no definite effusion in the lung bases. BUN is 40, creatinine 2.56, potassium 3.2. Patient will be replaced per protocol and also is receiving dialysis today. Patient would be appropriate this time for PT OT as well as speech evaluation. Hemoglobin is 6.7 today patient will receive 1 unit of PRBC, platelet count is 79, in which he has been on subcu heparin. Iron studies were within normal limits. 07/09/21 Patient is evaluated resting in the bed, PT OT on board. He did pass a speech evaluation is on a chopped dysphagia 3 diet can advance to regular as tolerated. Patient did have some increased confusion and agitation throughout the evening and had to receive a dose of when necessary Ativan. We'll discontinue Haldol and Ativan we will use Seroquel as needed at bedtime. BUN today is 42, creatinine 2.29. Patient's hemoglobin is 7.8 status post 1 unit PRBCs. Platelets are 90. We will resume subcu heparin. Patient is on Aranesp every 7 days. Patient still has a indwelling catheter. Blood cultures have remained negative for the next 48 hours, once cultures have been negative for 72 hours we will start discharge planning to rehab. Patient is afebrile, heart rate 94, blood pressure 146/73 and he is 96% on room air. Patient is alert 3 the time of my exam, expresses a desire to go home. 07/10/2021 Patient is seen and evaluated in follow-up this morning with at the bedside. Patient continues to have intermittent periods of confusion and sleepiness and is maintained on low-dose Seroquel 12.5 mg as needed at night for agitation. Per patient is more alert today although continues to be extremely weak. Discussion is being had about discharged to [facility] once stabilized. Medical consultations including nephrology and infectious disease following closely. Patient is maintained on IV antibiotics in the form of cefazolin with most recent repeat blood cultures remaining negative thus far. Patient has a right chest wall permacath for dialysis that is being discontinued today and nephrology following closely planning on daily lab draws to closely monitor electrolytes and kidney functions with the possibility of discontinuing dialysis. Patient continues on gentle IV hydration in the form of normal saline per nephrology recommendations. Also recommend maintaining aspiration precautions with head of the bed elevated 30-45 at all times and supervision with meals and continue dysphagia 3 chopped diet. Patient is maintained on Accu-Cheks before meals and at bedtime along with sliding scale and long-acting insulin and will continue. 07/11/2021 Patient seen on follow-up he is sitting up in the chair this morning quite at bedside. Dialysis port has been removed as he will not require further dialysis at this time, nephrology is following. He is quite weak has evidence of extensive muscle wasting, appears malnourished. Labs today show potassium 3.2, creatinine 2.37, glucose 153, sodium 139. He is afebrile, blood pressure stable 1074/55, heart rate is in 70s. He is saturating above 90% on room air. Potassium is being replaced, at bedside asking questions which were answered. Review of systems: Constitutional: reports of fatigue, no reports of fever, or chills Cardiovascular: No reports of chest pain or palpitations Respiratory: No reports of shortness of breath or cough GI: No reports of nausea, vomiting, or diarrhea : No reports of dysuria or retention, has indwelling Byrd catheter Neurovascular: reports of generalized weakness All medications have been reviewed Active Medications Acetaminophen (Acetaminophen Tab 325 Mg Tab) 325 mg PO Q6HR PRN PRN Reason: Fever and/ or Pain Amlodipine Besylate (Amlodipine 5 Mg Tab) 5 mg PO DAILY [facility] Last Admin: 07/10/21 10:53 Dose: 5 mg Documented by: Aspirin (Aspirin 81 Mg) 81 mg PO DAILY [facility] Last Admin: 07/10/21 10:53 Dose: 81 mg Documented by: Darbepoetin Victor M (Darbepoetin Victor M 40 Mcg/0.4 Ml Syringe) 40 mcg SQ Q7D [facility] Last Admin: 07/04/21 17:19 Dose: 40 mcg Documented by: Folic Acid (Folic Acid 1 Mg Tab) 1 mg PO DAILY [facility] Last Admin: 07/10/21 10:53 Dose: 1 mg Documented by: Folic Acid (Folic Acid 1 Mg Tab) 1 mg PO DAILY@1200 SARAH Gabapentin (Gabapentin 100 Mg Cap) 100 mg PO TID [facility] Last Admin: 07/10/21 10:53 Dose: 100 mg Documented by: Heparin Sodium (Porcine) (Heparin Sodium,Porcine/Pf 5,000 Unit/0.5 Ml Syringe) 5,000 unit SQ Q12HR [facility] Last Admin: 07/10/21 10:54 Dose: 5,000 unit Documented by: Hydralazine HCl (Hydralazine Hcl 25 Mg Tab) 25 mg PO TID [facility] Last Admin: 07/10/21 10:53 Dose: 25 mg Documented by: Hydralazine HCl (Hydralazine Hcl 20 Mg/Ml 1 Ml Vial) 5 mg IVP Q6HR PRN PRN Reason: Blood Pressure - High Last Admin: 07/06/21 15:58 Dose: 5 mg Documented by: Sodium Chloride (Saline 0.9%) 1,000 mls @ 75 mls/hr IV .[id number] [facility] Last Admin: 07/10/21 11:02 Dose: 75 mls/hr Documented by: Cefazolin Sodium 2 gm/ Sodium (Chloride) 50 mls @ 100 mls/hr IVPB Q12HR [facility] Last Admin: 07/10/21 10:53 Dose: 100 mls/hr Documented by: Levetiracetam 500 mg/ Sodium (Chloride) 105 mls @ 400 mls/hr IVPB DAILY [facility] Last Admin: 07/10/21 10:54 Dose: 400 mls/hr Documented by: Sodium Chloride (Saline 0.9%) 1,000 mls @ 75 mls/hr IV .[id number] [facility] Last Admin: 07/10/21 12:20 Dose: Not Given Documented by: Insulin Aspart (Insulin Aspart (Novolog) 100 Unit/Ml Vial) 0 unit SQ ACHS [facility]; Protocol Last Admin: 07/10/21 12:20 Dose: Not Given Documented by: Insulin Detemir (Insulin Detemir (Levemir) 100 Unit/Ml Syr) 10 unit SQ BID@0700,2100 [facility] Last Admin: 07/10/21 06:05 Dose: 10 unit Documented by: Levothyroxine Sodium (Levothyroxine 75 Mcg Tab) 75 mcg PO DAILY@0630 [facility] Last Admin: 07/10/21 06:05 Dose: 75 mcg Documented by: Lorazepam (Lorazepam 2 Mg/Ml Inj) 0.5 mg IV Q2HR PRN PRN Reason: CIWA 8 or 9 Last Admin: 07/09/21 05:48 Dose: 0.5 mg Documented by: Lorazepam (Lorazepam 2 Mg/Ml Inj) 0.5 mg IV Q1HR PRN PRN Reason: CIWA 10 to 15 Metoprolol Tartrate (Metoprolol Tartrate 25 Mg Tab) 25 mg PO BID [facility] Last Admin: 07/10/21 10:53 Dose: 25 mg Documented by: Miscellaneous Information (Potassium Replacement Protocol 1 Each Misc) 1 each MISCELLANE DAILY PRN; Protocol PRN Reason: Per Protocol Miscellaneous Information (Magnesium Replacement Protocol 1 Each Misc) 1 each MISCELLANE DAILY PRN; Protocol PRN Reason: Per Protocol Multivitamins (Multivitamins, Thera 1 Each Tab) 1 each PO DAILY@1200 SARAH Naloxone HCl (Naloxone 0.4 Mg/Ml 1 Ml Vial) 0.2 mg IV Q2M PRN PRN Reason: Opioid Reversal Pantoprazole Sodium (Pantoprazole 40 Mg/10 Ml Vial) 40 mg IVP BID [facility] Last Admin: 07/10/21 10:52 Dose: 40 mg Documented by: Psyllium Hydrophilic Mucilloid (Psyllium Husk 100% 6 Gm Packet) 6 gm PO DAILY PRN PRN Reason: Constipation Quetiapine Fumarate (Quetiapine 25 Mg Tab) 12.5 mg PO HS [facility] Last Admin: 07/09/21 20:41 Dose: 12.5 mg Documented by: Thiamine HCl (Thiamine 100 Mg/Ml 2 Ml Vial) 100 mg IVP DAILY [facility] Last Admin: 07/10/21 10:52 Dose: 100 mg Documented by: PHYSICAL EXAMINATION: GENERAL: The patient is awake and alert at this time and is oriented 3. Periodically lethargic. Temp is 98.4F, pulse is 80, respirations are 20, blood pressure is 125/61, oxygen saturation is 95% on room air. HEENT: Pupils are round and equally reacting to light. EOMI. No scleral icterus. No conjunctival pallor. Normocephalic, atraumatic. No pharyngeal erythema. No thyromegaly. CARDIOVASCULAR: S1, S2 are muffled PULMONARY: Diminished breath sounds bilaterally with some mild left lower lobe expiratory wheezing. ABDOMEN: Soft, obese, nontender, nondistended, normoactive bowel sounds. No palpable organomegaly. MUSCULOSKELETAL: No joint swelling or deformity. EXTREMITIES: No cyanosis, clubbing, mild ankle edema worse on the right NEUROLOGICAL: Gross neurological does not reveal any focal deficits, there is generalized weakness. Hand grasp is equal. SKIN: No rashes. Assessment and plan: Assessment: -Altered mental status secondary to toxic and Metabolic encephalopathy related to uremia, no evidence of CVA/TIA, possibly due to an acute alcohol withdrawal, possible acute alcohol withdrawal seizure, possibly a component of bacteremia and hospital associated delirium -Elevated liver enzymes and elevated ammonia, patient has a history of chronic alcohol abuse, ammonia normalized after treatment with lactulose, abdominal ultrasound and MRI showed nodularity consistant with liver cirrhosis. Alpha fetoprotein WNL. -Possible UTI with sepsis ruled out, not present on admission, not related to IDC, urine culture is negative. -MSSA bacteremia s/p placement of IJ hemodialysis catheter, pending finalized cultures, on IV ABX, ID following. -Possible acute TIA, presented with a questionable history of expressive aphasia. imaging does not show evidence of an acute cerebrovascular accident. -Acute Kidney Injury, most likely acute tubular necrosis, s/p hemodialysis -Possible seizure, also possibly alcohol withdrawal seizure as patient does drink 2 large bottles of Chardonnay daily however last drink was over a week ago per at the bedside. -Diabetes mellitus type 2 -Diabetic peripheral neuropathy Possible B12/folate deficiency -pancytopenia and macrocytosis -Anemia, with bicytopenia -Elevated troponin most likely a leak related to acute kidney injury Possible acute on chronic congestive heart failure, diastolic, current EF 55- 60% -Severe protein calorie malnutrition -GI prophylaxis -EBT prophylaxis -Full code Plan: Recommend continue with current medications, management, and symptomatic treatment. Patient does have Seroquel 12.5 mg as needed at night although nursing staff reported as patient being extremely fatigued and easily falling asleep although mentation has improved today per nursing at the bedside. Patient continues with intermittent periods of confusion and will continue Seroquel as needed for increased agitation and confusion. Dialysis catheter removed, no plans for further hemodialysis at this time, nephrology is following.brice along with long-acting insulin. Plan is for possible ECF physical therapy at [facility] once patient is stabilized and discharged. Due to multiple complex medical issues, prognosis is guarded. replace potassium. PATIENT WILL NEED REHAB AT AN ECF, [employer] TO TALK TO [facility] TO TRY AND COORDINATE. Will repeat labs in continue to monitor closely. Objective - Vital Signs Vital signs: Vital Signs Temp 98.1 F 07/11/21 12:00 Pulse 80 07/11/21 12:00 Resp 16 07/11/21 12:00 BP 107/55 07/11/21 12:00 Pulse Ox 97 07/11/21 12:00 Intake & Output 07/10/21 07/11/21 07/11/21 18:59 06:59 18:59 Intake Total 2207 1235 720 Output Total 800 Balance 1407 1235 720 Weight 126.6 kg 125.3 kg Intake: IV 1110 635 Invasive Line 7 10 10 Sodium Chloride 0.9% 1, 900 525 000 ml @ 75 mls/hr IV . [id number] SARAH Rx#:[id number] ceFAZolin 2 gm In Sodium 100 100 Chloride 0.9% 50 ml @ 100 mls/hr IVPB Q12HR SARAH Rx #:[id number] levETIRAcetam IV 500 mg 100 In Sodium Chloride 0.9% 100 ml @ 400 mls/hr IVPB DAILY SARAH Rx#:[id number] Oral 1097 600 720 Output: Urine 800 Other: Voiding Method Indwelling Catheter Indwelling Catheter Indwelling Catheter # Bowel Movements 1 - Labs CBC & Chem 7: 07/10/21 06:16 07/11/21 09:11 Labs: Abnormal Lab Results - Last 24 Hours (Table) 07/10/21 07/10/21 07/11/21 Range/Units 16:44 20:02 05:59 Potassium (3.5-5.1) mmol/L Chloride (98-107) mmol/L Carbon Dioxide (22-30) mmol/L BUN (9-20) mg/dL Creatinine (0.66-1.25) mg/dL Glucose (74-99) mg/dL POC Glucose (mg/dL) 113 H 100 H 130 H (75-99) mg/dL Calcium (8.4-10.2) mg/dL 07/11/21 07/11/21 Range/Units 09:11 11:45 Potassium 3.2 L (3.5-5.1) mmol/L Chloride 108 H (98-107) mmol/L Carbon Dioxide 17 L (22-30) mmol/L BUN 46 H (9-20) mg/dL Creatinine 2.37 H (0.66-1.25) mg/dL Glucose 153 H (74-99) mg/dL POC Glucose (mg/dL) 148 H (75-99) mg/dL Calcium 7.8 L (8.4-10.2) mg/dL Microbiology - Last 24 Hours (Table) 07/09/21 06:45 Blood Culture - Preliminary Blood No Growth after 48 hours 07/10/21 08:15 Blood Culture - Preliminary Blood No Growth after 24 hours 07/10/21 08:00 Blood Culture - Preliminary Blood No Growth after 24 hours 07/08/21 09:02 Blood Culture - Preliminary Blood No Growth after 72 hours 07/07/21 08:24 Blood Culture - Preliminary Blood No Growth after 96 hours
--- NOTE | 2021-07-11 16:25 | PN ---
PROGRESS NOTE DATE OF SERVICE: 07/11/2021 REASON FOR FOLLOWUP: MSSA bacteremia, possibly due to the dialysis catheter. INTERVAL HISTORY: The patient is afebrile. The patient is currently breathing comfortably on room air. Denies any chest pain, shortness of breath or cough. No abdominal pain or diarrhea. PHYSICAL EXAMINATION: Blood pressure is 107/55, pulse of 80, temperature of 98.1. He is 97% on room air. General description is an elderly male up in the chair in no distress. RESPIRATORY SYSTEM: Unlabored breathing. Decreased breath sounds at the bases. No wheeze. HEART: S1, S2. Regular rate and rhythm. ABDOMEN: Soft. No tenderness. LABS: Creatinine is 2.37. Blood culture repeat has been negative. DIAGNOSTIC IMPRESSION AND PLAN: Patient with MSSA bacteremia concerning for the dialysis catheter, which has been discontinued. Patient's blood culture negative on 07/07. Plan is for a total of 2 weeks of IV antibiotic; that will be cefazolin, from his negative blood culture to finish therapy and close outpatient followup. MMDAHIANAL / ARINN: [id number] /
[2021-07-11 16:51] LABS: Glucose,Whole Blood 166 mg/dL (75-99)
[2021-07-11] MEDS: DARBEPOETIN ALFA 40 MCG/0.4 ML SYRINGE SQ SCH (17:24)
[2021-07-11 20:05] LABS: Glucose,Whole Blood 159 mg/dL (75-99)
[2021-07-11] MEDS: QUEtiapine 25 MG TAB PO SCH (21:02)
[2021-07-12] MEDS: SODIUM CHLORIDE 0.9% 1,000 ML IV SCH ×2 (04:30→06:05)
[2021-07-12 06:05] LABS: Glucose,Whole Blood 114 mg/dL (75-99)
[2021-07-12] MEDS: INSULIN ASPART (NovoLOG) 100 UNIT/ML VIAL SQ SCH ×4 (06:05→21:30)
[2021-07-12] MEDS: INSULIN DETEMIR (LEVEMIR) 100 UNIT/ML SYR SQ SCH ×2 (06:36→20:25)
[2021-07-12] MEDS: LEVOTHYROXINE 75 MCG TAB PO SCH (06:36)
[2021-07-12 08:24] LABS: Calcium 8.2 mg/dL (8.4-10.2); Potassium 3.4 mmol/L (3.5-5.1)
[2021-07-12] MEDS: ASPIRIN 81 MG PO SCH (08:47)
[2021-07-12] MEDS: METOPROLOL TARTRATE 25 MG TAB PO SCH ×2 (08:48→20:25)
[2021-07-12] MEDS: GABAPENTIN 100 MG CAP PO SCH ×3 (08:48→20:25)
[2021-07-12] MEDS: amLODIPine 5 MG TAB PO SCH (08:49)
[2021-07-12] MEDS: PANTOPRAZOLE 40 MG/10 ML VIAL IVP SCH ×2 (08:49→20:26)
[2021-07-12] MEDS: hydrALAZINE HCL 25 MG TAB PO SCH ×3 (08:49→20:25)
[2021-07-12] MEDS: FOLIC ACID 1 MG TAB PO SCH ×2 (08:49→08:53)
[2021-07-12] MEDS: THIAMINE 100 MG/ML 2 ML VIAL IVP SCH (08:50)
[2021-07-12] MEDS: MULTIVITAMINS, THERA 1 EACH TAB PO SCH (08:50)
[2021-07-12] MEDS: HEPARIN SODIUM,PORCINE/PF 5,000 UNIT/0.5 ML SYRINGE SQ SCH ×2 (08:50→20:25)
[2021-07-12] MEDS: levETIRAcetam IV 500 MG in SODIUM CHLORIDE 0.9% 100 ML IVPB SCH (09:54)
--- NOTE | 2021-07-12 09:56 | P.PN ---
Subjective Patient is seen in follow-up for acute kidney injury. Patient received hemodialysis initially this admission due to uremia. Dialysis has been held since July 08. Nonoliguric. Creatinine 2.48 yesterday. Oral intake is gradually improving. No chest pain or shortness of breath. Nonoliguric. Vital signs are stable. General: The patient appeared well nourished and normally developed. HEENT: Head exam is unremarkable. LUNGS: Lungs are clear to auscultation and percussion. Breath sounds decreased. HEART: Rate and Rhythm are regular. ABDOMEN: Soft, no distention. EXTREMITITES: No edema. Objective - Vital Signs Vital signs: Vital Signs Temp 98.2 F 07/12/21 08:00 Pulse 79 07/12/21 08:00 Resp 20 07/12/21 08:00 BP 132/70 07/12/21 08:00 Pulse Ox 96 07/12/21 08:00 Intake & Output 07/11/21 07/12/21 07/12/21 18:59 06:59 18:59 Intake Total 1780 637 520 Output Total 500 700 Balance 1780 137 -180 Weight 133.3 kg Intake: IV 400 Sodium Chloride 0.9% 1, 300 000 ml @ 75 mls/hr IV . [id number] SARAH Rx#:[id number] ceFAZolin 2 gm In Sodium 100 Chloride 0.9% 50 ml @ 100 mls/hr IVPB Q12HR [facility] Rx #:[id number] Oral 1780 237 520 Output: Urine 500 700 Other: Voiding Method Indwelling Catheter Indwelling Catheter # Bowel Movements 1 - Labs CBC & Chem 7: 07/10/21 06:16 07/12/21 07:13 Labs: Abnormal Lab Results - Last 24 Hours (Table) 07/11/21 07/11/21 07/11/21 Range/Units 09:11 11:45 16:45 Sodium (137-145) mmol/L Potassium 3.2 L (3.5-5.1) mmol/L Chloride 108 H (98-107) mmol/L Carbon Dioxide 17 L (22-30) mmol/L BUN 46 H (9-20) mg/dL Creatinine 2.37 H (0.66-1.25) mg/dL Glucose 153 H (74-99) mg/dL POC Glucose (mg/dL) 148 H 166 H (75-99) mg/dL Calcium 7.8 L (8.4-10.2) mg/dL 07/11/21 07/12/21 07/12/21 Range/Units 20:03 06:04 07:13 Sodium 132 L (137-145) mmol/L Potassium 3.4 L (3.5-5.1) mmol/L Chloride (98-107) mmol/L Carbon Dioxide 19 L (22-30) mmol/L BUN 46 H (9-20) mg/dL Creatinine 2.48 H (0.66-1.25) mg/dL Glucose 103 H (74-99) mg/dL POC Glucose (mg/dL) 159 H 114 H (75-99) mg/dL Calcium 8.2 L (8.4-10.2) mg/dL Microbiology - Last 24 Hours (Table) 07/09/21 06:45 Blood Culture - Preliminary Blood No Growth after 48 hours 07/10/21 08:15 Blood Culture - Preliminary Blood No Growth after 24 hours 07/10/21 08:00 Blood Culture - Preliminary Blood No Growth after 24 hours 07/08/21 09:02 Blood Culture - Preliminary Blood No Growth after 72 hours 07/07/21 08:24 Blood Culture - Preliminary Blood No Growth after 96 hours Assessment and Plan Plan: Assessment: 1. Acute kidney injury secondary to ATN secondary to hypovolemia from diuretics and poor intake. Creatinine was 5.74 on admission without significant improvement with IV hydration. UA is fairly benign. No hydronephrosis noted on kidney ultrasound. Started on dialysis July 04 due to uremia - dialysis has been held since July 08. Serologies negative. Creatinine fairly stable at 2.48 today. 2. Acute encephalopathy due to uremia. Also had seizure. Brain CT negative. Improved. 3. Diabetes mellitus. 4. Anemia. Iron replete. On Aranesp. 5. Benign hypertension. Stable. 6. MSSA bacteremia possibly due to permacath. Permacath removed July 10. On antibiotics. Infectious disease following. 7. Hypokalemia from poor intake. Plan: Decrease rate of normal saline to 50 mL an hour. Encouraged oral intake. Replace potassium. Continue to hold diuretics and losartan. Avoid nephrotoxins.
[2021-07-12] MEDS ORDERED: POTASSIUM CHLORIDE ER 20 MEQ TAB.ER PO STA (09:59)
[2021-07-12 11:41] LABS: Glucose,Whole Blood 107 mg/dL (75-99)
--- NOTE | 2021-07-12 12:35 | P.PN ---
Subjective Progress Note Date: 07/12/21 Patient is a pleasant 71-year-old male is admitted for acute failure. Patient doesn't have any significant improvement patient acute renal failure is blue to be secondary to medications including NOVA inhibitor and diuretic therapy. Patient does have asterixis and uremic symptoms because of which dialysis catheter is being placed and patient will undergo hemodialysis tomorrow patient is still urinating okay. Patient has a fully catheter. Patient had an echocardiogram evaluated because of mild elevation of troponins which is probably secondary to renal failure no further intervention is being planned at this time as he perspective neurology evaluated the patient because of concern of aphasia although patient appears to have confusion more than aphasia patient does have some chronic microvascular ischemic changes no acute stroke was evident on MRI patient does have microcytosis and anemia probably B12 folate deficiency labs of which were already ordered. The is still having occasional confusional episodes secondary to uremic encephalopathy. 07/04/2021 Patient is evaluated today the bedside status post hemodialysis. He is confused and is not responding to questions appropriately. He is wearing a CPAP currently. He does have some asterixis present at the time of my assessment which can be seen with encephalopathy. Labs reviewed today include a hemoglobin of 7.4, MCV 107.3, MCH 35.2, his platelets are 77. Potassium is 3.7, chloride 108, BUN 69, creatinine 3.72, which has improved with dialysis. His mag is 1.9. Patient is afebrile, blood pressure 162/70. He is 97% on room air. Most recent chest x-ray is negative for acute cardiopulmonary disease. Folate is within normal limits at 4.7 which is just on the lower cusp. Patient is being followed closely by nephrology, plan is for repeat dialysis treatment tomorrow. Aranesp was added. Hydralazine has also been added for blood pressures. 07/05/2021 Patient throughout the evening had a possible seizure episode. He was found to be postictal after telemetry notified RN that he was having a tachycardic episode. Patient is found to be unresponsive to noxious and physical stimuli, he had foaming at the mouth. A repeat brain CT was ordered which was negative and no change compared to old exam. A urinalysis was completed from Byrd catheter which revealed +1 protein, trace ketones, large blood, moderate leukocy te esterase and 47 WBCs. It was negative for nitrates. Patient was started on IV Rocephin. Lactic acid was 3.1, 4.7 and is now 5.3. Despite kidney function and fluid overload, patient is now on 0.9 normal saline at 100 mL per hour. Additional labs include a hemoglobin of 8.5, platelet count of 84, CO2 19, chloride 109, BUN 71, creatinine 4.05. Magnesium is 1.7 we will replace per protocol. Troponins negative. Prolactin is elevated at 24.5. Per at the bedside patient does drink 2 large-sized bottles of Chardonnay daily if not more. Hepatitis B surface antigen and antibody were nonreactive. Vital signs include temperature 99.3, heart rate 92, blood pressure 127/63 and 95% on 3 L nasal cannula. Patient is unresponsive to sternal rub, however his pupils were reactive and equal size. An EEG is currently pending from neurology. Patient was started on IV Keppra in the meantime for possible seizure activity. 07/06/2021 Patient is evaluated the bedside, he is resting in bed. He is more alert than she however he is still unable to respond verbally. He does have spontaneous eye opening and will want, pupils are still reactive and equal. Patient's lactic has improved is on normal at 1.8, BUN is 64, creatinine 3.32. Potassium today is 3.7, magnesium 1.9, we'll replace. Additionally has AST is 377, AST 61, which is trending upwards. White blood cell count is 14.7, hemoglobin 7.5. There are no signs of blood from the rectum. Vitals reviewed to include a temp of 97.9, heart rate of 104, blood pressure 115/71, 96 on room air. Prior RN patient's heart rate has been in the 120s throughout the morning. Patient was another throughout the evening for unresponsiveness. There was ammonia level ordered and rectal lactulose was given. In addition patient had another liter bolus. We will repeat ammonia level today, and check an abdomen ultrasound. EEG was negative for output for activity. Blood cultures were positive for staph aureus, microsensitivities are pending. Antibiotics have been changed to IV cefazolin from ID. Indwelling catheter remains, urine culture is pending. Patient is unable to swallow his oral medications at this time, we will monitor closely. Due to his history of chronic alcohol abuse and elevated liver enzymes as well as a drop in hemoglobin we will change oral Pepcid to IVP Protonix. 07/07/2021 Patient's liver enzymes are coming down patient had ultrasound of the liver which showed multiple lesions highly suspicious for metastatic disease. Patient will need CT with contrast or MRI with contrast which need to be coordinated with hemodialysis patient will not receive modalities is tomorrow presently receiving hemodialysis at this time. We'll discuss with nephrology regarding timing of ordering these tests. I'll also obtain alpha-fetoprotein. Patient's repeat blood cultures so far are negative. His more awake today less lethargic. 07/08/2021 Patient is evaluated at the bedside today, he is alert and oriented 1, he states that he wants to go home with his . Patient is alert, appropriate he has spontaneous eye opening, there is no obvious neurological deficits, his pupils are equal and reactive, there is no focal weakness left versus right. Patient did undergo an abdominal MRI today, which was correlated for underlying cirrhosis. There is hepatosplenomegaly. There is nodularity seen on ultrasound which may correspond to regenerating liver nodules. The exam is markedly limited technically. Cholelithiasis. There is no evidence of retroperitoneal adenopathy. There is no adrenal mass. There is no hydronephrosis. There is a large cystic focus associated with the left kidney upper pole a 0.4 cm and a cortical cyst also suspect that the lower pole. There is no definite effusion in the lung bases. BUN is 40, creatinine 2.56, potassium 3.2. Patient will be replaced per protocol and also is receiving dialysis today. Patient would be appropriate this time for PT OT as well as speech evaluation. Hemoglobin is 6.7 today patient will receive 1 unit of PRBC, platelet count is 79, in which he has been on subcu heparin. Iron studies were within normal limits. 07/09/21 Patient is evaluated resting in the bed, PT OT on board. He did pass a speech evaluation is on a chopped dysphagia 3 diet can advance to regular as tolerated. Patient did have some increased confusion and agitation throughout the evening and had to receive a dose of when necessary Ativan. We'll discontinue Haldol and Ativan we will use Seroquel as needed at bedtime. BUN today is 42, creatinine 2.29. Patient's hemoglobin is 7.8 status post 1 unit PRBCs. Platelets are 90. We will resume subcu heparin. Patient is on Aranesp every 7 days. Patient still has a indwelling catheter. Blood cultures have remained negative for the next 48 hours, once cultures have been negative for 72 hours we will start discharge planning to rehab. Patient is afebrile, heart rate 94, blood pressure 146/73 and he is 96% on room air. Patient is alert 3 the time of my exam, expresses a desire to go home. 07/10/2021 Patient is seen and evaluated in follow-up this morning with at the bedside. Patient continues to have intermittent periods of confusion and sleepiness and is maintained on low-dose Seroquel 12.5 mg as needed at night for agitation. Per patient is more alert today although continues to be extremely weak. Discussion is being had about discharged to [facility] once stabilized. Medical consultations including nephrology and infectious disease following closely. Patient is maintained on IV antibiotics in the form of cefazolin with most recent repeat blood cultures remaining negative thus far. Patient has a right chest wall permacath for dialysis that is being discontinued today and nephrology following closely planning on daily lab draws to closely monitor electrolytes and kidney functions with the possibility of discontinuing dialysis. Patient continues on gentle IV hydration in the form of normal saline per nephrology recommendations. Also recommend maintaining aspiration precautions with head of the bed elevated 30-45 at all times and supervision with meals and continue dysphagia 3 chopped diet. Patient is maintained on Accu-Cheks before meals and at bedtime along with sliding scale and long-acting insulin and will continue. 07/11/2021 Patient seen on follow-up he is sitting up in the chair this morning quite at bedside. Dialysis port has been removed as he will not require further dialysis at this time, nephrology is following. He is quite weak has evidence of extensive muscle wasting, appears malnourished. Labs today show potassium 3.2, creatinine 2.37, glucose 153, sodium 139. He is afebrile, blood pressure stable 1074/55, heart rate is in 70s. He is saturating above 90% on room air. Potassium is being replaced, at bedside asking questions which were answered. 07/12/2021 Patient seen on follow-up resting in bed comfortably, he is alert, answering questions appropriately. Dialysis catheter has been removed he is no longer being dialyzed, creatinine is 2.48 today. He is afebrile, hemodynamically stable saturating above 90% on room air. Making urine, 1200 mL out today from Byrd catheter. Oral intake is getting better, repeat blood cultures from 07/10 showing no growth at 48 hours. He is receiving antimicrobial therapy with Ancef. Blood sugars controlled. Review of systems: Constitutional: Generalized weakness Cardiovascular: No reports of chest pain or palpitations Respiratory: No reports of shortness of breath or cough GI: No reports of nausea, vomiting, or diarrhea : No reports of dysuria or retention, has indwelling Byrd catheter Neurovascular: reports of generalized weakness All medications have been reviewed Active Medications Acetaminophen (Acetaminophen Tab 325 Mg Tab) 325 mg PO Q6HR PRN PRN Reason: Fever and/ or Pain Amlodipine Besylate (Amlodipine 5 Mg Tab) 5 mg PO DAILY [facility] Last Admin: 07/10/21 10:53 Dose: 5 mg Documented by: Aspirin (Aspirin 81 Mg) 81 mg PO DAILY [facility] Last Admin: 07/10/21 10:53 Dose: 81 mg Documented by: Darbepoetin Victor M (Darbepoetin Victor M 40 Mcg/0.4 Ml Syringe) 40 mcg SQ Q7D [facility] Last Admin: 07/04/21 17:19 Dose: 40 mcg Documented by: Folic Acid (Folic Acid 1 Mg Tab) 1 mg PO DAILY [facility] Last Admin: 07/10/21 10:53 Dose: 1 mg Documented by: Folic Acid (Folic Acid 1 Mg Tab) 1 mg PO DAILY@1200 [facility] Gabapentin (Gabapentin 100 Mg Cap) 100 mg PO TID [facility] Last Admin: 07/10/21 10:53 Dose: 100 mg Documented by: Heparin Sodium (Porcine) (Heparin Sodium,Porcine/Pf 5,000 Unit/0.5 Ml Syringe) 5,000 unit SQ Q12HR [facility] Last Admin: 07/10/21 10:54 Dose: 5,000 unit Documented by: Hydralazine HCl (Hydralazine Hcl 25 Mg Tab) 25 mg PO TID [facility] Last Admin: 07/10/21 10:53 Dose: 25 mg Documented by: Hydralazine HCl (Hydralazine Hcl 20 Mg/Ml 1 Ml Vial) 5 mg IVP Q6HR PRN PRN Reason: Blood Pressure - High Last Admin: 07/06/21 15:58 Dose: 5 mg Documented by: Sodium Chloride (Saline 0.9%) 1,000 mls @ 75 mls/hr IV .[id number] [facility] Last Admin: 07/10/21 11:02 Dose: 75 mls/hr Documented by: Cefazolin Sodium 2 gm/ Sodium (Chloride) 50 mls @ 100 mls/hr IVPB Q12HR [facility] Last Admin: 07/10/21 10:53 Dose: 100 mls/hr Documented by: Levetiracetam 500 mg/ Sodium (Chloride) 105 mls @ 400 mls/hr IVPB DAILY [facility] Last Admin: 07/10/21 10:54 Dose: 400 mls/hr Documented by: Sodium Chloride (Saline 0.9%) 1,000 mls @ 75 mls/hr IV .[id number] [facility] Last Admin: 07/10/21 12:20 Dose: Not Given Documented by: Insulin Aspart (Insulin Aspart (Novolog) 100 Unit/Ml Vial) 0 unit SQ ACHS [facility]; Protocol Last Admin: 07/10/21 12:20 Dose: Not Given Documented by: Insulin Detemir (Insulin Detemir (Levemir) 100 Unit/Ml Syr) 10 unit SQ BID@0700,2100 [facility] Last Admin: 07/10/21 06:05 Dose: 10 unit Documented by: Levothyroxine Sodium (Levothyroxine 75 Mcg Tab) 75 mcg PO DAILY@0630 [facility] Last Admin: 07/10/21 06:05 Dose: 75 mcg Documented by: Lorazepam (Lorazepam 2 Mg/Ml Inj) 0.5 mg IV Q2HR PRN PRN Reason: CIWA 8 or 9 Last Admin: 07/09/21 05:48 Dose: 0.5 mg Documented by: Lorazepam (Lorazepam 2 Mg/Ml Inj) 0.5 mg IV Q1HR PRN PRN Reason: CIWA 10 to 15 Metoprolol Tartrate (Metoprolol Tartrate 25 Mg Tab) 25 mg PO BID [facility] Last Admin: 07/10/21 10:53 Dose: 25 mg Documented by: Miscellaneous Information (Potassium Replacement Protocol 1 Each Misc) 1 each MISCELLANE DAILY PRN; Protocol PRN Reason: Per Protocol Miscellaneous Information (Magnesium Replacement Protocol 1 Each Misc) 1 each MISCELLANE DAILY PRN; Protocol PRN Reason: Per Protocol Multivitamins (Multivitamins, Thera 1 Each Tab) 1 each PO DAILY@1200 [facility] Naloxone HCl (Naloxone 0.4 Mg/Ml 1 Ml Vial) 0.2 mg IV Q2M PRN PRN Reason: Opioid Reversal Pantoprazole Sodium (Pantoprazole 40 Mg/10 Ml Vial) 40 mg IVP BID [facility] Last Admin: 07/10/21 10:52 Dose: 40 mg Documented by: Psyllium Hydrophilic Mucilloid (Psyllium Husk 100% 6 Gm Packet) 6 gm PO DAILY PRN PRN Reason: Constipation Quetiapine Fumarate (Quetiapine 25 Mg Tab) 12.5 mg PO HS [facility] Last Admin: 07/09/21 20:41 Dose: 12.5 mg Documented by: Thiamine HCl (Thiamine 100 Mg/Ml 2 Ml Vial) 100 mg IVP DAILY [facility] Last Admin: 07/10/21 10:52 Dose: 100 mg Documented by: PHYSICAL EXAMINATION: GENERAL: The patient is awake and alert at this time and is oriented 3. HEENT: Pupils are round and equally reacting to light. EOMI. No scleral icterus. No conjunctival pallor. Normocephalic, atraumatic. No pharyngeal erythema. No thyromegaly. CARDIOVASCULAR: S1, S2 are muffled PULMONARY: Diminished breath sounds bilaterally with some mild left lower lobe expiratory wheezing. ABDOMEN: Soft, obese, nontender, nondistended, normoactive bowel sounds. No palpable organomegaly. MUSCULOSKELETAL: No joint swelling or deformity. EXTREMITIES: No cyanosis, clubbing, mild ankle edema worse on the right NEUROLOGICAL: Gross neurological does not reveal any focal deficits, there is generalized weakness. Hand grasp is equal. SKIN: No rashes. Assessment and plan: Assessment: -Altered mental status secondary to toxic and Metabolic encephalopathy related to uremia, no evidence of CVA/TIA, possibly due to an acute alcohol withdrawal, possible acute alcohol withdrawal seizure, possibly a component of bacteremia and hospital associated delirium, improving -Elevated liver enzymes and elevated ammonia, patient has a history of chronic alcohol abuse, ammonia normalized after treatment with lactulose, abdominal ultrasound and MRI showed nodularity consistant with liver cirrhosis. Alpha fetoprotein WNL. -Possible UTI with sepsis ruled out, not present on admission, not related to IDC, urine culture is negative. -MSSA bacteremia s/p placement of IJ hemodialysis catheter, pending finalized cultures, on IV ABX, ID following. -Possible acute TIA, presented with a questionable history of expressive aphasia. imaging does not show evidence of an acute cerebrovascular accident. -Acute Kidney Injury, most likely acute tubular necrosis, s/p hemodialysis -Possible seizure, also possibly alcohol withdrawal seizure as patient does drink 2 large bottles of Chardonnay daily however last drink was over a week ago per at the bedside. -Diabetes mellitus type 2 -Diabetic peripheral neuropathy Possible B12/folate deficiency -pancytopenia and macrocytosis -Anemia, with bicytopenia -Elevated troponin most likely a leak related to acute kidney injury Possible acute on chronic congestive heart failure, diastolic, current EF 55- 60% -Severe protein calorie malnutrition -GI prophylaxis -EBT prophylaxis -Full code Plan: Dialysis catheter has been removed he is no longer requiring hemodialysis at this time. Serum creatinine 2.48 today, he is being followed by nephrology. Continues antimicrobial therapy with Ancef for MSSA bacteremia, but cultures and 10/H show no growth at 48 hours, he is afebrile. Good urine output from Byrd catheter 1200 mL today. Blood sugars controlled, continue Levemir and sliding scale coverage. Continue current medication regimen. Continue PT/OT, PATIENT WILL NEED REHAB AT AN ECF FACILITY< [employer] TO [facility] TO [facility] TO COORDINATE. Monitor renal function and electrolytes, monitor I&O's. DVT prophylaxis subcutaneous heparin. Objective - Vital Signs Vital signs: Vital Signs Temp 98.2 F 07/12/21 08:00 Pulse 79 07/12/21 08:00 Resp 20 07/12/21 08:00 BP 132/70 07/12/21 08:00 Pulse Ox 96 07/12/21 08:00 Intake & Output 07/11/21 07/12/21 07/12/21 18:59 06:59 18:59 Intake Total 1780 637 520 Output Total 500 700 Balance 1780 137 -180 Weight 133.3 kg Intake: IV 400 Sodium Chloride 0.9% 1, 300 000 ml @ 75 mls/hr IV . [id number] [facility] Rx#:[id number] ceFAZolin 2 gm In Sodium 100 Chloride 0.9% 50 ml @ 100 mls/hr IVPB Q12HR [facility] Rx #:[id number] Oral 1780 237 520 Output: Urine 500 700 Other: Voiding Method Indwelling Catheter Indwelling Catheter Indwelling Catheter # Bowel Movements 1 - Labs CBC & Chem 7: 07/10/21 06:16 10/10/21 07:13 Labs: Abnormal Lab Results - Last 24 Hours (Table) 07/11/21 07/11/21 07/12/21 Range/Units 16:45 20:03 06:04 Sodium (137-145) mmol/L Potassium (3.5-5.1) mmol/L Carbon Dioxide (22-30) mmol/L BUN (9-20) mg/dL Creatinine (0.66-1.25) mg/dL Glucose (74-99) mg/dL POC Glucose (mg/dL) 166 H 159 H 114 H (75-99) mg/dL Calcium (8.4-10.2) mg/dL 07/12/21 07/12/21 Range/Units 07:13 11:39 Sodium 132 L (137-145) mmol/L Potassium 3.4 L (3.5-5.1) mmol/L Carbon Dioxide 19 L (22-30) mmol/L BUN 46 H (9-20) mg/dL Creatinine 2.48 H (0.66-1.25) mg/dL Glucose 103 H (74-99) mg/dL POC Glucose (mg/dL) 107 H (75-99) mg/dL Calcium 8.2 L (8.4-10.2) mg/dL Microbiology - Last 24 Hours (Table) 07/10/21 08:15 Blood Culture - Preliminary Blood No Growth after 48 hours 07/10/21 08:00 Blood Culture - Preliminary Blood No Growth after 48 hours 07/08/21 09:02 Blood Culture - Preliminary Blood No Growth after 96 hours 07/07/21 08:24 Blood Culture - Preliminary Blood No Growth after 120 hours 07/09/21 06:45 Blood Culture - Preliminary Blood No Growth after 48 hours
[2021-07-12 16:19] LABS: Glucose,Whole Blood 112 mg/dL (75-99)
[2021-07-12] MEDS: QUEtiapine 25 MG TAB PO SCH (20:25)
[2021-07-12 20:53] LABS: Glucose,Whole Blood 130 mg/dL (75-99)
--- NOTE | 2021-07-13 02:28 | PN ---
PROGRESS NOTE DATE OF SERVICE: 07/12/2021 REASON FOR FOLLOWUP: MSSA bacteremia secondary to dialysis catheter infection. INTERVAL HISTORY: Patient is afebrile. The patient is currently breathing comfortably. Patient denies having any chest pain. No shortness of breath. Occasional cough. No abdominal pain. No diarrhea. Currently on room air. PHYSICAL EXAMINATION: Blood pressure 156/70 with a pulse of 80, temperature 98.7. He is 95% on room air. General description is an elderly male lying in bed in no distress. Respiratory system: Unlabored breathing, decreased breath sounds in the base. No wheeze. Heart S1, S2. Regular rate and rhythm. Abdomen soft, no tenderness. LABS: BUN 46, creatinine is 2.48. Blood cultures times five have been negative. DIAGNOSTIC IMPRESSION AND PLAN: Patient with MRSA bacteremia possibly related to the dialysis catheter that has been discontinued. The patient will get a mid line tomorrow and plan for another 10 days of cefazolin to finish his course of therapy. Continue supportive care. MMODL / IJN: [id number] /
[2021-07-13 06:04] LABS: Glucose,Whole Blood 100 mg/dL (75-99)
[2021-07-13] MEDS: SODIUM CHLORIDE 0.9% 1,000 ML IV SCH (06:32)
[2021-07-13] MEDS: INSULIN DETEMIR (LEVEMIR) 100 UNIT/ML SYR SQ SCH ×2 (06:32→20:19)
[2021-07-13] MEDS: LEVOTHYROXINE 75 MCG TAB PO SCH (06:32)
[2021-07-13] MEDS: INSULIN ASPART (NovoLOG) 100 UNIT/ML VIAL SQ SCH ×4 (06:32→20:09)
--- NOTE | 2021-07-13 08:53 | P.PN ---
Subjective Patient is seen in follow-up for acute kidney injury. Patient received hemodialysis initially this admission due to uremia. Dialysis has been held since July 08. Nonoliguric. Creatinine 2.48 yesterday. Oral intake is good. No chest pain or shortness of breath. Nonoliguric. Vital signs are stable. General: The patient appeared well nourished and normally developed. HEENT: Head exam is unremarkable. LUNGS: Breath sounds decreased. HEART: Rate and Rhythm are regular. ABDOMEN: Soft, no distention. EXTREMITITES: No edema. Objective - Vital Signs Vital signs: Vital Signs Temp 98.0 F 07/13/21 03:03 Pulse 76 07/13/21 03:03 Resp 18 07/13/21 03:03 BP 133/63 07/13/21 03:03 Pulse Ox 94 L 07/13/21 03:03 Intake & Output 07/12/21 07/13/21 07/13/21 18:59 06:59 18:59 Intake Total 880 50 Output Total 1025 1750 Balance -145 -1700 Weight 132.8 kg Intake: IV 50 Sodium Chloride 0.9% 1, 50 000 ml @ 50 mls/hr IV . Q20H [facility] Rx#:[id number] Oral 880 Output: Urine 1025 1750 Other: Voiding Method Indwelling Catheter Indwelling Catheter - Labs CBC & Chem 7: 07/10/21 06:16 07/12/21 07:13 Labs: Abnormal Lab Results - Last 24 Hours (Table) 07/12/21 07/12/21 07/12/21 Range/Units 11:39 16:18 20:16 POC Glucose (mg/dL) 107 H 112 H 130 H (75-99) mg/dL 07/13/21 Range/Units 05:55 POC Glucose (mg/dL) 100 H (75-99) mg/dL Microbiology - Last 24 Hours (Table) 07/09/21 06:45 Blood Culture - Preliminary Blood No Growth after 72 hours 07/10/21 08:15 Blood Culture - Preliminary Blood No Growth after 48 hours 07/10/21 08:00 Blood Culture - Preliminary Blood No Growth after 48 hours 07/08/21 09:02 Blood Culture - Preliminary Blood No Growth after 96 hours 07/07/21 08:24 Blood Culture - Preliminary Blood No Growth after 120 hours Assessment and Plan Plan: Assessment: 1. Acute kidney injury secondary to ATN secondary to hypovolemia from diuretics and poor intake. Creatinine was 5.74 on admission without significant improvement with IV hydration. UA is fairly benign. No hydronephrosis noted on kidney ultrasound. Started on dialysis July 04 due to uremia - dialysis has been held since July 08. Serologies negative. Creatinine fairly stable at 2.48 yesterday. 2. Acute encephalopathy due to uremia. Also had seizure. Brain CT negative. Improved. 3. Diabetes mellitus. 4. Anemia. Iron replete. On Aranesp. 5. Benign hypertension. Stable. 6. MSSA bacteremia possibly due to permacath. Permacath removed July 10. On antibiotics. Infectious disease following. 7. Hypokalemia from poor intake. Replaced. Plan: Hep-Lock IV fluids. Encouraged oral intake. Continue to hold diuretics and losartan. Avoid nephrotoxins. Morning labs pending.
[2021-07-13 09:14] LABS: Calcium 8.3 mg/dL (8.4-10.2); Magnesium 1.7 mg/dL (1.6-2.3); Potassium 4.1 mmol/L (3.5-5.1)
[2021-07-13] MEDS: levETIRAcetam IV 500 MG in SODIUM CHLORIDE 0.9% 100 ML IVPB SCH (11:32)
[2021-07-13] MEDS: HEPARIN SODIUM,PORCINE/PF 5,000 UNIT/0.5 ML SYRINGE SQ SCH ×2 (11:33→20:19)
[2021-07-13] MEDS: PANTOPRAZOLE 40 MG/10 ML VIAL IVP SCH ×2 (11:33→20:21)
[2021-07-13] MEDS: THIAMINE 100 MG/ML 2 ML VIAL IVP SCH (11:34)
[2021-07-13] MEDS: METOPROLOL TARTRATE 25 MG TAB PO SCH ×2 (11:35→20:18)
[2021-07-13] MEDS: ASPIRIN 81 MG PO SCH (11:35)
[2021-07-13] MEDS: amLODIPine 5 MG TAB PO SCH (11:35)
[2021-07-13] MEDS: GABAPENTIN 100 MG CAP PO SCH ×3 (11:35→20:18)
[2021-07-13] MEDS: FOLIC ACID 1 MG TAB PO SCH ×2 (11:36→11:37)
[2021-07-13 11:38] LABS: Glucose,Whole Blood 143 mg/dL (75-99)
[2021-07-13] MEDS: hydrALAZINE HCL 25 MG TAB PO SCH ×3 (14:33→20:18)
--- NOTE | 2021-07-13 15:26 | P.PN ---
Subjective Progress Note Date: 07/13/21 Patient is a pleasant 71-year-old male is admitted for acute failure. Patient doesn't have any significant improvement patient acute renal failure is blue to be secondary to medications including NOVA inhibitor and diuretic therapy. Patient does have asterixis and uremic symptoms because of which dialysis catheter is being placed and patient will undergo hemodialysis tomorrow patient is still urinating okay. Patient has a fully catheter. Patient had an echocardiogram evaluated because of mild elevation of troponins which is probably secondary to renal failure no further intervention is being planned at this time as he perspective neurology evaluated the patient because of concern of aphasia although patient appears to have confusion more than aphasia patient does have some chronic microvascular ischemic changes no acute stroke was evident on MRI patient does have microcytosis and anemia probably B12 folate deficiency labs of which were already ordered. The is still having occasional confusional episodes secondary to uremic encephalopathy. 07/04/2021 Patient is evaluated today the bedside status post hemodialysis. He is confused and is not responding to questions appropriately. He is wearing a CPAP currently. He does have some asterixis present at the time of my assessment which can be seen with encephalopathy. Labs reviewed today include a hemoglobin of 7.4, MCV 107.3, MCH 35.2, his platelets are 77. Potassium is 3.7, chloride 108, BUN 69, creatinine 3.72, which has improved with dialysis. His mag is 1.9. Patient is afebrile, blood pressure 162/70. He is 97% on room air. Most recent chest x-ray is negative for acute cardiopulmonary disease. Folate is within normal limits at 4.7 which is just on the lower cusp. Patient is being followed closely by nephrology, plan is for repeat dialysis treatment tomorrow. Aranesp was added. Hydralazine has also been added for blood pressures. 07/05/2021 Patient throughout the evening had a possible seizure episode. He was found to be postictal after telemetry notified RN that he was having a tachycardic episode. Patient is found to be unresponsive to noxious and physical stimuli, he had foaming at the mouth. A repeat brain CT was ordered which was negative and no change compared to old exam. A urinalysis was completed from Byrd catheter which revealed +1 protein, trace ketones, large blood, moderate leukoc yte esterase and 47 WBCs. It was negative for nitrates. Patient was started on IV Rocephin. Lactic acid was 3.1, 4.7 and is now 5.3. Despite kidney function and fluid overload, patient is now on 0.9 normal saline at 100 mL per hour. Additional labs include a hemoglobin of 8.5, platelet count of 84, CO2 19, chloride 109, BUN 71, creatinine 4.05. Magnesium is 1.7 we will replace per protocol. Troponins negative. Prolactin is elevated at 24.5. Per at the bedside patient does drink 2 large-sized bottles of Chardonnay daily if not more. Hepatitis B surface antigen and antibody were nonreactive. Vital signs include temperature 99.3, heart rate 92, blood pressure 127/63 and 95% on 3 L nasal cannula. Patient is unresponsive to sternal rub, however his pupils were reactive and equal size. An EEG is currently pending from neurology. Patient was started on IV Keppra in the meantime for possible seizure activity. 07/06/2021 Patient is evaluated the bedside, he is resting in bed. He is more alert than she however he is still unable to respond verbally. He does have spontaneous eye opening and will want, pupils are still reactive and equal. Patient's lactic has improved is on normal at 1.8, BUN is 64, creatinine 3.32. Potassium today is 3.7, magnesium 1.9, we'll replace. Additionally has AST is 377, AST 61, which is trending upwards. White blood cell count is 14.7, hemoglobin 7.5. There are no signs of blood from the rectum. Vitals reviewed to include a temp of 97.9, heart rate of 104, blood pressure 115/71, 96 on room air. Prior RN patient's heart rate has been in the 120s throughout the morning. Patient was another throughout the evening for unresponsiveness. There was ammonia level ordered and rectal lactulose was given. In addition patient had another liter bolus. We will repeat ammonia level today, and check an abdomen ultrasound. EEG was negative for output for activity. Blood cultures were positive for staph aureus, microsensitivities are pending. Antibiotics have been changed to IV cefazolin from ID. Indwelling catheter remains, urine culture is pending. Patient is unable to swallow his oral medications at this time, we will monitor closely. Due to his history of chronic alcohol abuse and elevated liver enzymes as well as a drop in hemoglobin we will change oral Pepcid to IVP Protonix. 07/07/2021 Patient's liver enzymes are coming down patient had ultrasound of the liver which showed multiple lesions highly suspicious for metastatic disease. Patient will need CT with contrast or MRI with contrast which need to be coordinated with hemodialysis patient will not receive modalities is tomorrow presently receiving hemodialysis at this time. We'll discuss with nephrology regarding timing of ordering these tests. I'll also obtain alpha-fetoprotein. Patient's repeat blood cultures so far are negative. His more awake today less lethargic. 07/08/2021 Patient is evaluated at the bedside today, he is alert and oriented 1, he states that he wants to go home with his . Patient is alert, appropriate he has spontaneous eye opening, there is no obvious neurological deficits, his pupils are equal and reactive, there is no focal weakness left versus right. Patient did undergo an abdominal MRI today, which was correlated for underlying cirrhosis. There is hepatosplenomegaly. There is nodularity seen on ultrasound which may correspond to regenerating liver nodules. The exam is markedly limited technically. Cholelithiasis. There is no evidence of retroperitoneal adenopathy. There is no adrenal mass. There is no hydronephrosis. There is a large cystic focus associated with the left kidney upper pole a 0.4 cm and a cortical cyst also suspect that the lower pole. There is no definite effusion in the lung bases. BUN is 40, creatinine 2.56, potassium 3.2. Patient will be replaced per protocol and also is receiving dialysis today. Patient would be appropriate this time for PT OT as well as speech evaluation. Hemoglobin is 6.7 today patient will receive 1 unit of PRBC, platelet count is 79, in which he has been on subcu heparin. Iron studies were within normal limits. 07/09/21 Patient is evaluated resting in the bed, PT OT on board. He did pass a speech evaluation is on a chopped dysphagia 3 diet can advance to regular as tolerated. Patient did have some increased confusion and agitation throughout the evening and had to receive a dose of when necessary Ativan. We'll discontinue Haldol and Ativan we will use Seroquel as needed at bedtime. BUN today is 42, creatinine 2.29. Patient's hemoglobin is 7.8 status post 1 unit PRBCs. Platelets are 90. We will resume subcu heparin. Patient is on Aranesp every 7 days. Patient still has a indwelling catheter. Blood cultures have remained negative for the next 48 hours, once cultures have been negative for 72 hours we will start discharge planning to rehab. Patient is afebrile, heart rate 94, blood pressure 146/73 and he is 96% on room air. Patient is alert 3 the time of my exam, expresses a desire to go home. 07/10/2021 Patient is seen and evaluated in follow-up this morning with at the bedside. Patient continues to have intermittent periods of confusion and sleepiness and is maintained on low-dose Seroquel 12.5 mg as needed at night for agitation. Per patient is more alert today although continues to be extremely weak. Discussion is being had about discharged to [facility] once stabilized. Medical consultations including nephrology and infectious disease following closely. Patient is maintained on IV antibiotics in the form of cefazolin with most recent repeat blood cultures remaining negative thus far. Patient has a right chest wall permacath for dialysis that is being discontinued today and nephrology following closely planning on daily lab draws to closely monitor electrolytes and kidney functions with the possibility of discontinuing dialysis. Patient continues on gentle IV hydration in the form of normal saline per nephrology recommendations. Also recommend maintaining aspiration precautions with head of the bed elevated 30-45 at all times and supervision with meals and continue dysphagia 3 chopped diet. Patient is maintained on Accu-Cheks before meals and at bedtime along with sliding scale and long-acting insulin and will continue. 07/11/2021 Patient seen on follow-up he is sitting up in the chair this morning quite at bedside. Dialysis port has been removed as he will not require further dialysis at this time, nephrology is following. He is quite weak has evidence of extensive muscle wasting, appears malnourished. Labs today show potassium 3.2, creatinine 2.37, glucose 153, sodium 139. He is afebrile, blood pressure stable 1074/55, heart rate is in 70s. He is saturating above 90% on room air. Potassium is being replaced, at bedside asking questions which were answered. 07/12/2021 Patient seen on follow-up resting in bed comfortably, he is alert, answering questions appropriately. Dialysis catheter has been removed he is no longer being dialyzed, creatinine is 2.48 today. He is afebrile, hemodynamically stable saturating above 90% on room air. Making urine, 1200 mL out today from Byrd catheter. Oral intake is getting better, repeat blood cultures from 07/10 showing no growth at 48 hours. He is receiving antimicrobial therapy with Ancef. Blood sugars controlled. 07/13/2021 Patient is seen and evaluated and follow-up sitting up in the chair with at the bedside. Right chest wall dressings are dry and intact with recent hemodialysis catheter removed. Patient being closely monitored by nephrology a nd patient is off IV Lasix and IV fluids being discontinued. Patient also continues on IV cefazolin and cultures remain negative. Patient is requesting for indwelling Byrd catheter be removed and will attempt a trial void as this was discussed with nephrology and will monitor closely for any signs of retention with post-void residuals. Labs: Sodium is 133 with a potassium of 4.1, BUN is 42 and creatinine is 2.42, magnesium is 1.7, Accu-Cheks in the low 100s Review of systems: Constitutional: No reports of fatigue, no reports of fever, or chills Cardiovascular: No reports of chest pain or palpitations Respiratory: No reports of shortness of breath or cough GI: No reports of nausea, vomiting, or diarrhea : No reports of dysuria or retention, asking for indwelling Byrd catheter to be removed Neurovascular: reports of generalized weakness All medications have been reviewed Active Medications Acetaminophen (Acetaminophen Tab 325 Mg Tab) 325 mg PO Q6HR PRN PRN Reason: Fever and/ or Pain Amlodipine Besylate (Amlodipine 5 Mg Tab) 5 mg PO DAILY [facility] Last Admin: 07/13/21 11:35 Dose: 5 mg Documented by: Aspirin (Aspirin 81 Mg) 81 mg PO DAILY [facility] Last Admin: 07/13/21 11:35 Dose: 81 mg Documented by: Darbepoetin Victor M (Darbepoetin Victor M 40 Mcg/0.4 Ml Syringe) 40 mcg SQ Q7D [facility] Last Admin: 07/11/21 17:24 Dose: 40 mcg Documented by: Folic Acid (Folic Acid 1 Mg Tab) 1 mg PO DAILY [facility] Last Admin: 07/13/21 11:37 Dose: Not Given Documented by: Folic Acid (Folic Acid 1 Mg Tab) 1 mg PO DAILY@1200 [facility] Last Admin: 07/13/21 11:36 Dose: 1 mg Documented by: Gabapentin (Gabapentin 100 Mg Cap) 100 mg PO TID [facility] Last Admin: 07/13/21 11:35 Dose: 100 mg Documented by: Heparin Sodium (Porcine) (Heparin Sodium,Porcine/Pf 5,000 Unit/0.5 Ml Syringe) 5,000 unit SQ Q12HR [facility] Last Admin: 07/13/21 11:33 Dose: 5,000 unit Documented by: Hydralazine HCl (Hydralazine Hcl 25 Mg Tab) 25 mg PO TID [facility] Last Admin: 07/13/21 14:33 Dose: Not Given Documented by: Hydralazine HCl (Hydralazine Hcl 20 Mg/Ml 1 Ml Vial) 5 mg IVP Q6HR PRN PRN Reason: Blood Pressure - High Last Admin: 07/06/21 15:58 Dose: 5 mg Documented by: Cefazolin Sodium 2 gm/ Sodium (Chloride) 50 mls @ 100 mls/hr IVPB Q12HR [facility] Last Admin: 07/13/21 11:31 Dose: 100 mls/hr Documented by: Levetiracetam 500 mg/ Sodium (Chloride) 105 mls @ 400 mls/hr IVPB DAILY [facility] Last Admin: 07/13/21 11:32 Dose: 400 mls/hr Documented by: Insulin Aspart (Insulin Aspart (Novolog) 100 Unit/Ml Vial) 0 unit SQ ACHS [facility]; Protocol Last Admin: 07/13/21 14:34 Dose: Not Given Documented by: Insulin Detemir (Insulin Detemir (Levemir) 100 Unit/Ml Syr) 10 unit SQ BID@0700,2100 [facility] Last Admin: 07/13/21 06:32 Dose: 10 unit Documented by: Levothyroxine Sodium (Levothyroxine 75 Mcg Tab) 75 mcg PO DAILY@0630 [facility] Last Admin: 07/13/21 06:32 Dose: 75 mcg Documented by: Lorazepam (Lorazepam 2 Mg/Ml Inj) 0.5 mg IV Q2HR PRN PRN Reason: CIWA 8 or 9 Last Admin: 07/09/21 05:48 Dose: 0.5 mg Documented by: Lorazepam (Lorazepam 2 Mg/Ml Inj) 0.5 mg IV Q1HR PRN PRN Reason: CIWA 10 to 15 Metoprolol Tartrate (Metoprolol Tartrate 25 Mg Tab) 25 mg PO BID [facility] Last Admin: 07/13/21 11:35 Dose: 25 mg Documented by: Miscellaneous Information (Potassium Replacement Protocol 1 Each Misc) 1 each MISCELLANE DAILY PRN; Protocol PRN Reason: Per Protocol Miscellaneous Information (Magnesium Replacement Protocol 1 Each Misc) 1 each MISCELLANE DAILY PRN; Protocol PRN Reason: Per Protocol Multivitamins (Multivitamins, Thera 1 Each Tab) 1 each PO DAILY@1200 [facility] Last Admin: 07/12/21 08:50 Dose: 1 each Documented by: Naloxone HCl (Naloxone 0.4 Mg/Ml 1 Ml Vial) 0.2 mg IV Q2M PRN PRN Reason: Opioid Reversal Pantoprazole Sodium (Pantoprazole 40 Mg/10 Ml Vial) 40 mg IVP BID [facility] Last Admin: 07/13/21 11:33 Dose: 40 mg Documented by: Psyllium Hydrophilic Mucilloid (Psyllium Husk 100% 6 Gm Packet) 6 gm PO DAILY PRN PRN Reason: Constipation Quetiapine Fumarate (Quetiapine 25 Mg Tab) 12.5 mg PO HS [facility] Last Admin: 07/12/21 20:25 Dose: 12.5 mg Documented by: Thiamine HCl (Thiamine 100 Mg/Ml 2 Ml Vial) 100 mg IVP DAILY [facility] Last Admin: 07/13/21 11:34 Dose: 100 mg Documented by: PHYSICAL EXAMINATION: GENERAL: The patient is awake and alert at this time and is oriented 3. Periodically lethargic. Temp is 98.2F, pulse is 79, respirations are 20, blood pressure is 132/70, oxygen saturation is 96% on room air. HEENT: Pupils are round and equally reacting to light. EOMI. No scleral icterus. No conjunctival pallor. Normocephalic, atraumatic. No pharyngeal erythema. No thyromegaly. CARDIOVASCULAR: S1, S2 are muffled PULMONARY: Diminished breath sounds bilaterally with some scattered rhonchi. ABDOMEN: Soft, obese, nontender, nondistended, normoactive bowel sounds. No palpable organomegaly. MUSCULOSKELETAL: No joint swelling or deformity. EXTREMITIES: No cyanosis, clubbing, mild ankle edema worse on the right NEUROLOGICAL: Gross neurological does not reveal any focal deficits, there is generalized weakness. Hand grasp is equal. SKIN: No rashes. Assessment and plan: Assessment: -Altered mental status secondary to toxic and Metabolic encephalopathy related to uremia, no evidence of CVA/TIA, possibly due to an acute alcohol withdrawal, possible acute alcohol withdrawal seizure, possibly a component of bacteremia and hospital associated delirium, improved -Elevated liver enzymes and elevated ammonia, patient has a history of chronic alcohol abuse, ammonia normalized after treatment with lactulose, abdominal ultrasound and MRI showed nodularity consistant with liver cirrhosis. Alpha fetoprotein WNL. -Possible UTI with sepsis ruled out, not present on admission, not related to IDC, urine culture is negative. -MSSA bacteremia s/p placement of IJ hemodialysis catheter, with cultures remaining negative patient is continued on IV cefazolin with infectious disease following -Possible acute TIA, presented with a questionable history of expressive aphasia. imaging does not show evidence of an acute cerebrovascular accident. -Acute Kidney Injury, most likely acute tubular necrosis, s/p hemodialysis -Possible seizure, also possibly alcohol withdrawal seizure as patient does drink 2 large bottles of Chardonnay daily however last drink was over a week ago per at the bedside. -Diabetes mellitus type 2 -Diabetic peripheral neuropathy Possible B12/folate deficiency -pancytopenia and macrocytosis -Anemia, with bicytopenia -Elevated troponin most likely a leak related to acute kidney injury Possible acute on chronic congestive heart failure, diastolic, current EF 55- 60% -GI prophylaxis -DVT prophylaxis -Full code Plan: Recommend continue with current medications, management, and symptomatic treatment. Patient recently had hemodialysis catheter removed with right chest wall surgical dressings are dry and intact and nephrology following closely. Creatinine slightly improved at 2.42 today and currently not requiring dialysis. Patient requesting indwelling Byrd catheter be removed and will attempt a trial void and monitor closely for any signs of retention and this was discussed nephrology. Case management and social work following closely working on placement at [facility] and will discuss with nephrology about treatment plans moving forward. Patient continues on IV antibiotics in the form of cefazolin with infectious disease following closely. Repeat blood cultures have remained negative thus far. Recommend to continue with Accu-Cheks before meals and at bedtime and sliding scale along with long- acting insulin. Plan is for possible ECF physical therapy at [facility] once patient is stabilized and discharged. Due to multiple com plex medical issues, prognosis is guarded. Will repeat labs in continue to monitor closely. Objective - Vital Signs Vital signs: Vital Signs Temp 98.0 F 07/13/21 03:03 Pulse 76 07/13/21 03:03 Resp 18 07/13/21 03:03 BP 133/63 07/13/21 03:03 Pulse Ox 94 L 07/13/21 03:03 Intake & Output 07/12/21 07/13/21 07/13/21 18:59 06:59 18:59 Intake Total 880 50 240 Output Total 1025 1750 Balance -145 -1700 240 Weight 132.8 kg Intake: IV 50 Sodium Chloride 0.9% 1, 50 000 ml @ 50 mls/hr IV . Q20H [facility] Rx#:[id number] Oral 880 240 Output: Urine 1025 1750 Other: Voiding Method Indwelling Catheter Indwelling Catheter - Labs CBC & Chem 7: 07/10/21 06:16 07/13/21 07:51 Labs: Abnormal Lab Results - Last 24 Hours (Table) 07/12/21 07/12/21 07/12/21 Range/Units 11:39 16:18 20:16 Sodium (137-145) mmol/L Carbon Dioxide (22-30) mmol/L BUN (9-20) mg/dL Creatinine (0.66-1.25) mg/dL Glucose (74-99) mg/dL POC Glucose (mg/dL) 107 H 112 H 130 H (75-99) mg/dL Calcium (8.4-10.2) mg/dL 07/13/21 07/13/21 Range/Units 05:55 07:51 Sodium 133 L (137-145) mmol/L Carbon Dioxide 18 L (22-30) mmol/L BUN 42 H (9-20) mg/dL Creatinine 2.42 H (0.66-1.25) mg/dL Glucose 106 H (74-99) mg/dL POC Glucose (mg/dL) 100 H (75-99) mg/dL Calcium 8.3 L (8.4-10.2) mg/dL Microbiology - Last 24 Hours (Table) 07/09/21 06:45 Blood Culture - Preliminary Blood No Growth after 72 hours 07/10/21 08:15 Blood Culture - Preliminary Blood No Growth after 48 hours 07/10/21 08:00 Blood Culture - Preliminary Blood No Growth after 48 hours 07/08/21 09:02 Blood Culture - Preliminary Blood No Growth after 96 hours 07/07/21 08:24 Blood Culture - Preliminary Blood No Growth after 120 hours
[2021-07-13 16:15] LABS: Glucose,Whole Blood 111 mg/dL (75-99)
[2021-07-13] MEDS: MULTIVITAMINS, THERA 1 EACH TAB PO SCH (17:57)
[2021-07-13 20:07] LABS: Glucose,Whole Blood 104 mg/dL (75-99)
[2021-07-13] MEDS: QUEtiapine 25 MG TAB PO SCH (20:18)
[2021-07-14 06:11] LABS: Glucose,Whole Blood 106 mg/dL (75-99)
[2021-07-14] MEDS: INSULIN ASPART (NovoLOG) 100 UNIT/ML VIAL SQ SCH ×4 (06:12→20:22)
[2021-07-14] MEDS: LEVOTHYROXINE 75 MCG TAB PO SCH (06:16)
[2021-07-14] MEDS: INSULIN DETEMIR (LEVEMIR) 100 UNIT/ML SYR SQ SCH ×2 (06:16→20:23)
[2021-07-14 08:24] LABS: Albumin CANCELED g/dL; Gamma Globulin CANCELED g/dL; Immunofixation, Serum Interp CANCELED
[2021-07-14 08:59] LABS: Calcium 8.3 mg/dL (8.4-10.2); Magnesium 1.7 mg/dL (1.6-2.3); Potassium 4.1 mmol/L (3.5-5.1)
--- NOTE | 2021-07-14 09:06 | P.PN ---
Subjective Patient is seen in follow-up for acute kidney injury. Patient received hemodialysis initially this admission due to uremia. Dialysis has been held since July 08. Nonoliguric. Renal function stable. Byrd catheter removed July 13. Good urine output. Oral intake is good. No chest pain or shortness of breath. Vital signs are stable. General: The patient appeared well nourished and normally developed. HEENT: Head exam is unremarkable. LUNGS: Breath sounds decreased. HEART: Rate and Rhythm are regular. ABDOMEN: Soft, no distention. EXTREMITITES: No edema. Objective - Vital Signs Vital signs: Vital Signs Temp 98.1 F 07/14/21 04:50 Pulse 81 07/14/21 04:50 Resp 19 07/14/21 04:50 BP 149/61 07/14/21 04:50 Pulse Ox 98 07/14/21 04:50 Intake & Output 07/13/21 07/14/21 07/14/21 18:59 06:59 18:59 Intake Total 600 Output Total 650 2300 Balance -50 -2300 Weight 139.5 kg Intake: Oral 600 Output: Urine 650 2300 Straight 1300 Other: Voiding Method Bedside Commode Bedside Commode Urinal Urinal # Voids 1 - Labs CBC & Chem 7: 07/10/21 06:16 07/14/21 07:34 Labs: Abnormal Lab Results - Last 24 Hours (Table) 07/13/21 07/13/21 07/13/21 Range/Units 07:51 11:37 16:14 Sodium 133 L (137-145) mmol/L Carbon Dioxide 18 L (22-30) mmol/L BUN 42 H (9-20) mg/dL Creatinine 2.42 H (0.66-1.25) mg/dL Glucose 106 H (74-99) mg/dL POC Glucose (mg/dL) 143 H 111 H (75-99) mg/dL Calcium 8.3 L (8.4-10.2) mg/dL 07/13/21 07/14/21 07/14/21 Range/Units 20:06 06:09 07:34 Sodium 132 L (137-145) mmol/L Carbon Dioxide 18 L (22-30) mmol/L BUN 43 H (9-20) mg/dL Creatinine 2.27 H (0.66-1.25) mg/dL Glucose 139 H (74-99) mg/dL POC Glucose (mg/dL) 104 H 106 H (75-99) mg/dL Calcium 8.3 L (8.4-10.2) mg/dL Microbiology - Last 24 Hours (Table) 07/09/21 06:45 Blood Culture - Preliminary Blood No Growth after 96 hours 07/10/21 08:15 Blood Culture - Preliminary Blood No Growth after 72 hours 07/10/21 08:00 Blood Culture - Preliminary Blood No Growth after 72 hours 07/08/21 09:02 Blood Culture - Preliminary Blood No Growth after 120 hours 07/07/21 08:24 Blood Culture - Final Blood No Growth after 144 hours Assessment and Plan Plan: Assessment: 1. Acute kidney injury secondary to ATN secondary to hypovolemia from diuretics and poor intake. Creatinine was 5.74 on admission without significant improvement with IV hydration. UA is fairly benign. No hydronephrosis noted on kidney ultrasound. Started on dialysis July 04 due to uremia - dialysis has been held since July 08. Serologies negative. Creatinine fairly stable at 2.27 today. 2. Acute encephalopathy due to uremia. Also had seizure. Brain CT negative. Improved. 3. Diabetes mellitus. 4. Anemia. Iron replete. On Aranesp. 5. Benign hypertension. Stable. 6. MSSA bacteremia possibly due to permacath. Permacath removed July 10. On antibiotics. Infectious disease following. 7. Hypokalemia from poor intake. Replaced. Better. 8. Urinary retention. Byrd catheter removed yesterday but he required 2 straight catheterizations last night due to retention. Plan: Remains off IV fluids. Oral intake is good. Continue to hold diuretics and losartan. Avoid nephrotoxins. Byrd catheter to be reinserted today. Add Flomax. Patient to follow-up with urology outpatient. Follow up in our office in 1 week post discharge.
[2021-07-14] MEDS: FOLIC ACID 1 MG TAB PO SCH ×4 (09:09→13:09)
[2021-07-14] MEDS: amLODIPine 5 MG TAB PO SCH (10:10)
[2021-07-14] MEDS: GABAPENTIN 100 MG CAP PO SCH ×3 (10:10→20:23)
[2021-07-14] MEDS: PANTOPRAZOLE 40 MG/10 ML VIAL IVP SCH ×2 (10:11→20:24)
[2021-07-14] MEDS: THIAMINE 100 MG/ML 2 ML VIAL IVP SCH (10:11)
[2021-07-14] MEDS: METOPROLOL TARTRATE 25 MG TAB PO SCH ×2 (10:12→20:23)
[2021-07-14] MEDS: hydrALAZINE HCL 25 MG TAB PO SCH ×3 (10:12→20:23)
[2021-07-14] MEDS: HEPARIN SODIUM,PORCINE/PF 5,000 UNIT/0.5 ML SYRINGE SQ SCH ×2 (10:12→20:22)
[2021-07-14] MEDS: TAMSULOSIN 0.4 MG CAP.ER.24H PO SCH (10:12)
[2021-07-14] MEDS: levETIRAcetam IV 500 MG in SODIUM CHLORIDE 0.9% 100 ML IVPB SCH (10:12)
[2021-07-14] MEDS: ASPIRIN 81 MG PO SCH (10:12)
[2021-07-14] MEDS ORDERED: LIDOCAINE URO-JET JELLY 2% 5 ML KIT URETHRAL ONE (10:53)
[2021-07-14 11:45] LABS: Glucose,Whole Blood 113 mg/dL (75-99)
--- NOTE | 2021-07-14 13:06 | PN ---
PROGRESS NOTE DATE OF SERVICE: 07/14/2021 REASON FOR FOLLOWUP: MSSA bacteremia secondary to dialysis catheter infection. INTERVAL HISTORY: The patient is afebrile. The patient is currently breathing comfortably, waiting for placement. No chest pain, shortness of breath or cough. No abdominal pain or diarrhea. PHYSICAL EXAMINATION: Blood pressure 156/70 with a pulse of 96, temperature 98.4. He is 93% on room air. General description is an elderly male lying in bed in no distress. RESPIRATORY SYSTEM: Unlabored breathing. Clear to auscultation anteriorly. HEART: S1, S2. Regular rate and rhythm. ABDOMEN: Soft. No tenderness. LABS: Creatinine is 2.27. Blood culture repeat has been negative. DIAGNOSTIC IMPRESSION AND PLAN: Patient with MSSA bacteremia. Source is likely dialysis catheter, which has been discontinued with the infected part removed. Follow-up blood culture negative. He will continue with cefazolin. Plan is for a total of 2 weeks of antibiotics from his negative blood culture and close outpatient followup. MMODL / IJN: [id number] /
[2021-07-14] MEDS: MULTIVITAMINS, THERA 1 EACH TAB PO SCH (13:07)
--- NOTE | 2021-07-14 13:28 | P.GSCN ---
History of Present Illness Consult date: 07/14/21 Reason for Consult: Urinary retention History of present illness: 71 yo male admitted to the hospital with Acute kidney injury secondary to ATN Creatinine was 5.74 on admission, he has required hemodialysis. On presentation he had a Byrd catheter placed, subsequent the Byrd catheter was removed yesterday had persistently elevated PVR in the 600-700 mL range. He does have some obstructive urinary symptoms at baseline, but indicated he voids to completion. No previous history of urinary retention, recurrent UTI, or gross hematuria. No family history of prostate cancer. He denied any medication for his urinary symptoms, but has been started on Flomax during this admission. Review of Systems - Constitutional Denies fever, Denies weight loss - Cardiovascular Denies chest pain, Denies shortness of breath - Respiratory Denies cough, Denies 7 - Gastrointestinal Reports as per HPI - Genitourinary Reports urinary retention, Denies hematuria, Denies kidney stones - Neurological Denies headaches, Denies syncope Past Medical History Past Medical History: Atrial Fibrillation, Diabetes Mellitus, GI Bleed, Hyp erlipidemia, Hypertension, Skin Disorder, Sleep Apnea/CPAP/BIPAP, Thyroid Disorder Additional Past Medical History / Comment(s): diverticulitis, hx colon polyp, gout, little bumps and dry skin, neuropathy patty legs and feet, hx anemia History of Any Multi-Drug Resistant Organisms: None Reported Past Surgical History: Bariatric Surgery, Cardiac Ablation, Hernia Repair, Joint Replacement Additional Past Surgical History / Comment(s): Boils lanced on back. Blephoplasty. left hip replacement, [id number] Past Anesthesia/Blood Transfusion Reactions: Previous Problems w/ Anesthesia Additional Past Anesthesia/Blood Transfusion Reaction / Comm: woke up during procedure Past Psychological History: No Psychological Hx Reported Smoking Status: Former smoker Past Alcohol Use History: Occasional Past Drug Use History: None Reported - Past Family History Father Family Medical History: Cancer Additional Family Medical History / Comment(s): lung Mother Family Medical History: No Reported History Additional Family Medical History / Comment(s): Mother passed at age 62 due to an auto accident. Brother(s) Family Medical History: Cancer Additional Family Medical History / Comment(s): throat Sister(s) Family Medical History: Cancer Additional Family Medical History / Comment(s): lymphoma Medications and Allergies Home Medications Medication Instructions Recorded Confirmed Type Furosemide [Lasix] 80 mg PO BID 01/10/19 07/01/21 History Gabapentin [Neurontin] 800 mg PO QID 01/10/19 07/01/21 History Insulin Glargine,Hum.rec.anlog 25 unit SQ Q12H 01/10/19 07/01/21 History [Lantus Solostar Pen] Levothyroxine Sodium [Synthroid] 75 mcg PO DAILY 01/10/19 07/01/21 History Allopurinol [Zyloprim] 200 mg PO DAILY 09/11/20 07/01/21 History Alogliptin Benzoate [Alogliptin] 25 mg PO DAILY 09/11/20 07/01/21 History Ferrous Sulfate [Feosol] 325 mg PO DAILY 09/11/20 07/01/21 History Losartan-Hctz 50-12.5 mg [Hyzaar 1 tab PO DAILY 09/11/20 07/01/21 History 50-12.5] Pravastatin Sodium [Pravachol] 20 mg PO HS 09/11/20 07/01/21 History Ammonium Lactate Cream [Lac-Hydrin 1 applic TOPICAL BID PRN 07/01/21 07/01/21 History 12% Cream] Clindamycin Lotion 1% 1 applic TOPICAL BID PRN 07/01/21 07/01/21 History Dextrose Chew [Glucose Chew Tab] 16 gm PO DAILY PRN 07/01/21 07/01/21 History Fluticasone Nasal [place] [Flonase 2 spray EA NOSTRIL DAILY PRN 07/01/21 07/01/21 History Nasal [place]] Insulin Glargine,Hum.rec.anlog See Protocol SQ Q12H PRN 07/01/21 07/01/21 History [Lantus Solostar Pen] Psyllium Husk (with Sugar) 1 tsp PO DAILY PRN 07/01/21 07/01/21 History [Metamucil Powder] Sildenafil Citrate 50 mg PO DAILY PRN 07/01/21 07/01/21 History Testosterone [Androgel 1.62% Gel 2 pump TOPICAL DAILY 07/01/21 07/01/21 History Pump] Tamsulosin [Flomax] 0.4 mg PO DAILY #30 cap 07/14/21 Rx Allergies Allergy/AdvReac Type Severity Reaction Status Date / Time No Known Allergies Allergy Verified 07/01/21 17:44 Surgical - Exam Vital Signs Temp Pulse Resp BP Pulse Ox 98.0 F 61 20 164/94 97 07/01/21 16:11 07/01/21 16:11 07/01/21 16:11 07/01/21 16:11 07/01/21 16:11 - General well developed, well nourished, no distress, no pain - Eyes PERRL, normal ocular movement - ENT normal nares, normal mucosa - Respiratory normal expansion, normal respiratory effort - Abdomen Abdomen: soft, non tender - Psychiatric oriented to time, oriented to person, oriented to place Results - Labs 07/10/21 06:16 07/14/21 07:34 Abnormal Lab Results - Last 24 Hours (Table) 07/13/21 07/13/21 07/14/21 Range/Units 16:14 20:06 06:09 Sodium (137-145) mmol/L Carbon Dioxide (22-30) mmol/L BUN (9-20) mg/dL Creatinine (0.66-1.25) mg/dL Glucose (74-99) mg/dL POC Glucose (mg/dL) 111 H 104 H 106 H (75-99) mg/dL Calcium (8.4-10.2) mg/dL 07/14/21 07/14/21 Range/Units 07:34 11:43 Sodium 132 L (137-145) mmol/L Carbon Dioxide 18 L (22-30) mmol/L BUN 43 H (9-20) mg/dL Creatinine 2.27 H (0.66-1.25) mg/dL Glucose 139 H (74-99) mg/dL POC Glucose (mg/dL) 113 H (75-99) mg/dL Calcium 8.3 L (8.4-10.2) mg/dL Microbiology - Last 24 Hours (Table) 07/09/21 06:45 Blood Culture - Preliminary Blood No Growth after 120 hours 07/10/21 08:00 Blood Culture - Preliminary Blood No Growth after 96 hours 07/10/21 08:15 Blood Culture - Preliminary Blood No Growth after 96 hours 07/08/21 09:02 Blood Culture - Final Blood No Growth after 144 hours 07/07/21 08:24 Blood Culture - Final Blood No Growth after 144 hours Diabetes panel 07/14/21 Range/Units 07:34 Sodium 132 L (137-145) mmol/L Potassium 4.1 (3.5-5.1) mmol/L Chloride 106 (98-107) mmol/L Carbon Dioxide 18 L (22-30) mmol/L BUN 43 H (9-20) mg/dL Creatinine 2.27 H (0.66-1.25) mg/dL Glucose 139 H (74-99) mg/dL Calcium 8.3 L (8.4-10.2) mg/dL Calcium panel 07/14/21 Range/Units 07:34 Calcium 8.3 L (8.4-10.2) mg/dL Pituitary panel 07/14/21 Range/Units 07:34 Sodium 132 L (137-145) mmol/L Potassium 4.1 (3.5-5.1) mmol/L Chloride 106 (98-107) mmol/L Carbon Dioxide 18 L (22-30) mmol/L BUN 43 H (9-20) mg/dL Creatinine 2.27 H (0.66-1.25) mg/dL Glucose 139 H (74-99) mg/dL Calcium 8.3 L (8.4-10.2) mg/dL Adrenal panel 07/14/21 Range/Units 07:34 Sodium 132 L (137-145) mmol/L Potassium 4.1 (3.5-5.1) mmol/L Chloride 106 (98-107) mmol/L Carbon Dioxide 18 L (22-30) mmol/L BUN 43 H (9-20) mg/dL Creatinine 2.27 H (0.66-1.25) mg/dL Glucose 139 H (74-99) mg/dL Calcium 8.3 L (8.4-10.2) mg/dL Assessment and Plan Assessment: 68-year-old male admitted to the hospital with acute kidney injury. I discussed with her for urinary retention, catheter was removed yesterday, has had persistently elevated PVR in the 600-700 mL range. Does have some obstructive urinary symptoms at baseline. -Reinsert the Byrd, can follow-up as an outpatient in 7-10 days for trial of void -Continue Flomax, patient will be discharged home on Flomax
--- NOTE | 2021-07-14 13:50 | P.PN ---
Subjective Progress Note Date: 07/14/21 I am seeing the patient for a follow-up for neurological management. Please refer to Dr. Kennedy notes for further details. Patient seen at bedside and he is accompanied by his and the patient stated that he's doing drastically better compared that since I saw him more than a week ago. No further seizure-like activity is noted by the patient's . Objective - Vital Signs Vital signs: Vital Signs Temp 98.3 F 07/14/21 12:00 Pulse 78 07/14/21 12:00 Resp 18 07/14/21 12:00 BP 125/57 07/14/21 12:00 Pulse Ox 97 07/14/21 12:00 Intake & Output 07/13/21 07/14/21 07/14/21 18:59 06:59 18:59 Intake Total 600 360 Output Total 650 2300 Balance -50 -2300 360 Weight 139.5 kg 139.5 kg Intake: Oral 600 360 Output: Urine 650 2300 Straight 1300 Other: Voiding Method Bedside Commode Bedside Commode Urinal Urinal # Voids 1 - Exam GENERAL: The patient is lying in bed and does not seem in acute distress. HENT: Supple neck and no nuchal rigidity. NEUROLOGICAL: Higher mental function: The patient is awake, alert, oriented to self, place and time. Patient is following commands. No aphasia and no neglect. Cranial nerves: The pupils are round, equal and reactive to light and accommodation. Visual viveros are full to confrontation throughout. Extraocular movement is intact no nystagmus is noted. Facial sensation is normal to touch throughout. The facial strength is slight left nasolabial flattening (per that is old), otherwise is normal throughout. . Tongue is midline and moved [id number] without any difficulty. No dysarthria is noted. Shoulder shrug is normal bilaterally. Motor: Gait is deferred. The strength is 5 over 5 throughout. Normal tone and bulk. Cerebellum: Normal finger to nose heel to jiménez bilaterally. Sensation: Sensation is normal to touch throughout. Reflexes (right/left): 2+ throughout uppers while lowers are 1+. Plantars are downgoing bilaterally. WORK-UP: White blood cell was present as 8.4 thousand and on presentation 7.0 Hemoglobin A1c is 5.7. Serum folate is 4.7 which is considered the low normal TSH is 2.390 which is within normal limits. Plasma lactic acid vein is 3.1 on 07/05/2021 and the repeated is 4.7. MRI Brain w/o: Is reported as age-related atrophic and chronic small vessel ischemic change. No acute intracranial process at this time. Cardiac duplex was reported as no hemodynamic significant stenosis of the proximal internal carotid arteries by Doppler criteria, and direct measurement carotid stenosis. Cardiac arrhythmias noted. CT of the head is reported as cerebral atrophy. No acute intracranial abnorma lity. The echo was reported as moderate concentric left hypertrophy. Ejection fraction of 55-60%. Left atrium is severely dilated. Moderate mitral annular calcification present. CT of the head on 07/05/2020 was reported as negative unenhanced head CT scan. No adverse change compared to old exam. EEG was performed 07/05/2021, which revealed background slowing, severe degree consistent with encephalopathy. No focal slowing or epileptiform activity. - Labs CBC & Chem 7: 07/10/21 06:16 07/14/21 07:34 Labs: Abnormal Lab Results - Last 24 Hours (Table) 07/13/21 07/13/21 07/14/21 Range/Units 16:14 20:06 06:09 Sodium (137-145) mmol/L Carbon Dioxide (22-30) mmol/L BUN (9-20) mg/dL Creatinine (0.66-1.25) mg/dL Glucose (74-99) mg/dL POC Glucose (mg/dL) 111 H 104 H 106 H (75-99) mg/dL Calcium (8.4-10.2) mg/dL 07/14/21 07/14/21 Range/Units 07:34 11:43 Sodium 132 L (137-145) mmol/L Carbon Dioxide 18 L (22-30) mmol/L BUN 43 H (9-20) mg/dL Creatinine 2.27 H (0.66-1.25) mg/dL Glucose 139 H (74-99) mg/dL POC Glucose (mg/dL) 113 H (75-99) mg/dL Calcium 8.3 L (8.4-10.2) mg/dL Microbiology - Last 24 Hours (Table) 07/09/21 06:45 Blood Culture - Preliminary Blood No Growth after 120 hours 07/10/21 08:00 Blood Culture - Preliminary Blood No Growth after 96 hours 07/10/21 08:15 Blood Culture - Preliminary Blood No Growth after 96 hours 07/08/21 09:02 Blood Culture - Final Blood No Growth after 144 hours 07/07/21 08:24 Blood Culture - Final Blood No Growth after 144 hours Assessment and Plan Assessment: * Unresponsiveness with foaming around the mouth. Possible seizure, exact cause is uncertain. Possible from metabolic dysfunction, or alcohol withdrawal.withdrawal (last drink was 1 week ago. Which seem a bit prolonged). Patient does not have hx of seizure and current MRI Brain was negative. ---patient is back to baseline. 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 On examination seems normal. No IV tpa since outside window (symptoms onset was this Past Tuesday). Do not know if patient truly had expressive aphasia. Possibly he had encephalopathy from uremia. Cannot rule out TIA but I feel more due to uremic encephalopathy.--mentation and speech improved. * Mild Myoclonus due to underlying metabolic abnormality. * Atrial fibrillation s/p abalation 20 years ago and he is not on any anticoagulation since he had history of GI bleed in the past. * Low normal folic acid is 4.7 (normal is 4.4-31) * Acute kidney insufficiency--trending down * Mild transaminitis (AST 79. butl ALT 35)--resolved * Diabetes mellitus * Significant alcohol use Plan: * On Keppra 500mg IV daily. I will switch to PO. I notified the patient and his that the the MRI the brain was negative and the EEG did not show any seizures or epileptiform discharges. The patient has would like to continue the antiepileptic drug and await he follows-up with a neurologist as an outpatient and the will consider tapering as an outpatient if needed. * On seizure precaution and seizure pads. * Continue every 4 neuro checks * Place on the IV thiamine 100 mg daily and change to PO. * Infection disease is on board. * PT, OT and SAFETY LEADER are consulted * Because a low normal folic acid placed on folic acid 1 mg daily. His current folic acid is 4.7. * On cardiac monitoring * Cardiology is on board and her the nurse she stated cardiology recommended the 30 Day Holter monitor. * We'll defer the rest of the medical management to the primary team. * Upon discharge, the patient needs to follow-up with a neurologist within 1-2 weeks as outpatient. The plan is discussed with the patient's (who is at bedside). There is no further neurological work-up. Neurology will sign off. Please reconsult if needed. Kem Vega MD Neuro-Hospitalist Time with Patient: Less than 30
[2021-07-14 16:28] LABS: Glucose,Whole Blood 125 mg/dL (75-99)
[2021-07-14 20:01] LABS: Glucose,Whole Blood 153 mg/dL (75-99)
[2021-07-14] MEDS: QUEtiapine 25 MG TAB PO SCH (20:23)
--- NOTE | 2021-07-14 22:09 | P.PN ---
Subjective Progress Note Date: 07/14/21 Patient is a pleasant 71-year-old male is admitted for acute failure. Patient doesn't have any significant improvement patient acute renal failure is blue to be secondary to medications including NOVA inhibitor and diuretic therapy. Patient does have asterixis and uremic symptoms because of which dialysis catheter is being placed and patient will undergo hemodialysis tomorrow patient is still urinating okay. Patient has a fully catheter. Patient had an echocardiogram evaluated because of mild elevation of troponins which is probably secondary to renal failure no further intervention is being planned at this time as he perspective neurology evaluated the patient because of concern of aphasia although patient appears to have confusion more than aphasia patient does have some chronic microvascular ischemic changes no acute stroke was evident on MRI patient does have microcytosis and anemia probably B12 folate deficiency labs of which were already ordered. The is still having occasional confusional episodes secondary to uremic encephalopathy. 07/04/2021 Patient is evaluated today the bedside status post hemodialysis. He is confused and is not responding to questions appropriately. He is wearing a CPAP currently. He does have some asterixis present at the time of my assessment which can be seen with encephalopathy. Labs reviewed today include a hemoglobin of 7.4, MCV 107.3, MCH 35.2, his platelets are 77. Potassium is 3.7, chloride 108, BUN 69, creatinine 3.72, which has improved with dialysis. His mag is 1.9. Patient is afebrile, blood pressure 162/70. He is 97% on room air. Most recent chest x-ray is negative for acute cardiopulmonary disease. Folate is within normal limits at 4.7 which is just on the lower cusp. Patient is being followed closely by nephrology, plan is for repeat dialysis treatment tomorrow. Aranesp was added. Hydralazine has also been added for blood pressures. 07/05/2021 Patient throughout the evening had a possible seizure episode. He was found to be postictal after telemetry notified RN that he was having a tachycardic episode. Patient is found to be unresponsive to noxious and physical stimuli, he had foaming at the mouth. A repeat brain CT was ordered which was negative and no change compared to old exam. A urinalysis was completed from Duffy catheter which revealed +1 protein, trace ketones, large blood, moderate leukoc yte esterase and 47 WBCs. It was negative for nitrates. Patient was started on IV Rocephin. Lactic acid was 3.1, 4.7 and is now 5.3. Despite kidney function and fluid overload, patient is now on 0.9 normal saline at 100 mL per hour. Additional labs include a hemoglobin of 8.5, platelet count of 84, CO2 19, chloride 109, BUN 71, creatinine 4.05. Magnesium is 1.7 we will replace per protocol. Troponins negative. Prolactin is elevated at 24.5. Per at the bedside patient does drink 2 large-sized bottles of Chardonnay daily if not more. Hepatitis B surface antigen and antibody were nonreactive. Vital signs include temperature 99.3, heart rate 92, blood pressure 127/63 and 95% on 3 L nasal cannula. Patient is unresponsive to sternal rub, however his pupils were reactive and equal size. An EEG is currently pending from neurology. Patient was started on IV Keppra in the meantime for possible seizure activity. 07/06/2021 Patient is evaluated the bedside, he is resting in bed. He is more alert than she however he is still unable to respond verbally. He does have spontaneous eye opening and will want, pupils are still reactive and equal. Patient's lactic has improved is on normal at 1.8, BUN is 64, creatinine 3.32. Potassium today is 3.7, magnesium 1.9, we'll replace. Additionally has AST is 377, AST 61, which is trending upwards. White blood cell count is 14.7, hemoglobin 7.5. There are no signs of blood from the rectum. Vitals reviewed to include a temp of 97.9, heart rate of 104, blood pressure 115/71, 96 on room air. Prior RN patient's heart rate has been in the 120s throughout the morning. Patient was another throughout the evening for unresponsiveness. There was ammonia level ordered and rectal lactulose was given. In addition patient had another liter bolus. We will repeat ammonia level today, and check an abdomen ultrasound. EEG was negative for output for activity. Blood cultures were positive for staph aureus, microsensitivities are pending. Antibiotics have been changed to IV cefazolin from ID. Indwelling catheter remains, urine culture is pending. Patient is unable to swallow his oral medications at this time, we will monitor closely. Due to his history of chronic alcohol abuse and elevated liver enzymes as well as a drop in hemoglobin we will change oral Pepcid to IVP Protonix. 07/07/2021 Patient's liver enzymes are coming down patient had ultrasound of the liver which showed multiple lesions highly suspicious for metastatic disease. Patient will need CT with contrast or MRI with contrast which need to be coordinated with hemodialysis patient will not receive modalities is tomorrow presently receiving hemodialysis at this time. We'll discuss with nephrology regarding timing of ordering these tests. I'll also obtain alpha-fetoprotein. Patient's repeat blood cultures so far are negative. His more awake today less lethargic. 07/08/2021 Patient is evaluated at the bedside today, he is alert and oriented 1, he states that he wants to go home with his . Patient is alert, appropriate he has spontaneous eye opening, there is no obvious neurological deficits, his pupils are equal and reactive, there is no focal weakness left versus right. Patient did undergo an abdominal MRI today, which was correlated for underlying cirrhosis. There is hepatosplenomegaly. There is nodularity seen on ultrasound which may correspond to regenerating liver nodules. The exam is markedly limited technically. Cholelithiasis. There is no evidence of retroperitoneal adenopathy. There is no adrenal mass. There is no hydronephrosis. There is a large cystic focus associated with the left kidney upper pole a 0.4 cm and a cortical cyst also suspect that the lower pole. There is no definite effusion in the lung bases. BUN is 40, creatinine 2.56, potassium 3.2. Patient will be replaced per protocol and also is receiving dialysis today. Patient would be appropriate this time for PT OT as well as speech evaluation. Hemoglobin is 6.7 today patient will receive 1 unit of PRBC, platelet count is 79, in which he has been on subcu heparin. Iron studies were within normal limits. 07/09/21 Patient is evaluated resting in the bed, PT OT on board. He did pass a speech evaluation is on a chopped dysphagia 3 diet can advance to regular as tolerated. Patient did have some increased confusion and agitation throughout the evening and had to receive a dose of when necessary Ativan. We'll discontinue Haldol and Ativan we will use Seroquel as needed at bedtime. BUN today is 42, creatinine 2.29. Patient's hemoglobin is 7.8 status post 1 unit PRBCs. Platelets are 90. We will resume subcu heparin. Patient is on Aranesp every 7 days. Patient still has a indwelling catheter. Blood cultures have remained negative for the next 48 hours, once cultures have been negative for 72 hours we will start discharge planning to rehab. Patient is afebrile, heart rate 94, blood pressure 146/73 and he is 96% on room air. Patient is alert 3 the time of my exam, expresses a desire to go home. 07/10/2021 Patient is seen and evaluated in follow-up this morning with at the bedside. Patient continues to have intermittent periods of confusion and sleepiness and is maintained on low-dose Seroquel 12.5 mg as needed at night for agitation. Per patient is more alert today although continues to be extremely weak. Discussion is being had about discharged to [facility] once stabilized. Medical consultations including nephrology and infectious disease following closely. Patient is maintained on IV antibiotics in the form of cefazolin with most recent repeat blood cultures remaining negative thus far. Patient has a right chest wall permacath for dialysis that is being discontinued today and nephrology following closely planning on daily lab draws to closely monitor electrolytes and kidney functions with the possibility of discontinuing dialysis. Patient continues on gentle IV hydration in the form of normal saline per nephrology recommendations. Also recommend maintaining aspiration precautions with head of the bed elevated 30-45 at all times and supervision with meals and continue dysphagia 3 chopped diet. Patient is maintained on Accu-Cheks before meals and at bedtime along with sliding scale and long-acting insulin and will continue. 07/11/2021 Patient seen on follow-up he is sitting up in the chair this morning quite at bedside. Dialysis port has been removed as he will not require further dialysis at this time, nephrology is following. He is quite weak has evidence of extensive muscle wasting, appears malnourished. Labs today show potassium 3.2, creatinine 2.37, glucose 153, sodium 139. He is afebrile, blood pressure stable 1074/55, heart rate is in 70s. He is saturating above 90% on room air. Potassium is being replaced, at bedside asking questions which were answered. 07/12/2021 Patient seen on follow-up resting in bed comfortably, he is alert, answering questions appropriately. Dialysis catheter has been removed he is no longer being dialyzed, creatinine is 2.48 today. He is afebrile, hemodynamically stable saturating above 90% on room air. Making urine, 1200 mL out today from Duffy catheter. Oral intake is getting better, repeat blood cultures from 07/10 showing no growth at 48 hours. He is receiving antimicrobial therapy with Ancef. Blood sugars controlled. 07/13/2021 Patient is seen and evaluated and follow-up sitting up in the chair with at the bedside. Right chest wall dressings are dry and intact with recent hemodialysis catheter removed. Patient being closely monitored by nephrology a nd patient is off IV Lasix and IV fluids being discontinued. Patient also continues on IV cefazolin and cultures remain negative. Patient is requesting for indwelling Duffy catheter be removed and will attempt a trial void as this was discussed with nephrology and will monitor closely for any signs of retention with post-void residuals. 07/14/2021 Patient is seen and evaluated this morning. Attempted trial void after removing indwelling duffy with post void residuals being closely monitored and patient continued to retain. Patient denied any pain or difficulty voiding and urology has been consulted. Recommend indwelling duffy catheter to continue. Initiate flomax and nephrology continues to follow closely. Patient received midline and being arranged for outpatient IV antibiotic therapy with infectious disease following closely. Labs: Sodium is 132 with a potassium of 4.1, BUN is 43 and creatinine is 2.27, magnesium is 1.7, Accu-Cheks in the low 100s Review of systems: Constitutional: No reports of fatigue, no reports of fever, or chills Cardiovascular: No reports of chest pain or palpitations Respiratory: No reports of shortness of breath or cough GI: No reports of nausea, vomiting, or diarrhea : having urinary retention, status post indwelling Duffy catheter being carmita stevo, requiring duffy replacement Neurovascular: reports of generalized weakness All medications have been reviewed Active Medications Acetaminophen (Acetaminophen Tab 325 Mg Tab) 325 mg PO Q6HR PRN PRN Reason: Fever and/ or Pain Amlodipine Besylate (Amlodipine 5 Mg Tab) 5 mg PO DAILY [facility] Last Admin: 07/14/21 10:10 Dose: 5 mg Documented by: Aspirin (Aspirin 81 Mg) 81 mg PO DAILY [facility] Last Admin: 07/14/21 10:12 Dose: 81 mg Documented by: Darbepoetin Victor M (Darbepoetin Victor M 40 Mcg/0.4 Ml Syringe) 40 mcg SQ Q7D [facility] Last Admin: 07/11/21 17:24 Dose: 40 mcg Documented by: Folic Acid (Folic Acid 1 Mg Tab) 1 mg PO DAILY [facility] Last Admin: 07/14/21 09:09 Dose: 1 mg Documented by: Folic Acid (Folic Acid 1 Mg Tab) 1 mg PO DAILY@1200 [facility] Last Admin: 07/14/21 13:09 Dose: 1 mg Documented by: Gabapentin (Gabapentin 100 Mg Cap) 100 mg PO TID [facility] Last Admin: 07/14/21 20:23 Dose: 100 mg Documented by: Heparin Sodium (Porcine) (Heparin Sodium,Porcine/Pf 5,000 Unit/0.5 Ml Syringe) 5,000 unit SQ Q12HR [facility] Last Admin: 07/14/21 20:22 Dose: 5,000 unit Documented by: Hydralazine HCl (Hydralazine Hcl 25 Mg Tab) 25 mg PO TID [facility] Last Admin: 07/14/21 20:23 Dose: 25 mg Documented by: Hydralazine HCl (Hydralazine Hcl 20 Mg/Ml 1 Ml Vial) 5 mg IVP Q6HR PRN PRN Reason: Blood Pressure - High Last Admin: 07/06/21 15:58 Dose: 5 mg Documented by: Cefazolin Sodium 2 gm/ Sodium (Chloride) 50 mls @ 100 mls/hr IVPB Q12HR [facility] Last Admin: 07/14/21 20:22 Dose: 100 mls/hr Documented by: Insulin Aspart (Insulin Aspart (Novolog) 100 Unit/Ml Vial) 0 unit SQ ACHS [facility]; Protocol Last Admin: 07/14/21 20:22 Dose: 1 unit Documented by: Insulin Detemir (Insulin Detemir (Levemir) 100 Unit/Ml Syr) 10 unit SQ BID@0700,2100 [facility] Last Admin: 07/14/21 20:23 Dose: 10 unit Documented by: Levetiracetam (Levetiracetam 500 Mg Tab) 500 mg PO DAILY [facility] Levothyroxine Sodium (Levothyroxine 75 Mcg Tab) 75 mcg PO DAILY@0630 [facility] Last Admin: 07/14/21 06:16 Dose: 75 mcg Documented by: Lorazepam (Lorazepam 2 Mg/Ml Inj) 0.5 mg IV Q2HR PRN PRN Reason: CIWA 8 or 9 Last Admin: 07/09/21 05:48 Dose: 0.5 mg Documented by: Lorazepam (Lorazepam 2 Mg/Ml Inj) 0.5 mg IV Q1HR PRN PRN Reason: CIWA 10 to 15 Metoprolol Tartrate (Metoprolol Tartrate 25 Mg Tab) 25 mg PO BID [facility] Last Admin: 07/14/21 20:23 Dose: 25 mg Documented by: Miscellaneous Information (Potassium Replacement Protocol 1 Each Misc) 1 each MISCELLANE DAILY PRN; Protocol PRN Reason: Per Protocol Miscellaneous Information (Magnesium Replacement Protocol 1 Each Misc) 1 each MISCELLANE DAILY PRN; Protocol PRN Reason: Per Protocol Multivitamins (Multivitamins, Thera 1 Each Tab) 1 each PO DAILY@1200 [facility] Last Admin: 07/14/21 13:07 Dose: 1 each Documented by: Naloxone HCl (Naloxone 0.4 Mg/Ml 1 Ml Vial) 0.2 mg IV Q2M PRN PRN Reason: Opioid Reversal Pantoprazole Sodium (Pantoprazole 40 Mg/10 Ml Vial) 40 mg IVP BID [facility] Last Admin: 07/14/21 20:24 Dose: 40 mg Documented by: Psyllium Hydrophilic Mucilloid (Psyllium Husk 100% 6 Gm Packet) 6 gm PO DAILY PRN PRN Reason: Constipation Quetiapine Fumarate (Quetiapine 25 Mg Tab) 12.5 mg PO HS [facility] Last Admin: 07/14/21 20:23 Dose: 12.5 mg Documented by: Tamsulosin HCl (Tamsulosin 0.4 Mg Cap.Er.24h) 0.4 mg PO -BRKFST [facility] Last Admin: 07/14/21 10:12 Dose: 0.4 mg Documented by: Thiamine HCl (Thiamine 100 Mg Tab) 100 mg PO DAILY [facility] PHYSICAL EXAMINATION: GENERAL: The patient is awake and alert at this time and is oriented 3. Periodically lethargic. Temp is 98.4F, pulse is 96, respirations are 22, blood pressure is 156/70, oxygen saturation is 96% on room air. HEENT: Pupils are round and equally reacting to light. EOMI. No scleral icterus. No conjunctival pallor. Normocephalic, atraumatic. No pharyngeal erythema. No thyromegaly. CARDIOVASCULAR: S1, S2 are muffled PULMONARY: Diminished breath sounds bilaterally with some scattered rhonchi. ABDOMEN: Soft, obese, nontender, nondistended, normoactive bowel sounds. No palpable organomegaly. MUSCULOSKELETAL: No joint swelling or deformity. EXTREMITIES: No cyanosis, clubbing, mild ankle edema worse on the right NEUROLOGICAL: Gross neurological does not reveal any focal deficits, there is generalized weakness. Hand grasp is equal. SKIN: No rashes. Assessment and plan: Assessment: -Altered mental status secondary to toxic and Metabolic encephalopathy related to uremia, no evidence of CVA/TIA, possibly due to an acute alcohol withdrawal, possible acute alcohol withdrawal seizure, possibly a component of bacteremia and hospital associated delirium, improved -Elevated liver enzymes and elevated ammonia, patient has a history of chronic alcohol abuse, ammonia normalized after treatment with lactulose, abdominal ultrasound and MRI showed nodularity consistant with liver cirrhosis. Alpha fetoprotein WNL. -Possible UTI with sepsis ruled out, not present on admission, not related to IDC, urine culture is negative. -MSSA bacteremia s/p placement of IJ hemodialysis catheter, with cultures remaining negative patient is continued on IV cefazolin with infectious disease following -Possible acute TIA, presented with a questionable history of expressive aphasia. imaging does not show evidence of an acute cerebrovascular accident. -Acute Kidney Injury, most likely acute tubular necrosis, s/p hemodialysis -Possible seizure, also possibly alcohol withdrawal seizure as patient does drink 2 large bottles of Chardonnay daily however last drink was over a week ago per at the bedside. -Diabetes mellitus type 2 -Diabetic peripheral neuropathy Possible B12/folate deficiency -pancytopenia and macrocytosis -Anemia, with bicytopenia -Elevated troponin most likely a leak related to acute kidney injury Possible acute on chronic congestive heart failure, diastolic, current EF 55- 60% -GI prophylaxis -DVT prophylaxis -Full code Plan: Recommend continue with current medications, management, and symptomatic treatment. Patient recently had hemodialysis catheter removed with right chest wall surgical dressings are dry and intact and nephrology following closely. Creatinine trending down and currently not requiring dialysis. Patient had indwelling Duffy catheter removed yesterday although continued to have retent ion and required indwelling duffy catheter replacement and Urology evaluated the patient. Patient started on Flomax and will have close outpatient follow up with urology. Case management and social work following closely working on placement at possible [facility] or [facility] once a bed becomes available. Patient continues on IV antibiotics in the form of cefazolin with infectious disease following closely. Repeat blood cultures have remained negative thus far. Recommend to continue with Accu-Cheks before meals and at bedtime and sliding scale along with long-acting insulin. Plan is for possible ECF placement once bed is available. Possible discharge in 24 hours. Due to multiple complex medical issues, prognosis is guarded. Will repeat labs in continue to monitor closely. Objective - Vital Signs Vital signs: Vital Signs Temp 98.1 F 07/14/21 04:50 Pulse 81 07/14/21 04:50 Resp 19 07/14/21 04:50 BP 149/61 07/14/21 04:50 Pulse Ox 98 07/14/21 04:50 Intake & Output 07/13/21 07/14/21 07/14/21 18:59 06:59 18:59 Intake Total 600 Output Total 650 2300 Balance -50 -2300 Weight 139.5 kg Intake: Oral 600 Output: Urine 650 2300 Straight 1300 Other: Voiding Method Bedside Commode Bedside Commode Urinal Urinal # Voids 1 - Labs CBC & Chem 7: 07/10/21 06:16 07/14/21 07:34 Labs: Abnormal Lab Results - Last 24 Hours (Table) 07/13/21 07/13/21 07/13/21 Range/Units 07:51 11:37 16:14 Sodium 133 L (137-145) mmol/L Carbon Dioxide 18 L (22-30) mmol/L BUN 42 H (9-20) mg/dL Creatinine 2.42 H (0.66-1.25) mg/dL Glucose 106 H (74-99) mg/dL POC Glucose (mg/dL) 143 H 111 H (75-99) mg/dL Calcium 8.3 L (8.4-10.2) mg/dL 07/13/21 07/14/21 Range/Units 20:06 06:09 Sodium (137-145) mmol/L Carbon Dioxide (22-30) mmol/L BUN (9-20) mg/dL Creatinine (0.66-1.25) mg/dL Glucose (74-99) mg/dL POC Glucose (mg/dL) 104 H 106 H (75-99) mg/dL Calcium (8.4-10.2) mg/dL Microbiology - Last 24 Hours (Table) 07/09/21 06:45 Blood Culture - Preliminary Blood No Growth after 96 hours 07/10/21 08:15 Blood Culture - Preliminary Blood No Growth after 72 hours 07/10/21 08:00 Blood Culture - Preliminary Blood No Growth after 72 hours 07/08/21 09:02 Blood Culture - Preliminary Blood No Growth after 120 hours 07/07/21 08:24 Blood Culture - Final Blood No Growth after 144 hours
[2021-07-15 06:26] LABS: Glucose,Whole Blood 96 mg/dL (75-99)
[2021-07-15] MEDS: INSULIN ASPART (NovoLOG) 100 UNIT/ML VIAL SQ SCH ×4 (06:27→20:37)
[2021-07-15] MEDS: INSULIN DETEMIR (LEVEMIR) 100 UNIT/ML SYR SQ SCH ×2 (06:30→20:36)
[2021-07-15] MEDS: LEVOTHYROXINE 75 MCG TAB PO SCH (06:30)
[2021-07-15] MEDS: FOLIC ACID 1 MG TAB PO SCH ×2 (09:37→12:30)
[2021-07-15] MEDS: METOPROLOL TARTRATE 25 MG TAB PO SCH ×2 (09:37→20:37)
[2021-07-15] MEDS: THIAMINE 100 MG TAB PO SCH (09:37)
[2021-07-15] MEDS: levETIRAcetam 500 MG TAB PO SCH (09:37)
[2021-07-15] MEDS: ASPIRIN 81 MG PO SCH (09:37)
[2021-07-15] MEDS: GABAPENTIN 100 MG CAP PO SCH ×3 (09:37→20:37)
[2021-07-15] MEDS: HEPARIN SODIUM,PORCINE/PF 5,000 UNIT/0.5 ML SYRINGE SQ SCH ×2 (09:38→20:35)
[2021-07-15] MEDS: hydrALAZINE HCL 25 MG TAB PO SCH ×3 (09:38→20:37)
[2021-07-15] MEDS: PANTOPRAZOLE 40 MG/10 ML VIAL IVP SCH ×2 (09:39→20:36)
[2021-07-15] MEDS: TAMSULOSIN 0.4 MG CAP.ER.24H PO SCH (09:39)
[2021-07-15] MEDS: amLODIPine 5 MG TAB PO SCH (09:39)
[2021-07-15 09:48] LABS: Calcium 8.3 mg/dL (8.4-10.2)
[2021-07-15] MEDS ORDERED: FUROSEMIDE 10 MG/ML 4 ML VIAL IV STA (09:56)
[2021-07-15] MEDS ORDERED: SODIUM BICARB 8.4% 50 ML SYR (1 MEQ/ML) IV STA (09:57)
--- NOTE | 2021-07-15 09:58 | P.PN ---
Subjective Patient is seen in follow-up for acute kidney injury. Patient received hemodialysis initially this admission due to uremia. Dialysis has been held since July 08. Nonoliguric. Renal function stable. Bydr catheter removed July 13 but had to be reinserted due to persistent urinary retention. Good urine output. Oral intake is good. No chest pain or shortness of breath. Vital signs are stable. General: The patient appeared well nourished and normally developed. HEENT: Head exam is unremarkable. LUNGS: Breath sounds decreased. HEART: Rate and Rhythm are regular. ABDOMEN: Soft, no distention. EXTREMITITES: 1+ edema. Objective - Vital Signs Vital signs: Vital Signs Temp 97.9 F 07/15/21 08:30 Pulse 82 07/15/21 08:30 Resp 20 07/15/21 08:30 BP 169/66 07/15/21 08:30 Pulse Ox 98 07/15/21 08:30 Intake & Output 07/14/21 07/15/21 07/15/21 18:59 06:59 18:59 Intake Total 1020 240 Output Total 700 750 Balance 320 -750 240 Weight 139.5 kg 146 kg Intake: Oral 1020 240 Output: Urine 700 750 Stool 0 Other: Voiding Method Indwelling Catheter Indwelling Catheter # Voids 0 # Bowel Movements 0 - Labs CBC & Chem 7: 07/10/21 06:16 07/15/21 09:07 Labs: Abnormal Lab Results - Last 24 Hours (Table) 07/14/21 07/14/21 07/14/21 Range/Units 11:43 16:26 19:59 Sodium (137-145) mmol/L Carbon Dioxide (22-30) mmol/L BUN (9-20) mg/dL Creatinine (0.66-1.25) mg/dL Glucose (74-99) mg/dL POC Glucose (mg/dL) 113 H 125 H 153 H (75-99) mg/dL Calcium (8.4-10.2) mg/dL 07/15/21 Range/Units 09:07 Sodium 132 L (137-145) mmol/L Carbon Dioxide 16 L (22-30) mmol/L BUN 48 H (9-20) mg/dL Creatinine 2.42 H (0.66-1.25) mg/dL Glucose 134 H (74-99) mg/dL POC Glucose (mg/dL) (75-99) mg/dL Calcium 8.3 L (8.4-10.2) mg/dL Microbiology - Last 24 Hours (Table) 07/09/21 06:45 Blood Culture - Preliminary Blood No Growth after 120 hours 07/10/21 08:00 Blood Culture - Preliminary Blood No Growth after 96 hours 07/10/21 08:15 Blood Culture - Preliminary Blood No Growth after 96 hours 07/08/21 09:02 Blood Culture - Final Blood No Growth after 144 hours Assessment and Plan Plan: Assessment: 1. Acute kidney injury secondary to ATN secondary to hypovolemia from diuretics and poor intake. Creatinine was 5.74 on admission without significant improvement with IV hydration. UA is fairly benign. No hydronephrosis noted on kidney ultrasound. Started on dialysis July 04 due to uremia - dialysis has been held since July 08. Serologies negative. Creatinine fairly stable at 2.42 today. 2. Acute encephalopathy due to uremia. Also had seizure. Brain CT negative. Improved. 3. Diabetes mellitus. 4. Anemia. Iron replete. On Aranesp. 5. Benign hypertension. Stable. 6. MSSA bacteremia possibly due to permacath. Permacath removed July 10. On antibiotics. Infectious disease following. 7. Hypokalemia from poor intake. Replaced. Better. 8. Urinary retention. Byrd catheter reinserted July 14. On Flomax. Seen by urology. 9. Volume overload. 10. Metabolic acidosis secondary to acute kidney injury. Plan: Remains off IV fluids. Oral intake is good. Lasix 40 mg IV once today. Start oral Lasix 40 mg once daily starting tomorrow. Avoid nephrotoxins. Add oral bicarbonate. Follow up in our office in 1 week post discharge. Repeat BMP and magnesium level 2-3 days postdischarge. Plan to go to rehab today.
[2021-07-15 10:10] LABS: Anisocytosis Slight; HCT 20.9 % (39.0-53.0); MCH 33.2 pg (25.0-35.0); MCHC 32.8 g/dL (31.0-37.0); MCV 101.2 fL (80.0-100.0); Macrocytosis Slight; Mean Platelet Volume 10.7; Platelet Count 144 k/uL (150-450); RBC 2.07 m/uL (4.30-5.90); RDW 16.6 % (11.5-15.5); WBC 5.7 k/uL (3.8-10.6)
[2021-07-15 10:19] LABS: HGB 6.9 gm/dL (13.0-17.5)
[2021-07-15 10:57] LABS: Band Neutrophils % 1 %; Basophils # (M) 0.06 k/uL (0-0.2); Eosinophils # (M) 0.06 k/uL (0-0.7); Lymphocytes # (M) 0.57 k/uL (1.0-4.8); Metamyelocytes # (M) 0.06 k/uL (0); Metamyelocytes % 1 %; Monocytes # (M) 0.46 k/uL (0-1.0); Myelocytes # (M) 0.06 k/uL (0); Myelocytes % 1 %; Neutrophils % (M) 80 %; Nucleated Red Blood Cells 0 /100 WBC (0-0); Total Cells Counted 200
[2021-07-15 10:59] LABS: Toxic Granulation Present
[2021-07-15 11:55] LABS: Glucose,Whole Blood 98 mg/dL (75-99)
[2021-07-15] MEDS: MULTIVITAMINS, THERA 1 EACH TAB PO SCH (12:30)
[2021-07-15] MEDS: SODIUM BICARBONATE TAB 650 MG TAB PO SCH ×2 (12:30→20:37)
--- NOTE | 2021-07-15 14:21 | PN ---
PROGRESS NOTE DATE OF SERVICE: 07/15/2021 REASON FOR FOLLOW UP: MSSA bacteremia. INTERVAL HISTORY: The patient is afebrile. He is currently breathing comfortably. Denies having any chest pain, shortness of breath or cough. No vomiting. No abdominal pain. No diarrhea. PHYSICAL EXAMINATION: Blood pressure is 121/60 with a pulse of 79, temperature 98.9. He is 97% on room air. General description is an elderly male lying in bed in no distress. Respiratory system: Unlabored breathing, clear to auscultation anteriorly. Heart S1, S2. Regular rate and rhythm. Abdomen soft, no tenderness. LABS: Blood culture repeat has been negative. DIAGNOSTIC IMPRESSION AND PLAN: Patient with MSSA bacteremia secondary to dialysis catheter infection, has been discontinued. Followup blood culture has been negative. Plan is for a total of 2 weeks from his negative blood cultures and close outpatient followup. MMODL / IJN: [id number] /
[2021-07-15 16:39] LABS: Glucose,Whole Blood 130 mg/dL (75-99)
--- NOTE | 2021-07-15 17:30 | P.PN ---
Subjective Progress Note Date: 07/15/21 Patient is a pleasant 71-year-old male is admitted for acute failure. Patient doesn't have any significant improvement patient acute renal failure is blue to be secondary to medications including NVOA inhibitor and diuretic therapy. Patient does have asterixis and uremic symptoms because of which dialysis catheter is being placed and patient will undergo hemodialysis tomorrow patient is still urinating okay. Patient has a fully catheter. Patient had an echocardiogram evaluated because of mild elevation of troponins which is probably secondary to renal failure no further intervention is being planned at this time as he perspective neurology evaluated the patient because of concern of aphasia although patient appears to have confusion more than aphasia patient does have some chronic microvascular ischemic changes no acute stroke was evident on MRI patient does have microcytosis and anemia probably B12 folate deficiency labs of which were already ordered. The is still having occasional confusional episodes secondary to uremic encephalopathy. 07/04/2021 Patient is evaluated today the bedside status post hemodialysis. He is confused and is not responding to questions appropriately. He is wearing a CPAP currently. He does have some asterixis present at the time of my assessment which can be seen with encephalopathy. Labs reviewed today include a hemoglobin of 7.4, MCV 107.3, MCH 35.2, his platelets are 77. Potassium is 3.7, chloride 108, BUN 69, creatinine 3.72, which has improved with dialysis. His mag is 1.9. Patient is afebrile, blood pressure 162/70. He is 97% on room air. Most recent chest x-ray is negative for acute cardiopulmonary disease. Folate is within normal limits at 4.7 which is just on the lower cusp. Patient is being followed closely by nephrology, plan is for repeat dialysis treatment tomorrow. Aranesp was added. Hydralazine has also been added for blood pressures. 07/05/2021 Patient throughout the evening had a possible seizure episode. He was found to be postictal after telemetry notified RN that he was having a tachycardic episode. Patient is found to be unresponsive to noxious and physical stimuli, he had foaming at the mouth. A repeat brain CT was ordered which was negative and no change compared to old exam. A urinalysis was completed from Duffy catheter which revealed +1 protein, trace ketones, large blood, moderate leukoc yte esterase and 47 WBCs. It was negative for nitrates. Patient was started on IV Rocephin. Lactic acid was 3.1, 4.7 and is now 5.3. Despite kidney function and fluid overload, patient is now on 0.9 normal saline at 100 mL per hour. Additional labs include a hemoglobin of 8.5, platelet count of 84, CO2 19, chloride 109, BUN 71, creatinine 4.05. Magnesium is 1.7 we will replace per protocol. Troponins negative. Prolactin is elevated at 24.5. Per at the bedside patient does drink 2 large-sized bottles of Chardonnay daily if not more. Hepatitis B surface antigen and antibody were nonreactive. Vital signs include temperature 99.3, heart rate 92, blood pressure 127/63 and 95% on 3 L nasal cannula. Patient is unresponsive to sternal rub, however his pupils were reactive and equal size. An EEG is currently pending from neurology. Patient was started on IV Keppra in the meantime for possible seizure activity. 07/06/2021 Patient is evaluated the bedside, he is resting in bed. He is more alert than she however he is still unable to respond verbally. He does have spontaneous eye opening and will want, pupils are still reactive and equal. Patient's lactic has improved is on normal at 1.8, BUN is 64, creatinine 3.32. Potassium today is 3.7, magnesium 1.9, we'll replace. Additionally has AST is 377, AST 61, which is trending upwards. White blood cell count is 14.7, hemoglobin 7.5. There are no signs of blood from the rectum. Vitals reviewed to include a temp of 97.9, heart rate of 104, blood pressure 115/71, 96 on room air. Prior RN patient's heart rate has been in the 120s throughout the morning. Patient was another throughout the evening for unresponsiveness. There was ammonia level ordered and rectal lactulose was given. In addition patient had another liter bolus. We will repeat ammonia level today, and check an abdomen ultrasound. EEG was negative for output for activity. Blood cultures were positive for staph aureus, microsensitivities are pending. Antibiotics have been changed to IV cefazolin from ID. Indwelling catheter remains, urine culture is pending. Patient is unable to swallow his oral medications at this time, we will monitor closely. Due to his history of chronic alcohol abuse and elevated liver enzymes as well as a drop in hemoglobin we will change oral Pepcid to IVP Protonix. 07/07/2021 Patient's liver enzymes are coming down patient had ultrasound of the liver which showed multiple lesions highly suspicious for metastatic disease. Patient will need CT with contrast or MRI with contrast which need to be coordinated with hemodialysis patient will not receive modalities is tomorrow presently receiving hemodialysis at this time. We'll discuss with nephrology regarding timing of ordering these tests. I'll also obtain alpha-fetoprotein. Patient's repeat blood cultures so far are negative. His more awake today less lethargic. 07/08/2021 Patient is evaluated at the bedside today, he is alert and oriented 1, he states that he wants to go home with his . Patient is alert, appropriate he has spontaneous eye opening, there is no obvious neurological deficits, his pupils are equal and reactive, there is no focal weakness left versus right. Patient did undergo an abdominal MRI today, which was correlated for underlying cirrhosis. There is hepatosplenomegaly. There is nodularity seen on ultrasound which may correspond to regenerating liver nodules. The exam is markedly limited technically. Cholelithiasis. There is no evidence of retroperitoneal adenopathy. There is no adrenal mass. There is no hydronephrosis. There is a large cystic focus associated with the left kidney upper pole a 0.4 cm and a cortical cyst also suspect that the lower pole. There is no definite effusion in the lung bases. BUN is 40, creatinine 2.56, potassium 3.2. Patient will be replaced per protocol and also is receiving dialysis today. Patient would be appropriate this time for PT OT as well as speech evaluation. Hemoglobin is 6.7 today patient will receive 1 unit of PRBC, platelet count is 79, in which he has been on subcu heparin. Iron studies were within normal limits. 07/09/21 Patient is evaluated resting in the bed, PT OT on board. He did pass a speech evaluation is on a chopped dysphagia 3 diet can advance to regular as tolerated. Patient did have some increased confusion and agitation throughout the evening and had to receive a dose of when necessary Ativan. We'll discontinue Haldol and Ativan we will use Seroquel as needed at bedtime. BUN today is 42, creatinine 2.29. Patient's hemoglobin is 7.8 status post 1 unit PRBCs. Platelets are 90. We will resume subcu heparin. Patient is on Aranesp every 7 days. Patient still has a indwelling catheter. Blood cultures have remained negative for the next 48 hours, once cultures have been negative for 72 hours we will start discharge planning to rehab. Patient is afebrile, heart rate 94, blood pressure 146/73 and he is 96% on room air. Patient is alert 3 the time of my exam, expresses a desire to go home. 07/10/2021 Patient is seen and evaluated in follow-up this morning with at the bedside. Patient continues to have intermittent periods of confusion and sleepiness and is maintained on low-dose Seroquel 12.5 mg as needed at night for agitation. Per patient is more alert today although continues to be extremely weak. Discussion is being had about discharged to [facility] once stabilized. Medical consultations including nephrology and infectious disease following closely. Patient is maintained on IV antibiotics in the form of cefazolin with most recent repeat blood cultures remaining negative thus far. Patient has a right chest wall permacath for dialysis that is being discontinued today and nephrology following closely planning on daily lab draws to closely monitor electrolytes and kidney functions with the possibility of discontinuing dialysis. Patient continues on gentle IV hydration in the form of normal saline per nephrology recommendations. Also recommend maintaining aspiration precautions with head of the bed elevated 30-45 at all times and supervision with meals and continue dysphagia 3 chopped diet. Patient is maintained on Accu-Cheks before meals and at bedtime along with sliding scale and long-acting insulin and will continue. 07/11/2021 Patient seen on follow-up he is sitting up in the chair this morning quite at bedside. Dialysis port has been removed as he will not require further dialysis at this time, nephrology is following. He is quite weak has evidence of extensive muscle wasting, appears malnourished. Labs today show potassium 3.2, creatinine 2.37, glucose 153, sodium 139. He is afebrile, blood pressure stable 1074/55, heart rate is in 70s. He is saturating above 90% on room air. Potassium is being replaced, at bedside asking questions which were answered. 07/12/2021 Patient seen on follow-up resting in bed comfortably, he is alert, answering questions appropriately. Dialysis catheter has been removed he is no longer being dialyzed, creatinine is 2.48 today. He is afebrile, hemodynamically stable saturating above 90% on room air. Making urine, 1200 mL out today from Duffy catheter. Oral intake is getting better, repeat blood cultures from 07/10 showing no growth at 48 hours. He is receiving antimicrobial therapy with Ancef. Blood sugars controlled. 07/13/2021 Patient is seen and evaluated and follow-up sitting up in the chair with at the bedside. Right chest wall dressings are dry and intact with recent hemodialysis catheter removed. Patient being closely monitored by nephrology a nd patient is off IV Lasix and IV fluids being discontinued. Patient also continues on IV cefazolin and cultures remain negative. Patient is requesting for indwelling Duffy catheter be removed and will attempt a trial void as this was discussed with nephrology and will monitor closely for any signs of retention with post-void residuals. 07/14/2021 Patient is seen and evaluated this morning. Attempted trial void after removing indwelling duffy with post void residuals being closely monitored and patient continued to retain. Patient denied any pain or difficulty voiding and urology has been consulted. Recommend indwelling duffy catheter to continue. Initiate flomax and nephrology continues to follow closely. Patient received midline and being arranged for outpatient IV antibiotic therapy with infectious disease following closely. 07/15/2021 Patient is seen this morning and follow-up with at the bedside. Patient's hemoglobin was found to be 6.9 and ordered 1 unit of PRBC. Patient was given a dose of IV Lasix today and will be started on oral Lasix and nephrology following closely. Social work continues to follow closely and working on bed availability. No chest pain. Afebrile. Labs: Sodium is 132 with a potassium of 4.0, BUN is 48 and creatinine is 2.42, Accu-Cheks in the low 100s Review of systems: Constitutional: No reports of fatigue, no reports of fever, or chills Cardiovascular: No reports of chest pain or palpitations Respiratory: No reports of shortness of breath or cough GI: No reports of nausea, vomiting, or diarrhea : Reports of urinary retention or pain with urinating, continues with indwelling Duffy catheter Neurovascular: reports of generalized weakness All medications have been reviewed Active Medications Acetaminophen (Acetaminophen Tab 325 Mg Tab) 325 mg PO Q6HR PRN PRN Reason: Fever and/ or Pain Last Admin: 07/15/21 09:39 Dose: 325 mg Documented by: Amlodipine Besylate (Amlodipine 5 Mg Tab) 5 mg PO DAILY [facility] Last Admin: 07/15/21 09:39 Dose: 5 mg Documented by: Aspirin (Aspirin 81 Mg) 81 mg PO DAILY [facility] Last Admin: 07/15/21 09:37 Dose: 81 mg Documented by: Darbepoetin Victor M (Darbepoetin Victor M 40 Mcg/0.4 Ml Syringe) 40 mcg SQ Q7D [facility] Last Admin: 07/11/21 17:24 Dose: 40 mcg Documented by: Folic Acid (Folic Acid 1 Mg Tab) 1 mg PO DAILY [facility] Last Admin: 07/15/21 09:37 Dose: 1 mg Documented by: Folic Acid (Folic Acid 1 Mg Tab) 1 mg PO DAILY@1200 [facility] Last Admin: 07/15/21 12:30 Dose: 1 mg Documented by: Furosemide (Furosemide 40 Mg Tab) 40 mg PO DAILY [facility] Gabapentin (Gabapentin 100 Mg Cap) 100 mg PO TID [facility] Last Admin: 07/15/21 15:56 Dose: 100 mg Documented by: Heparin Sodium (Porcine) (Heparin Sodium,Porcine/Pf 5,000 Unit/0.5 Ml Syringe) 5,000 unit SQ Q12HR [facility] Last Admin: 07/15/21 09:38 Dose: 5,000 unit Documented by: Hydralazine HCl (Hydralazine Hcl 25 Mg Tab) 25 mg PO TID [facility] Last Admin: 07/15/21 15:56 Dose: 25 mg Documented by: Hydralazine HCl (Hydralazine Hcl 20 Mg/Ml 1 Ml Vial) 5 mg IVP Q6HR PRN PRN Reason: Blood Pressure - High Last Admin: 07/06/21 15:58 Dose: 5 mg Documented by: Cefazolin Sodium 2 gm/ Sodium (Chloride) 50 mls @ 100 mls/hr IVPB Q12HR [facility] Last Admin: 07/15/21 09:51 Dose: 100 mls/hr Documented by: Insulin Aspart (Insulin Aspart (Novolog) 100 Unit/Ml Vial) 0 unit SQ ACHS [facility]; Protocol Last Admin: 07/15/21 17:20 Dose: Not Given Documented by: Insulin Detemir (Insulin Detemir (Levemir) 100 Unit/Ml Syr) 10 unit SQ BID@0700,2100 [facility] Last Admin: 07/15/21 06:30 Dose: 10 unit Documented by: Levetiracetam (Levetiracetam 500 Mg Tab) 500 mg PO DAILY [facility] Last Admin: 07/15/21 09:37 Dose: 500 mg Documented by: Levothyroxine Sodium (Levothyroxine 75 Mcg Tab) 75 mcg PO DAILY@0630 [facility] Last Admin: 07/15/21 06:30 Dose: 75 mcg Documented by: Lorazepam (Lorazepam 2 Mg/Ml Inj) 0.5 mg IV Q2HR PRN PRN Reason: CIWA 8 or 9 Last Admin: 07/09/21 05:48 Dose: 0.5 mg Documented by: Lorazepam (Lorazepam 2 Mg/Ml Inj) 0.5 mg IV Q1HR PRN PRN Reason: CIWA 10 to 15 Metoprolol Tartrate (Metoprolol Tartrate 25 Mg Tab) 25 mg PO BID [facility] Last Admin: 07/15/21 09:37 Dose: 25 mg Documented by: Miscellaneous Information (Potassium Replacement Protocol 1 Each Misc) 1 each MISCELLANE DAILY PRN; Protocol PRN Reason: Per Protocol Miscellaneous Information (Magnesium Replacement Protocol 1 Each Misc) 1 each MISCELLANE DAILY PRN; Protocol PRN Reason: Per Protocol Multivitamins (Multivitamins, Thera 1 Each Tab) 1 each PO DAILY@1200 [facility] Last Admin: 07/15/21 12:30 Dose: 1 each Documented by: Naloxone HCl (Naloxone 0.4 Mg/Ml 1 Ml Vial) 0.2 mg IV Q2M PRN PRN Reason: Opioid Reversal Pantoprazole Sodium (Pantoprazole 40 Mg/10 Ml Vial) 40 mg IVP BID [facility] Last Admin: 07/15/21 09:39 Dose: 40 mg Documented by: Psyllium Hydrophilic Mucilloid (Psyllium Husk 100% 6 Gm Packet) 6 gm PO DAILY PRN PRN Reason: Constipation Quetiapine Fumarate (Quetiapine 25 Mg Tab) 12.5 mg PO HS [facility] Last Admin: 07/14/21 20:23 Dose: 12.5 mg Documented by: Sodium Bicarbonate (Sodium Bicarbonate Tab 650 Mg Tab) 650 mg PO BID [facility] Last Admin: 07/15/21 12:30 Dose: 650 mg Documented by: Tamsulosin HCl (Tamsulosin 0.4 Mg Cap.Er.24h) 0.4 mg PO PC-BRKFST [facility] Last Admin: 07/15/21 09:39 Dose: 0.4 mg Documented by: Thiamine HCl (Thiamine 100 Mg Tab) 100 mg PO DAILY [facility] Last Admin: 07/15/21 09:37 Dose: 100 mg Documented by: PHYSICAL EXAMINATION: GENERAL: The patient is awake and alert at this time and is oriented 3. Periodically lethargic. Temp is 98.4F, pulse is 96, respirations are 22, blood pressure is 156/70, oxygen saturation is 96% on room air. HEENT: Pupils are round and equally reacting to light. EOMI. No scleral icterus. No conjunctival pallor. Normocephalic, atraumatic. No pharyngeal erythema. No thyromegaly. CARDIOVASCULAR: S1, S2 are muffled PULMONARY: Diminished breath sounds bilaterally with some scattered rhonchi. ABDOMEN: Soft, obese, nontender, nondistended, normoactive bowel sounds. No palpable organomegaly. MUSCULOSKELETAL: No joint swelling or deformity. EXTREMITIES: No cyanosis, clubbing, mild ankle edema worse on the right NEUROLOGICAL: Gross neurological does not reveal any focal deficits, there is generalized weakness. Hand grasp is equal. SKIN: No rashes. Assessment and plan: Assessment: -Altered mental status secondary to toxic and Metabolic encephalopathy related to uremia, no evidence of CVA/TIA, possibly due to an acute alcohol withdrawal, possible acute alcohol withdrawal seizure, possibly a component of bacteremia and hospital associated delirium, improved -Elevated liver enzymes and elevated ammonia, patient has a history of chronic alcohol abuse, ammonia normalized after treatment with lactulose, abdominal ultrasound and MRI showed nodularity consistant with liver cirrhosis. Alpha fetoprotein WNL. -Possible UTI with sepsis ruled out, not present on admission, not related to IDC, urine culture is negative. -MSSA bacteremia s/p placement of IJ hemodialysis catheter, with cultures remaining negative patient is continued on IV cefazolin with infectious disease following -Possible acute TIA, presented with a questionable history of expressive aphasia. imaging does not show evidence of an acute cerebrovascular accident. -Acute Kidney Injury, most likely acute tubular necrosis, s/p hemodialysis -Possible seizure, also possibly alcohol withdrawal seizure as patient does drink 2 large bottles of Chardonnay daily however last drink was over a week ago per at the bedside. -Diabetes mellitus type 2 -Diabetic peripheral neuropathy Possible B12/folate deficiency -pancytopenia and macrocytosis -Anemia, with bicytopenia -Elevated troponin most likely a leak related to acute kidney injury Possible acute on chronic congestive heart failure, diastolic, current EF 55- 60% -GI prophylaxis -DVT prophylaxis -Full code Plan: Recommend continue with current medications, management, and symptomatic treatment. Nephrology following closely and patient has been off of hemodialysis with close monitoring. Patient will be given a dose of IV Lasix today and will be started on oral Lasix 40 mg daily starting tomorrow. Patient will also continue on bicarb and close outpatient follow-up with repeat labs and nephrology appointment in one week. Patient did receive indwelling Duffy catheter for retention. Patient started on Flomax and will have close outpatient follow up with urology. social work following closely working on placement at possible [facility] or possible [facility] [place] once a bed becomes available. Patient continues on IV antibiotics in the form of cefazolin with infectious disease following closely. Repeat blood cultures have remained negative thus far. Recommend to continue with Accu-Cheks before meals and at bedtime and sliding scale along with long-acting insulin. Plan is for possible ECF placement once bed is available. Possible discharge in 24 hours. Due to multiple complex medical issues, prognosis is guarded. Will repeat labs in continue to monitor closely. Objective - Vital Signs Vital signs: Vital Signs Temp 97.9 F 07/15/21 14:10 Pulse 72 07/15/21 14:20 Resp 22 07/15/21 14:20 BP 131/67 07/15/21 14:20 Pulse Ox 95 07/15/21 14:10 Intake & Output 07/14/21 07/15/21 07/15/21 18:59 06:59 18:59 Intake Total 1020 240 Output Total 700 750 700 Balance 320 750 -460 Weight 139.5 kg 146 kg 146 kg Intake: Oral 1020 240 Blood Product 0 Rc As-1 Unit 0 [id number] Output: Urine 700 750 700 Stool 0 Other: Voiding Method Indwelling Catheter Indwelling Catheter # Voids 0 0 # Bowel Movements 0 1 - Labs CBC & Chem 7: 07/15/21 09:07 07/15/21 09:07 Labs: Abnormal Lab Results - Last 24 Hours (Table) 07/14/21 07/14/21 07/15/21 Range/Units 16:26 19:59 09:07 RBC 2.07 L (4.30-5.90) m/uL Hgb 6.9 L* (13.0-17.5) gm/dL Hct 20.9 L (39.0-53.0) % MCV 101.2 H (80.0-100.0) fL RDW 16.6 H (11.5-15.5) % Plt Count 144 L (150-450) k/uL Lymphocytes # (Manual) 0.57 L (1.0-4.8) k/uL Metamyelocytes # (Man) 0.06 H (0) k/uL Myelocytes # (Manual) 0.06 H (0) k/uL Sodium (137-145) mmol/L Carbon Dioxide (22-30) mmol/L BUN (9-20) mg/dL Creatinine (0.66-1.25) mg/dL Glucose (74-99) mg/dL POC Glucose (mg/dL) 125 H 153 H (75-99) mg/dL Calcium (8.4-10.2) mg/dL Crossmatch 07/15/21 07/15/21 Range/Units 09:07 11:11 RBC (4.30-5.90) m/uL Hgb (13.0-17.5) gm/dL Hct (39.0-53.0) % MCV (80.0-100.0) fL RDW (11.5-15.5) % Plt Count (150-450) k/uL Lymphocytes # (Manual) (1.0-4.8) k/uL Metamyelocytes # (Man) (0) k/uL Myelocytes # (Manual) (0) k/uL Sodium 132 L (137-145) mmol/L Carbon Dioxide 16 L (22-30) mmol/L BUN 48 H (9-20) mg/dL Creatinine 2.42 H (0.66-1.25) mg/dL Glucose 134 H (74-99) mg/dL POC Glucose (mg/dL) (75-99) mg/dL Calcium 8.3 L (8.4-10.2) mg/dL Crossmatch See Detail Microbiology - Last 24 Hours (Table) 07/09/21 06:45 Blood Culture - Final Blood No Growth after 144 hours 10/08/21 08:15 Blood Culture - Preliminary Blood No Growth after 120 hours 07/10/21 08:00 Blood Culture - Preliminary Blood No Growth after 120 hours 07/08/21 09:02 Blood Culture - Final Blood No Growth after 144 hours
[2021-07-15 20:08] LABS: Glucose,Whole Blood 142 mg/dL (75-99)
[2021-07-15] MEDS: QUEtiapine 25 MG TAB PO SCH (20:37)
[2021-07-16 06:01] LABS: Glucose,Whole Blood 135 mg/dL (75-99)
[2021-07-16] MEDS: INSULIN DETEMIR (LEVEMIR) 100 UNIT/ML SYR SQ SCH (06:10)
[2021-07-16] MEDS: LEVOTHYROXINE 75 MCG TAB PO SCH (06:10)
[2021-07-16] MEDS: INSULIN ASPART (NovoLOG) 100 UNIT/ML VIAL SQ SCH ×2 (06:37→12:05)
[2021-07-16] MEDS ORDERED: FUROSEMIDE 40 MG TAB PO SCH (09:00)
[2021-07-16] MEDS: SODIUM BICARBONATE TAB 650 MG TAB PO SCH (09:02)
[2021-07-16] MEDS: ASPIRIN 81 MG PO SCH (09:02)
[2021-07-16] MEDS: MULTIVITAMINS, THERA 1 EACH TAB PO SCH (09:02)
[2021-07-16] MEDS: TAMSULOSIN 0.4 MG CAP.ER.24H PO SCH (09:02)
[2021-07-16] MEDS: amLODIPine 5 MG TAB PO SCH (09:02)
[2021-07-16] MEDS: PANTOPRAZOLE 40 MG/10 ML VIAL IVP SCH (09:02)
[2021-07-16] MEDS: METOPROLOL TARTRATE 25 MG TAB PO SCH (09:03)
[2021-07-16] MEDS: hydrALAZINE HCL 25 MG TAB PO SCH (09:03)
[2021-07-16] MEDS: THIAMINE 100 MG TAB PO SCH (09:03)
[2021-07-16] MEDS: levETIRAcetam 500 MG TAB PO SCH (09:03)
[2021-07-16] MEDS: GABAPENTIN 100 MG CAP PO SCH (09:03)
[2021-07-16] MEDS: FOLIC ACID 1 MG TAB PO SCH ×2 (09:03→12:01)
[2021-07-16] MEDS: HEPARIN SODIUM,PORCINE/PF 5,000 UNIT/0.5 ML SYRINGE SQ SCH (09:04)
[2021-07-16 09:16] VITALS: RESP 16; TEMP 98.7
--- NOTE | 2021-07-16 09:52 | P.PN ---
Subjective Patient is seen in follow-up for acute kidney injury. Patient received hemodialysis initially this admission due to uremia. Last dialysis was on O ctober 6. Nonoliguric. Renal function stable. Byrd catheter removed July 13 but had to be reinserted due to persistent urinary retention. Good urine output. Oral intake is good. No chest pain or shortness of breath. Vital signs are stable. General: The patient appeared well nourished and normally developed. HEENT: Head exam is unremarkable. LUNGS: Breath sounds decreased. HEART: Rate and Rhythm are regular. ABDOMEN: Soft, no distention. EXTREMITITES: 1+ edema. Objective - Vital Signs Vital signs: Vital Signs Temp 98.7 F 07/16/21 08:00 Pulse 85 07/16/21 08:00 Resp 16 07/16/21 08:00 BP 99/52 07/16/21 08:00 Pulse Ox 98 07/16/21 08:00 Intake & Output 07/15/21 07/16/21 07/16/21 18:59 06:59 18:59 Intake Total 670 240 Output Total 1700 900 Balance -1030 -900 240 Weight 146 kg 133 kg Intake: Oral 360 240 Blood Product 310 Rc As-1 Unit 310 [id number] Output: Urine 1700 900 Stool 0 Other: Voiding Method Indwelling Catheter Indwelling Catheter # Voids 0 # Bowel Movements 1 - Labs CBC & Chem 7: 07/15/21 09:07 07/15/21 09:07 Labs: Abnormal Lab Results - Last 24 Hours (Table) 07/15/21 07/15/21 07/15/21 Range/Units 09:07 09:07 11:11 RBC 2.07 L (4.30-5.90) m/uL Hgb 6.9 L* (13.0-17.5) gm/dL Hct 20.9 L (39.0-53.0) % MCV 101.2 H (80.0-100.0) fL RDW 16.6 H (11.5-15.5) % Plt Count 144 L (150-450) k/uL Lymphocytes # (Manual) 0.57 L (1.0-4.8) k/uL Metamyelocytes # (Man) 0.06 H (0) k/uL Myelocytes # (Manual) 0.06 H (0) k/uL Sodium 132 L (137-145) mmol/L Carbon Dioxide 16 L (22-30) mmol/L BUN 48 H (9-20) mg/dL Creatinine 2.42 H (0.66-1.25) mg/dL Glucose 134 H (74-99) mg/dL POC Glucose (mg/dL) (75-99) mg/dL Calcium 8.3 L (8.4-10.2) mg/dL Crossmatch See Detail 07/15/21 07/15/21 07/16/21 Range/Units 16:32 20:06 05:59 RBC (4.30-5.90) m/uL Hgb (13.0-17.5) gm/dL Hct (39.0-53.0) % MCV (80.0-100.0) fL RDW (11.5-15.5) % Plt Count (150-450) k/uL Lymphocytes # (Manual) (1.0-4.8) k/uL Metamyelocytes # (Man) (0) k/uL Myelocytes # (Manual) (0) k/uL Sodium (137-145) mmol/L Carbon Dioxide (22-30) mmol/L BUN (9-20) mg/dL Creatinine (0.66-1.25) mg/dL Glucose (74-99) mg/dL POC Glucose (mg/dL) 130 H 142 H 135 H (75-99) mg/dL Calcium (8.4-10.2) mg/dL Crossmatch Microbiology - Last 24 Hours (Table) 07/09/21 06:45 Blood Culture - Final Blood No Growth after 144 hours 07/10/21 08:15 Blood Culture - Preliminary Blood No Growth after 120 hours 07/10/21 08:00 Blood Culture - Preliminary Blood No Growth after 120 hours Assessment and Plan Plan: Assessment: 1. Acute kidney injury secondary to ATN secondary to hypovolemia from diuretics and poor intake. Creatinine was 5.74 on admission without significant improvement with IV hydration. UA is fairly benign. No hydronephrosis noted on kidney ultrasound. Started on dialysis July 04 due to uremia - dialysis has been held since July 08. Serologies negative. Creatinine 2.42 yesterday. 2. Acute encephalopathy due to uremia. Also had seizure. Brain CT negative. Improved. 3. Diabetes mellitus. 4. Anemia. Iron replete. On Aranesp. Status post blood transfusion this admission. No active bleeding. 5. Benign hypertension. Stable. 6. MSSA bacteremia possibly due to permacath. Permacath removed July 10. On antibiotics. Infectious disease following. 7. Hypokalemia from poor intake. Replaced. Better. 8. Urinary retention. Byrd catheter reinserted July 14. On Flomax. Seen by urology. 9. Volume overload. 10. Metabolic acidosis secondary to acute kidney injury. On oral bicarbonate. Plan: Remains off IV fluids. Oral intake is good. Maintain Lasix. Avoid nephrotoxins. Morning labs pending. Follow up in our office in 1 week post discharge. Repeat BMP and magnesium level 2-3 days postdischarge. Plan to go to rehab.
[2021-07-16 10:46] LABS: Anisocytosis Slight; HCT 22.3 % (39.0-53.0); HGB 7.3 gm/dL (13.0-17.5); Hypochromasia Slight; MCH 33.9 pg (25.0-35.0); MCHC 32.8 g/dL (31.0-37.0); MCV 103.3 fL (80.0-100.0); Macrocytosis Moderate; Mean Platelet Volume 10.8; Platelet Count 131 k/uL (150-450); RBC 2.16 m/uL (4.30-5.90); RDW 16.1 % (11.5-15.5); WBC 6.1 k/uL (3.8-10.6)
[2021-07-16 10:59] LABS: Calcium 8.4 mg/dL (8.4-10.2)
[2021-07-16 11:54] VITALS: BMI 37.6
[2021-07-16 12:05] LABS: Glucose,Whole Blood 105 mg/dL (75-99)
[2021-07-16 12:15] VITALS: BP 111/53; PULSE 73
--- NOTE | 2021-07-16 12:42 | P.DS ---
Providers Date of admission: 07/01/21 19:46 Expected date of discharge: 07/16/21 Attending physician: Lien Capps Consults: 07/01/21 19:34 Consult Physician Urgent Consulting Provider: Kem Vega Consult Reason/Comments: acute expressive aphasia Do you want consulting provider notified?: Yes Consult Physician Urgent Consulting Provider: Bryn Feng Consult Reason/Comments: kathia Do you want consulting provider notified?: Yes 07/02/21 02:39 Consult Physician Routine Consulting Provider: Wallace Mcgee Consult Reason/Comments: nstemi, second degree type 2 block Do you want consulting provider notified?: Yes 07/03/21 10:05 Consult Physician Stat Consulting Provider: Oswaldo Willett Consult Reason/Comments: Temporary Dialisis Catheter. Do you want consulting provider notified?: Yes 07/05/21 08:56 Consult Physician Urgent Consulting Provider: Cal Montalvo Consult Reason/Comments: UTI, sepsis Do you want consulting provider notified?: Yes 07/14/21 08:35 Consult Physician Routine Consulting Provider: Shree Angeles Consult Reason/Comments: Urinary retention Do you want consulting provider notified?: Yes Primary care physician: [facility] Course: Final diagnosis -Altered mental status secondary to toxic and Metabolic encephalopathy related to uremia, no evidence of CVA/TIA, possibly due to an acute alcohol withdrawal, possible acute alcohol withdrawal seizure, possibly a component of bacteremia and hospital associated delirium, improved -Elevated liver enzymes and elevated ammonia -Possible UTI with sepsis ruled out, not present on admission, not related to IDC, urine culture is negative. -MSSA bacteremia s/p placement of IJ hemodialysis catheter, hemodialysis catheter removed -Possible acute TIA, presented with a questionable history of expressive aphasia. imaging does not show evidence of an acute cerebrovascular accident. -Acute Kidney Injury, most likely acute tubular necrosis, s/p hemodialysis -Possible seizure, also possibly alcohol withdrawal seizure -Diabetes mellitus type 2 -Diabetic peripheral neuropathy Possible B12/folate deficiency -pancytopenia and macrocytosis -Anemia, with bicytopenia -Elevated troponin most likely a leak related to acute kidney injury Possible acute on chronic congestive heart failure, diastolic, current EF 55- 60% -GI prophylaxis -DVT prophylaxis -Full code Discharge disposition Patient is being discharged in a stable condition with guarded prognosis to [facility] for continued PT/OT therapy. Patient will follow-up with Dr. Nam upon discharge. Patient will follow up in the outpatient setting with neurology, urology, nephrology, and infectious disease. Patient will continue on IV antibiotics in the form of cefazolin for the next week to complete the course. Patient will continue with indwelling Byrd catheter and follow-up urology outpatient. Recommend repeat labs closely and weekly to monitor kidney functions, hemoglobin and electrolytes closely. Patient will need outpatient follow-up with nephrology in one week. Total time taken is greater than 35 minutes. Hospital course This is a 71-year-old male who was recently admitted with acute renal failure and was being closely monitored. Patient was placed on temporary hemodialysis with nephrology following closely. Patient has had catheter removed and has been off of hemodialysis for 1 week. Current creatinine is 2.52 and stable. Patient continues with generalized edema and was given IV Lasix and will continue with oral Lasix 40 mg daily. Recommend close outpatient follow-up in the next 2-3 days to monitor electrolytes and kidney functions along with hemoglobin. Also recommend weekly monitoring of lab values. Patient will need follow-up with nephrology in the clinic with Dr. Feng in one week. Patient also continued on sodium bicarb tablets and will continue. Patient had complete neurological workup with no acute stroke noted on MRI. Patient was having some periods of confusion initially and a possible component of hospital-acquired delirium and was placed on low-dose Seroquel and will continue as needed at night. His and is currently alert and oriented 3 with periods of fatigue and denies any confusion and is responding and acting appropriate to questions and commands. Patient did have indwelling Byrd catheter which was removed and failed trial void and continued to retain and will continue with indwelling Byrd catheter on discharge with close urologic follow-up in the outpatient setting. Patient was started on Flomax and will continue. Infectious disease was following and started on IV cefazolin and will continue for 1 week to complete the course. Patient did receive midline. Currently no reports of chest pain, shortness of breath, or palpitations. Patient is afebrile. No reports of nausea or vomiting and patient is tolerating diet. Patient will be discharged to [facility] on the [facility] today for PT/OT therapy. Guarded prognosis. On exam vital signs are stable. Cardio S1, S2 are muffled. Respiratory shows diminished breath sounds at the bases with a few scattered rhonchi noted. Abdomen is soft, obese, and nontender. Nervous system shows mild diffuse weakness. Please refer to medication reconciliation sheet for a list of medications. Patient Condition at Discharge: Stable Plan - Discharge Summary Discharge Rx Participant: No New Discharge Prescriptions: New ceFAZolin [Kefzol] 2 gm IVP Q12HR #14 each hydrALAZINE HCL [Apresoline] 25 mg PO TID tab Darbepoetin Victor M [Aranesp] 40 mcg SQ Q7D each Aspirin 81 mg PO DAILY tab Folic Acid 1 mg PO DAILY@1200 tab Heparin Sodium,Porcine [Heparin Sodium] 5,000 unit SQ Q12HR 30 Days #60 each levETIRAcetam [Keppra] 500 mg PO DAILY tab Insulin Detemir (Levemir) [Levemir] 10 unit SQ BID@0700,2100 ml Gabapentin [Neurontin] 100 mg PO TID #6 cap Pantoprazole Sodium [Protonix] 40 mg PO DAILY #30 tab QUEtiapine [SEROquel] 12.5 mg PO HS tab Sodium Bicarbonate Tab 650 mg PO BID tab Tamsulosin [Flomax] 0.4 mg PO DAILY #30 cap Furosemide [Lasix] 40 mg PO DAILY tab Metoprolol Tartrate [Lopressor] 25 mg PO BID tab Multivitamins, Thera [Multivitamin (formulary)] 1 each PO DAILY@1200 tab amLODIPine [Norvasc] 5 mg PO DAILY tab INSULIN ASPART (NovoLOG) [NovoLOG (formulary)] 0 unit SQ ACHS ml Acetaminophen Tab [Tylenol] 325 mg PO Q6HR PRN tab PRN Reason: Fever And/ Or Pain Thiamine [Vitamin B-1] 100 mg PO DAILY tab Continue Levothyroxine Sodium [Synthroid] 75 mcg PO DAILY Allopurinol [Zyloprim] 200 mg PO DAILY Sildenafil Citrate 50 mg PO DAILY PRN PRN Reason: E.D. Psyllium Husk (with Sugar) [Metamucil Powder] 1 tsp PO DAILY PRN PRN Reason: Constipation Clindamycin Lotion 1% 1 applic TOPICAL BID PRN PRN Reason: ABSCESS Ammonium Lactate Cream [Lac-Hydrin 12% Cream] 1 applic TOPICAL BID PRN PRN Reason: Dry Skin Dextrose Chew [Glucose Chew Tab] 16 gm PO DAILY PRN PRN Reason: GLUCOSE LESS THAN 70 Fluticasone Nasal [place] [Flonase Nasal [place]] 2 spray EA NOSTRIL DAILY PRN PRN Reason: Allergy Symptoms Testosterone [Androgel 1.62% Gel Pump] 2 pump TOPICAL DAILY Discontinued Furosemide [Lasix] 80 mg PO BID Insulin Glargine,Hum.rec.anlog [Lantus Solostar Pen] 25 unit SQ Q12H Gabapentin [Neurontin] 800 mg PO QID Pravastatin Sodium [Pravachol] 20 mg PO HS Alogliptin Benzoate [Alogliptin] 25 mg PO DAILY Losartan-Hctz 50-12.5 mg [Hyzaar 50-12.5] 1 tab PO DAILY Ferrous Sulfate [Feosol] 325 mg PO DAILY Insulin Glargine,Hum.rec.anlog [Lantus Solostar Pen] See Protocol SQ Q12H PRN PRN Reason: HIGH BLOOD SUGAR Discharge Medication List Levothyroxine Sodium [Synthroid] 75 mcg PO DAILY 01/10/19 [History] Allopurinol [Zyloprim] 200 mg PO DAILY 09/11/20 [History] Ammonium Lactate Cream [Lac-Hydrin 12% Cream] 1 applic TOPICAL BID PRN 07/01/21 [History] Clindamycin Lotion 1% 1 applic TOPICAL BID PRN 07/01/21 [History] Dextrose Chew [Glucose Chew Tab] 16 gm PO DAILY PRN 07/01/21 [History] Fluticasone Nasal [place] [Flonase Nasal [place]] 2 spray EA NOSTRIL DAILY PRN 07/01/21 [History] Psyllium Husk (with Sugar) [Metamucil Powder] 1 tsp PO DAILY PRN 07/01/21 [History] Sildenafil Citrate 50 mg PO DAILY PRN 07/01/21 [History] Testosterone [Androgel 1.62% Gel Pump] 2 pump TOPICAL DAILY 07/01/21 [History] Tamsulosin [Flomax] 0.4 mg PO DAILY #30 cap 07/14/21 [Rx] Acetaminophen Tab [Tylenol] 325 mg PO Q6HR PRN tab 07/15/21 [Rx] Aspirin 81 mg PO DAILY tab 07/15/21 [Rx] Darbepoetin Victor M [Aranesp] 40 mcg SQ Q7D each 07/15/21 [Rx] Folic Acid 1 mg PO DAILY@1200 tab 07/15/21 [Rx] Furosemide [Lasix] 40 mg PO DAILY tab 07/15/21 [Rx] Gabapentin [Neurontin] 100 mg PO TID #6 cap 07/15/21 [Rx] Heparin Sodium,Porcine [Heparin Sodium] 5,000 unit SQ Q12HR 30 Days #60 each 07/15/21 [Rx] INSULIN ASPART (NovoLOG) [NovoLOG (formulary)] 0 unit SQ ACHS ml 07/15/21 [Rx] Insulin Detemir (Levemir) [Levemir] 10 unit SQ BID@0700,2100 ml 07/15/21 [Rx] Metoprolol Tartrate [Lopressor] 25 mg PO BID tab 07/15/21 [Rx] Multivitamins, Thera [Multivitamin (formulary)] 1 each PO DAILY@1200 tab 07/15/21 [Rx] Pantoprazole Sodium [Protonix] 40 mg PO DAILY #30 tab 07/15/21 [Rx] QUEtiapine [SEROquel] 12.5 mg PO HS tab 07/15/21 [Rx] Sodium Bicarbonate Tab 650 mg PO BID tab 07/15/21 [Rx] Thiamine [Vitamin B-1] 100 mg PO DAILY tab 07/15/21 [Rx] amLODIPine [Norvasc] 5 mg PO DAILY tab 07/15/21 [Rx] ceFAZolin [Kefzol] 2 gm IVP Q12HR #14 each 07/15/21 [Rx] hydrALAZINE HCL [Apresoline] 25 mg PO TID tab 07/15/21 [Rx] levETIRAcetam [Keppra] 500 mg PO DAILY tab 07/15/21 [Rx] Follow up Appointment(s)/Referral(s): Carol Ceballos MD [REFERRING] - [facility] - Shree Angeles MD [STAFF PHYSICIAN] - 1 Week (Keep urinary catheter in until urology appointment.) Scott Sanders DO [Primary Care Provider] - 1-2 days Bryn Feng DO [STAFF PHYSICIAN] - 1 Week Cal Montalvo MD [STAFF PHYSICIAN] - 1 Week Ambulatory/Diagnostic Orders: Complete Blood Count w/diff [LAB.AMB] Time Frame: 2 Days, Location: None Selected Activity/Diet/Wound Care/Special Instructions: [facility] at 7:50 am - start date Tuesday07/13/21 Patient is going to [facility] on the [facility] activity as tolerated Follow-up with multiple medical consultations including neurology, urology, nephrology and infectious disease Patient continue with a consistent carbohydrate diet with one-to-one supervision and dysphasia 3 chopped renal low potassium low phosphorus diet Recommend repeat CBC, CMP, magnesium levels in 2-3 days Recommend continue with sliding scale and Accu-Cheks before meals and at bedtime along with long-acting NovoLog sliding scale 0-150 equals 0 units 151-200 equals 2 units 201-250 equals 4 units 251-300 equals 6 units 301-350 equals 8 units 351-400 equals 10 units Please notify provider if blood sugar is 400 or above Discharge Disposition: TRANSFER TO SNF/ECF
[2021-07-16 14:25] LABS: Basophils # (M) 0.06 k/uL (0-0.2); Eosinophils # (M) 0.18 k/uL (0-0.7); Monocytes # (M) 0.98 k/uL (0-1.0); Neutrophils # (M) 3.48 k/uL (1.3-7.7); Neutrophils % (M) 57 %; Nucleated Red Blood Cells 0 /100 WBC (0-0); Total Cells Counted 100
--- NOTE | 2021-07-16 14:29 | PN ---
PROGRESS NOTE DATE OF SERVICE: 07/16/2021 REASON FOR FOLLOWUP: MSSA bacteremia secondary to dialysis catheter infection. INTERVAL HISTORY: The patient is afebrile. He is breathing comfortably. He is currently waiting for placement. No chest pain, shortness of breath or cough. No abdominal pain or any diarrhea. PHYSICAL EXAMINATION: Blood pressure 111/53, pulse of 73, temperature 97.3. He is 95% on room air. General description is an elderly male lying in bed in no distress. RESPIRATORY SYSTEM: Unlabored breathing. Clear to auscultation anteriorly. HEART: S1, S2. Regular rate and rhythm. ABDOMEN: Soft. No tenderness. LABS: Hemoglobin is 10.2, white count 6.1, creatinine is 2.52. Blood culture repeat has been negative so far. DIAGNOSTIC IMPRESSION AND PLAN: Patient with MSSA bacteremia, likely diarrhea catheter infection. This has been discontinued. Repeat blood culture has been negative. Patient will be given another week of antibiotics to complete 2 weeks from a negative blood culture and close outpatient followup. MMODL / IJN: [id number] / LINDEN
[2021-07-29 14:22] LABS: Anti-DNA, DS unit <1.0 IU/mL; DNA Double-Stranded NEGATIVE (NEGATIVE)
== END 2021-07-16 16:13 | DRG 682 ==
LOC: EC 15:38 → 3SCARD 19:46
PROVIDERS: ADMIT Hospitalist; ATTEND Hospitalist
PROC: 05HM33Z Insertion of Infusion Device into Right Internal Jugular Vein, Percutaneous Approach (ICD-10-PCS; 2021-07-03 13:30)
PROC: B543ZZA Ultrasonography of Right Jugular Veins, Guidance (ICD-10-PCS; 2021-07-03 13:30)
PROC: 5A1D70Z Performance of Urinary Filtration, Intermittent, Less than 6 Hours Per Day (ICD-10-PCS; 2021-07-04)
PROC: 4A10X4Z Monitoring of Central Nervous Electrical Activity, External Approach (ICD-10-PCS; 2021-07-04)
PROC: 05HF33Z Insertion of Infusion Device into Left Cephalic Vein, Percutaneous Approach (ICD-10-PCS; 2021-07-08)
PROC: 30233N1 Transfusion of Nonautologous Red Blood Cells into Peripheral Vein, Percutaneous Approach (ICD-10-PCS; 2021-07-09)
PROC: 02PYX3Z Removal of Infusion Device from Great Vessel, External Approach (ICD-10-PCS; principal; 2021-07-12)
DX: N17.0 Acute kidney failure with tubular necrosis (principal); A41.9 Sepsis, unspecified organism; T80.211A Bloodstream infection due to central venous catheter, initial encounter; I50.33 Acute on chronic diastolic (congestive) heart failure; E43 Unspecified severe protein-calorie malnutrition; G92.8 Other toxic encephalopathy; A41.01 Sepsis due to Methicillin susceptible Staphylococcus aureus; I21.A1 Myocardial infarction type 2; R65.20 Severe sepsis without septic shock; R47.01 Aphasia; G45.9 Transient cerebral ischemic attack, unspecified; F10.239 Alcohol dependence with withdrawal, unspecified; D61.818 Other pancytopenia; E87.2 Acidosis; I48.19 Other persistent atrial fibrillation; E11.41 Type 2 diabetes mellitus with diabetic mononeuropathy; G57.93 Unspecified mononeuropathy of bilateral lower limbs; D64.9 Anemia, unspecified; I10 Essential (primary) hypertension; I48.91 Unspecified atrial fibrillation; E11.21 Type 2 diabetes mellitus with diabetic nephropathy; E11.42 Type 2 diabetes mellitus with diabetic polyneuropathy; E11.9 Type 2 diabetes mellitus without complications; E03.9 Hypothyroidism, unspecified; N18.9 Chronic kidney disease, unspecified; R56.9 Unspecified convulsions; G25.3 Myoclonus; R00.0 Tachycardia, unspecified; D75.89 Other specified diseases of blood and blood-forming organs; E11.22 Type 2 diabetes mellitus with diabetic chronic kidney disease; E53.8 Deficiency of other specified B group vitamins; E66.01 Morbid (severe) obesity due to excess calories; E78.5 Hyperlipidemia, unspecified; E86.0 Dehydration; E86.1 Hypovolemia; E87.6 Hypokalemia; E87.70 Fluid overload, unspecified; I12.9 Hypertensive chronic kidney disease with stage 1 through stage 4 chronic kidney disease, or unspecified chronic kidney disease; I45.10 Unspecified right bundle-branch block; K70.9 Alcoholic liver disease, unspecified; K74.60 Unspecified cirrhosis of liver; K80.20 Calculus of gallbladder without cholecystitis without obstruction; N18.6 End stage renal disease; R33.8 Other retention of urine; R29.701 NIHSS score 1; E86.9 Volume depletion, unspecified; T50.2X5A Adverse effect of carbonic-anhydrase inhibitors, benzothiadiazides and other diuretics, initial encounter; Y84.8 Other medical procedures as the cause of abnormal reaction of the patient, or of later complication, without mention of misadventure at the time of the procedure; Z79.82 Long term (current) use of aspirin; Z79.890 Hormone replacement therapy; Z79.899 Other long term (current) drug therapy; Z86.73 Personal history of transient ischemic attack (TIA), and cerebral infarction without residual deficits; Z87.19 Personal history of other diseases of the digestive system; Z87.891 Personal history of nicotine dependence; Z96.642 Presence of left artificial hip joint; Z99.2 Dependence on renal dialysis; M10.9 Gout, unspecified; Z87.440 Personal history of urinary (tract) infections
CPT/HCPCS: 36410; 36415; 36558; 51702; 70450; 70551; 71045; 71046; 74181; 76700; 76770; 76937; 77001; 80048; 80053; 81001; 81003; 82105; 82140; 82570; 82607; 82728; 82746; 82805; 83036; 83540; 83550; 83605; 83735; 83880; 84100; 84146; 84156; 84165; 84443; 84484; 85025; 85027; 85610; 85730; 86022; 86038; 86140; 86160; 86162; 86225; 86255; 86334; 86335; 86706; 86850; 86900; 86901; 86920; 87040; 87077; 87086; 87186; 87340; 87635; 90935; 93005; 93306; 93880; 95816; 99285

== ENCOUNTER 2021-07-25 07:55 | Emergency (ER) | payer OTHER, MEDICARE ==
[2021-07-25 08:08] VITALS: PULSE 86; RESP 18; TEMP 98.4
--- NOTE | 2021-07-25 08:20 | ED ---
General Adult HPI - General Chief complaint: Recheck/Abnormal Lab/Rx Stated complaint: abd labs Time Seen by Provider: 07/25/21 08:09 Source: EMS Mode of arrival: EMS Limitations: no limitations - History of Present Illness Initial comments: Dictation was produced using [employer] dictation software. please excuse any grammatical, word or spelling errors. Chief Complaint: 71-year-old male brought in from rehab facility for low hemoglobin. History of Present Illness: Patient is 71-year-old male who is currently at rehab facility. He suffered a stroke recently. Patient has history of atrial fibrillation. He had routine blood drawn was found to have a hemoglobin of 6.0. Patient has no complaints. Denies any black stools. No abdominal pain. No lower back pain. Patient denies any rectal bleeding. Or melanotic stool. Chart review shows that patient was recently admitted for renal failure. She did initially present with encephalopathy. An MRI that was negative for stroke. Medications reviewed. Patient does not take any anticoagulation medications according to her electronic medical record. The ROS documented in this emergency department record has been reviewed and confirmed by me. Those systems with pertinent positive or negative responses have been documented in the HPI. All other systems are other negative and/or noncontributory. PHYSICAL EXAM: General Impression: Alert and oriented x3, not in acute distress HEENT: Normocephalic atraumatic, extra-ocular movements intact, pupils equal and reactive to light bilaterally, mucous membranes moist. Cardiovascular: Heart regular rate and rhythm Chest: Able to complete full sentences, no retractions, no tachypnea Abdomen: abdomen soft, non-tender, non-distended, no organomegaly Musculoskeletal: Pulses present and equal in all extremities, no peripheral edema Motor: no focal deficits noted Neurological: CN II-XII grossly intact, no focal motor or sensory deficits noted Skin: Intact with no visualized rashes Psych: Normal affect and mood Rectal exam: Stage I decubitus ulcer, no blood or melanotic stool on digital rectal exam. ED course: 71-year-old male presents emergency department for a hemoglobin of 6 on outpatient lab. Patient denies any symptoms. Upon arrival are within acceptable limits. Patient hemoglobin is 7.9. Leukopenia 3.7. Patient has known history of leukopenia. Coag panel unremarkable. Metabolic panel shows creatinine of 1.99. This is lower than what patient was admitted for last time. Stool occult blood is negative. Patient reevaluated at bedside at 9:45 AM found him in stable medical condition. Patient's outpatient lab is perhaps an error. Patient denies any symptoms of anemia. He states he feels at baseline. EKG interpretation: Ventricular rate 83, A. fib, QRS 176, QTC 549. No TX prolongation, no QTC prolongation, no ST or T-wave changes noted. EKG compared to 07/01/2021. EKG today shows atrial fibrillation. Patient has history of A. fib. - Related Data Home Medications Medication Instructions Recorded Confirmed Levothyroxine Sodium [Synthroid] 75 mcg PO DAILY 01/10/19 07/01/21 Allopurinol [Zyloprim] 200 mg PO DAILY 09/11/20 07/01/21 Ammonium Lactate Cream [Lac-Hydrin 1 applic TOPICAL BID PRN 07/01/21 07/01/21 12% Cream] Clindamycin Lotion 1% 1 applic TOPICAL BID PRN 07/01/21 07/01/21 Dextrose Chew [Glucose Chew Tab] 16 gm PO DAILY PRN 07/01/21 07/01/21 Fluticasone Nasal [place] [Flonase 2 spray EA NOSTRIL DAILY PRN 07/01/21 07/01/21 Nasal [place]] Psyllium Husk (with Sugar) 1 tsp PO DAILY PRN 07/01/21 07/01/21 [Metamucil Powder] Sildenafil Citrate 50 mg PO DAILY PRN 07/01/21 07/01/21 Testosterone [Androgel 1.62% Gel 2 pump TOPICAL DAILY 07/01/21 07/01/21 Pump] Previous Rx's Medication Instructions Recorded Tamsulosin [Flomax] 0.4 mg PO DAILY #30 cap 07/14/21 Acetaminophen Tab [Tylenol] 325 mg PO Q6HR PRN tab 07/15/21 Aspirin 81 mg PO DAILY tab 07/15/21 Darbepoetin Victor M [Aranesp] 40 mcg SQ Q7D each 07/15/21 Folic Acid 1 mg PO DAILY@1200 tab 07/15/21 Furosemide [Lasix] 40 mg PO DAILY tab 07/15/21 Gabapentin [Neurontin] 100 mg PO TID #6 cap 07/15/21 Heparin Sodium,Porcine [Heparin 5,000 unit SQ Q12HR 30 Days #60 07/15/21 Sodium] each INSULIN ASPART (NovoLOG) [NovoLOG 0 unit SQ ACHS ml 07/15/21 (formulary)] Insulin Detemir (Levemir) [Levemir] 10 unit SQ BID@0700,2100 ml 07/15/21 Metoprolol Tartrate [Lopressor] 25 mg PO BID tab 07/15/21 Multivitamins, Thera [Multivitamin 1 each PO DAILY@1200 tab 07/15/21 (formulary)] Pantoprazole Sodium [Protonix] 40 mg PO DAILY #30 tab 07/15/21 QUEtiapine [SEROquel] 12.5 mg PO HS tab 07/15/21 Sodium Bicarbonate Tab 650 mg PO BID tab 07/15/21 Thiamine [Vitamin B-1] 100 mg PO DAILY tab 07/15/21 amLODIPine [Norvasc] 5 mg PO DAILY tab 07/15/21 ceFAZolin [Kefzol] 2 gm IVP Q12HR #14 each 07/15/21 hydrALAZINE HCL [Apresoline] 25 mg PO TID tab 07/15/21 levETIRAcetam [Keppra] 500 mg PO DAILY tab 07/15/21 Allergies Allergy/AdvReac Type Severity Reaction Status Date / Time No Known Allergies Allergy Verified 07/01/21 17:44 Review of Systems ROS Statement: Those systems with pertinent positive or pertinent negative responses have been documented in the HPI. ROS Other: All systems not noted in ROS Statement are negative. Past Medical History Past Medical History: Atrial Fibrillation, Diabetes Mellitus, GI Bleed, Hyperlipidemia, Hypertension, Skin Disorder, Sleep Apnea/CPAP/BIPAP, Thyroid Disorder Additional Past Medical History / Comment(s): diverticulitis, hx colon polyp, gout, little bumps and dry skin, neuropathy patty legs and feet, hx anemia History of Any Multi-Drug Resistant Organisms: None Reported Past Surgical History: Bariatric Surgery, Cardiac Ablation, Hernia Repair, Joint Replacement Additional Past Surgical History / Comment(s): Boils lanced on back. Blephoplasty. left hip replacement, shannan-en-y Past Anesthesia/Blood Transfusion Reactions: Previous Problems w/ Anesthesia Additional Past Anesthesia/Blood Transfusion Reaction / Comment(s): woke up during procedure Past Psychological History: No Psychological Hx Reported Smoking Status: Former smoker Past Alcohol Use History: Occasional Past Drug Use History: None Reported - Past Family History Father Family Medical History: Cancer Additional Family Medical History / Comment(s): lung Mother Family Medical History: No Reported History Additional Family Medical History / Comment(s): Mother passed at age 62 due to an auto accident. Brother(s) Family Medical History: Cancer Additional Family Medical History / Comment(s): throat Sister(s) Family Medical History: Cancer Additional Family Medical History / Comment(s): lymphoma General Exam Limitations: no limitations Course Vital Signs 07/25/21 07/25/21 08:02 09:08 Temperature 98.4 F Pulse Rate 86 Respiratory 18 18 Rate Blood Pressure 139/73 O2 Sat by Pulse 97 Oximetry Medical Decision Making - Lab Data Result diagrams: 07/25/21 08:26 07/25/21 08:26 Lab Results 07/25/21 07/25/21 07/25/21 Range/Units 08:26 08:26 08:26 WBC 3.7 L (3.8-10.6) k/uL RBC 2.34 L (4.30-5.90) m/uL Hgb 7.9 L (13.0-17.5) gm/dL Hct 24.0 L (39.0-53.0) % MCV 102.3 H (80.0-100.0) fL MCH 33.6 (25.0-35.0) pg MCHC 32.9 (31.0-37.0) g/dL RDW 14.9 (11.5-15.5) % Plt Count 114 L (150-450) k/uL MPV 9.3 Neutrophils % (Manual) 50 % Lymphocytes % (Manual) 23 % Monocytes % (Manual) 18 % Eosinophils % (Manual) 6 % Basophils % (Manual) 3 % Neutrophils # (Manual) 1.85 (1.3-7.7) k/uL Lymphocytes # (Manual) 0.85 L (1.0-4.8) k/uL Monocytes # (Manual) 0.67 (0-1.0) k/uL Eosinophils # (Manual) 0.22 (0-0.7) k/uL Basophils # (Manual) 0.11 (0-0.2) k/uL Nucleated RBCs 0 (0-0) /100 WBC Manual Slide Review Performed Macrocytosis Slight PT 13.3 H (9.0-12.0) sec INR 1.3 H (<1.2) APTT 31.2 H (22.0-30.0) sec Sodium (137-145) mmol/L Potassium (3.5-5.1) mmol/L Chloride (98-107) mmol/L Carbon Dioxide (22-30) mmol/L Anion Gap mmol/L BUN (9-20) mg/dL Creatinine (0.66-1.25) mg/dL Est GFR (CKD-EPI)AfAm (>60 ml/min/1.73 sqM) Est GFR (CKD-EPI)NonAf (>60 ml/min/1.73 sqM) Glucose (74-99) mg/dL Plasma Lactic Acid Malachi (0.7-2.0) mmol/L Calcium (8.4-10.2) mg/dL Magnesium (1.6-2.3) mg/dL Stool Occult Blood Negative (Negative) Blood Type Blood Type Recheck Bld Type Recheck Status Antibody Screen Spec Expiration Date 07/25/21 07/25/21 07/25/21 Range/Units 08:26 08:26 08:26 WBC (3.8-10.6) k/uL RBC (4.30-5.90) m/uL Hgb (13.0-17.5) gm/dL Hct (39.0-53.0) % MCV (80.0-100.0) fL MCH (25.0-35.0) pg MCHC (31.0-37.0) g/dL RDW (11.5-15.5) % Plt Count (150-450) k/uL MPV Neutrophils % (Manual) % Lymphocytes % (Manual) % Monocytes % (Manual) % Eosinophils % (Manual) % Basophils % (Manual) % Neutrophils # (Manual) (1.3-7.7) k/uL Lymphocytes # (Manual) (1.0-4.8) k/uL Monocytes # (Manual) (0-1.0) k/uL Eosinophils # (Manual) (0-0.7) k/uL Basophils # (Manual) (0-0.2) k/uL Nucleated RBCs (0-0) /100 WBC Manual Slide Review Macrocytosis PT (9.0-12.0) sec INR (<1.2) APTT (22.0-30.0) sec Sodium 139 (137-145) mmol/L Potassium 4.3 (3.5-5.1) mmol/L Chloride 110 H (98-107) mmol/L Carbon Dioxide 23 (22-30) mmol/L Anion Gap 6 mmol/L BUN 40 H (9-20) mg/dL Creatinine 1.99 H (0.66-1.25) mg/dL Est GFR (CKD-EPI)AfAm 38 (>60 ml/min/1.73 sqM) Est GFR (CKD-EPI)NonAf 33 (>60 ml/min/1.73 sqM) Glucose 100 H (74-99) mg/dL Plasma Lactic Acid Malachi 1.2 (0.7-2.0) mmol/L Calcium 9.2 (8.4-10.2) mg/dL Magnesium 1.7 (1.6-2.3) mg/dL Stool Occult Blood (Negative) Blood Type A Positive Blood Type Recheck A Pos Bld Type Recheck Status No Antibody Screen NEGATIVE Spec Expiration Date 07/28/20212325 Disposition Clinical Impression: Abnormal laboratory test Disposition: HOME SELF-CARE Condition: Good Instructions (If sedation given, give patient instructions): Anemia (ED) Is patient prescribed a controlled substance at d/c from ED?: No Referrals: Nonstaff,Physician [Primary Care Provider] - 1-2 days
[2021-07-25 08:59] LABS: Calcium 9.2 mg/dL (8.4-10.2); Magnesium 1.7 mg/dL (1.6-2.3); Potassium 4.3 mmol/L (3.5-5.1)
[2021-07-25 09:00] LABS: INR 1.3 (<1.2); Partial Thromboplastin Time 31.2 sec (22.0-30.0); Prothrombin Time 13.3 sec (9.0-12.0)
[2021-07-25 09:05] LABS: HGB 7.9 gm/dL (13.0-17.5); MCH 33.6 pg (25.0-35.0); MCHC 32.9 g/dL (31.0-37.0); MCV 102.3 fL (80.0-100.0); Macrocytosis Slight; Mean Platelet Volume 9.3; Platelet Count 114 k/uL (150-450); RBC 2.34 m/uL (4.30-5.90); RDW 14.9 % (11.5-15.5); WBC 3.7 k/uL (3.8-10.6)
[2021-07-25 09:31] LABS: Basophils # (M) 0.11 k/uL (0-0.2); Eosinophils # (M) 0.22 k/uL (0-0.7); Lymphocytes # (M) 0.85 k/uL (1.0-4.8); Monocytes # (M) 0.67 k/uL (0-1.0); Neutrophils # (M) 1.85 k/uL (1.3-7.7); Neutrophils % (M) 50 %; Nucleated Red Blood Cells 0 /100 WBC (0-0); Total Cells Counted 100
[2021-07-25 10:02] VITALS: BP 142/75
== END 2021-07-25 11:17 | disposition home or self-care (01) ==
LOC: EC 07:55
DX: R79.9 Abnormal finding of blood chemistry, unspecified (principal); I48.91 Unspecified atrial fibrillation; E11.9 Type 2 diabetes mellitus without complications; E78.5 Hyperlipidemia, unspecified; I10 Essential (primary) hypertension; E07.9 Disorder of thyroid, unspecified; Z79.82 Long term (current) use of aspirin; Z79.4 Long term (current) use of insulin; Z98.84 Bariatric surgery status; Z96.642 Presence of left artificial hip joint; Z87.891 Personal history of nicotine dependence
CPT/HCPCS: 36415; 80048; 82272; 83605; 83735; 85025; 85610; 85730; 86850; 86900; 86901; 93005; 99284

== ENCOUNTER 2021-07-30 12:34 | Emergency (ER) | payer OTHER, MEDICARE ==
[2021-07-30 12:46] VITALS: RESP 18; TEMP 97.1
[2021-07-30 13:20] LABS: Basophils % (A) 1 %; Eosinophils # (A) 0.1 k/uL (0-0.7); Eosinophils % (A) 4 %; HCT 23.7 % (39.0-53.0); HGB 7.5 gm/dL (13.0-17.5); Lymphocytes # (A) 1.1 k/uL (1.0-4.8); Lymphocytes % (A) 32 %; MCH 32.4 pg (25.0-35.0); MCHC 31.9 g/dL (31.0-37.0); MCV 101.7 fL (80.0-100.0); Macrocytosis Slight; Mean Platelet Volume 10.4; Monocytes # (A) 0.3 k/uL (0-1.0); Monocytes % (A) 10 %; Neutrophils # (A) 1.7 k/uL (1.3-7.7); Neutrophils % (A) 50 %; RBC 2.33 m/uL (4.30-5.90); RDW 15.3 % (11.5-15.5); WBC 3.4 k/uL (3.8-10.6)
--- NOTE | 2021-07-30 13:36 | ED ---
General Adult HPI - General Chief complaint: Recheck/Abnormal Lab/Rx Stated complaint: unresponsive Time Seen by Provider: 07/30/21 12:50 Source: patient, EMS, RN notes reviewed, old records reviewed Mode of arrival: EMS Limitations: no limitations - History of Present Illness Initial comments: 71-year-old male who had presented from the skilled nursing for evaluation of anemia. Patient had lab draw performed yesterday was noted to have a hemoglobin of 6.9. He has had some anemia. Patient himself has no complaints. He has mildly confused but at baseline according to documentation. Patient denies rectal bleeding. He does have history of atrial fibrillation and previous GI bleed currently not on any anticoagulation. Currently on Aranesp. - Related Data Home Medications Medication Instructions Recorded Confirmed Levothyroxine Sodium [Synthroid] 75 mcg PO DAILY@0600 01/10/19 07/30/21 Allopurinol [Zyloprim] 200 mg PO DAILY@0900 09/11/20 07/30/21 Ammonium Lactate Cream [Lac-Hydrin 1 applic TOPICAL BID PRN 07/01/21 07/30/21 12% Cream] Dextrose Chew [Glucose Chew Tab] 16 gm PO DAILY PRN 07/01/21 07/30/21 Fluticasone Nasal [place] [Flonase 2 spray EA NOSTRIL DAILY PRN 07/01/21 07/30/21 Nasal [place]] Psyllium Husk (with Sugar) 1 tsp PO DAILY PRN 07/01/21 07/30/21 [Metamucil Powder] Aspirin 81 mg PO DAILY@0900 07/30/21 07/30/21 Darbepoetin Victor M [Aranesp] 40 mcg SQ SA 07/30/21 07/30/21 Folic Acid 1 mg PO DAILY@0900 07/30/21 07/30/21 Furosemide [Lasix] 40 mg PO DAILY@0900 07/30/21 07/30/21 Gabapentin [Neurontin] 100 mg PO TID@0900,1300,209907/30/21 07/30/21 Heparin Sodium,Porcine [Heparin 5,000 unit SQ BID@0900,2100 07/30/21 07/30/21 Sodium] Insulin Glargine,Hum.rec.anlog 10 units SQ BID@0900,2100 07/30/21 07/30/21 [Semglee Pen] Insulin Lispro [humaLOG Kwikpen] See Protocol SQ ACHS 07/30/21 07/30/21 Metoprolol Tartrate [Lopressor] 25 mg PO BID@0900,2100 07/30/21 07/30/21 Multivitamins, Thera [Multivitamin 1 tab PO DAILY@0900 07/30/21 07/30/21 (formulary)] Omeprazole 20 mg PO DAILY@0600 07/30/21 07/30/21 QUEtiapine [SEROquel] 12.5 mg PO HS@209907/30/21 07/30/21 Sodium Bicarbonate Tab 650 mg PO BID@0900,209907/30/21 07/30/21 Tamsulosin [Flomax] 0.4 mg PO BID@0900,209907/30/21 07/30/21 Thiamine [Vitamin B-1] 100 mg PO DAILY@0900 07/30/21 07/30/21 amLODIPine [Norvasc] 5 mg PO DAILY@0900 07/30/21 07/30/21 hydrALAZINE HCL [Apresoline] 25 mg PO TID@0900,1300,209907/30/21 07/30/21 levETIRAcetam [Keppra] 500 mg PO DAILY@0900 07/30/21 07/30/21 Previous Rx's Medication Instructions Recorded Acetaminophen Tab [Tylenol] 325 mg PO Q6HR PRN tab 07/15/21 Allergies Allergy/AdvReac Type Severity Reaction Status Date / Time No Known Allergies Allergy Verified 07/30/21 12:42 Review of Systems ROS Statement: Those systems with pertinent positive or pertinent negative responses have been documented in the HPI. ROS Other: All systems not noted in ROS Statement are negative. Past Medical History Past Medical History: Atrial Fibrillation, Diabetes Mellitus, GI Bleed, Hyperlipidemia, Hypertension, Skin Disorder, Sleep Apnea/CPAP/BIPAP, Thyroid Disorder Additional Past Medical History / Comment(s): diverticulitis, hx colon polyp, gout, little bumps and dry skin, neuropathy patty legs and feet, hx anemia History of Any Multi-Drug Resistant Organisms: None Reported Past Surgical History: Bariatric Surgery, Cardiac Ablation, Hernia Repair, Joint Replacement Additional Past Surgical History / Comment(s): Boils lanced on back. Blephoplasty. left hip replacement, shannan-en-y Past Anesthesia/Blood Transfusion Reactions: Previous Problems w/ Anesthesia Additional Past Anesthesia/Blood Transfusion Reaction / Comment(s): woke up during procedure Past Psychological History: No Psychological Hx Reported Smoking Status: Former smoker Past Alcohol Use History: Occasional Past Drug Use History: None Reported - Past Family History Father Family Medical History: Cancer Additional Family Medical History / Comment(s): lung Mother Family Medical History: No Reported History Additional Family Medical History / Comment(s): Mother passed at age 62 due to an auto accident. Brother(s) Family Medical History: Cancer Additional Family Medical History / Comment(s): throat Sister(s) Family Medical History: Cancer Additional Family Medical History / Comment(s): lymphoma General Exam Limitations: no limitations General appearance: alert, in no apparent distress Head exam: Present: atraumatic, normocephalic Eye exam: Present: normal appearance, PERRL ENT exam: Present: normal exam Neck exam: Present: normal inspection. Absent: tenderness, meningismus Respiratory exam: Present: normal lung sounds bilaterally. Absent: respiratory distress, wheezes Cardiovascular Exam: Present: regular rate, irregular rhythm GI/Abdominal exam: Present: soft. Absent: distended, tenderness, guarding, rebound Extremities exam: Present: normal inspection, normal capillary refill. Absent: pedal edema Neurological exam: Present: alert, oriented X3, CN II-XII intact. Absent: motor sensory deficit Psychiatric exam: Present: normal affect, normal mood Skin exam: Present: warm, dry, intact. Absent: cyanosis, diaphoretic Course Vital Signs 07/30/21 07/30/21 07/30/21 12:36 13:39 14:28 Temperature 97.1 F L Pulse Rate 75 78 Pulse Rate [ 77 Supine Pulse Oximetery] Respiratory 18 18 Rate Blood Pressure 127/72 116/58 O2 Sat by Pulse 98 98 Oximetry EKG Findings - EKG Comments: EKG Findings:: EKG: Atrial fibrillation, left axis deviation, right bundle branch block, ventricular rate is 76, QRS duration 180, QTC 467 Medical Decision Making - Medical Decision Making 71 yo male who had presented with abnormal outpatient labs. Hemoglobin 6.9. This is repeated 7.5. Patient has had relatively stable anemia. This will require close monitoring. Patient's additional laboratory testing is at baseline. He is pancytopenic with a white blood cell count 3.4, platelets of 97 this is also relatively stable for this patient. Recommend close outpatient follow-up he will be discharged back to the skilled nursing. - Lab Data Result diagrams: 07/30/21 13:05 07/30/21 13:05 Lab Results 07/30/21 07/30/21 07/30/21 Range/Units 13:03 13:05 13:05 WBC 3.4 L (3.8-10.6) k/uL RBC 2.33 L (4.30-5.90) m/uL Hgb 7.5 L (13.0-17.5) gm/dL Hct 23.7 L (39.0-53.0) % MCV 101.7 H (80.0-100.0) fL MCH 32.4 (25.0-35.0) pg MCHC 31.9 (31.0-37.0) g/dL RDW 15.3 (11.5-15.5) % Plt Count 97 L (150-450) k/uL MPV 10.4 Neutrophils % 50 % Lymphocytes % 32 % Monocytes % 10 % Eosinophils % 4 % Basophils % 1 % Neutrophils # 1.7 (1.3-7.7) k/uL Lymphocytes # 1.1 (1.0-4.8) k/uL Monocytes # 0.3 (0-1.0) k/uL Eosinophils # 0.1 (0-0.7) k/uL Basophils # 0.0 (0-0.2) k/uL Manual Slide Review Performed Macrocytosis Slight PT 13.4 H (9.0-12.0) sec INR 1.3 H (<1.2) APTT 30.8 H (22.0-30.0) sec Sodium (137-145) mmol/L Potassium (3.5-5.1) mmol/L Chloride (98-107) mmol/L Carbon Dioxide (22-30) mmol/L Anion Gap mmol/L BUN (9-20) mg/dL Creatinine (0.66-1.25) mg/dL Est GFR (CKD-EPI)AfAm (>60 ml/min/1.73 sqM) Est GFR (CKD-EPI)NonAf (>60 ml/min/1.73 sqM) Glucose (74-99) mg/dL Calcium (8.4-10.2) mg/dL Magnesium (1.6-2.3) mg/dL Total Bilirubin (0.2-1.3) mg/dL AST (17-59) U/L ALT (4-49) U/L Alkaline Phosphatase (38-126) U/L Total Protein (6.3-8.2) g/dL Albumin (3.5-5.0) g/dL Blood Type A Positive Blood Type Recheck A Pos Bld Type Recheck Status No Antibody Screen NEGATIVE Spec Expiration Date 08/02/2021 - 230407/30/21 Range/Units 13:05 WBC (3.8-10.6) k/uL RBC (4.30-5.90) m/uL Hgb (13.0-17.5) gm/dL Hct (39.0-53.0) % MCV (80.0-100.0) fL MCH (25.0-35.0) pg MCHC (31.0-37.0) g/dL RDW (11.5-15.5) % Plt Count (150-450) k/uL MPV Neutrophils % % Lymphocytes % % Monocytes % % Eosinophils % % Basophils % % Neutrophils # (1.3-7.7) k/uL Lymphocytes # (1.0-4.8) k/uL Monocytes # (0-1.0) k/uL Eosinophils # (0-0.7) k/uL Basophils # (0-0.2) k/uL Manual Slide Review Macrocytosis PT (9.0-12.0) sec INR (<1.2) APTT (22.0-30.0) sec Sodium 140 (137-145) mmol/L Potassium 4.0 (3.5-5.1) mmol/L Chloride 109 H (98-107) mmol/L Carbon Dioxide 24 (22-30) mmol/L Anion Gap 7 mmol/L BUN 37 H (9-20) mg/dL Creatinine 1.75 H (0.66-1.25) mg/dL Est GFR (CKD-EPI)AfAm 45 (>60 ml/min/1.73 sqM) Est GFR (CKD-EPI)NonAf 39 (>60 ml/min/1.73 sqM) Glucose 125 H (74-99) mg/dL Calcium 8.8 (8.4-10.2) mg/dL Magnesium 1.6 (1.6-2.3) mg/dL Total Bilirubin 1.2 (0.2-1.3) mg/dL AST 51 (17-59) U/L ALT 15 (4-49) U/L Alkaline Phosphatase 67 (38-126) U/L Total Protein 6.8 (6.3-8.2) g/dL Albumin 2.8 L (3.5-5.0) g/dL Blood Type Blood Type Recheck Bld Type Recheck Status Antibody Screen Spec Expiration Date Disposition Clinical Impression: Pancytopenia Disposition: HOME SELF-CARE Condition: Fair Instructions (If sedation given, give patient instructions): Anemia (ED) Is patient prescribed a controlled substance at d/c from ED?: No Referrals: Nonstaff,Physician [Primary Care Provider] - 1-2 days Time of Disposition: 14:38
[2021-07-30 13:39] LABS: INR 1.3 (<1.2); Partial Thromboplastin Time 30.8 sec (22.0-30.0); Prothrombin Time 13.4 sec (9.0-12.0)
[2021-07-30 13:45] LABS: Albumin 2.8 g/dL (3.5-5.0); Calcium 8.8 mg/dL (8.4-10.2); Magnesium 1.6 mg/dL (1.6-2.3); Total Bilirubin 1.2 mg/dL (0.2-1.3); Total Protein 6.8 g/dL (6.3-8.2)
[2021-07-30 14:21] LABS: Platelet Count 97 k/uL (150-450)
[2021-07-30 14:29] VITALS: BP 116/58; PULSE 78
== END 2021-07-30 15:14 | disposition home or self-care (01) ==
LOC: EC 12:34
DX: D61.818 Other pancytopenia (principal); E11.9 Type 2 diabetes mellitus without complications; E78.5 Hyperlipidemia, unspecified; I10 Essential (primary) hypertension; I48.91 Unspecified atrial fibrillation; E07.9 Disorder of thyroid, unspecified; Z79.82 Long term (current) use of aspirin; Z79.4 Long term (current) use of insulin; Z98.84 Bariatric surgery status; Z96.642 Presence of left artificial hip joint; Z87.891 Personal history of nicotine dependence
CPT/HCPCS: 36415; 80053; 83735; 85025; 85610; 85730; 86850; 86900; 86901; 93005; 99285

== ENCOUNTER 2021-09-12 09:26 | Inpatient (IN) | payer OTHER, MEDICARE ==
[2021-09-12] MEDS ORDERED: SODIUM CHLORIDE 0.9% 1,000 ML IV STA (09:53)
--- NOTE | 2021-09-12 09:58 | ED ---
General Adult HPI - General Chief complaint: Altered Mental Status Stated complaint: Altered mental status Time Seen by Provider: 09/12/21 09:28 Source: patient, EMS, RN notes reviewed Mode of arrival: EMS Limitations: altered mental status - History of Present Illness Initial comments: Patient is a pleasant 71-year-old male presenting to the emergency department with concerns for altered mental status. Patient was found with decreased responsiveness at home. Unclear how long. Patient denies any specific complaints. Patient reportedly was recently at [facility] for elevated ammonia. Patient does admit to history of liver disease and history of alcohol intake in the past. - Related Data Home Medications Medication Instructions Recorded Confirmed Levothyroxine Sodium [Synthroid] 75 mcg PO DAILY@0600 01/10/19 07/30/21 Allopurinol [Zyloprim] 200 mg PO DAILY@0900 09/11/20 07/30/21 Ammonium Lactate Cream [Lac-Hydrin 1 applic TOPICAL BID PRN 07/01/21 07/30/21 12% Cream] Dextrose Chew [Glucose Chew Tab] 16 gm PO DAILY PRN 07/01/21 07/30/21 Fluticasone Nasal [place] [Flonase 2 spray EA NOSTRIL DAILY PRN 07/01/21 07/30/21 Nasal [place]] Psyllium Husk (with Sugar) 1 tsp PO DAILY PRN 07/01/21 07/30/21 [Metamucil Powder] Aspirin 81 mg PO DAILY@0900 07/30/21 07/30/21 Darbepoetin Victor M [Aranesp] 40 mcg SQ SA 07/30/21 07/30/21 Folic Acid 1 mg PO DAILY@0900 07/30/21 07/30/21 Furosemide [Lasix] 40 mg PO DAILY@0900 07/30/21 07/30/21 Gabapentin [Neurontin] 100 mg PO TID@0900,1300,209907/30/21 07/30/21 Heparin Sodium,Porcine [Heparin 5,000 unit SQ BID@0900,209907/30/21 07/30/21 Sodium] Insulin Glargine,Hum.rec.anlog 10 units SQ BID@0900,2100 07/30/21 07/30/21 [Semglee Pen] Insulin Lispro [humaLOG Kwikpen] See Protocol SQ ACHS 07/30/21 07/30/21 Metoprolol Tartrate [Lopressor] 25 mg PO BID@0900,2100 07/30/21 07/30/21 Multivitamins, Thera [Multivitamin 1 tab PO DAILY@0900 07/30/21 07/30/21 (formulary)] Omeprazole 20 mg PO DAILY@0600 07/30/21 07/30/21 QUEtiapine [SEROquel] 12.5 mg PO HS@209907/30/21 07/30/21 Sodium Bicarbonate Tab 650 mg PO BID@0900,209907/30/21 07/30/21 Tamsulosin [Flomax] 0.4 mg PO BID@0900,209907/30/21 07/30/21 Thiamine [Vitamin B-1] 100 mg PO DAILY@0900 07/30/21 07/30/21 amLODIPine [Norvasc] 5 mg PO DAILY@0900 07/30/21 07/30/21 hydrALAZINE HCL [Apresoline] 25 mg PO TID@0900,1300,209907/30/21 07/30/21 levETIRAcetam [Keppra] 500 mg PO DAILY@0900 07/30/21 07/30/21 Previous Rx's Medication Instructions Recorded Acetaminophen Tab [Tylenol] 325 mg PO Q6HR PRN tab 07/15/21 Allergies Allergy/AdvReac Type Severity Reaction Status Date / Time No Known Allergies Allergy Verified 09/12/21 09:33 Review of Systems ROS Statement: Those systems with pertinent positive or pertinent negative responses have been documented in the HPI. ROS Other: All systems not noted in ROS Statement are negative. Constitutional: Denies: fever Eyes: Denies: eye pain ENT: Denies: ear pain Respiratory: Denies: cough Cardiovascular: Denies: chest pain Endocrine: Reports: fatigue Gastrointestinal: Denies: abdominal pain Genitourinary: Denies: dysuria Musculoskeletal: Denies: back pain Skin: Denies: rash Neurological: Denies: weakness Past Medical History Past Medical History: Atrial Fibrillation, Diabetes Mellitus, GI Bleed, Hyperlipidemia, Hypertension, Skin Disorder, Sleep Apnea/CPAP/BIPAP, Thyroid Disorder Additional Past Medical History / Comment(s): diverticulitis, hx colon polyp, gout, little bumps and dry skin, neuropathy patty legs and feet, hx anemia History of Any Multi-Drug Resistant Organisms: None Reported Past Surgical History: Bariatric Surgery, Cardiac Ablation, Hernia Repair, Joint Replacement Additional Past Surgical History / Comment(s): Boils lanced on back. Blephoplasty. left hip replacement, shannan-en-y Past Anesthesia/Blood Transfusion Reactions: Previous Problems w/ Anesthesia Additional Past Anesthesia/Blood Transfusion Reaction / Comment(s): woke up during procedure Past Psychological History: No Psychological Hx Reported Smoking Status: Former smoker Past Alcohol Use History: Occasional Past Drug Use History: None Reported - Past Family History Father Family Medical History: Cancer Additional Family Medical History / Comment(s): lung Mother Family Medical History: No Reported History Additional Family Medical History / Comment(s): Mother passed at age 62 due to an auto accident. Brother(s) Family Medical History: Cancer Additional Family Medical History / Comment(s): throat Sister(s) Family Medical History: Cancer Additional Family Medical History / Comment(s): lymphoma General Exam Limitations: no limitations General appearance: other (Drowsy but arousable to voice) Head exam: Present: normocephalic Eye exam: Present: normal appearance, PERRL, EOMI ENT exam: Present: mucous membranes dry Neck exam: Present: normal inspection. Absent: tenderness Respiratory exam: Present: normal lung sounds bilaterally Cardiovascular Exam: Present: regular rate, normal rhythm GI/Abdominal exam: Present: soft. Absent: tenderness Extremities exam: Present: normal inspection, full ROM. Absent: tenderness Neurological exam: Present: CN II-XII intact, other (Slow to follow commands. Drowsy but arousable to voice). Absent: motor sensory deficit Expanded Patient oriented to: Present: person. Absent: place, time Psychiatric exam: Present: flat affect Skin exam: Present: normal color Course Vital Signs 09/12/21 09/12/21 09:28 11:15 Temperature 97.9 F Pulse Rate 89 92 Respiratory 20 18 Rate Blood Pressure 129/80 132/88 O2 Sat by Pulse 100 98 Oximetry EKG Findings - EKG Comments: EKG Findings:: Sinus rhythm with a rate of 93. For screening AV block WI 234. QRS 176. QT 460. QTC 571. Left axis. Right bundle-branch block. No acute ST change. Medical Decision Making - Medical Decision Making Patient reevaluated without much change. Patient family is updated on results and plan. Case was discussed with Dr. jean-baptiste, who will admit for this [place] patient. - Lab Data Result diagrams: 09/12/21 09:29 09/12/21 09:29 Lab Results 09/12/21 09/12/21 09/12/21 Range/Units 09:29 09:29 09:29 WBC 4.5 (3.8-10.6) k/uL RBC 2.70 L (4.30-5.90) m/uL Hgb 8.2 L (13.0-17.5) gm/dL Hct 25.4 L (39.0-53.0) % MCV 94.3 D (80.0-100.0) fL MCH 30.5 (25.0-35.0) pg MCHC 32.3 (31.0-37.0) g/dL RDW 16.5 H (11.5-15.5) % Plt Count 124 L (150-450) k/uL MPV 10.4 Neutrophils % 55 % Lymphocytes % 26 % Monocytes % 12 % Eosinophils % 3 % Basophils % 1 % Neutrophils # 2.5 (1.3-7.7) k/uL Lymphocytes # 1.2 (1.0-4.8) k/uL Monocytes # 0.5 (0-1.0) k/uL Eosinophils # 0.1 (0-0.7) k/uL Basophils # 0.0 (0-0.2) k/uL Anisocytosis Slight PT 13.5 H (9.0-12.0) sec INR 1.3 H (<1.2) APTT 27.3 (22.0-30.0) sec Sodium (137-145) mmol/L Potassium (3.5-5.1) mmol/L Chloride (98-107) mmol/L Carbon Dioxide (22-30) mmol/L Anion Gap mmol/L BUN (9-20) mg/dL Creatinine (0.66-1.25) mg/dL Est GFR (CKD-EPI)AfAm (>60 ml/min/1.73 sqM) Est GFR (CKD-EPI)NonAf (>60 ml/min/1.73 sqM) Glucose (74-99) mg/dL POC Glucose (mg/dL) (75-99) mg/dL POC Glu [employer] Operator ID Calcium (8.4-10.2) mg/dL Total Bilirubin (0.2-1.3) mg/dL AST (17-59) U/L ALT (4-49) U/L Alkaline Phosphatase (38-126) U/L Ammonia (<30) umol/L Creatine Kinase (55-170) U/L Troponin I (0.000-0.034) ng/mL Total Protein (6.3-8.2) g/dL Albumin (3.5-5.0) g/dL Urine Color Yellow Urine Appearance Clear (Clear) Urine pH 5.5 (5.0-8.0) Ur Specific [place] 1.013 (1.001-1.035) Urine Protein Negative (Negative) Urine Glucose (UA) Negative (Negative) Urine Ketones Negative (Negative) Urine Blood Negative (Negative) Urine Nitrite Negative (Negative) Urine Bilirubin Negative (Negative) Urine Urobilinogen 4.0 (<2.0) mg/dL Ur Leukocyte Esterase Negative (Negative) Serum Alcohol mg/dL 09/12/21 09/12/21 09/12/21 Range/Units 09:29 09:29 09:29 WBC (3.8-10.6) k/uL RBC (4.30-5.90) m/uL Hgb (13.0-17.5) gm/dL Hct (39.0-53.0) % MCV (80.0-100.0) fL MCH (25.0-35.0) pg MCHC (31.0-37.0) g/dL RDW (11.5-15.5) % Plt Count (150-450) k/uL MPV Neutrophils % % Lymphocytes % % Monocytes % % Eosinophils % % Basophils % % Neutrophils # (1.3-7.7) k/uL Lymphocytes # (1.0-4.8) k/uL Monocytes # (0-1.0) k/uL Eosinophils # (0-0.7) k/uL Basophils # (0-0.2) k/uL Anisocytosis PT (9.0-12.0) sec INR (<1.2) APTT (22.0-30.0) sec Sodium 142 (137-145) mmol/L Potassium 3.4 L (3.5-5.1) mmol/L Chloride 111 H (98-107) mmol/L Carbon Dioxide 23 (22-30) mmol/L Anion Gap 8 mmol/L BUN 23 H (9-20) mg/dL Creatinine 1.83 H (0.66-1.25) mg/dL Est GFR (CKD-EPI)AfAm 42 (>60 ml/min/1.73 sqM) Est GFR (CKD-EPI)NonAf 37 (>60 ml/min/1.73 sqM) Glucose 127 H (74-99) mg/dL POC Glucose (mg/dL) (75-99) mg/dL POC Glu [employer] Operator ID Calcium 8.8 (8.4-10.2) mg/dL Total Bilirubin 1.8 H (0.2-1.3) mg/dL AST 38 (17-59) U/L ALT 18 (4-49) U/L Alkaline Phosphatase 103 (38-126) U/L Ammonia 84 H (<30) umol/L Creatine Kinase 51 L (55-170) U/L Troponin I 0.018 (0.000-0.034) ng/mL Total Protein 7.0 (6.3-8.2) g/dL Albumin 2.8 L (3.5-5.0) g/dL Urine Color Urine Appearance (Clear) Urine pH (5.0-8.0) Ur Specific [place] (1.001-1.035) Urine Protein (Negative) Urine Glucose (UA) (Negative) Urine Ketones (Negative) Urine Blood (Negative) Urine Nitrite (Negative) Urine Bilirubin (Negative) Urine Urobilinogen (<2.0) mg/dL Ur Leukocyte Esterase (Negative) Serum Alcohol <10 mg/dL 09/12/21 Range/Units 10:04 WBC (3.8-10.6) k/uL RBC (4.30-5.90) m/uL Hgb (13.0-17.5) gm/dL Hct (39.0-53.0) % MCV (80.0-100.0) fL MCH (25.0-35.0) pg MCHC (31.0-37.0) g/dL RDW (11.5-15.5) % Plt Count (150-450) k/uL MPV Neutrophils % % Lymphocytes % % Monocytes % % Eosinophils % % Basophils % % Neutrophils # (1.3-7.7) k/uL Lymphocytes # (1.0-4.8) k/uL Monocytes # (0-1.0) k/uL Eosinophils # (0-0.7) k/uL Basophils # (0-0.2) k/uL Anisocytosis PT (9.0-12.0) sec INR (<1.2) APTT (22.0-30.0) sec Sodium (137-145) mmol/L Potassium (3.5-5.1) mmol/L Chloride (98-107) mmol/L Carbon Dioxide (22-30) mmol/L Anion Gap mmol/L BUN (9-20) mg/dL Creatinine (0.66-1.25) mg/dL Est GFR (CKD-EPI)AfAm (>60 ml/min/1.73 sqM) Est GFR (CKD-EPI)NonAf (>60 ml/min/1.73 sqM) Glucose (74-99) mg/dL POC Glucose (mg/dL) 132 H (75-99) mg/dL POC Glu [employer] Operator ID William Hunter Calcium (8.4-10.2) mg/dL Total Bilirubin (0.2-1.3) mg/dL AST (17-59) U/L ALT (4-49) U/L Alkaline Phosphatase (38-126) U/L Ammonia (<30) umol/L Creatine Kinase (55-170) U/L Troponin I (0.000-0.034) ng/mL Total Protein (6.3-8.2) g/dL Albumin (3.5-5.0) g/dL Urine Color Urine Appearance (Clear) Urine pH (5.0-8.0) Ur Specific [place] (1.001-1.035) Urine Protein (Negative) Urine Glucose (UA) (Negative) Urine Ketones (Negative) Urine Blood (Negative) Urine Nitrite (Negative) Urine Bilirubin (Negative) Urine Urobilinogen (<2.0) mg/dL Ur Leukocyte Esterase (Negative) Serum Alcohol mg/dL - Radiology Data Radiology results: report reviewed (Computed tomography scan of the brain shows no acute airmail be.), image reviewed (Chest x-ray shows some atelectasis.) Disposition Clinical Impression: Hepatic encephalopathy Disposition: ADMITTED IP TO THIS [facility] Condition: Serious Is patient prescribed a controlled substance at d/c from ED?: No Referrals: Nonstaff,Physician [Primary Care Provider] - 1-2 days Decision Time: 12:56
[2021-09-12 10:06] LABS: Glucose,Whole Blood 132 mg/dL (75-99)
[2021-09-12 10:22] LABS: Appearance,Urine Clear (Clear); Bilirubin,Urine Negative (Negative); Blood,Urine Negative (Negative); Color,Urine Yellow; Glucose,Urine (UA) Negative (Negative); Ketones,Urine Negative (Negative); Leukocyte Esterase,Urine Negative (Negative); Nitrite,Urine Negative (Negative); PH, Urine 5.5 (5.0-8.0); Protein,Urine Negative (Negative); Specific Gravity,Urine 1.013 (1.001-1.035)
[2021-09-12 10:23] LABS: ALT 18 U/L (4-49); AST 38 U/L (17-59); African American GFR (CKD) 42 (>60 ml/min/1.73 sqM); Albumin 2.8 g/dL (3.5-5.0); Alcohol <10 mg/dL; Alkaline Phosphatase 103 U/L (38-126); Anion Gap 8 mmol/L; Blood Urea Nitrogen 23 mg/dL (9-20); Calcium 8.8 mg/dL (8.4-10.2); Carbon Dioxide 23 mmol/L (22-30); Chloride 111 mmol/L (98-107); Creatine Kinase 51 U/L (55-170); Glucose 127 mg/dL (74-99); Non-African American GFR(CKD) 37 (>60 ml/min/1.73 sqM); Potassium 3.4 mmol/L (3.5-5.1); Sodium 142 mmol/L (137-145); Total Bilirubin 1.8 mg/dL (0.2-1.3)
[2021-09-12 10:26] LABS: INR 1.3 (<1.2); Partial Thromboplastin Time 27.3 sec (22.0-30.0); Prothrombin Time 13.5 sec (9.0-12.0)
[2021-09-12 10:30] LABS: Anisocytosis Slight; Basophils % (A) 1 %; Eosinophils # (A) 0.1 k/uL (0-0.7); Eosinophils % (A) 3 %; HCT 25.4 % (39.0-53.0); HGB 8.2 gm/dL (13.0-17.5); Lymphocytes # (A) 1.2 k/uL (1.0-4.8); Lymphocytes % (A) 26 %; MCH 30.5 pg (25.0-35.0); MCHC 32.3 g/dL (31.0-37.0); Mean Platelet Volume 10.4; Monocytes # (A) 0.5 k/uL (0-1.0); Monocytes % (A) 12 %; Neutrophils # (A) 2.5 k/uL (1.3-7.7); Neutrophils % (A) 55 %; Platelet Count 124 k/uL (150-450); RDW 16.5 % (11.5-15.5); WBC 4.5 k/uL (3.8-10.6)
[2021-09-12 10:31] LABS: MCV 94.3 fL (80.0-100.0)
--- NOTE | 2021-09-12 11:23 | CT ---
EXAMINATION TYPE: CT brain wo con DATE OF EXAM: 09/12/2021 COMPARISON: HISTORY: Altered mental status CT DLP: 1202.4 mGycm Automated exposure control for dose reduction was used. Helical acquisition obtained through the [employer] n FINDINGS: No significant interval change. There is no hemorrhage or hydrocephalus. Cortical atrophy is stable. Periventricular white matter shows patchy low attenuation. There are cerebral vascular calcifications . Mild inflammatory change present in the ethmoid air cells, frontal sinus. Mastoid air cells are wel l aerated. IMPRESSION: NO ACUTE BRAIN ABNORMALITY. SINUS DISEASE.
--- NOTE | 2021-09-12 11:30 | XR ---
EXAMINATION TYPE: XR chest 2V DATE OF EXAM: 09/12/2021 COMPARISON: Chest x-ray 07/05/2021 HISTORY: Altered mental status TECHNIQUE: Frontal and lateral views of the chest are obtained. FINDINGS: There is increased AP diameter of the chest and retrosternal airspace which may be due to underlying COPD. Some minimal patchy density present at the posterior lung bases seen best on the lat eral exam. Patient is rotated. Cardiac mediastinal silhouette is likely stable. Central venous cathet er has been removed. No evident pneumothorax or pleural effusion. IMPRESSION: Expiratory rotated exam. Suspect some basilar atelectasis may be present.
[2021-09-12] MEDS ORDERED: NALOXONE 0.4 MG/ML 1 ML VIAL IV PRN (12:57)
[2021-09-12] MEDS: SODIUM CHLORIDE 0.9% 1,000 ML IV SCH (13:00)
[2021-09-12] MEDS: LACTULOSE 20 GM/30 ML CUP PO SCH ×2 (18:31→18:45)
--- NOTE | 2021-09-12 20:00 | P.HPIM ---
History of Present Illness This is a pleasant 71 years old male from the [place] clinic. With past medical history of Atrial Fibrillation, Diabetes Mellitus, GI Bleed, Hyperlipidemia, Hypertension, Sleep Apnea/CPAP/BIPAP, hypothyroidism, bilateral neuropathy, hi story of alcohol abuse. Marine Services Technician is Dr. Feng, while trying to follow-up with Dr. Moreno however she is waiting for referral by [facility] due to [facility] office He was recently discharged from the hospital 07/01- 07/14 for altered mental status, possible alcohol withdrawal, elevated ammonia secondary to his alcoholic liver cirrhosis, UTI, MSSA bacteremia, possible seizure and he was started on Keppra. Also with urinary retention Also patient was admitted [facility] and was recently discharged for elevated ammonia level. patient is poor historian and information were obtained from the at bedside As per patient was admitted to [facility] for a fall and broke his 2 ribs but found his problems are due to elevated hepatic ammonia, his level at that time was 136 and after treatment for 4 days level came down to 60 and he was discharged on the fifth day as per . He was discharged on lactulose 15 g twice a day Nayana he didn't have bowel movement as expected in the beginning until yesterday he had 3-4 bouts of bowel movements which were watery. However but that time he was getting more confused, he fell twice at home and was hard for him to get out of bed, his speech also affected by confusion, he was sitting only high when somebody talks to him. He was refusing to eat and drink so could not give him more lactulose when she was getting worse so she decided to bring him to the hospital However since he came in his mentation significantly improved although it is still confused. He open eyes spontaneously, he follows commands, he can answer some questions appropriately. He told me he is in the current hospital, he knew the year 2020 and the name of the president ximena allen however he still looks chronically but however he denies any abdominal pain about his abdomen is slightly distended. As per he quit drinking alcohol since 06/27 of this year. No smoking or illicit drugs Also he denies any chest pain or coughing or dyspnea. No headache or weakness. Patient vitals looks stable and he is afebrile. Labs reviewed, he has anemia with hemoglobin 8.2 he has chronic anemia with hemoglobin ranging between 6-8 over the last 3 months. INR is 1.3. Sodium 142, potassium 3.4, creatinine 1.8 which is close to baseline of 1.7-2.3 Glucose 132 and 127. Liver enzymes normal with AST 38 and ALT 18. Urine analysis is negative. Serum alcohol less than 10. Coronavirus not detected EKG showing normal sinus rhythm at 93 with first-degree AV block and occasional PVC and PAC. Right bundle branch block, QTC 471 area, no significant ST-T changes EKG 2 months ago looks similar showing possible atrial fibrillation at 76 with r ight bundle branch block and QTC 567 Please note there is no GI coverage in this hospital over this weekend. Review of Systems n/a confused Past Medical History Past Medical History: Atrial Fibrillation, Diabetes Mellitus, GI Bleed, Hyperlipidemia, Hypertension, Skin Disorder, Sleep Apnea/CPAP/BIPAP, Thyroid Disorder Additional Past Medical History / Comment(s): diverticulitis, hx colon polyp, gout, little bumps and dry skin, neuropathy patty legs and feet, hx anemia History of Any Multi-Drug Resistant Organisms: None Reported Past Surgical History: Bariatric Surgery, Cardiac Ablation, Hernia Repair, Joint Replacement Additional Past Surgical History / Comment(s): Boils lanced on back. Blephoplasty. left hip replacement, shannan-en-y Past Anesthesia/Blood Transfusion Reactions: Previous Problems w/ Anesthesia Additional Past Anesthesia/Blood Transfusion Reaction / Comment(s): woke up during procedure Past Psychological History: No Psychological Hx Reported Smoking Status: Former smoker Past Alcohol Use History: Occasional Past Drug Use History: None Reported - Past Family History Father Family Medical History: Cancer Additional Family Medical History / Comment(s): lung Mother Family Medical History: No Reported History Additional Family Medical History / Comment(s): Mother passed at age 62 due to an auto accident. Brother(s) Family Medical History: Cancer Additional Family Medical History / Comment(s): throat Sister(s) Family Medical History: Cancer Additional Family Medical History / Comment(s): lymphoma Medications and Allergies Home Medications Medication Instructions Recorded Confirmed Type Levothyroxine Sodium [Synthroid] 75 mcg PO DAILY 01/10/19 09/12/21 History Allopurinol [Zyloprim] 200 mg PO DAILY 09/11/20 09/12/21 History Fluticasone Nasal [place] [Flonase 2 spr EA NOSTRIL DAILY 07/01/21 09/12/21 History Nasal [place]] Folic Acid 1 mg PO DAILY 07/30/21 09/12/21 History Furosemide [Lasix] 40 mg PO DAILY 07/30/21 09/12/21 History Gabapentin [Neurontin] 100 mg PO TID@0900,1500,2100 07/30/21 09/12/21 History Multivitamins, Thera [Multivitamin 1 tab PO DAILY 07/30/21 09/12/21 History (formulary)] Sodium Bicarbonate Tab 325 mg PO DAILY 07/30/21 09/12/21 History Tamsulosin [Flomax] 0.4 mg PO BID 07/30/21 09/12/21 History Thiamine [Vitamin B-1] 100 mg PO DAILY@1500 07/30/21 09/12/21 History hydrALAZINE HCL [Apresoline] 25 mg PO TID@0900,1500,2100 07/30/21 09/12/21 History levETIRAcetam [Keppra] 500 mg PO DAILY 07/30/21 09/12/21 History Aspirin EC [Ecotrin Low Dose] 81 mg PO HS 09/12/21 09/12/21 History Ferrous Sulfate [Feosol] 325 mg PO HS 09/12/21 09/12/21 History Insulin Glargine,Hum.rec.anlog 10 unit SQ BID 09/12/21 09/12/21 History [Lantus Solostar Pen] Lactulose 20 gm PO TID@0900,1500,2100 09/12/21 09/12/21 History Metoprolol Tartrate [Lopressor] 25 mg PO BID 09/12/21 09/12/21 History Pantoprazole [Protonix] 20 mg PO HS 09/12/21 09/12/21 History Potassium Chloride ER [K-Dur 10] 10 meq PO DAILY 09/12/21 09/12/21 History Pravastatin Sodium [Pravachol] 40 mg PO HS 09/12/21 09/12/21 History Spironolactone [Aldactone] 50 mg PO DAILY 09/12/21 09/12/21 History Allergies Allergy/AdvReac Type Severity Reaction Status Date / Time No Known Allergies Allergy Verified 09/12/21 16:25 Physical Exam Vitals: Vital Signs Temp Pulse Resp BP Pulse Ox 09/12/21 11:15 92 18 132/88 98 09/12/21 09:28 97.9 F 89 20 129/80 100 Intake and Output 09/12/21 09/12/21 09/12/21 06:59 14:59 22:59 Output Total 1300 Balance -1300 Output: Urine 1300 Other: Weight 113.398 kg -GENERAL: The patient is confused , although he is alert awake and oriented to time place and person, not in any acute distress. Well developed, well nourish ed. HEENT: Pupils are round and equally reacting to light. EOMI. No scleral icterus. No conjunctival pallor. Normocephalic, atraumatic. No pharyngeal erythema. No thyromegaly. CARDIOVASCULAR: S1 and S2 present. No murmurs, rubs, or gallops. PULMONARY: Chest is clear to auscultation, no wheezing or crackles. ABDOMEN: Soft, nontender, distended, normoactive bowel sounds. No palpable organomegaly. MUSCULOSKELETAL: No joint swelling or deformity. EXTREMITIES: No cyanosis, clubbing, or pedal edema. NEUROLOGICAL: Gross neurological examination did not reveal any focal deficits. SKIN: No rashes. No petechiae Results CBC & Chem 7: 09/12/21 09:29 09/12/21 09:29 Labs: Abnormal Lab Results - Last 24 Hours (Table) 09/12/21 09/12/21 09/12/21 Range/Units 09:29 09:29 09:29 RBC 2.70 L (4.30-5.90) m/uL Hgb 8.2 L (13.0-17.5) gm/dL Hct 25.4 L (39.0-53.0) % RDW 16.5 H (11.5-15.5) % Plt Count 124 L (150-450) k/uL PT 13.5 H (9.0-12.0) sec INR 1.3 H (<1.2) Potassium 3.4 L (3.5-5.1) mmol/L Chloride 111 H (98-107) mmol/L BUN 23 H (9-20) mg/dL Creatinine 1.83 H (0.66-1.25) mg/dL Glucose 127 H (74-99) mg/dL POC Glucose (mg/dL) (75-99) mg/dL Total Bilirubin 1.8 H (0.2-1.3) mg/dL Ammonia (<30) umol/L Creatine Kinase 51 L (55-170) U/L Albumin 2.8 L (3.5-5.0) g/dL 09/12/21 09/12/21 Range/Units 09:29 10:04 RBC (4.30-5.90) m/uL Hgb (13.0-17.5) gm/dL Hct (39.0-53.0) % RDW (11.5-15.5) % Plt Count (150-450) k/uL PT (9.0-12.0) sec INR (<1.2) Potassium (3.5-5.1) mmol/L Chloride (98-107) mmol/L BUN (9-20) mg/dL Creatinine (0.66-1.25) mg/dL Glucose (74-99) mg/dL POC Glucose (mg/dL) 132 H (75-99) mg/dL Total Bilirubin (0.2-1.3) mg/dL Ammonia 84 H (<30) umol/L Creatine Kinase (55-170) U/L Albumin (3.5-5.0) g/dL Assessment and Plan Assessment: altered mental status, multifactorial, could be metabolic encephalopathy plus hepatic encephalopathy Alcoholic liver cirrhosis with elevated ammonia upon admission Chronic kidney disease, stage III B History of urinary retention Diabetes mellitus Hypertension Hyperlipidemia History of sleep apnea Hypothyroidism Peripheral neuropathy secondary to diabetes History of alcohol abuse History of UTI and MSSA bacteremia history of possible seizure on Keppra Plan: This is a pleasant 71 years old male who presents with hepatic encephalopathy Continue with lactulose and rifaximin, adjust dose for bowel movements 3-4 times per day Continue with gentle hydration Nephrology team consult GI consult if available in this facility We'll check abdominal ultrasound for possible ascites Labs and medication were reviewed.. Continue same treatment. Continue with symptomatic treatment. Resume home medication. Monitor lytes and vitals. DVT and GI prophylaxis. Further recommendations depends on the clinical course of the patient DVT prophylaxis: Subcutaneous heparin GI Prophylaxis: Pepcid PT/OT: Pending Prognosis is guarded
--- NOTE | 2021-09-12 23:06 | US ---
EXAMINATION TYPE: US abdomen limited DATE OF EXAM: 09/12/2021 COMPARISON: NONE CLINICAL HISTORY: Abdominal distention, rule out ascites. Ascites seen within all 4 quadrants IMPRESSION: Exam shows a moderate amount of abdominal ascites in all 4 quadrants of the abdomen.
[2021-09-13 00:09] LABS: Glucose,Whole Blood 125 mg/dL (75-99)
[2021-09-13] MEDS: LACTULOSE 20 GM/30 ML CUP PO SCH ×5 (00:23→22:43)
[2021-09-13] MEDS: PRAVASTATIN SODIUM 40 MG TAB PO SCH ×2 (00:24→21:06)
[2021-09-13] MEDS: levETIRAcetam 500 MG TAB PO SCH ×2 (00:24→11:55)
[2021-09-13] MEDS: ASPIRIN 81 MG PO SCH ×2 (00:24→21:07)
[2021-09-13] MEDS: TAMSULOSIN 0.4 MG CAP.ER.24H PO SCH ×3 (00:24→21:07)
[2021-09-13] MEDS: GABAPENTIN 100 MG CAP PO SCH ×4 (00:24→21:06)
[2021-09-13] MEDS: hydrALAZINE HCL 25 MG TAB PO SCH ×4 (00:24→21:07)
[2021-09-13] MEDS: METOPROLOL TARTRATE 25 MG TAB PO SCH ×3 (00:25→21:07)
[2021-09-13] MEDS: FERROUS SULFATE 325 MG TAB PO SCH ×2 (00:25→17:16)
[2021-09-13] MEDS: INSULIN ASPART (NovoLOG) 100 UNIT/ML VIAL SQ SCH ×5 (00:29→21:07)
[2021-09-13 05:40] LABS: Anisocytosis Slight; Basophils % (A) 1 %; Eosinophils # (A) 0.2 k/uL (0-0.7); Eosinophils % (A) 5 %; HCT 24.5 % (39.0-53.0); HGB 8.1 gm/dL (13.0-17.5); Lymphocytes % (A) 29 %; MCH 31.8 pg (25.0-35.0); MCHC 32.9 g/dL (31.0-37.0); MCV 96.7 fL (80.0-100.0); Monocytes # (A) 0.4 k/uL (0-1.0); Monocytes % (A) 10 %; Neutrophils # (A) 1.9 k/uL (1.3-7.7); Neutrophils % (A) 53 %; Platelet Count 115 k/uL (150-450); RBC 2.53 m/uL (4.30-5.90); RDW 16.4 % (11.5-15.5); WBC 3.7 k/uL (3.8-10.6)
[2021-09-13] MEDS: LEVOTHYROXINE 75 MCG TAB PO SCH (05:43)
[2021-09-13 07:13] LABS: Glucose,Whole Blood 116 mg/dL (75-99)
[2021-09-13] MEDS: allopurinoL 100 MG TAB PO SCH (08:16)
[2021-09-13] MEDS: SPIRONOLACTONE 25 MG TAB PO SCH (08:16)
[2021-09-13] MEDS: FUROSEMIDE 40 MG TAB PO SCH (08:16)
[2021-09-13] MEDS: SODIUM BICARBONATE TAB 650 MG TAB PO SCH (08:16)
[2021-09-13] MEDS: THIAMINE 100 MG TAB PO SCH (08:16)
[2021-09-13] MEDS: FOLIC ACID 1 MG TAB PO SCH (08:17)
[2021-09-13] MEDS: PANTOPRAZOLE 40 MG/10 ML VIAL IV SCH (08:17)
--- NOTE | 2021-09-13 08:40 | P.NPCON ---
History of Present Illness - Reason for Consult acute renal failure - Chief Complaint Confusion - History of Present Illness This is a 71-year-old male seen in consultation because of acute kidney injury and chronic kidney disease Is admitted with change in mental status. He is known with cirrhosis and his ammonia on admission was high. Patient is known with diabetes mellitus, atrial fibrillation, sleep apnea, history of alcohol abuse. His creatinine had been 1.0 to on 01/10/2019, the next available creatinine on 07/01/2021 was 5.74. Subsequently it has improved to 1.75 as of 07/30/2021 Admission creatinine 1.83 as of yesterday. Urinalysis is benign no proteins as of yesterday. Urine protein to creatinine ratio is 0.4 g dated 07/03/2021. Further serology has been negative on 07/04/2021 including ANCA, EMILIANO, complement C3 and C4 and [id number] DNA. An ultrasound dated 07/01/2021 shows 13.2 cm right and left kidney. Currently he is awake and alert and seems to be oriented. He has mild asterixis. Rest of the history is somewhat difficult to be reliable upon because of his confusional state when he came in Past Medical History Past Medical History: Atrial Fibrillation, Diabetes Mellitus, GI Bleed, Hype rlipidemia, Hypertension, Skin Disorder, Sleep Apnea/CPAP/BIPAP, Thyroid Disorder Additional Past Medical History / Comment(s): diverticulitis, hx colon polyp, gout, little bumps and dry skin, neuropathy patty legs and feet, hx anemia History of Any Multi-Drug Resistant Organisms: None Reported Past Surgical History: Bariatric Surgery, Cardiac Ablation, Hernia Repair, Joint Replacement Additional Past Surgical History / Comment(s): Boils lanced on back. Blephoplasty. left hip replacement, [id number] Past Anesthesia/Blood Transfusion Reactions: Previous Problems w/ Anesthesia Additional Past Anesthesia/Blood Transfusion Reaction / Comment(s): woke up during procedure Past Psychological History: No Psychological Hx Reported Smoking Status: Former smoker Past Alcohol Use History: Occasional Past Drug Use History: None Reported - Past Family History Father Family Medical History: Cancer Additional Family Medical History / Comment(s): lung Mother Family Medical History: No Reported History Additional Family Medical History / Comment(s): Mother passed at age 62 due to an auto accident. Brother(s) Family Medical History: Cancer Additional Family Medical History / Comment(s): throat Sister(s) Family Medical History: Cancer Additional Family Medical History / Comment(s): lymphoma Medications and Allergies Home Medications Medication Instructions Recorded Confirmed Type Levothyroxine Sodium [Synthroid] 75 mcg PO DAILY 01/10/19 09/12/21 History Allopurinol [Zyloprim] 200 mg PO DAILY 09/11/20 09/12/21 History Fluticasone Nasal [place] [Flonase 2 spr EA NOSTRIL DAILY 07/01/21 09/12/21 History Nasal Tidioute] Folic Acid 1 mg PO DAILY 07/30/21 09/12/21 History Furosemide [Lasix] 40 mg PO DAILY 07/30/21 09/12/21 History Gabapentin [Neurontin] 100 mg PO TID@0900,1500,2100 07/30/21 09/12/21 History Multivitamins, Thera [Multivitamin 1 tab PO DAILY 07/30/21 09/12/21 History (formulary)] Sodium Bicarbonate Tab 325 mg PO DAILY 07/30/21 09/12/21 History Tamsulosin [Flomax] 0.4 mg PO BID 07/30/21 09/12/21 History Thiamine [Vitamin B-1] 100 mg PO DAILY@1500 07/30/21 09/12/21 History hydrALAZINE HCL [Apresoline] 25 mg PO TID@0900,1500,2100 07/30/21 09/12/21 History levETIRAcetam [Keppra] 500 mg PO DAILY 07/30/21 09/12/21 History Aspirin EC [Ecotrin Low Dose] 81 mg PO HS 09/12/21 09/12/21 History Ferrous Sulfate [Feosol] 325 mg PO HS 09/12/21 09/12/21 History Insulin Glargine,Hum.rec.anlog 10 unit SQ BID 09/12/21 09/12/21 History [Lantus Solostar Pen] Lactulose 20 gm PO TID@0900,1500,2100 09/12/21 09/12/21 History Metoprolol Tartrate [Lopressor] 25 mg PO BID 09/12/21 09/12/21 History Pantoprazole [Protonix] 20 mg PO HS 09/12/21 09/12/21 History Potassium Chloride ER [K-Dur 10] 10 meq PO DAILY 09/12/21 09/12/21 History Pravastatin Sodium [Pravachol] 40 mg PO HS 09/12/21 09/12/21 History Spironolactone [Aldactone] 50 mg PO DAILY 09/12/21 09/12/21 History Allergies Allergy/AdvReac Type Severity Reaction Status Date / Time No Known Allergies Allergy Verified 09/12/21 16:25 Physical Exam Vitals: Vital Signs Temp Pulse Pulse Resp BP BP Pulse Ox 09/13/21 07:39 98.6 F 89 20 170/79 97 09/13/21 02:10 98.6 F 79 18 172/84 98 09/13/21 00:32 95 18 149/85 95 09/12/21 22:00 98 18 148/86 99 09/12/21 19:42 100 18 154/93 98 09/12/21 11:15 92 18 132/88 98 09/12/21 09:28 97.9 F 89 20 129/80 100 Intake and Output 09/12/21 09/13/21 09/13/21 22:59 06:59 14:59 Intake Total 1000 Output Total 1000 Balance 1000 -1000 Intake: Intake, IV Titration 600 Amount Sodium Chloride 0.9% 1, 600 000 ml @ 75 mls/hr IV . [id number] [facility] Rx#:[id number] Oral 400 Output: Urine 1000 Other: Voiding Method Indwelling Catheter # Bowel Movements 1 Weight 113.398 kg On examination awake alert oriented to place and person. HEENT exam JVP is seen about 3-4 cm. Neck is supple no facial asymmetry Lungs are clear to auscultation good air entry bilaterally Heart sounds unremarkable for any murmur rub gallop Abdomen soft nontender mildly distended. No masses felt Extremity exam was 2+ edema Neurologically awake alert oriented 2. Mild asterixis noted. No focal motor deficit Results - Lab Results Most recent lab results Calcium 8.8 mg/dL (8.4-10.2) 09/12/21 09:29 09/13/21 05:28 09/12/21 09:29 Assessment and Plan Assessment: Impression 1. Chronic kidney disease, IIIB with a creatinine 1.75, G4 39 mL per minute at its best likely from nephrosclerosis related to liver disease and mild degree of proteinuria possibly diabetic nephropathy. 2. Mild degree of hypokalemia potassium is 3.4 secondary to diuretics. 3. Edema secondary to chronic kidney disease, cirrhosis, albumin is 2.8. 4. Diabetes mellitus currently no proteinuria but in the past she had protein to creatinine ratio of 0.4 g dated 07/03/2021. 5. History of alcoholism and cirrhosis with ascites 6. History of obstructive sleep apnea 7. Anemia hemoglobin is 8.1, associated with liver disease with a white count of 3700 and platelet count 215,000, hypersplenism 8. Metabolic encephalopathy secondary to liver disease. Elevated ammonia level at 103 as of this morning Recommendation 1. Given with blood pressures there is no need for IV fluids currently. Hold the normal saline 2. Continue Aldactone 50 MG DAILY. 3. Continue Lasix currently at 40 mg. 4. Monitor labs blood pressure urine output. 5. Check iron saturation Before this consultation we'll continue to follow closely
[2021-09-13 11:00] LABS: Albumin 2.6 g/dL (3.8-4.9); Albumin/Globulin Ratio 0.76 (1.60-3.17); Anion Gap 10.1 mmol/L (10.00-18.00); BUN/Creat Ratio 12.3 Ratio (12.00-20.00); Blood Urea Nitrogen 21.4 mg/dL (9.0-27.0); Calcium 8.6 mg/dL (8.7-10.3); Carbon Dioxide 21.5 mmol/L (20.0-27.5); Globulin 3.5 g/dL (1.6-3.3); Magnesium 1.8 mg/dL (1.5-2.4); Non-African American GFR(CKD) 38.9 (60.0-200.0); Potassium 3.6 mmol/L (3.5-5.5); Total Bilirubin 1.4 mg/dL (0.30-1.20); Total Protein 6.1 g/dL (6.2-8.2)
[2021-09-13 11:18] LABS: Glucose,Whole Blood 160 mg/dL (75-99)
[2021-09-13] MEDS: SODIUM CHLORIDE 0.9% 1,000 ML IV SCH (11:55)
[2021-09-13] MEDS ORDERED: LACTULOSE 200 GM/300 ML (FROM 1/2 GAL JUG) RECTAL ONE (14:11)
--- NOTE | 2021-09-13 14:19 | P.PN ---
Subjective This is a pleasant 71 years old male from the [place] [facility]. With past medical history of Atrial Fibrillation, Diabetes Mellitus, GI Bleed, Hyperlipidemia, Hypertension, Sleep Apnea/CPAP/BIPAP, hypothyroidism, bilateral neuropathy, history of alcohol abuse. Brus[place] is Dr. Feng, while trying to follow-up with Dr. Moreno however she is [facility] due to [facility] office He was recently discharged from the hospital 07/01- 07/14 for altered mental status, possible alcohol withdrawal, elevated ammonia secondary to his alcoholic liver cirrhosis, UTI, MSSA bacteremia, possible seizure and he was started on Keppra. Also with urinary retention Also patient was admitted [facility] and was recently discharged f or elevated ammonia level. patient is poor historian and information were obtained from the at bedside As per patient was admitted to [facility] for a fall and broke his 2 ribs but found his problems are due to elevated hepatic ammonia, his level at that time was 136 and after treatment for 4 days level came down to 60 and he was discharged on the fifth day as per . He was discharged on lactulose 15 g twice a day Nayana he didn't have bowel movement as expected in the beginning until yesterday he had 3-4 bouts of bowel movements which were watery. However but that time he was getting more confused, he fell twice at home and was hard for him to get out of bed, his spe ech also affected by confusion, he was sitting only high when somebody talks to him. He was refusing to eat and drink so could not give him more lactulose when she was getting worse so she decided to bring him to the hospital However since he came in his mentation significantly improved although it is still confused. He open eyes spontaneously, he follows commands, he can answer some questions appropriately. He told me he is in the current hospital, he knew the year 2020 and the name of the president ximena oriented however he still looks chronically but however he denies any abdominal pain about his abdomen is slightly distended. As per he quit drinking alcohol since 06/27 of this year. No smoking or illicit drugs Also he denies any chest pain or coughing or dyspnea. No headache or weakness. Patient vitals looks stable and he is afebrile. Labs reviewed, he has anemia with hemoglobin 8.2 he has chronic anemia with hemoglobin ranging between 6-8 over the last 3 months. INR is 1.3. Sodium 142, potassium 3.4, creatinine 1.8 which is close to baseline of 1.7-2.3 Glucose 132 and 127. Liver enzymes normal with AST 38 and ALT 18. Urine analysis is negative. Serum alcohol less than 10. Coronavirus not detected EKG showing normal sinus rhythm at 93 with first-degree AV block and occasional PVC and PAC. Right bundle branch block, QTC 471 area, no significant ST-T bowden es EKG 2 months ago looks similar showing possible atrial fibrillation at 76 with right bundle branch block and QTC 567 Please note there is no GI coverage in this hospital over this weekend. 09/13/2021 Patient is alert and alert and oriented 3 like yesterday however his little bit more sleepy and drowsy compared to yesterday. His ammonia level went up 84 up to 103. He was placed on lactulose 30 g 4 times a day but he had no bowel movement, we'll give him another dose of lactulose today. Also we'll at rifaximin me. He has abdominal distention secondary to ascites. Abdominal ultrasound. IV fluids stopped. Consult IR team for possible paracentesis tomorrow. Other than that he is hemodynamically and labs are stable. Creatinine is stable at 1.7, hemoglobin 8.1. He kept on Lasix 40 mg daily and Aldactone 50 mg daily. Discussed case with nephrology team. Objective - Vital Signs Vital signs: Vital Signs Temp 98.6 F 09/13/21 07:39 Pulse 89 09/13/21 07:39 Resp 20 09/13/21 07:39 BP 170/79 09/13/21 07:39 Pulse Ox 97 09/13/21 07:39 Intake & Output 09/12/21 09/13/21 09/13/21 18:59 06:59 18:59 Intake Total 1000 Output Total 1300 1000 Balance -300 -1000 Weight 113.398 kg Intake: Intake, IV Titration 600 Amount Sodium Chloride 0.9% 1, 600 000 ml @ 75 mls/hr IV . [id number] [facility] Rx#:[id number] Oral 400 Output: Urine 1300 1000 Other: Voiding Method Indwelling Catheter # Bowel Movements 1 - Exam -GENERAL: The patient is confused , although he is alert awake and oriented to time place and person, not in any acute distress. Well developed, well nourished. HEENT: Pupils are round and equally reacting to light. EOMI. No scleral icterus. No conjunctival pallor. Normocephalic, atraumatic. No pharyngeal erythema. No thyromegaly. CARDIOVASCULAR: S1 and S2 present. No murmurs, rubs, or gallops. PULMONARY: Chest is clear to auscultation, no wheezing or crackles. -ABDOMEN: Soft, nontender, distended, normoactive bowel sounds. No palpable organomegaly. MUSCULOSKELETAL: No joint swelling or deformity. -EXTREMITIES: No cyanosis, clubbing,. A lateral pitting pedal edema. NEUROLOGICAL: Gross neurological examination did not reveal any focal deficits. SKIN: No rashes. No petechiae - Labs CBC & Chem 7: 09/13/21 05:28 09/13/21 05:28 Labs: Abnormal Lab Results - Last 24 Hours (Table) 09/13/21 09/13/21 09/13/21 Range/Units 00:07 05:28 05:28 WBC 3.7 L (3.8-10.6) k/uL RBC 2.53 L (4.30-5.90) m/uL Hgb 8.1 L (13.0-17.5) gm/dL Hct 24.5 L (39.0-53.0) % RDW 16.4 H (11.5-15.5) % Plt Count 115 L (150-450) k/uL Chloride 112 H (96-109) mmol/L Creatinine 1.7 H (0.6-1.5) mg/dL Est GFR (CKD-EPI)AfAm 45.0 L (60.0-200.0) Est GFR (CKD-EPI)NonAf 38.9 L (60.0-200.0) Glucose 121 H (70-110) mg/dL POC Glucose (mg/dL) 125 H (75-99) mg/dL Calcium 8.6 L (8.7-10.3) mg/dL Total Bilirubin 1.40 H (0.30-1.20) mg/dL Ammonia (<30) umol/L Total Protein 6.1 L (6.2-8.2) g/dL Albumin 2.6 L (3.8-4.9) g/dL Globulin 3.5 H (1.6-3.3) g/dL Albumin/Globulin Ratio 0.76 L (1.60-3.17) g/dL 09/13/21 09/13/21 Range/Units 05:28 07:12 WBC (3.8-10.6) k/uL RBC (4.30-5.90) m/uL Hgb (13.0-17.5) gm/dL Hct (39.0-53.0) % RDW (11.5-15.5) % Plt Count (150-450) k/uL Chloride (96-109) mmol/L Creatinine (0.6-1.5) mg/dL Est GFR (CKD-EPI)AfAm (60.0-200.0) Est GFR (CKD-EPI)NonAf (60.0-200.0) Glucose (70-110) mg/dL POC Glucose (mg/dL) 116 H (75-99) mg/dL Calcium (8.7-10.3) mg/dL Total Bilirubin (0.30-1.20) mg/dL Ammonia 103 H (<30) umol/L Total Protein (6.2-8.2) g/dL Albumin (3.8-4.9) g/dL Globulin (1.6-3.3) g/dL Albumin/Globulin Ratio (1.60-3.17) g/dL Assessment and Plan Assessment: altered mental status, multifactorial, could be metabolic encephalopathy plus hepatic encephalopathy Alcoholic liver cirrhosis with elevated ammonia upon admission Chronic kidney disease, stage III B History of urinary retention Diabetes mellitus Hypertension Hyperlipidemia History of sleep apnea Hypothyroidism Peripheral neuropathy secondary to diabetes History of alcohol abuse History of UTI and MSSA bacteremia history of possible seizure on Keppra Plan: This is a pleasant 71 years old male who presents with hepatic encephalopathy Continue with lactulose and rifaximin, adjust dose for bowel movements 3-4 times per day Continue with gentle hydration Nephrology team consult GI consult if available in this facility IR team for paracentesis Labs and medication were reviewed.. Continue same treatment. Continue with symptomatic treatment. Resume home medication. Monitor lytes and vitals. DVT and GI prophylaxis. Further recommendations depends on the clinical course of the patient DVT prophylaxis: Subcutaneous heparin GI Prophylaxis: Pepcid PT/OT: Pending Prognosis is guarded
[2021-09-13] MEDS: RIFAXIMIN 550 MG TABLET PO SCH ×2 (15:57→21:07)
[2021-09-13 17:27] LABS: Glucose,Whole Blood 160 mg/dL (75-99)
[2021-09-13 20:50] LABS: Glucose,Whole Blood 154 mg/dL (75-99)
[2021-09-14] MEDS: LEVOTHYROXINE 75 MCG TAB PO SCH (05:15)
[2021-09-14 07:02] LABS: Glucose,Whole Blood 130 mg/dL (75-99)
[2021-09-14] MEDS: INSULIN ASPART (NovoLOG) 100 UNIT/ML VIAL SQ SCH ×4 (07:18→21:13)
[2021-09-14] MEDS: PANTOPRAZOLE 40 MG/10 ML VIAL IV SCH (07:54)
[2021-09-14] MEDS: LACTULOSE 20 GM/30 ML CUP PO SCH ×4 (07:54→21:03)
[2021-09-14] MEDS: SPIRONOLACTONE 25 MG TAB PO SCH (07:55)
[2021-09-14] MEDS: TAMSULOSIN 0.4 MG CAP.ER.24H PO SCH ×2 (07:55→21:02)
[2021-09-14] MEDS: RIFAXIMIN 550 MG TABLET PO SCH ×2 (07:55→21:03)
[2021-09-14] MEDS: FUROSEMIDE 40 MG TAB PO SCH (07:55)
[2021-09-14] MEDS: allopurinoL 100 MG TAB PO SCH (07:55)
[2021-09-14] MEDS: SODIUM BICARBONATE TAB 650 MG TAB PO SCH (07:55)
[2021-09-14] MEDS: levETIRAcetam 500 MG TAB PO SCH (07:55)
[2021-09-14] MEDS: FOLIC ACID 1 MG TAB PO SCH (07:56)
[2021-09-14] MEDS: GABAPENTIN 100 MG CAP PO SCH ×3 (07:56→21:12)
[2021-09-14] MEDS: METOPROLOL TARTRATE 25 MG TAB PO SCH ×2 (07:56→21:03)
[2021-09-14] MEDS: hydrALAZINE HCL 25 MG TAB PO SCH ×3 (07:56→21:02)
[2021-09-14 09:01] LABS: Basophils # (A) 0.04 X 10*3/uL (0.00-0.10); Basophils % (A) 0.9 %; Eosinophils % (A) 4.6 %; HCT 23.3 % (39.6-50.0); HGB 7.5 g/dL (13.0-17.0); Lymphocytes # (A) 1.31 X 10*3/uL (0.90-5.00); MCH 29.9 pg (27.0-32.0); MCHC 32.2 g/dL (32.0-37.0); MCV 92.8 fL (80.0-97.0); Mean Platelet Volume 11.8 fL (9.5-12.2); Monocytes # (A) 0.71 X 10*3/uL (0.20-1.00); Monocytes % (A) 16.3 %; Neutrophils # (A) 2.09 X 10*3/uL (1.80-7.70); Platelet Count 130 X 10*3/uL (140-440); RBC 2.51 X 10*6/uL (4.40-5.60); RDW 16.2 % (11.5-14.5); WBC 4.36 X 10*3/uL (4.50-10.00)
[2021-09-14 09:13] LABS: African American GFR (CKD) 49.8 (60.0-200.0); Albumin 2.6 g/dL (3.8-4.9); Albumin/Globulin Ratio 0.74 (1.60-3.17); Anion Gap 11.7 mmol/L (10.00-18.00); BUN/Creat Ratio 12.81 Ratio (12.00-20.00); Bilirubin, Conjugated 0.51 mg/dL (0.20-0.40); Bilirubin,Unconjugated 0.49 mg/dL (0.20-1.00); Blood Urea Nitrogen 20.5 mg/dL (9.0-27.0); Calcium 8.5 mg/dL (8.7-10.3); Carbon Dioxide 20.3 mmol/L (20.0-27.5); Globulin 3.5 g/dL (1.6-3.3); Magnesium 1.8 mg/dL (1.5-2.4); Potassium 3.6 mmol/L (3.5-5.5); Total Protein 6.1 g/dL (6.2-8.2)
[2021-09-14 09:46] LABS: % Iron Saturation 16.87 (15.00-50.00)
--- NOTE | 2021-09-14 12:28 | US ---
EXAMINATION TYPE: US paracentesis abd w/image DATE OF EXAM: 09/14/2021 COMPARISON: NONE HISTORY: Ascites. PROCEDURE: Maximal barrier technique was utilized. The skin overlying a suitable pocket of fluid was localized with ultrasound and the overlying skin was prepped and draped. Ultrasound was utilized with sterile technique. Lidocaine was used for local anesthesia and a skin pa made with a scalpel. Catheter was advanced under direct ultrasound guidance into a suitable pocket of fluid and approximately 5.3 liter s of serous fluid were removed. Catheter was withdrawn and hemostasis achieved. There is no immedia te complication; the patient is discharged in stable condition. IMPRESSION: STATUS POST ULTRASOUND GUIDED PARACENTESIS FOR PALLIATION OF ASCITES. THIS PROCEDURE WA S PERFORMED BY THE UNDERSIGNED. Specimen sent for laboratory analysis.
[2021-09-14 12:40] LABS: Glucose,Whole Blood 194 mg/dL (75-99)
[2021-09-14] MEDS: ALBUMIN HUMAN 25% 50 ML in EMPTY BAG 1 BAG IVPB SCH ×4 (12:55→16:02)
[2021-09-14] MEDS: CEPHALEXIN 500 MG CAP PO SCH ×3 (13:02→21:12)
[2021-09-14 13:34] VITALS: BMI 33.9
--- NOTE | 2021-09-14 15:30 | P.CONS ---
History of Present Illness - Reason for Consult Consult date: 09/14/21 hepatic encephalopathy Requesting physician: Zafar E Sheet - Chief Complaint Altered Mental Status - History of Present Illness This is a 71-year-old male who presented to the emergency department 2 days ago with concerns for altered mental status. He was found with decreased responsiveness at home. He has a past medical history including atrial fibrillation, diabetes mellitus, GI bleed, hyperlipidemia, hypertension, sleep apnea and thyroid disorder. Apparently he was also recently seen in the emergency department and sent home for anemia. Prior that it was reported he was seen and evaluated in [place] for diagnosis of hepatic encephalopathy with new diagnosis of cirrhosis of the liver. The patient states he has a significant history of alcohol abuse in the past for likely greater than 20 years. He states he was a daily drinker. He states he quit drinking 4-5 weeks ago when he was admitted to the hospital. Looks like he had been started on lactulose and states was taking it. Gastroenterology was consulted regarding hepatic encephalopathy as well as patient was noted to have moderate amount of ascites on abdominal ultrasound. WBC 4.3 hemoglobin 7.5 hematocrit 23 platelet count 130,000 iron 39 total bilirubin 1.0 AST 29 ALT 14 alkaline phosphatase 90 ammonia 79. On admission patient was noted to have elevated ammonia at 84, yesterday was 103. He is currently on lactulose 30 g 4 times a day as well as Xifaxan 550 mg twice a day. Patient is scheduled for paracentesis today. On his recent admission in July he had an ultrasound of the abdomen showed enlarged, extremely heterogeneous with masslike appearance throughout the liver. Gallbladder distended with gallstone and thickened wall. Enlarged spleen. He then underwent an MRI of the liver which showed underlying cirrhosis. Hepatosplenomegaly. Nodularity seen on ultrasound may correspond to regenerating liver nodules. He currently denies any abdominal pain. He denies any black stool or blood in his stool. Denies nausea or vomiting. Review of Systems REVIEW OF SYSTEMS: CARDIOPULMONARY: No chest pain or shortness of breath. Gastrointestinal: Denies abdominal pain. Increase abdominal distention. No nausea or vomiting. No hematemesis, coffee-ground emesis. No rectal bleeding, or melena. GENITOURINARY: No dysuria or hematuria. MUSCULOSKELETAL: Reports normal range of motion., Joint pain. SKIN: No rashes. No jaundice. ENDOCRINE: No chills, fevers. No excessive weight gain or loss. No polydipsia or polyuria. PSYCHIATRIC: Unremarkable. NEUROLOGY: No change in mental status. Denies dizziness, headache. ENT: Vision unremarkable. CONSTITUTIONAL: No recent weight loss. No fever, chills, night sweats. Past Medical History Past Medical History: Atrial Fibrillation, Diabetes Mellitus, GI Bleed, Hyperlipidemia, Hypertension, Skin Disorder, Sleep Apnea/CPAP/BIPAP, Thyroid Disorder Additional Past Medical History / Comment(s): diverticulitis, hx colon polyp, gout, little bumps and dry skin, neuropathy patty legs and feet, hx anemia History of Any Multi-Drug Resistant Organisms: None Reported Past Surgical History: Bariatric Surgery, Cardiac Ablation, Hernia Repair, Joint Replacement Additional Past Surgical History / Comment(s): Boils lanced on back. Blephoplasty. left hip replacement, shannan-en-y Past Anesthesia/Blood Transfusion Reactions: Previous Problems w/ Anesthesia Additional Past Anesthesia/Blood Transfusion Reaction / Comm: woke up during procedure Past Psychological History: No Psychological Hx Reported Smoking Status: Former smoker Past Alcohol Use History: Occasional Past Drug Use History: None Reported - Past Family History Father Family Medical History: Cancer Additional Family Medical History / Comment(s): lung Mother Family Medical History: No Reported History Additional Family Medical History / Comment(s): Mother passed at age 62 due to an auto accident. Brother(s) Family Medical History: Cancer Additional Family Medical History / Comment(s): throat Sister(s) Family Medical History: Cancer Additional Family Medical History / Comment(s): lymphoma Medications and Allergies Home Medications Medication Instructions Recorded Confirmed Type Levothyroxine Sodium [Synthroid] 75 mcg PO DAILY 01/10/19 09/12/21 History Allopurinol [Zyloprim] 200 mg PO DAILY 09/11/20 09/12/21 History Fluticasone Nasal [place] [Flonase 2 spr EA NOSTRIL DAILY 07/01/21 09/12/21 History Nasal [place]] Folic Acid 1 mg PO DAILY 07/30/21 09/12/21 History Furosemide [Lasix] 40 mg PO DAILY 07/30/21 09/12/21 History Gabapentin [Neurontin] 100 mg PO TID@0900,1500,2100 07/30/21 09/12/21 History Multivitamins, Thera [Multivitamin 1 tab PO DAILY 07/30/21 09/12/21 History (formulary)] Sodium Bicarbonate Tab 325 mg PO DAILY 07/30/21 09/12/21 History Tamsulosin [Flomax] 0.4 mg PO BID 07/30/21 09/12/21 History Thiamine [Vitamin B-1] 100 mg PO DAILY@1500 07/30/21 09/12/21 History hydrALAZINE HCL [Apresoline] 25 mg PO TID@0900,1500,2100 07/30/21 09/12/21 History levETIRAcetam [Keppra] 500 mg PO DAILY 07/30/21 09/12/21 History Aspirin EC [Ecotrin Low Dose] 81 mg PO HS 09/12/21 09/12/21 History Ferrous Sulfate [Feosol] 325 mg PO HS 09/12/21 09/12/21 History Insulin Glargine,Hum.rec.anlog 10 unit SQ BID 09/12/21 09/12/21 History [Lantus Solostar Pen] Lactulose 20 gm PO TID@0900,1500,2100 09/12/21 09/12/21 History Metoprolol Tartrate [Lopressor] 25 mg PO BID 09/12/21 09/12/21 History Pantoprazole [Protonix] 20 mg PO HS 09/12/21 09/12/21 History Potassium Chloride ER [K-Dur 10] 10 meq PO DAILY 09/12/21 09/12/21 History Pravastatin Sodium [Pravachol] 40 mg PO HS 09/12/21 09/12/21 History Spironolactone [Aldactone] 50 mg PO DAILY 09/12/21 09/12/21 History Allergies Allergy/AdvReac Type Severity Reaction Status Date / Time No Known Allergies Allergy Verified 09/12/21 16:25 Physical Exam Vitals: Vital Signs Temp Pulse Resp BP Pulse Ox 09/14/21 08:00 97.8 F 79 17 147/54 96 09/14/21 02:09 98.3 F 76 19 132/61 96 09/13/21 19:13 97.4 F L 83 16 142/70 97 09/13/21 13:54 98.2 F 75 16 136/71 96 Intake and Output 12/12/21 12/13/21 12/13/21 22:59 06:59 14:59 Intake Total 1080 Output Total 1800 1100 Balance -720 -1100 Intake: Oral 1080 Output: Urine 1800 1100 Other: Voiding Method Indwelling Catheter # Bowel Movements 3 1 General appearance: The patient is alert, oriented, appears in no acute distress. HET: Head is normocephalic and atraumatic. Conjunctiva pink. Sclera anicteric. Neck: Supple without lymphadenopathy. Trachea midline. Heart: S1 S2. Regular rate and rhythm. Lungs: Clear to auscultation. Abdomen: Soft, nontender, distended, ascites. Extremities: Normal skin color and turgor. No pedal edema. Neurological: No focal deficits. Alert and oriented x3. Results CBC & Chem 7: 09/14/21 05:49 09/14/21 05:49 Labs: Abnormal Lab Results - Last 24 Hours (Table) 09/13/21 09/13/21 09/13/21 Range/Units 05:28 11:16 17:16 WBC (4.50-10.00) X 10*3/uL RBC (4.40-5.60) X 10*6/uL Hgb (13.0-17.0) g/dL Hct (39.6-50.0) % RDW (11.5-14.5) % Plt Count (140-440) X 10*3/uL Chloride 112 H (96-109) mmol/L Creatinine 1.7 H (0.6-1.5) mg/dL Est GFR (CKD-EPI)AfAm 45.0 L (60.0-200.0) Est GFR (CKD-EPI)NonAf 38.9 L (60.0-200.0) Glucose 121 H (70-110) mg/dL POC Glucose (mg/dL) 160 H 160 H (75-99) mg/dL Calcium 8.6 L (8.7-10.3) mg/dL Total Bilirubin 1.40 H (0.30-1.20) mg/dL Conjugated Bilirubin (0.20-0.40) mg/dL Ammonia (<30) umol/L Total Protein 6.1 L (6.2-8.2) g/dL Albumin 2.6 L (3.8-4.9) g/dL Globulin 3.5 H (1.6-3.3) g/dL Albumin/Globulin Ratio 0.76 L (1.60-3.17) g/dL 09/13/21 09/14/21 09/14/21 Range/Units 20:45 05:49 05:49 WBC 4.36 L (4.50-10.00) X 10*3/uL RBC 2.51 L (4.40-5.60) X 10*6/uL Hgb 7.5 L (13.0-17.0) g/dL Hct 23.3 L (39.6-50.0) % RDW 16.2 H (11.5-14.5) % Plt Count 130 L (140-440) X 10*3/uL Chloride (96-109) mmol/L Creatinine (0.6-1.5) mg/dL Est GFR (CKD-EPI)AfAm (60.0-200.0) Est GFR (CKD-EPI)NonAf (60.0-200.0) Glucose (70-110) mg/dL POC Glucose (mg/dL) 154 H (75-99) mg/dL Calcium (8.7-10.3) mg/dL Total Bilirubin (0.30-1.20) mg/dL Conjugated Bilirubin (0.20-0.40) mg/dL Ammonia 79 H (<30) umol/L Total Protein (6.2-8.2) g/dL Albumin (3.8-4.9) g/dL Globulin (1.6-3.3) g/dL Albumin/Globulin Ratio (1.60-3.17) g/dL 09/14/21 09/14/21 Range/Units 05:49 07:01 WBC (4.50-10.00) X 10*3/uL RBC (4.40-5.60) X 10*6/uL Hgb (13.0-17.0) g/dL Hct (39.6-50.0) % RDW (11.5-14.5) % Plt Count (140-440) X 10*3/uL Chloride 111 H (96-109) mmol/L Creatinine 1.6 H (0.6-1.5) mg/dL Est GFR (CKD-EPI)AfAm 49.8 L (60.0-200.0) Est GFR (CKD-EPI)NonAf 43.0 L (60.0-200.0) Glucose 137 H (70-110) mg/dL POC Glucose (mg/dL) 130 H (75-99) mg/dL Calcium 8.5 L (8.7-10.3) mg/dL Total Bilirubin (0.30-1.20) mg/dL Conjugated Bilirubin 0.51 H (0.20-0.40) mg/dL Ammonia (<30) umol/L Total Protein 6.1 L (6.2-8.2) g/dL Albumin 2.6 L (3.8-4.9) g/dL Globulin 3.5 H (1.6-3.3) g/dL Albumin/Globulin Ratio 0.74 L (1.60-3.17) g/dL Microbiology - Last 24 Hours (Table) 09/13/21 17:45 Gram Stain - Preliminary Abdomen Wound Culture - Preliminary 09/13/21 17:45 Anaerobic Culture - Preliminary Abdomen Assessment and Plan (1) Hepatic encephalopathy Narrative/Plan: 71-year-old male recently diagnosed with alcoholic cirrhosis of the liver. Patient was admitted in July of this year and underwent ultrasound of the abdomen showing heterogeneous liver with concerns for possible mass, he then underwent MRI that showed no concern for liver mass. However MRI was consistent with cirrhosis of liver. Patient has a history of significant alcohol abuse in the past and admits to quitting 4-5 weeks ago. He was recently admitted with altered mental status and again presented to the hospital with altered mental status changes. On admission he was noted to have pneumonia at 84. He is on lactulose and Xifaxan. Today he is alert and oriented 2. Patient likely has hepatic encephalopathy related to underlying alcoholic cirrhosis of the liver. Also noted to have ascites on ultrasound scheduled for paracentesis with 5.3 L removed. Current Visit: Yes Status: Acute Code(s): K72.90 - HEPATIC FAILURE, UNSP ECIFIED WITHOUT COMA SNOMED Code(s): 30484881 (2) Alcoholic cirrhosis of liver with ascites Narrative/Plan: He is currently on Aldactone 50 mg daily and Lasix 40 mg daily will continue at that dose. Patient scheduled for paracentesis with 5.3 L removed and fluid studies. Current Visit: Yes Status: Acute Code(s): K70.31 - ALCOHOLIC CIRRHOSIS OF LIVER WITH ASCITES SNOMED Code(s): 895141241 (3) ETOH abuse Current Visit: No Status: Acute Code(s): F10.10 - ALCOHOL ABUSE, UNCOMPLICATED SNOMED Code(s): 59138717 (4) Diabetes Current Visit: Yes Status: Acute Code(s): E11.9 - TYPE 2 DIABETES MELLITUS WITHOUT COMPLICATIONS SNOMED Code(s): 18527310 (5) Anemia Narrative/Plan: Patient underwent colonoscopy 03/12/2021 with findings of 3 diminutive polyps removed from the ileal cecal valve into transverse colon, moderate pandiverticul osis, internal hemorrhoids. Patient underwent EGD for [address] Aragon with findings of gastritis and patient has history of Shannan-en-Y gastric bypass. Current Visit: Yes Status: Acute Code(s): D64.9 - ANEMIA, UNSPECIFIED SNOMED Code(s): 068270644 Plan: 1. Continue symptomatic and supportive care 2. Continue lactulose and titrate to have 2-3 bowel movements a day 3. Continue Xifaxin 550 mg BID 4. Continue Lasix 40 mg daily and Aldactone 50 mg daily 5. Alcohol abstinence 6. Patient will need close outpatient follow-up Thank you for this consultation, we will continue to follow Dr. Arik Moreno I agree with the dictator's note, documented as a scribe by Daxa Bhagat.
[2021-09-14] MEDS: THIAMINE 100 MG TAB PO SCH (16:01)
[2021-09-14 16:44] LABS: Appearance,BF Clear; Nucleated Cells, Body Fluid 70 /uL; RBC, Body Fluid 40 /uL
[2021-09-14 16:57] LABS: Glucose,Whole Blood 206 mg/dL (75-99)
[2021-09-14 18:10] LABS: Hepatitis A Antibody IgM Nonreactive (Nonreactive); Hepatitis B Core IgM Nonreactive (Nonreactive); Hepatitis B Surface Antigen Nonreactive (Nonreactive); Hepatitis C IgG Antibody Nonreactive (Nonreactive)
[2021-09-14 18:10] LABS: Mononuclear WBC,Body Fluid 92 %; Polynuclear WBC,Body Fluid 8 %; Total Cells Counted,Body Fluid 100
--- NOTE | 2021-09-14 19:56 | P.PN ---
Subjective This is a pleasant 71 years old male from the [place] [facility]. With past medical history of Atrial Fibrillation, Diabetes Mellitus, GI Bleed, Hyperlipidemia, Hypertension, Sleep Apnea/CPAP/BIPAP, hypothyroidism, bilateral neuropathy, history of alcohol abuse. [employer]visor [employer] is Dr. Feng, while trying to follow-up with Dr. Moreno however she is waiting for referral by [facility] due to [facility] office He was recently discharged from the hospital 07/01- 07/14 for altered mental status, possible alcohol withdrawal, elevated ammonia secondary to his alcoholic liver cirrhosis, UTI, MSSA bacteremia, possible seizure and he was started on Keppra. Also with urinary retention Also patient was admitted [facility] and was recently discharged f or elevated ammonia level. patient is poor historian and information were obtained from the at bedside As per patient was admitted to [facility] for a fall and broke his 2 ribs but found his problems are due to elevated hepatic ammonia, his level at that time was 136 and after treatment for 4 days level came down to 60 and he was discharged on the fifth day as per . He was discharged on lactulose 15 g twice a day Nayana he didn't have bowel movement as expected in the beginning until yesterday he had 3-4 bouts of bowel movements which were watery. However but that time he was getting more confused, he fell twice at home and was hard for him to get out of bed, his spe ech also affected by confusion, he was sitting only high when somebody talks to him. He was refusing to eat and drink so could not give him more lactulose when she was getting worse so she decided to bring him to the hospital However since he came in his mentation significantly improved although it is still confused. He open eyes spontaneously, he follows commands, he can answer some questions appropriately. He told me he is in the current hospital, he knew the year 2020 and the name of the president ximena oriented however he still looks chronically but however he denies any abdominal pain about his abdomen is slightly distended. As per he quit drinking alcohol since 06/27 of this year. No smoking or illicit drugs Also he denies any chest pain or coughing or dyspnea. No headache or weakness. Patient vitals looks stable and he is afebrile. Labs reviewed, he has anemia with hemoglobin 8.2 he has chronic anemia with hemoglobin ranging between 6-8 over the last 3 months. INR is 1.3. Sodium 142, potassium 3.4, creatinine 1.8 which is close to baseline of 1.7-2.3 Glucose 132 and 127. Liver enzymes normal with AST 38 and ALT 18. Urine analysis is negative. Serum alcohol less than 10. Coronavirus not detected EKG showing normal sinus rhythm at 93 with first-degree AV block and occasional PVC and PAC. Right bundle branch block, QTC 471 area, no significant ST-T bowden es EKG 2 months ago looks similar showing possible atrial fibrillation at 76 with right bundle branch block and QTC 567 Please note there is no GI coverage in this hospital over this weekend. 09/13/2021 Patient is alert and alert and oriented 3 like yesterday however his little bit more sleepy and drowsy compared to yesterday. His ammonia level went up 84 up to 103. He was placed on lactulose 30 g 4 times a day but he had no bowel movement, we'll give him another dose of lactulose today. Also we'll at rifaximin me. He has abdominal distention secondary to ascites. Abdominal ultrasound. IV fluids stopped. Consult IR team for possible paracentesis tomorrow. Other than that he is hemodynamically and labs are stable. Creatinine is stable at 1.7, hemoglobin 8.1. He kept on Lasix 40 mg daily and Aldactone 50 mg daily. Discussed case with nephrology team. 09/14/2021 Patient is more awake today. He was admitted with decompensated liver cirrhosis and hepatic encephalopathy which is gradually improving especially after his had 4-5 bowel movement yesterday. No bowel movement this morning when I saw him. He remains on lactulose 30 g 4 times a day. We will keep monitoring for bowel movement. Titrate for 3-4 bowel movements, also he is on rifaximin with GI team on the case recommend continued similar management and close outpatient follow- up. He is hemodynamically stable. No IV fluid and he kept on Lasix 40 mg by mouth daily and Aldactone 50 mg by mouth daily. Hemoglobin 7.5, creatinine 1.6 which are stable. Ammonia actually came down to 103 down to 79. He underwent paracentesis with 5.3 L removed. History of has Byrd catheter for urinary retention.. Flomax admitted, patient instructed to follow up outpatient with urologist and he agrees. Also patient has small area of cellulitis about 2 x 1" the left lower quadrant of the abdomen, no fever or leukocytosis. We added Keflex Objective - Vital Signs Vital signs: Vital Signs Temp 97.8 F 09/14/21 08:00 Pulse 70 09/14/21 11:40 Resp 16 09/14/21 11:40 BP 113/63 09/14/21 11:40 Pulse Ox 96 09/14/21 11:40 Intake & Output 09/13/21 09/14/21 09/14/21 18:59 06:59 18:59 Intake Total 1080 Output Total 1800 1100 Balance -720 -1100 Intake: Oral 1080 Output: Urine 1800 1100 Other: Voiding Method Indwelling Catheter Indwelling Catheter # Bowel Movements 3 1 - Exam -GENERAL: The patient is confused , although he is alert awake and oriented to time place and person, not in any acute distress. Well developed, well nourished. HEENT: Pupils are round and equally reacting to light. EOMI. No scleral icterus. No conjunctival pallor. Normocephalic, atraumatic. No pharyngeal erythema. No thyromegaly. CARDIOVASCULAR: S1 and S2 present. No murmurs, rubs, or gallops. PULMONARY: Chest is clear to auscultation, no wheezing or crackles. -ABDOMEN: Soft, nontender, distended, normoactive bowel sounds. No palpable organomegaly. 1 x 2" left lower quadrant area of cellulitis MUSCULOSKELETAL: No joint swelling or deformity. -EXTREMITIES: No cyanosis, clubbing,. A lateral pitting pedal edema. NEUROLOGICAL: Gross neurological examination did not reveal any focal deficits. SKIN: No rashes. No petechiae - Labs CBC & Chem 7: 09/14/21 05:49 09/14/21 05:49 Labs: Abnormal Lab Results - Last 24 Hours (Table) 09/13/21 09/13/21 09/14/21 Range/Units 17:16 20:45 05:49 WBC (4.50-10.00) X 10*3/uL RBC (4.40-5.60) X 10*6/uL Hgb (13.0-17.0) g/dL Hct (39.6-50.0) % RDW (11.5-14.5) % Plt Count (140-440) X 10*3/uL Chloride (96-109) mmol/L Creatinine (0.6-1.5) mg/dL Est GFR (CKD-EPI)AfAm (60.0-200.0) Est GFR (CKD-EPI)NonAf (60.0-200.0) Glucose (70-110) mg/dL POC Glucose (mg/dL) 160 H 154 H (75-99) mg/dL Calcium (8.7-10.3) mg/dL Iron (65-175) ug/dL Transferrin (204.0-354.0) mg/dL Conjugated Bilirubin (0.20-0.40) mg/dL Ammonia 79 H (<30) umol/L Total Protein (6.2-8.2) g/dL Albumin (3.8-4.9) g/dL Globulin (1.6-3.3) g/dL Albumin/Globulin Ratio (1.60-3.17) g/dL 09/14/21 09/14/21 09/14/21 Range/Units 05:49 05:49 05:49 WBC 4.36 L (4.50-10.00) X 10*3/uL RBC 2.51 L (4.40-5.60) X 10*6/uL Hgb 7.5 L (13.0-17.0) g/dL Hct 23.3 L (39.6-50.0) % RDW 16.2 H (11.5-14.5) % Plt Count 130 L (140-440) X 10*3/uL Chloride 111 H (96-109) mmol/L Creatinine 1.6 H (0.6-1.5) mg/dL Est GFR (CKD-EPI)AfAm 49.8 L (60.0-200.0) Est GFR (CKD-EPI)NonAf 43.0 L (60.0-200.0) Glucose 137 H (70-110) mg/dL POC Glucose (mg/dL) (75-99) mg/dL Calcium 8.5 L (8.7-10.3) mg/dL Iron 39 L (65-175) ug/dL Transferrin 163.0 L (204.0-354.0) mg/dL Conjugated Bilirubin 0.51 H (0.20-0.40) mg/dL Ammonia (<30) umol/L Total Protein 6.1 L (6.2-8.2) g/dL Albumin 2.6 L (3.8-4.9) g/dL Globulin 3.5 H (1.6-3.3) g/dL Albumin/Globulin Ratio 0.74 L (1.60-3.17) g/dL 09/14/21 Range/Units 07:01 WBC (4.50-10.00) X 10*3/uL RBC (4.40-5.60) X 10*6/uL Hgb (13.0-17.0) g/dL Hct (39.6-50.0) % RDW (11.5-14.5) % Plt Count (140-440) X 10*3/uL Chloride (96-109) mmol/L Creatinine (0.6-1.5) mg/dL Est GFR (CKD-EPI)AfAm (60.0-200.0) Est GFR (CKD-EPI)NonAf (60.0-200.0) Glucose (70-110) mg/dL POC Glucose (mg/dL) 130 H (75-99) mg/dL Calcium (8.7-10.3) mg/dL Iron (65-175) ug/dL Transferrin (204.0-354.0) mg/dL Conjugated Bilirubin (0.20-0.40) mg/dL Ammonia (<30) umol/L Total Protein (6.2-8.2) g/dL Albumin (3.8-4.9) g/dL Globulin (1.6-3.3) g/dL Albumin/Globulin Ratio (1.60-3.17) g/dL Microbiology - Last 24 Hours (Table) 09/13/21 17:45 Gram Stain - Preliminary Abdomen Wound Culture - Preliminary 09/13/21 17:45 Anaerobic Culture - Preliminary Abdomen Assessment and Plan Assessment: altered mental status, multifactorial, could be metabolic encephalopathy plus hepatic encephalopathy Alcoholic liver cirrhosis with elevated ammonia upon admission Left lower quadrant cellulitis, 1 x 2" in diameter Chronic kidney disease, stage III B History of urinary retention Diabetes mellitus Hypertension Hyperlipidemia History of sleep apnea Hypothyroidism Peripheral neuropathy secondary to diabetes History of alcohol abuse History of UTI and MSSA bacteremia history of possible seizure on Keppra Plan: This is a pleasant 71 years old male who presents with hepatic encephalopathy Continue with lactulose and rifaximin, adjust dose for bowel movements 3-4 times per day Discontinue IV fluids and continue with Lasix and Aldactone Nephrology team and GI team consult Follow-up fluid cytology results Follow-up wound culture. Continue with Keflex for his abdominal cellulitis. Continue with Byrd and Flomax. Follow up with urology as an outpatient Labs and medication were reviewed.. Continue same treatment. Continue with symptomatic treatment. Resume home medication. Monitor lytes and vitals. DVT and GI prophylaxis. Further recommendations depends on the clinical course of the patient DVT prophylaxis: Subcutaneous heparin GI Prophylaxis: Pepcid PT/OT: Pending Prognosis is guarded
[2021-09-14 20:45] LABS: Glucose,Whole Blood 196 mg/dL (75-99)
[2021-09-14] MEDS: FERROUS SULFATE 325 MG TAB PO SCH (21:02)
[2021-09-14] MEDS: ASPIRIN 81 MG PO SCH (21:02)
[2021-09-14] MEDS: PRAVASTATIN SODIUM 40 MG TAB PO SCH (21:05)
[2021-09-15] MEDS: LEVOTHYROXINE 75 MCG TAB PO SCH (06:03)
[2021-09-15 06:44] LABS: Total Protein, Body Fluid 1260 mg/dL
[2021-09-15 06:50] LABS: Glucose,Whole Blood 148 mg/dL (75-99)
[2021-09-15 07:29] LABS: Albumin, Fluid Source Paracentesis Fluid
[2021-09-15] MEDS: FUROSEMIDE 40 MG TAB PO SCH (08:55)
[2021-09-15] MEDS: GABAPENTIN 100 MG CAP PO SCH ×3 (08:55→20:53)
[2021-09-15] MEDS: allopurinoL 100 MG TAB PO SCH (08:55)
[2021-09-15] MEDS: METOPROLOL TARTRATE 25 MG TAB PO SCH ×2 (08:55→20:54)
[2021-09-15] MEDS: hydrALAZINE HCL 25 MG TAB PO SCH ×3 (08:55→20:53)
[2021-09-15] MEDS: CEPHALEXIN 500 MG CAP PO SCH ×3 (08:55→20:53)
[2021-09-15] MEDS: FOLIC ACID 1 MG TAB PO SCH (08:55)
[2021-09-15] MEDS: SODIUM BICARBONATE TAB 650 MG TAB PO SCH (08:56)
[2021-09-15] MEDS: TAMSULOSIN 0.4 MG CAP.ER.24H PO SCH ×2 (08:56→20:53)
[2021-09-15] MEDS: LACTULOSE 20 GM/30 ML CUP PO SCH ×4 (08:56→20:54)
[2021-09-15] MEDS: SPIRONOLACTONE 25 MG TAB PO SCH (08:56)
[2021-09-15] MEDS: PANTOPRAZOLE 40 MG/10 ML VIAL IV SCH (08:57)
[2021-09-15] MEDS: RIFAXIMIN 550 MG TABLET PO SCH ×2 (08:57→21:03)
[2021-09-15] MEDS: INSULIN ASPART (NovoLOG) 100 UNIT/ML VIAL SQ SCH ×4 (08:57→21:03)
[2021-09-15] MEDS: levETIRAcetam 500 MG TAB PO SCH (08:57)
[2021-09-15 09:43] LABS: Basophils # (A) 0.04 X 10*3/uL (0.00-0.10); Eosinophils # (A) 0.21 X 10*3/uL (0.04-0.35); HCT 22.4 % (39.6-50.0); HGB 7.2 g/dL (13.0-17.0); Lymphocytes # (A) 1.17 X 10*3/uL (0.90-5.00); Lymphocytes % (A) 28.1 %; MCH 29.4 pg (27.0-32.0); MCHC 32.1 g/dL (32.0-37.0); MCV 91.4 fL (80.0-97.0); Mean Platelet Volume 11.5 fL (9.5-12.2); Monocytes % (A) 16.8 %; Neutrophils # (A) 2.03 X 10*3/uL (1.80-7.70); Neutrophils % (A) 48.6 %; Platelet Count 116 X 10*3/uL (140-440); RBC 2.45 X 10*6/uL (4.40-5.60); RDW 16.1 % (11.5-14.5); WBC 4.17 X 10*3/uL (4.50-10.00)
--- NOTE | 2021-09-15 11:13 | P.PN ---
Subjective Progress Note Date: 09/15/21 Principal diagnosis: Hepatic encephalopathy This is a 71-year-old male who was admitted to the hospital with altered mental status changes. He was recently diagnosed with cirrhosis of the liver back in June of this year. Patient has a significant history of alcohol abuse for which he states he quit drinking in June according to his . At that time he had been hospitalized and began with altered mental status changes. He was noted to have elevation in his ammonia. On admission this time his ammonia level went as high as 104, he was started on lactulose 30 g 3-4 times a day. He his ammonia level this morning is 36. He is alert and oriented to person and place. He does have a history of chronic anemia and had a a hemoglobin today of 7.2. Labs are consistent with a normochromic normocytic anemia. Likely related to underlying liver disease. Yesterday he underwent paracentesis with 5.3 liters removed. Fluid studies shows a total protein 1260, fluid albumin less than 5 g. SAAG score cannot be calculated due to lab reports. Fluid cells 70. Acute hepatitis panel nonreactive. He states he wants to be discharged home. He is somewhat angry. He denies any abdominal pain, nausea, or vomiting. He has had one bowel movement so far this morning. Objective - Vital Signs Vital signs: Vital Signs Temp 97.5 F L 09/15/21 08:23 Pulse 78 09/15/21 08:23 Resp 16 09/15/21 08:23 BP 154/75 09/15/21 08:23 Pulse Ox 97 09/15/21 08:23 Intake & Output 09/14/21 09/15/21 09/15/21 18:59 06:59 18:59 Output Total 350 1000 Balance -350 -1000 Weight 113.398 kg 130 kg Output: Urine 350 1000 Other: Voiding Method Indwelling Catheter Indwelling Catheter # Bowel Movements 1 - Exam General appearance: The patient is alert, oriented, appears in no acute distress. HET: Head is normocephalic and atraumatic. Conjunctiva pink. Sclera anicteric. Neck: Supple without lymphadenopathy. Abdomen: Soft, nontender, mildly distended with bowel sounds. No guarding or rigidity. Extremities: Normal skin color and turgor. No pedal edema Skin: No rashes, no jaundice Neurological: No focal deficits. Alert and oriented -3. - Labs CBC & Chem 7: 09/15/21 05:38 09/15/21 05:38 Labs: Abnormal Lab Results - Last 24 Hours (Table) 09/14/21 09/14/21 09/14/21 Range/Units 05:49 05:49 12:38 Chloride 111 H (96-109) mmol/L Creatinine 1.6 H (0.6-1.5) mg/dL Est GFR (CKD-EPI)AfAm 49.8 L (60.0-200.0) Est GFR (CKD-EPI)NonAf 43.0 L (60.0-200.0) Glucose 137 H (70-110) mg/dL POC Glucose (mg/dL) 194 H (75-99) mg/dL Calcium 8.5 L (8.7-10.3) mg/dL Iron 39 L (65-175) ug/dL Transferrin 163.0 L (204.0-354.0) mg/dL Conjugated Bilirubin 0.51 H (0.20-0.40) mg/dL Ammonia (<30) umol/L Total Protein 6.1 L (6.2-8.2) g/dL Albumin 2.6 L (3.8-4.9) g/dL Globulin 3.5 H (1.6-3.3) g/dL Albumin/Globulin Ratio 0.74 L (1.60-3.17) g/dL 09/14/21 09/14/21 09/15/21 Range/Units 16:53 20:44 05:30 Chloride (96-109) mmol/L Creatinine (0.6-1.5) mg/dL Est GFR (CKD-EPI)AfAm (60.0-200.0) Est GFR (CKD-EPI)NonAf (60.0-200.0) Glucose (70-110) mg/dL POC Glucose (mg/dL) 206 H 196 H (75-99) mg/dL Calcium (8.7-10.3) mg/dL Iron (65-175) ug/dL Transferrin (204.0-354.0) mg/dL Conjugated Bilirubin (0.20-0.40) mg/dL Ammonia 36 H (<30) umol/L Total Protein (6.2-8.2) g/dL Albumin (3.8-4.9) g/dL Globulin (1.6-3.3) g/dL Albumin/Globulin Ratio (1.60-3.17) g/dL 09/15/21 Range/Units 06:49 Chloride (96-109) mmol/L Creatinine (0.6-1.5) mg/dL Est GFR (CKD-EPI)AfAm (60.0-200.0) Est GFR (CKD-EPI)NonAf (60.0-200.0) Glucose (70-110) mg/dL POC Glucose (mg/dL) 148 H (75-99) mg/dL Calcium (8.7-10.3) mg/dL Iron (65-175) ug/dL Transferrin (204.0-354.0) mg/dL Conjugated Bilirubin (0.20-0.40) mg/dL Ammonia (<30) umol/L Total Protein (6.2-8.2) g/dL Albumin (3.8-4.9) g/dL Globulin (1.6-3.3) g/dL Albumin/Globulin Ratio (1.60-3.17) g/dL Microbiology - Last 24 Hours (Table) 09/13/21 17:45 Gram Stain - Preliminary Abdomen Wound Culture - Preliminary Assessment and Plan (1) Hepatic encephalopathy Narrative/Plan: 71-year-old male recently diagnosed with alcoholic cirrhosis of the liver. Patient was admitted in July of this year and underwent ultrasound of the abdomen showing heterogeneous liver with concerns for possible mass, he then underwent MRI that showed no concern for liver mass. However MRI was consistent with cirrhosis of liver. Patient has a history of significant alcohol abuse in the past and admits to quitting 4-5 weeks ago. He was recently admitted with altered mental status and again presented to the hospital with altered mental status changes. On admission he was noted to have pneumonia at 84. He is on lactulose and Xifaxan. Today he is alert and oriented 2. Patient likely has hepatic encephalopathy related to underlying alcoholic cirrhosis of the liver. Also noted to have ascites on ultrasound scheduled for paracentesis with 5.3 L removed. Hepatic encephalopathy improving. Patient remains on lactulose. Repeat ammonia level 36 today. Current Visit: Yes Status: Acute Code(s): K72.90 - HEPATIC FAILURE, UNSPECIFIED WITHOUT COMA SNOMED Code(s): 49631130 (2) Alcoholic cirrhosis of liver with ascites Narrative/Plan: He is currently on Aldactone 50 mg daily and Lasix 40 mg daily will continue at that dose. Patient scheduled for paracentesis with 5.3 L removed and fluid s tudies. Current Visit: Yes Status: Acute Code(s): K70.31 - ALCOHOLIC CIRRHOSIS OF LIVER WITH ASCITES SNOMED Code(s): 990859916 (3) ETOH abuse Current Visit: No Status: Acute Code(s): F10.10 - ALCOHOL ABUSE, UNCOMPLICATED SNOMED Code(s): 40398810 (4) Diabetes Current Visit: Yes Status: Acute Code(s): E11.9 - TYPE 2 DIABETES MELLITUS WITHOUT COMPLICATIONS SNOMED Code(s): 46122435 (5) Anemia Narrative/Plan: Patient underwent colonoscopy 03/12/2021 with findings of 3 diminutive polyps removed from the ileal cecal valve into transverse colon, moderate pandiverticulosis, internal hemorrhoids. Patient underwent EGD for [address] Aragon with findings of gastritis and patient has history of Guy-en-Y gastric bypass. Anemia likely related to chronic disease and underlying cirrhosis of the liver. Patient denies any active bleeding, no black stools, or blood in the stool. Current Visit: Yes Status: Acute Code(s): D64.9 - ANEMIA, UNSPECIFIED SNOMED Code(s): 645386750 Plan: 1. Continue symptomatic and supportive care 2. Continue lactulose and titrate to have 2-3 bowel movements a day 3. Continue Xifaxin 550 mg BID 4. Continue Lasix 40 mg daily and Aldactone 50 mg daily 5. Alcohol abstinence 6. Patient will need close outpatient follow-up 7. Patient is cleared for discharge by gastroenterology once otherwise medically stable Thank you for this consultation, we will continue to follow Dr. Arik Moreno I agree with the dictator's note, documented as a scribe by Daxa Bhagat.
[2021-09-15 11:24] LABS: African American GFR (CKD) 53.9 (60.0-200.0); Albumin 2.8 g/dL (3.8-4.9); Albumin/Globulin Ratio 0.88 (1.60-3.17); Anion Gap 10.6 mmol/L (10.00-18.00); BUN/Creat Ratio 11.93 Ratio (12.00-20.00); Blood Urea Nitrogen 17.9 mg/dL (9.0-27.0); Calcium 8.5 mg/dL (8.7-10.3); Carbon Dioxide 20.4 mmol/L (20.0-27.5); Globulin 3.2 g/dL (1.6-3.3); Magnesium 1.8 mg/dL (1.5-2.4); Non-African American GFR(CKD) 46.5 (60.0-200.0); Potassium 3.6 mmol/L (3.5-5.5); Total Bilirubin 0.9 mg/dL (0.30-1.20)
[2021-09-15 11:26] LABS: Glucose,Whole Blood 172 mg/dL (75-99)
[2021-09-15] MEDS: THIAMINE 100 MG TAB PO SCH (14:18)
[2021-09-15 16:43] LABS: Glucose,Whole Blood 177 mg/dL (75-99)
--- NOTE | 2021-09-15 17:43 | PN ---
PROGRESS NOTE Patient is seen for followup for acute kidney injury, mostly ATN. Renal function has been improving. Patient has had good urine output. Creatinine down to 1.5 from 1.8 on initial admission. Patient has an indwelling Byrd catheter. On examination today, blood pressure this morning was 154/75, heart rate of 78 per minute. He is afebrile. EXAMINATION OF THE HEART: S1 and S2. EXAMINATION OF LUNGS: Bilateral breath sounds are heard. Abdomen is soft, non-tender. Examination of lower extremities shows no significant edema. HOURLY SHIFT MANAGER EXAM: Grossly intact. Patient has been confused at times. Labs this morning show sodium 141, potassium 3.6, chloride 110, BUN 17.9, creatinine 1.5. ASSESSMENT: 1. Acute kidney injury, acute tubular necrosis, currently improved; possibly prerenal as well. 2. Chronic kidney disease, stage 3B. Previous creatinine has been as high as 175. This could be another episode of acute kidney injury, etiology nephrosclerosis, possibly underlying diabetic nephropathy as well. 3. Hypokalemia secondary to diuretics. 4. Edema associated with chronic liver disease, chronic kidney disease, low albumin, currently improved. 5. History of EtOH abuse and liver cirrhosis with ascites and portal hypertension. 6. Encephalopathy. Ammonia level was elevated; mostly hepatic encephalopathy, currently improved. PLAN: May remove Byrd catheter. Continue with p.o. Lasix. Continue to encourage increased oral intake. Monitor urine output and check bladder scan to rule out urine retention after the Byrd is removed. MMODL / IJN: [id number] /
--- NOTE | 2021-09-15 19:35 | P.PN ---
Subjective This is a pleasant 71 years old male from the [place] [facility]. With past medical history of Atrial Fibrillation, Diabetes Mellitus, GI Bleed, Hyperlipidemia, Hypertension, Sleep Apnea/CPAP/BIPAP, hypothyroidism, bilateral neuropathy, history of alcohol abuse. Rn Quality is Dr. Feng, while trying to follow-up with Dr. Moreno however she is waiting for [facility] due to [facility] office He was recently discharged from the hospital 07/01- 07/14 for altered mental status, possible alcohol withdrawal, elevated ammonia secondary to his alcoholic liver cirrhosis, UTI, MSSA bacteremia, possible seizure and he was started on Keppra. Also with urinary retention Also patient was admitted [facility] and was recently discharged f or elevated ammonia level. patient is poor historian and information were obtained from the at bedside As per patient was admitted to [facility] for a fall and broke his 2 ribs but found his problems are due to elevated hepatic ammonia, his level at that time was 136 and after treatment for 4 days level came down to 60 and he was discharged on the fifth day as per . He was discharged on lactulose 15 g twice a day Nayana he didn't have bowel movement as expected in the beginning until yesterday he had 3-4 bouts of bowel movements which were watery. However but that time he was getting more confused, he fell twice at home and was hard for him to get out of bed, his spe ech also affected by confusion, he was sitting only high when somebody talks to him. He was refusing to eat and drink so could not give him more lactulose when she was getting worse so she decided to bring him to the hospital However since he came in his mentation significantly improved although it is still confused. He open eyes spontaneously, he follows commands, he can answer some questions appropriately. He told me he is in the current hospital, he knew the year 2020 and the name of the president ximena oriented however he still looks chronically but however he denies any abdominal pain about his abdomen is slightly distended. As per he quit drinking alcohol since 06/27 of this year. No smoking or illicit drugs Also he denies any chest pain or coughing or dyspnea. No headache or weakness. Patient vitals looks stable and he is afebrile. Labs reviewed, he has anemia with hemoglobin 8.2 he has chronic anemia with hemoglobin ranging between 6-8 over the last 3 months. INR is 1.3. Sodium 142, potassium 3.4, creatinine 1.8 which is close to baseline of 1.7-2.3 Glucose 132 and 127. Liver enzymes normal with AST 38 and ALT 18. Urine analysis is negative. Serum alcohol less than 10. Coronavirus not detected EKG showing normal sinus rhythm at 93 with first-degree AV block and occasional PVC and PAC. Right bundle branch block, QTC 471 area, no significant ST-T bowden es EKG 2 months ago looks similar showing possible atrial fibrillation at 76 with right bundle branch block and QTC 567 Please note there is no GI coverage in this hospital over this weekend. 09/13/2021 Patient is alert and alert and oriented 3 like yesterday however his little bit more sleepy and drowsy compared to yesterday. His ammonia level went up 84 up to 103. He was placed on lactulose 30 g 4 times a day but he had no bowel movement, we'll give him another dose of lactulose today. Also we'll at rifaximin me. He has abdominal distention secondary to ascites. Abdominal ultrasound. IV fluids stopped. Consult IR team for possible paracentesis tomorrow. Other than that he is hemodynamically and labs are stable. Creatinine is stable at 1.7, hemoglobin 8.1. He kept on Lasix 40 mg daily and Aldactone 50 mg daily. Discussed case with nephrology team. 09/14/2021 Patient is more awake today. He was admitted with decompensated liver cirrhosis and hepatic encephalopathy which is gradually improving especially after his had 4-5 bowel movement yesterday. No bowel movement this morning when I saw him. He remains on lactulose 30 g 4 times a day. We will keep monitoring for bowel movement. Titrate for 3-4 bowel movements, also he is on rifaximin with GI team on the case recommend continued similar management and close outpatient follow- up. He is hemodynamically stable. No IV fluid and he kept on Lasix 40 mg by mouth daily and Aldactone 50 mg by mouth daily. Hemoglobin 7.5, creatinine 1.6 which are stable. Ammonia actually came down to 103 down to 79. He underwent paracentesis with 5.3 L removed. History of has Byrd catheter for urinary retention.. Flomax admitted, patient instructed to follow up outpatient with urologist and he agrees. Also patient has small area of cellulitis about 2 x 1" the left lower quadrant of the abdomen, no fever or leukocytosis. We added Keflex 09/15/2021 patient is clinically improving his more awake and alert. No abdominal pain, no other specific complaint Also his left lower abdominal abscess is significantly improved and responded to complex, although culture is pending patient most likely will discharge a short course of oral Keflex upon discharge Follow just recommended to discontinue Byrd catheter. Discussed with staff to check a bladder scan Ammonia level significantly improved down to 36 while he is on lactulose which is lowered from 4 times a day and to 3 times a day Ascites Fluid cytology specimen is negative for malignant cells and the ascites fluid which shows reactive mesothelial cells with scattered acute and chronic inflammatory cells and macrophages. Possible discharge in the morning if he keeps improving I discussed the case with Lacie employment case manager, is asking for possible hospice, I informed employment case manager patient is clinically improving and we don't recommend hospice at that time but he needs to follow up with his physician upon discharge Objective - Vital Signs Vital signs: Vital Signs Temp 97.9 F 09/15/21 14:51 Pulse 78 09/15/21 14:51 Resp 18 09/15/21 14:51 BP 129/69 09/15/21 14:51 Pulse Ox 98 09/15/21 14:51 Intake & Output 09/15/21 09/15/21 09/16/21 06:59 18:59 06:59 Output Total 1000 1100 Balance -1000 -1100 Weight 130 kg Output: Urine 1000 1100 Other: Voiding Method Indwelling Catheter Indwelling Catheter # Bowel Movements 1 - Exam -GENERAL: The patient is confused , although he is alert awake and oriented to time place and person, not in any acute distress. Well developed, well nourished. HEENT: Pupils are round and equally reacting to light. EOMI. No scleral icterus. No conjunctival pallor. Normocephalic, atraumatic. No pharyngeal erythema. No thyromegaly. CARDIOVASCULAR: S1 and S2 present. No murmurs, rubs, or gallops. PULMONARY: Chest is clear to auscultation, no wheezing or crackles. -ABDOMEN: Soft, nontender, distended, normoactive bowel sounds. No palpable organomegaly. 1 x 2" left lower quadrant area of cellulitis MUSCULOSKELETAL: No joint swelling or deformity. -EXTREMITIES: No cyanosis, clubbing,. A lateral pitting pedal edema. NEUROLOGICAL: Gross neurological examination did not reveal any focal deficits. SKIN: No rashes. No petechiae - Labs CBC & Chem 7: 09/15/21 05:38 09/15/21 05:38 Labs: Abnormal Lab Results - Last 24 Hours (Table) 09/14/21 09/15/21 09/15/21 Range/Units 20:44 05:30 05:38 WBC 4.17 L (4.50-10.00) X 10*3/uL RBC 2.45 L (4.40-5.60) X 10*6/uL Hgb 7.2 L (13.0-17.0) g/dL Hct 22.4 L (39.6-50.0) % RDW 16.1 H (11.5-14.5) % Plt Count 116 L (140-440) X 10*3/uL Chloride (96-109) mmol/L Est GFR (CKD-EPI)AfAm (60.0-200.0) Est GFR (CKD-EPI)NonAf (60.0-200.0) BUN/Creatinine Ratio (12.00-20.00) Ratio Glucose (70-110) mg/dL POC Glucose (mg/dL) 196 H (75-99) mg/dL Calcium (8.7-10.3) mg/dL Ammonia 36 H (<30) umol/L Total Protein (6.2-8.2) g/dL Albumin (3.8-4.9) g/dL Albumin/Globulin Ratio (1.60-3.17) g/dL 09/15/21 09/15/21 09/15/21 Range/Units 05:38 06:49 11:25 WBC (4.50-10.00) X 10*3/uL RBC (4.40-5.60) X 10*6/uL Hgb (13.0-17.0) g/dL Hct (39.6-50.0) % RDW (11.5-14.5) % Plt Count (140-440) X 10*3/uL Chloride 110 H (96-109) mmol/L Est GFR (CKD-EPI)AfAm 53.9 L (60.0-200.0) Est GFR (CKD-EPI)NonAf 46.5 L (60.0-200.0) BUN/Creatinine Ratio 11.93 L (12.00-20.00) Ratio Glucose 147 H (70-110) mg/dL POC Glucose (mg/dL) 148 H 172 H (75-99) mg/dL Calcium 8.5 L (8.7-10.3) mg/dL Ammonia (<30) umol/L Total Protein 6.0 L (6.2-8.2) g/dL Albumin 2.8 L (3.8-4.9) g/dL Albumin/Globulin Ratio 0.88 L (1.60-3.17) g/dL 09/15/21 Range/Units 16:42 WBC (4.50-10.00) X 10*3/uL RBC (4.40-5.60) X 10*6/uL Hgb (13.0-17.0) g/dL Hct (39.6-50.0) % RDW (11.5-14.5) % Plt Count (140-440) X 10*3/uL Chloride (96-109) mmol/L Est GFR (CKD-EPI)AfAm (60.0-200.0) Est GFR (CKD-EPI)NonAf (60.0-200.0) BUN/Creatinine Ratio (12.00-20.00) Ratio Glucose (70-110) mg/dL POC Glucose (mg/dL) 177 H (75-99) mg/dL Calcium (8.7-10.3) mg/dL Ammonia (<30) umol/L Total Protein (6.2-8.2) g/dL Albumin (3.8-4.9) g/dL Albumin/Globulin Ratio (1.60-3.17) g/dL Assessment and Plan Assessment: altered mental status, multifactorial, could be metabolic encephalopathy plus hepatic encephalopathy Alcoholic liver cirrhosis with elevated ammonia upon admission Left lower quadrant cellulitis, 1 x 2" in diameter Chronic kidney disease, stage III B History of urinary retention Diabetes mellitus Hypertension Hyperlipidemia History of sleep apnea Hypothyroidism Peripheral neuropathy secondary to diabetes History of alcohol abuse History of UTI and MSSA bacteremia history of possible seizure on Keppra Plan: This is a pleasant 71 years old male who presents with hepatic encephalopathy Continue with lactulose and rifaximin, adjust dose for bowel movements 3-4 times per day Discontinue IV fluids and continue with Lasix and Aldactone Nephrology team and GI team consult Follow-up fluid cytology results Follow-up wound culture. Continue with Keflex for his abdominal cellulitis. Continue with Byrd and Flomax. Follow up with urology as an outpatient Labs and medication were reviewed.. Continue same treatment. Continue with symptomatic treatment. Resume home medication. Monitor lytes and vitals. DVT and GI prophylaxis. Further recommendations depends on the clinical course of the patient DVT prophylaxis: Subcutaneous heparin GI Prophylaxis: Pepcid PT/OT: Pending Prognosis is guarded
[2021-09-15 20:51] LABS: Glucose,Whole Blood 220 mg/dL (75-99)
[2021-09-15] MEDS: FERROUS SULFATE 325 MG TAB PO SCH (20:53)
[2021-09-15] MEDS: ASPIRIN 81 MG PO SCH (20:53)
[2021-09-15] MEDS: PRAVASTATIN SODIUM 40 MG TAB PO SCH (20:53)
[2021-09-16] MEDS: LEVOTHYROXINE 75 MCG TAB PO SCH (05:35)
[2021-09-16 07:11] LABS: Glucose,Whole Blood 162 mg/dL (75-99)
[2021-09-16] MEDS: INSULIN ASPART (NovoLOG) 100 UNIT/ML VIAL SQ SCH ×2 (07:30→12:19)
[2021-09-16] MEDS: LACTULOSE 20 GM/30 ML CUP PO SCH ×2 (07:31→15:57)
[2021-09-16] MEDS: CEPHALEXIN 500 MG CAP PO SCH ×2 (07:31→15:55)
[2021-09-16] MEDS: levETIRAcetam 500 MG TAB PO SCH (07:31)
[2021-09-16 07:32] VITALS: PULSE 80
[2021-09-16] MEDS: SPIRONOLACTONE 25 MG TAB PO SCH (07:32)
[2021-09-16] MEDS: SODIUM BICARBONATE TAB 650 MG TAB PO SCH (07:32)
[2021-09-16] MEDS: FOLIC ACID 1 MG TAB PO SCH (07:32)
[2021-09-16] MEDS: METOPROLOL TARTRATE 25 MG TAB PO SCH (07:32)
[2021-09-16] MEDS: RIFAXIMIN 550 MG TABLET PO SCH (07:32)
[2021-09-16] MEDS: hydrALAZINE HCL 25 MG TAB PO SCH ×2 (07:32→15:55)
[2021-09-16] MEDS: TAMSULOSIN 0.4 MG CAP.ER.24H PO SCH (07:32)
[2021-09-16] MEDS: GABAPENTIN 100 MG CAP PO SCH ×2 (07:32→15:55)
[2021-09-16] MEDS: FUROSEMIDE 40 MG TAB PO SCH (07:33)
[2021-09-16] MEDS: allopurinoL 100 MG TAB PO SCH (07:37)
[2021-09-16] MEDS: PANTOPRAZOLE 40 MG/10 ML VIAL IV SCH (07:43)
[2021-09-16 11:28] LABS: Glucose,Whole Blood 246 mg/dL (75-99)
[2021-09-16 14:30] VITALS: BP 137/69; RESP 17; TEMP 97.6
--- NOTE | 2021-09-16 15:40 | P.PN ---
Subjective Progress Note Date: 09/16/21 Principal diagnosis: Hepatic encephalopathy This is a 71-year-old male who was admitted to the hospital with altered mental status changes. He was recently diagnosed with cirrhosis of the liver back in June of this year. Patient has a significant history of alcohol abuse for which he states he quit drinking in June according to his . At that time he had been hospitalized and began with altered mental status changes. He was noted to have elevation in his ammonia. On admission this time his ammonia level went as high as 104, he was started on lactulose 30 g 3-4 times a day. He his ammonia level this morning is 36. He is alert and oriented to person and place. He does have a history of chronic anemia and had a a hemoglobin today of 7.2. Labs are consistent with a normochromic normocytic anemia. Likely related to underlying liver disease. Yesterday he underwent paracentesis with 5.3 liters removed. Fluid studies shows a total protein 1260, fluid albumin less than 5 g. SAAG score cannot be calculated due to lab reports. Fluid cells 70. Acute hepatitis panel nonreactive. H 09/16/2021 Patient is seen as follow-up. He is alert and oriented. He denies any acute changes. Denies abdominal pain, nausea, or vomiting. Ammonia today was 53. He continues on lactulose 30 g 3 times a day. Plan is to be discharged home today. Objective - Vital Signs Vital signs: Vital Signs Temp 98.0 F 09/16/21 06:42 Pulse 80 09/16/21 06:42 Resp 18 09/16/21 06:42 BP 143/74 09/16/21 06:42 Pulse Ox 96 09/16/21 06:42 Intake & Output 09/15/21 09/16/21 09/16/21 18:59 06:59 18:59 Output Total 1100 183 Balance -1100 -183 Weight 129.5 kg Output: Urine 1100 Post Void Residual 183 Other: Voiding Method Indwelling Catheter Toilet # Voids 4 # Bowel Movements 2 - Exam General appearance: The patient is alert, oriented, appears in no acute distress. HET: Head is normocephalic and atraumatic. Conjunctiva pink. Sclera anicteric. Neck: Supple without lymphadenopathy. Abdomen: Soft, nontender, mildly distended with bowel sounds. No guarding or rigidity. Extremities: Normal skin color and turgor. No pedal edema Skin: No rashes, no jaundice Neurological: No focal deficits. Alert and oriented -3. - Labs CBC & Chem 7: 09/15/21 05:38 09/15/21 05:38 Labs: Abnormal Lab Results - Last 24 Hours (Table) 09/15/21 09/15/21 09/15/21 Range/Units 05:38 05:38 11:25 WBC 4.17 L (4.50-10.00) X 10*3/uL RBC 2.45 L (4.40-5.60) X 10*6/uL Hgb 7.2 L (13.0-17.0) g/dL Hct 22.4 L (39.6-50.0) % RDW 16.1 H (11.5-14.5) % Plt Count 116 L (140-440) X 10*3/uL Chloride 110 H (96-109) mmol/L Est GFR (CKD-EPI)AfAm 53.9 L (60.0-200.0) Est GFR (CKD-EPI)NonAf 46.5 L (60.0-200.0) BUN/Creatinine Ratio 11.93 L (12.00-20.00) Ratio Glucose 147 H (70-110) mg/dL POC Glucose (mg/dL) 172 H (75-99) mg/dL Calcium 8.5 L (8.7-10.3) mg/dL Ammonia (<30) umol/L Total Protein 6.0 L (6.2-8.2) g/dL Albumin 2.8 L (3.8-4.9) g/dL Albumin/Globulin Ratio 0.88 L (1.60-3.17) g/dL 09/15/21 09/15/21 09/16/21 Range/Units 16:42 20:49 05:20 WBC (4.50-10.00) X 10*3/uL RBC (4.40-5.60) X 10*6/uL Hgb (13.0-17.0) g/dL Hct (39.6-50.0) % RDW (11.5-14.5) % Plt Count (140-440) X 10*3/uL Chloride (96-109) mmol/L Est GFR (CKD-EPI)AfAm (60.0-200.0) Est GFR (CKD-EPI)NonAf (60.0-200.0) BUN/Creatinine Ratio (12.00-20.00) Ratio Glucose (70-110) mg/dL POC Glucose (mg/dL) 177 H 220 H (75-99) mg/dL Calcium (8.7-10.3) mg/dL Ammonia 53 H (<30) umol/L Total Protein (6.2-8.2) g/dL Albumin (3.8-4.9) g/dL Albumin/Globulin Ratio (1.60-3.17) g/dL 09/16/21 Range/Units 07:09 WBC (4.50-10.00) X 10*3/uL RBC (4.40-5.60) X 10*6/uL Hgb (13.0-17.0) g/dL Hct (39.6-50.0) % RDW (11.5-14.5) % Plt Count (140-440) X 10*3/uL Chloride (96-109) mmol/L Est GFR (CKD-EPI)AfAm (60.0-200.0) Est GFR (CKD-EPI)NonAf (60.0-200.0) BUN/Creatinine Ratio (12.00-20.00) Ratio Glucose (70-110) mg/dL POC Glucose (mg/dL) 162 H (75-99) mg/dL Calcium (8.7-10.3) mg/dL Ammonia (<30) umol/L Total Protein (6.2-8.2) g/dL Albumin (3.8-4.9) g/dL Albumin/Globulin Ratio (1.60-3.17) g/dL Microbiology - Last 24 Hours (Table) 09/13/21 17:45 Gram Stain - Final Abdomen Wound Culture - Final Assessment and Plan (1) Hepatic encephalopathy Narrative/Plan: 71-year-old male recently diagnosed with alcoholic cirrhosis of the liver. Patient was admitted in July of this year and underwent ultrasound of the abdomen showing heterogeneous liver with concerns for possible mass, he then underwent MRI that showed no concern for liver mass. However MRI was consistent with cirrhosis of liver. Patient has a history of significant alcohol abuse in the past and admits to quitting 4-5 weeks ago. He was recently admitted with altered mental status and again presented to the hospital with altered mental status changes. On admission he was noted to have pneumonia at 84. He is on lactulose and Xifaxan. Today he is alert and oriented 2. Patient likely has hepatic encephalopathy related to underlying alcoholic cirrhosis of the liver. Also noted to have ascites on ultrasound scheduled for paracentesis with 5.3 L removed. Hepatic encephalopathy improving. Patient remains on lactulose. Repeat ammonia level 36 today. Current Visit: Yes Status: Acute Code(s): K72.90 - HEPATIC FAILURE, UNSPECIFIED WITHOUT COMA SNOMED Code(s): 35231063 (2) Alcoholic cirrhosis of liver with ascites Narrative/Plan: He is currently on Aldactone 50 mg daily and Lasix 40 mg daily will continue at that dose. Patient scheduled for paracentesis with 5.3 L removed and fluid studies. Current Visit: Yes Status: Acute Code(s): K70.31 - ALCOHOLIC CIRRHOSIS OF LIVER WITH ASCITES SNOMED Code(s): 062463799 (3) ETOH abuse Current Visit: No Status: Acute Code(s): F10.10 - ALCOHOL ABUSE, UNCOMPLICATED SNOMED Code(s): 62367599 (4) Diabetes Current Visit: Yes Status: Acute Code(s): E11.9 - TYPE 2 DIABETES MELLITUS WITHOUT COMPLICATIONS SNOMED Code(s): 17325648 (5) Anemia Narrative/Plan: Patient underwent colonoscopy 03/12/2021 with findings of 3 diminutive polyps removed from the ileal cecal valve into transverse colon, moderate pandiverticulosis, internal hemorrhoids. Patient underwent EGD for [address] rAagon with findings of gastritis and patient has history of Guy-en-Y gastric bypass. Anemia likely related to chronic disease and underlying cirrhosis of the liver. Patient denies any active bleeding, no black stools, or blood in the stool. Current Visit: Yes Status: Acute Code(s): D64.9 - ANEMIA, UNSPECIFIED SNOMED Code(s): 727097363 Plan: 1. Continue symptomatic and supportive care 2. Continue lactulose 30 g 3 times a day and titrate to have 2-3 bowel movem ents a day 3. Continue Xifaxin 550 mg BID 4. Continue Lasix 40 mg daily and Aldactone 50 mg daily 5. Alcohol abstinence 6. Patient will need close outpatient follow-up 7. Patient is cleared for discharge by gastroenterology once otherwise medically stable Thank you for this consultation, we will continue to follow Dr. Arik Moreno I agree with the dictator's note, documented as a scribe by Daxa Bhagat.
[2021-09-16] MEDS: THIAMINE 100 MG TAB PO SCH (15:55)
--- NOTE | 2021-09-16 20:23 | PN ---
PROGRESS NOTE Patient is seen for followup for acute kidney injury. Renal function has been improving. Creatinine down to 1.5 as of yesterday. No labs available from today. This morning patient is comfortable. He is awake, not in any acute distress. He is upset that he has not had his bath yet. PHYSICAL EXAMINATION: This morning, blood pressure was 143/74, heart rate 80 per minute. He is afebrile. Examination of the heart S1, S2. Examination of the lungs, bilateral breath sounds are heard. Abdomen: Soft, obese, distended. Exam of lower extremities edema 1+ bilaterally. FIELD HAULER exam grossly intact. LAB: Show hemoglobin of 7.2 on September 15. Sodium 141, potassium 3.6, creatinine 1.5 on 09/15/2021. ASSESSMENT: 1. Acute kidney injury ATN as well as possibly prerenal currently improved. 2. Chronic kidney disease stage 3B. Previous creatinine as high as 1.75, previously with episodes of acute kidney injury, but component of underlying diabetic nephropathy and nephrosclerosis. 3. Hypokalemia, secondary to diuretics. 4. Edema associated with chronic liver disease, CKD, low albumin. 5. History of EtOH abuse and liver cirrhosis with ascites, portal hypertension. 6. Encephalopathy, currently improved. PLAN: Continue with oral Lasix. Monitor labs as an outpatient. MMODL / IJN: [id number] /
--- NOTE | 2021-09-16 23:42 | P.DS ---
Providers Date of admission: 09/12/21 12:57 Attending physician: Zafar Ventura MD Consults: 09/12/21 19:51 Consult Physician Routine Consulting Provider: Bryn Feng Consult Reason/Comments: kidney disease , known to your service Do you want consulting provider notified?: Yes, Notify in am 09/12/21 19:55 Consult Physician Routine Consulting Provider: Ann-Marie Moreno Consult Reason/Comments: liver cirrhosis with encephalopathy Do you want consulting provider notified?: Yes, Notify in am [facility]: Diagnoses: altered mental status, multifactorial, could be metabolic encephalopathy plus hepatic encephalopathy, improved and patient is back to his baseline Alcoholic liver cirrhosis with elevated ammonia upon admission , ammonia improved upon discharge Left lower quadrant cellulitis, 1 x 2" in diameter. Significantly improved on Keflex Urinary retention needed replaced Byrd catheter and. Patient instructed to follow up with urologist and he agrees Chronic kidney disease, stage III B History of urinary retention Diabetes mellitus Hypertension Hyperlipidemia History of sleep apnea Hypothyroidism Peripheral neuropathy secondary to diabetes History of alcohol abuse History of UTI and MSSA bacteremia history of possible seizure on [facility] course: This is a pleasant 71 years old male from the [place] [facility]. With past medical hi story of Atrial Fibrillation, Diabetes Mellitus, GI Bleed, Hyperlipidemia, Hypertension, Sleep Apnea/CPAP/BIPAP, hypothyroidism, bilateral neuropathy, history of alcohol abuse. Latexer is Dr. Feng, while trying to follow-up with Dr. Moreno however she is [facility] He was recently discharged from the hospital 07/01- 07/14 for altered mental status, possible alcohol withdrawal, elevated ammonia secondary to his alcoholic liver cirrhosis, UTI, MSSA bacteremia, possible seizure and he was started on Keppra. Also with urinary retention Also patient was admitted [facility] and was recently discharged for elevated ammonia level. She was treated with lactulose 30 g 4 times a day and he started having 3-5 bowel movement each day and ammonia levels are coming down and his mentation improved back to his baseline. On the day of discharge today he knows he is in [facility] he told me he did exactly and he knew the name of the president Adriel. Also he was aware about his illness. I discussed with him problem and management and he agreed. His paracentesis removed 5.3 L and he feels better. Patient continued on his home medication of Lasix 40 by mouth daily and Aldactone 50 mg by mouth daily Also he has a small area of cellulitis in the left lower quadrant which is responding significantly to Keflex. Patient will be discharged on short course upon discharge Other than that he is been evaluated by GI team and case aide and both services have cleared him for discharge but he needs close outpatient follow-up Last admission Byrd catheter was placed for urinary retention. During this admission also had urinary retention and Byrd catheter was placed in the emergency room. Later during the course it was taken out however today postvoid residual was more than 400 and has to be replaced again for the third time. Patient was instructed to follow up with urologist Dr. Woodward outpatient and he agrees. Risks and benefits are explained and he verbalized understanding Problems and management plan were discussed with the patient and he verbalized understanding and acceptance Patient was found stable and can be discharged home however he needs follow-up as an outpatient. Patient was instructed to follow up with PCP within one week and patient agrees Physical exam Gen: patient is a AAOx3, no distress CVS: S1-S2, RRR, no murmur Lungs: B/L CTA, no wheezing -Abdomen: soft, mild abdominal distention, no tenderness, positive bowel sounds -Extremity: Mild bilateral pitting leg edema or induration Time spent more than 35 minutes Patient Condition at Discharge: Serious Plan - Discharge Summary New Discharge Prescriptions: New Lactulose [Cephulac] 30 gm PO TID 30 Days #8 oz Cephalexin [Keflex] 500 mg PO BID 3 Days #6 cap Spironolactone [Aldactone] 50 mg PO DAILY #60 tab Rifaximin [Xifaxan] 550 mg PO BID 15 Days #15 tablet Continue Levothyroxine Sodium [Synthroid] 75 mcg PO DAILY Allopurinol [Zyloprim] 200 mg PO DAILY Folic Acid 1 mg PO DAILY Gabapentin [Neurontin] 100 mg PO TID@0900,1500,2100 hydrALAZINE HCL [Apresoline] 25 mg PO TID@0900,1500,2100 Multivitamins, Thera [Multivitamin (formulary)] 1 tab PO DAILY Sodium Bicarbonate Tab 325 mg PO DAILY Spironolactone [Aldactone] 50 mg PO DAILY Pravastatin Sodium [Pravachol] 40 mg PO HS Potassium Chloride ER [K-Dur 10] 10 meq PO DAILY Pantoprazole [Protonix] 20 mg PO HS Metoprolol Tartrate [Lopressor] 25 mg PO BID Furosemide [Lasix] 40 mg PO DAILY #30 tab Fluticasone Nasal [place] [Flonase Nasal [place]] 2 spr EA NOSTRIL DAILY levETIRAcetam [Keppra] 500 mg PO DAILY Tamsulosin [Flomax] 0.4 mg PO BID Thiamine [Vitamin B-1] 100 mg PO DAILY@1500 Ferrous Sulfate [Iron (65 MG Elemental)] 325 mg PO HS Aspirin EC [Ecotrin Low Dose] 81 mg PO HS Changed Insulin Glargine,Hum.rec.anlog [Lantus Solostar Pen] 5 unit SQ DAILY #10 ml Discontinued Lactulose 20 gm PO TID@0900,1500,2100 Discharge Medication List Levothyroxine Sodium [Synthroid] 75 mcg PO DAILY 01/10/19 [History] Allopurinol [Zyloprim] 200 mg PO DAILY 09/11/20 [History] Fluticasone Nasal [place] [Flonase Nasal [place]joy] 2 spr EA NOSTRIL DAILY 07/01/21 [History] Folic Acid 1 mg PO DAILY 07/30/21 [History] Gabapentin [Neurontin] 100 mg PO TID@0900,1500,2100 07/30/21 [History] Multivitamins, Thera [Multivitamin (formulary)] 1 tab PO DAILY 07/30/21 [History] Sodium Bicarbonate Tab 325 mg PO DAILY 07/30/21 [History] Tamsulosin [Flomax] 0.4 mg PO BID 07/30/21 [History] Thiamine [Vitamin B-1] 100 mg PO DAILY@1500 07/30/21 [History] hydrALAZINE HCL [Apresoline] 25 mg PO TID@0900,1500,2100 07/30/21 [History] levETIRAcetam [Keppra] 500 mg PO DAILY 07/30/21 [History] Aspirin EC [Ecotrin Low Dose] 81 mg PO HS 09/12/21 [History] Ferrous Sulfate [Iron (65 MG Elemental)] 325 mg PO HS 09/12/21 [History] Metoprolol Tartrate [Lopressor] 25 mg PO BID 09/12/21 [History] Pantoprazole [Protonix] 20 mg PO HS 09/12/21 [History] Potassium Chloride ER [K-Dur 10] 10 meq PO DAILY 09/12/21 [History] Pravastatin Sodium [Pravachol] 40 mg PO HS 09/12/21 [History] Spironolactone [Aldactone] 50 mg PO DAILY 09/12/21 [History] Cephalexin [Keflex] 500 mg PO BID 3 Days #6 cap 09/16/21 [Rx] Furosemide [Lasix] 40 mg PO DAILY #30 tab 09/16/21 [Rx] Insulin Glargine,Hum.rec.anlog [Lantus Solostar Pen] 5 unit SQ DAILY #10 ml 09/16/21 [Rx] Lactulose [Cephulac] 30 gm PO TID 30 Days #8 oz 09/16/21 [Rx] Rifaximin [Xifaxan] 550 mg PO BID 15 Days #15 tablet 09/16/21 [Rx] Spironolactone [Aldactone] 50 mg PO DAILY #60 tab 09/16/21 [Rx] Follow up Appointment(s)/Referral(s): [facility] [NON-STAFF] - (Please call [facility] if you have questions about the equipment. ) Scott Sanders DO [REFERRING] - 1 Week (office will call with appointment time) Ann-Marie Moreno MD [STAFF PHYSICIAN] - 09/30/21 3:00 pm [facility] [NON-STAFF] - Bryn Feng DO [STAFF PHYSICIAN] - 2 Weeks (Latexer. Office not ans wering Please call to make appointment ) Cheko Calixto MD [STAFF PHYSICIAN] - 10 Days (Urologist for your urinary retention office not answering Please call to schedule appointment ) Activity/Diet/Wound Care/Special Instructions: low carbohydrate diet 1800 kcal per day please keep fluid restriction about 1 -1.5 L per day , salt restriction keep bowel movements in 3-4 bouts per day activity is restricted till you see your doctor we recommend to check your glucose four times a day before each meal and at bed time, please keep the results in a log book and bring it to your doctor on your appointment date if your glucose is less than 70 or more than 400 then call your doctor or 911 and come to the emergency room Discharge Disposition: HOME WITH HOME HEALTH SERVICES
[2021-09-17] MEDS ORDERED: PANTOPRAZOLE 40 MG TABLET PO SCH (07:30)
== END 2021-09-16 16:22 | disposition home health service (06) | DRG 441 ==
LOC: EC 09:26 → 5NMEDONC 12:57 → 4SSUR 09-13 00:30
PROVIDERS: ADMIT Internal Medicine; ATTEND Internal Medicine
PROC: 0W9G3ZX Drainage of Peritoneal Cavity, Percutaneous Approach, Diagnostic (ICD-10-PCS; principal; 2021-09-14)
DX: K72.90 Hepatic failure, unspecified without coma (principal); G93.41 Metabolic encephalopathy; J18.9 Pneumonia, unspecified organism; N17.0 Acute kidney failure with tubular necrosis; K76.6 Portal hypertension; L03.311 Cellulitis of abdominal wall; E11.22 Type 2 diabetes mellitus with diabetic chronic kidney disease; I12.9 Hypertensive chronic kidney disease with stage 1 through stage 4 chronic kidney disease, or unspecified chronic kidney disease; N18.32 Chronic kidney disease, stage 3b; D63.1 Anemia in chronic kidney disease; D73.1 Hypersplenism; E03.9 Hypothyroidism, unspecified; E11.42 Type 2 diabetes mellitus with diabetic polyneuropathy; E78.5 Hyperlipidemia, unspecified; E87.6 Hypokalemia; F10.21 Alcohol dependence, in remission; G47.33 Obstructive sleep apnea (adult) (pediatric); I44.0 Atrioventricular block, first degree; I48.91 Unspecified atrial fibrillation; K29.70 Gastritis, unspecified, without bleeding; K70.31 Alcoholic cirrhosis of liver with ascites; K80.20 Calculus of gallbladder without cholecystitis without obstruction; R33.9 Retention of urine, unspecified; Z20.822 Contact with and (suspected) exposure to COVID-19; K64.9 Unspecified hemorrhoids; K57.30 Diverticulosis of large intestine without perforation or abscess without bleeding; R56.9 Unspecified convulsions; T50.2X5A Adverse effect of carbonic-anhydrase inhibitors, benzothiadiazides and other diuretics, initial encounter; Z91.81 History of falling; Z79.82 Long term (current) use of aspirin; Z79.890 Hormone replacement therapy; Z79.899 Other long term (current) drug therapy; Z80.7 Family history of other malignant neoplasms of lymphoid, hematopoietic and related tissues; Z87.19 Personal history of other diseases of the digestive system; Z87.440 Personal history of urinary (tract) infections; Z87.891 Personal history of nicotine dependence; Z96.642 Presence of left artificial hip joint; Z98.84 Bariatric surgery status; Z98.890 Other specified postprocedural states; Z80.8 Family history of malignant neoplasm of other organs or systems; Z80.1 Family history of malignant neoplasm of trachea, bronchus and lung; Z86.010 Personal history of colon polyps; Z79.4 Long term (current) use of insulin
CPT/HCPCS: 36415; 49083; 70450; 71046; 76705; 80048; 80053; 80074; 80076; 80320; 81003; 82042; 82140; 82550; 83540; 83550; 83735; 84157; 84484; 85025; 85610; 85730; 87070; 87075; 87205; 87635; 88108; 88305; 89050; 93005; 99285